=== PATIENT | female | born 1940 | race Caucasian/White ===

== ENCOUNTER 2018-04-14 11:55 | Day surgery (SDC) | payer OTHER ==
--- OUTSIDE RECORDS SUMMARY | 2018-04-14 11:58 | XMS REPORT ---
:1940 [facility] Address [address] [place] [address] Dr. Bergeron [address] [place] [id number] Care Team Providers Name Role Phone UNKNOWN, REFFERING Primary Care Provider Unavailable ALEX FONTANEZ M.D. Unavailable Unavailable Problems This patient has no known problems. Allergies, Adverse Reactions, Alerts This patient has no known allergies or adverse reactions. Medications This patient has no known medications.
[2018-04-14] MEDS ORDERED: BUPIVACAINE 0.25% PF 10 ML VIAL ONE (12:13)
[2018-04-14] MEDS ORDERED: CYCLOPENTOLATE 1% OPTH 2 ML ONE (12:13)
[2018-04-14] MEDS ORDERED: LIDOCAINE 2% MPF 5 ML VIAL ONE ×2 (12:13→13:13)
[2018-04-14] MEDS ORDERED: NA CHLORIDE 0.9% 500 ML ONE ×2 (12:13→13:17)
[2018-04-14] MEDS ORDERED: TETRACAINE HCL 0.5% 2ML OPTH ONE (12:13)
[2018-04-14] MEDS ORDERED: PHENYLEPHRINE 10% OPTH 5ML ONE (12:14)
[2018-04-14] MEDS ORDERED: CYCLOPENTOLATE 1% OPTH 2 ML OPTH ONE ×2 (12:25→12:30)
[2018-04-14] MEDS ORDERED: PHENYLEPHRINE 10% OPTH 5ML OPTH ONE ×2 (12:25→12:30)
[2018-04-14] MEDS ORDERED: PROPOFOL 200 MG/20 ML VIAL IV ONE (13:13)
[2018-04-14] MEDS ORDERED: NS 0.9% VIAL 10 ML ONE (13:29)
[2018-04-14] MEDS ORDERED: EPINEPHRINE/PF 1 MG/ML AMP ONE (13:29)
[2018-04-14] MEDS ORDERED: MOXIFLOXACIN HCL 10 DROPS/ML **OR USE OPTH ONE (13:29)
[2018-04-14] MEDS ORDERED: BALANCED SALT IRRIG PLAIN 500 ML BTL IRR ONE (13:29)
[2018-04-14] MEDS ORDERED: DUOVISC 1 KIT OPTH ONE (13:29)
--- NOTE | 2018-04-14 13:57 | P.BOP ---
Preoperative diagnosis: Nuclear sclerotic cataract OS Postoperative diagnosis: Same Primary procedure: Phacoemulsification with IOL OS Estimated blood loss: None Anesthesia: Local (Subtenon's infusion with anesthesia for cataract surgery) Complications: None Implants: ZCB00 +22.5 Transferred to: Other (Day surgery) Condition: Good
--- NOTE | 2018-04-15 00:45 | OP ---
Date of Procedure: 04/14/2018 Surgeon: Laurie Llanes MD Anesthesiologist: Alyson Garcia C.R.N.A. and Raul Ulloa M.D. Preoperative Diagnosis: Nuclear sclerotic cataract, left eye. Operation Performed: Phacoemulsification with intraocular lens implant, left eye. Anesthesia: Per cataract surgery Complications: None. Description Of Procedure: In day surgery, the patient was prepped with Betadine and draped. A conju nctival incision was made in the inferior nasal quadrant with Rebecca scissors. A sub-Tenon block c onsisting of a 1:1 mixture of 2% Xylocaine and 0.25% bupivacaine was placed through the conjunctival incision with a blunt cannula. A Honan balloon was placed over the eye and the patient was transferr ed to the operating room. In the operating room the patient was prepped and draped in the usual sterile fashion for ophthalmic surgery. A lid speculum was placed in the left eye. Two paracentesis sites were made superiorly and inferiorly in the limbal cornea. Viscoat was placed in the anterior chamber and a crescent blade wa s used to make a corneal groove and tunnel, and a keratome was used to enter the anterior chamber. P rovisc was placed in the anterior chamber and a 360 degree capsulotomy was performed with a cystitome . The lens was hydrodissected with BSS and rotated freely. The lens was removed with a stop and cho p technique. A 17.42 phaco CDE was used to remove the lens. Residual cortex was removed with the ir rigation and aspiration. Provisc was placed in the capsular bag. A ZCB00 +22.0 lens was placed in t he capsular bag without complications. Irrigation and aspiration were used to remove residual viscoe lastic. The paracentesis sites were hydrated with BSS. The wound and paracentesis sites were inspec jolly and found to be watertight. Vigamox 0.07 cc was placed intracamerally at the end of the procedur e. The eye was irrigated with balanced salt solution. The eye was patched with a soft cotton patch and Lee metal shield. The patient was returned to day surgery in good condition. Discharge Instructions: Ms. Del Cid is discharged to home in good condition and is to follow up with Dr. Llanes in the morning. ESTEPHANIE/ROSITA Voice ID: [id number] Report ID: [id number]
== END 2018-04-14 14:18 | disposition home or self-care (01) ==
LOC: OR 11:55
PROVIDERS: ATTEND Ophthalmology Retina Specialist
PROC: 08RK3JZ Replacement of Left Lens with Synthetic Substitute, Percutaneous Approach (ICD-10-PCS; principal; 2018-04-14 11:30)
DX: H25.12 Age-related nuclear cataract, left eye (principal); H35.3130 Nonexudative age-related macular degeneration, bilateral, stage unspecified; F17.200 Nicotine dependence, unspecified, uncomplicated
CPT/HCPCS: 66984; J0171; J2704

== ENCOUNTER 2018-05-24 11:34 | Emergency (ER) | payer OTHER ==
--- OUTSIDE RECORDS SUMMARY | 2018-05-24 11:36 | XMS REPORT ---
:1940 [facility] Address [address] [place] [address] Dr. Bergeron [address] [place] [id number] Care Team Providers Name Role Phone UNKNOWN, REFFERING Primary Care Provider Unavailable ALEX FONTANEZ M.D. Unavailable Unavailable Problems This patient has no known problems. Allergies, Adverse Reactions, Alerts This patient has no known allergies or adverse reactions. Medications This patient has no known medications.
--- NOTE | 2018-05-24 12:52 | RAD REPORT ---
EXAM DESCRIPTION: RAD - Chest Single View - 05/24/2018 12:45 pm CLINICAL HISTORY: abdominal pain Chest pain. COMPARISON: Chest Single View dated 05/07/2017; Abdomen 1 View (KUB) dated 05/05/2017; Abdomen Acute S eries dated 05/04/2017; CHEST PA AND LAT 2 VIEW dated 06/08/2010 FINDINGS: Portable technique limits examination quality. The lungs are grossly clear. The heart is normal in size. No displaced fractures. IMPRESSION: No acute intrathoracic process suspected.
[2018-05-24] MEDS ORDERED: FENTANYL CITR 100 MCG/2 ML ONE (12:56)
[2018-05-24] MEDS ORDERED: NA CHLORIDE 0.9% 500 ML ONE (12:56)
[2018-05-24] MEDS ORDERED: ONDANSETRON 4 MG/2 ML VIAL ONE (12:56)
[2018-05-24 13:14] LABS: Absolute Lymphocytes (CBC) 1.5 K/uL (0.7-4.9); Absolute Monocytes 0.8 K/uL (0.1-1.3); Absolute Neutrophil 9.5 K/uL (1.8-8.0); Basophils % 0.6 % (0-1.3); Eosinophils % 1.3 % (0-4.4); Hematocrit 44.2 % (36.0-45.0); Lymphocytes % 12.5 % (15.3-44.8); MPV 7.9 fL (7.6-11.3); Monocytes % 6.9 % (3.3-12.3); RBC Red Blood Cell Count 4.73 M/uL (3.86-4.86)
[2018-05-24 13:31] LABS: ALT/SGPT 12 U/L (12-78); AST/SGOT 13 U/L (15-37); Alkaline Phosphatase 99 U/L (45-117); BUN Blood Urea Nitrogen 12 mg/dL (7-18); Bicarbonate 29 mmol/L (21-32); Bilirubin Direct < 0.1 mg/dL (0-0.2); Bilirubin Total 0.2 mg/dL (0.2-1.0); Glucose Level 182 mg/dL (74-106); Lipase 159 U/L (73-393); Potassium 3.7 mmol/L (3.5-5.1); Protein, Total 6.9 g/dL (6.4-8.2); Sodium Level 142 mmol/L (136-145)
[2018-05-24 13:33] LABS: Troponin I < 0.02 ng/mL (0.0-0.045)
--- NOTE | 2018-05-24 15:00 | RAD REPORT ---
EXAM DESCRIPTION: CTAbdomen Pelvis W Contrast - 05/24/2018 2:46 pm CLINICAL HISTORY: Abdominal pain. lower abdomen pain COMPARISON: Abdomen Pelvis W Contrast dated 05/01/2017 TECHNIQUE: Biphasic CT imaging of the abdomen and pelvis was performed with 100 ml non-ionic IV cont rast. All CT scans are performed using dose optimization technique as appropriate and may include automated exposure control or mA/KV adjustment according to patient size. FINDINGS: The lung bases are clear. Diffuse fatty liver is present. No focal lesion or intrahepatic biliary dilatation. The spleen, pancr eas, adrenal glands are normal. Both kidneys contain bilateral cysts without hydronephrosis. No bowel obstruction, free air, free fluid or abscess. Prominent sigmoid diverticulosis is seen with mild wall thickening. Mild colitis or early diverticulitis is possible. The appendix is not identifie d as a discrete structure, however, no secondary findings of appendicitis are identified. Small fat containing umbilical hernia. No evidence of significant lymphadenopathy. No suspicious bony findings. IMPRESSION: Mild mucosal and mural thickening of the rectosigmoid colon or multiple diverticula note d. The findings may indicate an early/mild diverticulitis or colitis.
[2018-05-24 15:52] LABS: Urine Bacteria <20 /HPF (<20); Urine Culture Reflex Order REFLEXED; Urine RBC <5 /HPF (NONE SEEN)
[2018-05-24 15:54] LABS: Urine Blood NEGATIVE (NEG); Urine Glucose NEGATIVE (NEG); Urine Protein NEGATIVE (NEG)
[2018-05-24] MEDS ORDERED: HYDROCODONE/APAP 5/325 MG TAB ONE (16:08)
[2018-05-24] MEDS ORDERED: CIPROFLOXACIN HCL 500 MG TAB ONE (16:08)
--- NOTE | 2018-05-24 16:12 | ER ---
Nurse's Notes [facility] Name: Shanae Del Cid Age: 77 yrs Sex: Female : 1940 Arrival Date: 05/24/2018 Time: 11:38 Bed 18 Private MD: Art Daly T Diagnosis: Diverticulitis of large intestine without perforation or abscess without bleeding-Sigmoid Presentation: 05/24 11:41 Presenting complaint: Patient states: i have stomach cramps started 4 days ago, today i hj almost passed out; reports diarrhea, reports nausea; denies fever and chills; took Imodium 2 days ago;. Transition of care: patient was not received from another setting of care. Onset of symptoms was May 24, 2018. Risk Assessment: Do you want to hurt yourself or someone else? Patient reports no desire to harm self or others. Initial Sepsis Screen: Does the patient meet any 2 criteria? Yes Does the patient have a suspected source of infection? Yes:. Care prior to arrival: None. 11:41 Method Of Arrival: Ambulatory 11:41 Acuity: CONNER 3 hj Triage Assessment: 11:43 General: Appears in no apparent distress. uncomfortable, Behavior is calm, cooperative, hj appropriate for age. Pain: Complains of pain in abdomen Pain currently is 8 out of 10 on a pain scale. GI: Reports lower abdominal pain, upper abdominal pain, diarrhea, nausea. Historical: - Allergies: 11:43 No Known Allergies; hj - PMHx: 11:43 eye disease; hj - PSHx: 11:43 Hysterectomy; Appendectomy; Tonsillectomy; hj - Immunization history:: Adult Immunizations up to date. - Social history:: Smoking status: Patient/guardian denies using tobacco, Patient/guardian denies using alcohol. - Ebola Screening: : Patient negative for fever greater than or equal to 101.5 degrees Fahrenheit, and additional compatible Ebola Virus Disease symptoms Patient denies exposure to infectious person Patient denies travel to an Ebola-affected area in the 21 days before illness onset. Screenin:43 Abuse screen: Denies threats or abuse. Denies injuries from another. Nutritional hj screening: No deficits noted. Tuberculosis screening: No symptoms or risk factors identified. Fall Risk None identified. Assessment: 11:44 GI: hj 12:30 General: Appears in no apparent distress. comfortable, Behavior is calm, cooperative, em Denies fever. Pain: Complains of pain in abdomen Pain currently is 2 out of 10 on a pain scale. Quality of pain is described as crampy, Pain began 2-3 days ago. Is intermittent. Neuro: Level of Consciousness is awake, alert, obeys commands, Oriented to person, place, time, situation, Rn Home Health are equal bilaterally Moves all extremities. Gait is steady, Speech is normal, Facial symmetry appears normal, Pupils are PERRLA, Intact Reports dizziness, weakness. Cardiovascular: Denies chest pain, Capillary refill < 3 seconds Patient's skin is warm and dry. Respiratory: Airway is patent Respiratory effort is even, unlabored, Respiratory pattern is regular, symmetrical. GI: Abdomen is round Bowel sounds present X 4 quads. Abd is soft X 4 quads Abdomen is tender to palpation X 4 quads. Reports bloating, nausea, Patient currently denies vomiting. : Denies burning with urination. Derm: Skin is intact, is healthy with good turgor, Skin is pink, warm \T\ dry. Musculoskeletal: Range of motion: intact in all extremities. 12:45 Reassessment: Patient appears in no apparent distress at this time. i agree with above iw assessment by Santhosh Macias LVN. 13:15 Reassessment: Patient appears in no apparent distress at this time. Patient and/or em family updated on plan of care and expected duration. Pain level reassessed. Patient is alert, oriented x 3, equal unlabored respirations, skin warm/dry/pink. finished drinking PO contrast, CT notified. 13:50 Reassessment: Patient appears in no apparent distress at this time. Patient and/or em family updated on plan of care and expected duration. Pain level reassessed. Patient is alert, oriented x 3, equal unlabored respirations, skin warm/dry/pink. ambulated to the restroom with steady gait, pending CT, rates pain 04/17. 15:00 Reassessment: Patient appears in no apparent distress at this time. Patient and/or em family updated on plan of care and expected duration. Pain level reassessed. Patient is alert, oriented x 3, equal unlabored respirations, skin warm/dry/pink. Patient states feeling better. 16:00 Reassessment: Patient appears in no apparent distress at this time. Patient and/or em family updated on plan of care and expected duration. Pain level reassessed. Patient is alert, oriented x 3, equal unlabored respirations, skin warm/dry/pink. pending completion of IV ABX. Vital Signs: 11:44 BP 107 / 57; Pulse 86; Resp 18; Temp 98.0(O); Pulse Ox 98% on R/A; Weight 61.69 kg; hj Height 4 ft. 8 in. (142.24 cm); Pain 8/10; 12:45 BP 133 / 52 Supine; Pulse 65; em 12:45 BP 127 / 54 Sitting; Pulse 70; em 12:45 BP 112 / 54 Standing; Pulse 79; em 13:50 BP 139 / 60; Pulse 66; Resp 16 S; Pulse Ox 96% on R/A; Pain 1/10; em 15:00 BP 156 / 58; Pulse 69; Resp 16; Pulse Ox 98% on R/A; em 16:00 BP 156 / 53; Pulse 64; Resp 18; Pulse Ox 98% on R/A; em 11:44 Body Mass Index 30.49 (61.69 kg, 142.24 cm) ED Course: 11:38 Patient arrived in ED. rg4 11:38 Art Daly MD is Private Physician. rg4 11:42 Triage completed. hj 11:43 Arm band placed on right wrist. hj 11:44 Patient has correct armband on for positive identification. Placed in gown. Bed in low hj position. Call light in reach. Side rails up X 1. Adult w/ patient. 12:04 Santhosh Macias LVN is Primary Nurse. em 12:16 Donovan Weinstein PA is PHCP. cp 12:16 Alexander Olivarez MD is Attending Physician. cp 12:48 XRAY Chest (1 view) In Process Unspecified. EDMS 13:00 Initial lab(s) drawn, by ne, sent to lab. Inserted saline lock: 20 gauge in right em antecubital area, using aseptic technique. Blood collected. 13:06 EKG done, by ED staff, reviewed by Donovan CUMMINS. 5 14:46 CT completed. Patient tolerated procedure well. Patient moved back from CT. mw3 14:46 CT Abd/Pelvis - W/Contrast: give oral contrast In Process Unspecified. EDMS 16:10 Art Daly MD is Referral Physician. cp 17:05 No provider procedures requiring assistance completed. IV discontinued, intact, em bleeding controlled, No redness/swelling at site. Pressure dressing applied. Administered Medications: 13:05 Drug: NS 0.9% 500 ml Route: IV; Rate: bolus; Site: right antecubital; em 14:18 Follow up: IV Status: Completed infusion; IV Intake: 500ml em 13:07 Drug: fentaNYL (PF) 25 mcg Route: IVP; Site: right antecubital; iw 13:53 Follow up: Response: No adverse reaction; Temperature is decreased em 13:07 Drug: Zofran 4 mg Route: IVP; Site: right antecubital; iw 13:53 Follow up: Response: No adverse reaction; Nausea is decreased em 15:55 Drug: metroNIDAZOLE 500 mg Volume: 100 ml; Route: IVPB; Infused Over: 30 mins; Site: em right antecubital; 17:00 Follow up: Response: No adverse reaction; IV Status: Completed infusion; IV Intake: em 100ml 16:00 Drug: Cipro 500 mg Route: PO; em 17:00 Follow up: Response: No adverse reaction em 16:00 Drug: HYDROcodone-acetaminophen 5 mg-325 mg 1 tabs Route: PO; em 17:00 Follow up: Response: No adverse reaction em Intake: 14:18 IV: 500ml; Total: 500ml. em 17:00 IV: 100ml; Total: 600ml. em Outcome: 16:11 Discharge ordered by MD. cp 17:05 Discharged to home ambulatory, with family. em 17:05 Condition: good 17:05 Discharge instructions given to patient, family, Instructed on discharge instructions, follow up and referral plans. medication usage, Demonstrated understanding of instructions, follow-up care, medications, Prescriptions given X 3. 17:07 Patient left the ED. em Signatures: Dispatcher [employer] EDMS Santhosh Macias, ACCOUNTANT ACCOUNTANT em Dedra Martinez RN RN iw Joaquin, Henry, RN RN hj Page, Corey, PA PA cp Garcia, Rubi rg4 Madalyn Leon 5 Halima Fox mw3 Corrections: (The following items were deleted from the chart) 11:46 11:44 Pulse 86bpm; Resp 18bpm; Pulse Ox 98% RA; Temp 98.0F Oral; 61.69 kg; Height 4 ft. hj 8 in.; BMI: 30.4; Pain 11/15; hj 13:53 13:53 Response: No adverse reaction; Nausea is decreased em em
--- NOTE | 2018-05-24 16:13 | EDPHYS ---
Physician Documentation [facility] Name: Shanae Del Cid Age: 77 yrs Sex: Female : 1940 Arrival Date: 05/24/2018 Time: 11:38 Bed 18 Private MD: Art Daly T ED Physician Alexander Olivarez HPI: 05/24 12:35 This 77 yrs old Female presents to ER via Ambulatory with complaints of cp Abdominal Cramping, Weakness. 12:35 The patient presents with abdominal pain in the lower abdomen. cp 12:35 Onset: The symptoms/episode began/occurred 4 day(s) ago. The symptoms do not radiate. cp Associated signs and symptoms: Pertinent positives: diarrhea, Pertinent negatives: anorexia, blood in stools, constipation, dysuria, fever, vomiting. The symptoms are described as waxing/waning. Modifying factors: the symptoms are aggravated by pressure. Historical: - Allergies: 11:43 No Known Allergies; hj - PMHx: 11:43 eye disease; hj - PSHx: 11:43 Hysterectomy; Appendectomy; Tonsillectomy; hj - Immunization history:: Adult Immunizations up to date. - Social history:: Smoking status: Patient/guardian denies using tobacco, Patient/guardian denies using alcohol. - Ebola Screening: : Patient negative for fever greater than or equal to 101.5 degrees Fahrenheit, and additional compatible Ebola Virus Disease symptoms Patient denies exposure to infectious person Patient denies travel to an Ebola-affected area in the 21 days before illness onset. ROS: 12:40 Constitutional: Negative for body aches, chills, fever, poor PO intake. cp 12:40 Eyes: Negative for injury, pain, redness, and discharge. cp 12:40 ENT: Negative for drainage from ear(s), ear pain, sore throat, difficulty swallowing, difficulty handling secretions. 12:40 Cardiovascular: Negative for chest pain, edema, palpitations. 12:40 Respiratory: Negative for cough, shortness of breath, wheezing. 12:40 Abdomen/GI: Positive for abdominal pain, nausea, diarrhea, Negative for vomiting, constipation, anorexia, black/tarry stool, rectal bleeding. 12:40 Back: Negative for pain at rest, pain with movement, radiated pain. 12:40 : Negative for urinary symptoms. 12:40 Neuro: Positive for dizziness, near syncope, Negative for altered mental status, headache, weakness. 12:40 All other systems are negative. Exam: 12:45 Constitutional: The patient appears in no acute distress, alert, awake, cp non-diaphoretic, non-toxic, well developed, well nourished, uncomfortable. 12:45 Head/Face: Normocephalic, atraumatic. Eyes: Pupils equal round and reactive to light, cp extra-ocular motions intact. Lids and lashes normal. Conjunctiva and sclera are non-icteric and not injected. Cornea within normal limits. Periorbital areas with no swelling, redness, or edema. ENT: Nares patent. No nasal discharge, no septal abnormalities noted. Tympanic membranes are normal and external auditory canals are clear. Oropharynx with no redness, swelling, or masses, exudates, or evidence of obstruction, uvula midline. Mucous membranes moist. Neck: Trachea midline, no thyromegaly or masses palpated, and no cervical lymphadenopathy. Supple, full range of motion without nuchal rigidity, or vertebral point tenderness. No Meningismus. Chest/axilla: Normal chest wall appearance and motion. Nontender with no deformity. No lesions are appreciated. 12:45 Cardiovascular: Rate: normal, Rhythm: regular, Edema: is not appreciated, JVD: is not appreciated. 12:45 Respiratory: the patient does not display signs of respiratory distress, Respirations: normal, no use of accessory muscles, no retractions, no splinting, no tachypnea, labored breathing, is not present. 12:45 Abdomen/GI: Inspection: abdomen appears normal, Bowel sounds: active, all quadrants, cp Palpation: soft, in all quadrants, moderate abdominal tenderness, in the right lower quadrant, rebound tenderness, is not appreciated, voluntary guarding, is elicited in the right lower quadrant. 12:45 Back: pain, is absent, ROM is normal. cp 12:45 Skin: cellulitis, is not appreciated, no rash present. 13:10 ECG was reviewed by the Attending Physician. cp Vital Signs: 11:44 BP 107 / 57; Pulse 86; Resp 18; Temp 98.0(O); Pulse Ox 98% on R/A; Weight 61.69 kg; hj Height 4 ft. 8 in. (142.24 cm); Pain 8/10; 12:45 BP 133 / 52 Supine; Pulse 65; em 12:45 BP 127 / 54 Sitting; Pulse 70; em 12:45 BP 112 / 54 Standing; Pulse 79; em 13:50 BP 139 / 60; Pulse 66; Resp 16 S; Pulse Ox 96% on R/A; Pain 1/10; em 15:00 BP 156 / 58; Pulse 69; Resp 16; Pulse Ox 98% on R/A; em 16:00 BP 156 / 53; Pulse 64; Resp 18; Pulse Ox 98% on R/A; em 11:44 Body Mass Index 30.49 (61.69 kg, 142.24 cm) hj MDM: 12:16 Patient medically screened. cp 15:00 Differential diagnosis: appendicitis, bowel obstruction, gastritis, pancreatitis, cp Ureterolithiasis, urinary tract infection, colitis. 16:10 Data reviewed: vital signs, nurses notes, lab test result(s), radiologic studies, CT cp scan. 16:10 Response to treatment: the patient's symptoms have markedly improved after treatment, cp VSS. Pain markedly improved. Patient declines admission for IV antibiotics and pain control and would like to try oral antibiotics, and as a result, I will discharge patient. 05/24 12:28 Order name: Basic Metabolic Panel; Complete Time: 15:31 cp 05/24 12:28 Order name: CBC with Diff; Complete Time: 15:31 cp 05/24 12:28 Order name: Creatinine for Radiology; Complete Time: 15:31 cp 05/24 12:28 Order name: Hepatic Function; Complete Time: 15:31 cp 05/24 12:28 Order name: Lipase; Complete Time: 15:31 cp 05/24 12:29 Order name: Troponin I; Complete Time: 15:31 cp 05/24 12:29 Order name: XRAY Chest (1 view); Complete Time: 15:31 cp 05/24 12:29 Order name: Magnesium; Complete Time: 15:31 cp 05/24 12:43 Order name: CT Abd/Pelvis - W/Contrast: give oral contrast; Complete Time: 15:31 cp 05/24 14:40 Order name: Urine Microscopic Only em 05/24 15:42 Order name: Urine Dipstick--Ancillary (enter results) ms 05/24 15:54 Order name: Urine Culture EDWI 05/24 12:28 Order name: Orthostatics; Complete Time: 13:10 cp 05/24 12:28 Order name: IV Saline Lock; Complete Time: 13:10 cp 05/24 12:28 Order name: Labs collected and sent; Complete Time: 13:10 cp 05/24 12:28 Order name: Urine Dipstick-Ancillary (obtain specimen); Complete Time: 14:40 cp 05/24 12:28 Order name: Urine Test (obtain specimen); Complete Time: 14:40 cp 05/24 12:29 Order name: EKG; Complete Time: 12:30 cp 05/24 12:29 Order name: EKG - Nurse/Tech; Complete Time: 13:06 cp 05/24 15:32 Order name: PO challenge; Complete Time: 16:20 cp EC:10 Rate is 65 beats/min. Rhythm is regular. DC interval is normal. QRS interval is normal. cp QT interval is normal. T waves are Inverted in lead V2. Interpreted by me. Reviewed by me. Administered Medications: 13:05 Drug: NS 0.9% 500 ml Route: IV; Rate: bolus; Site: right antecubital; em 14:18 Follow up: IV Status: Completed infusion; IV Intake: 500ml em 13:07 Drug: fentaNYL (PF) 25 mcg Route: IVP; Site: right antecubital; iw 13:53 Follow up: Response: No adverse reaction; Temperature is decreased em 13:07 Drug: Zofran 4 mg Route: IVP; Site: right antecubital; iw 13:53 Follow up: Response: No adverse reaction; Nausea is decreased em 15:55 Drug: metroNIDAZOLE 500 mg Volume: 100 ml; Route: IVPB; Infused Over: 30 mins; Site: em right antecubital; 17:00 Follow up: Response: No adverse reaction; IV Status: Completed infusion; IV Intake: em 100ml 16:00 Drug: Cipro 500 mg Route: PO; em 17:00 Follow up: Response: No adverse reaction em 16:00 Drug: HYDROcodone-acetaminophen 5 mg-325 mg 1 tabs Route: PO; em 17:00 Follow up: Response: No adverse reaction em Disposition: 18:21 Co-signature as Attending Physician, Alexander Olivarez MD. Disposition: 05/24/18 16:11 Discharged to Home. Impression: Diverticulitis of large intestine without perforation or abscess without bleeding - Sigmoid. - Condition is Stable. - Discharge Instructions: High-Fiber Diet, Diverticulitis. - Prescriptions for Zofran 4 mg Oral Tablet - take 1 tablet by ORAL route every 12 hours As needed; 20 tablet. Cipro 500 mg Oral Tablet - take 1 tablet by ORAL route every 12 hours for 10 days; 20 tablet. Metronidazole 500 mg Oral Tablet - take 1 tablet by ORAL route every 8 hours; 30 tablet. Tramadol 50 mg Oral Tablet - take 1 tablet by ORAL route every 8 hours as needed; 15 tablet. - Medication Reconciliation Form, Thank You Letter, Antibiotic Education, Prescription Opioid Use form. - Follow up: Art Daly MD; When: 2 - 3 days; Reason: Recheck today's complaints. - Problem is new. - Symptoms have improved. Signatures: Dispatcher [employer] EDSanthosh Chan, OIL DRILLING ENGINEER OIL DRILLING ENGINEER em Dedra Martinez RN RN Keith Lion RN RN hj Page, Corey, PA PA Alexander King MD MD Corrections: (The following items were deleted from the chart) 17:07 16:11 05/24/2018 16:11 Discharged to Home. Impression: Diverticulitis of large em intestine without perforation or abscess without bleeding - Sigmoid. Condition is Stable. Forms are Medication Reconciliation Form, Thank You Letter, Antibiotic Education, Prescription Opioid Use. Follow up: Art Daly; When: 2 - 3 days; Reason: Recheck today's complaints. Problem is new. Symptoms have improved. cp
--- NOTE | 2018-05-26 07:41 | EKG ---
Test Date: 2018-05-24 Test Time: 13:01:34 Fire Management Specialist: JACKSON MEASUREMENT RESULTS: Intervals: Rate: 65 NC: 138 QRSD: 74 QT: 410 QTc: 426 Benton: P: 15 NC: 138 QRS: 35 T: 54 INTERPRETIVE STATEMENTS: Normal sinus rhythm Nonspecific T wave abnormality Abnormal ECG Compared to ECG 05/01/2017 17:45:14 No significant changes Electronically Signed On 05-26-18 07:37:57 [employer] by Tim Bojorquez
== END 2018-05-24 17:07 | disposition home or self-care (01) ==
LOC: ER 11:34
DX: K57.32 Diverticulitis of large intestine without perforation or abscess without bleeding (principal)
CPT/HCPCS: 36415; 71045; 74177; 80048; 80076; 83690; 83735; 84484; 85025; 87086; 87088; 93005; 96361; 96365; 96375; 99284; J2405; J3010; Q9967; 81003; 81015

== ENCOUNTER 2019-06-05 11:26 | Emergency (ER) | payer OTHER ==
--- OUTSIDE RECORDS SUMMARY | 2019-06-05 11:49 | XMS REPORT ---
:1940 [facility] Address [address] [place] [address] Dr. Bergeron [address] [place] [id number] Care Team Providers Name Role Phone UNKNOWN, REFFERING Primary Care Provider Unavailable ALEX FONTANEZ M.D. Unavailable Unavailable Problems This patient has no known problems. Allergies, Adverse Reactions, Alerts This patient has no known allergies or adverse reactions. Medications This patient has no known medications.
[2019-06-05 12:48] LABS: Absolute Lymphocytes (CBC) 2.3 K/uL (0.7-4.9); Basophils % 0.7 % (0-1.3); Hematocrit 43.3 % (36.0-45.0); Lymphocytes % 28.7 % (15.3-44.8); MPV 7.9 fL (7.6-11.3); RBC Red Blood Cell Count 4.65 M/uL (3.86-4.86)
[2019-06-05 12:49] LABS: Protime INR 1.06
[2019-06-05] MEDS ORDERED: MORPHINE 2 MG/ML SYR ONE (12:49)
[2019-06-05 13:10] LABS: ALT/SGPT 19 U/L (12-78); AST/SGOT 23 U/L (15-37); Albumin 3.9 g/dL (3.4-5.0); Alkaline Phosphatase 84 U/L (45-117); BUN Blood Urea Nitrogen 9 mg/dL (7-18); Bicarbonate 26 mmol/L (21-32); Bilirubin Direct 0.2 mg/dL (0-0.2); Bilirubin Total 0.4 mg/dL (0.2-1.0); Glucose Level 94 mg/dL (74-106); Lipase 134 U/L (73-393); Magnesium 2.3 mg/dL (1.8-2.4); Potassium 3.3 mmol/L (3.5-5.1); Protein, Total 6.9 g/dL (6.4-8.2); Sodium Level 139 mmol/L (136-145); Troponin (Emerg Dept Use Only) < 0.02 ng/mL (0.0-0.045)
--- NOTE | 2019-06-05 14:18 | RAD REPORT ---
EXAM DESCRIPTION: CT - Abdomen Pelvis W Contrast - 06/05/2019 2:00 pm CLINICAL HISTORY: back pain, suspected pancreatitis, prior hysterectomy and appendectomy COMPARISON: Abdomen Pelvis W Contrast dated 05/24/2018; Abdomen Pelvis W Contrast dated 05/01/2017 TECHNIQUE: Biphasic, helical CT imaging of the abdomen and pelvis was performed following 100 ml non -ionic IV contrast. No oral contrast administered. All CT scans are performed using dose optimization technique as appropriate and may include automated exposure control or mA/KV adjustment according to patient size. FINDINGS: No suspicious findings in the lung bases. Liver and spleen show no suspicious findings. No gallbladder abnormality. Biliary tree is mildly prom inent but not substantially different from comparison. Gallstones and duct stones can be occult on CT imaging. No solid or cystic mass of the pancreatic parenchyma. No peripancreatic inflammatory stranding identi fied. Symmetric renal function is seen with no hydronephrosis or suspicious renal mass. No pyelonephritis o r acute parenchymal process. No bladder abnormalities. No adrenal abnormalities. Uterus is absent. Ov jourdan are still present and unchanged from comparison. No gastric dilatation or wall thickening. No duodenal abnormality seen. The small bowel loops are not dilated. Prominent sigmoid diverticulosis is present. No acute diverticulitis. Patient has a mobile cecum positioned in the superior right upper quadrant. No active colon process seen. No free air, free fluid or inflammatory stranding. No hernia, mass or bulky lymphadenopathy. Disc and bony degenerative changes are present. Mild anterior L4 subluxation is present secondary to prominent facet degenerative change. Slight wedging of the superior endplates T11 and T12 as well as T9 are believed be chronic. No pathologic component seen. IMPRESSION: No pancreatitis findings are present. No acute upper abdominal findings are seen. Biliary tree is mildly prominent. This is not substantially different from May 24. Gallstones an d duct stones can be occult on CT imaging. Correlation can be made with lab studies for any possible biliary obstructive process. Moderately prominent diverticulosis without diverticulitis. No acute GI, and or PRACTICE MANAGERS process otherw ise noted.
--- NOTE | 2019-06-05 14:49 | EDPHYS ---
Physician Documentation [facility] Name: Shanae Del Cid Age: 78 yrs Sex: Female : 1940 Arrival Date: 06/05/2019 Time: 11:29 Bed 17 Private MD: Art Daly T ED Physician Donovan Irby HPI: 06/05 12:14 This 78 yrs old Female presents to ER via Ambulatory with complaints of cp Abnormal Lab Results. 12:14 The patient presents with pain that is acute, with no known mechanism of injury. The cp symptoms are located in the right mid back. Onset: The symptoms/episode began/occurred 5 day(s) ago. The pain does not radiate. Associated signs and symptoms: Pertinent negatives: abdominal pain, chest pain, fever, incontinence, numbness, urinary retention, weakness. The problem was sustained from unknown cause. Severity of symptoms: in the emergency department the symptoms a " 2" out of "10". Patient reports she was referred to ED by DR Daly for pancreatitis. Had US and blood work drawn earlier this week. Historical: - Allergies: 12:04 No Known Allergies; ss - PSHx: 12:04 Hysterectomy; Appendectomy; Tonsillectomy; ss - Immunization history:: Adult Immunizations up to date. - Social history:: Smoking status: Patient reports the use of cigarette tobacco products, smokes one pack cigarettes per day. ROS: 12:20 Constitutional: Negative for body aches, chills, fever, poor PO intake. cp 12:20 Eyes: Negative for injury, pain, redness, and discharge. cp 12:20 ENT: Negative for drainage from ear(s), ear pain, sore throat, difficulty swallowing, difficulty handling secretions. 12:20 Cardiovascular: Negative for chest pain, palpitations. 12:20 Respiratory: Negative for cough, shortness of breath, wheezing. 12:20 Abdomen/GI: Negative for abdominal pain, nausea, vomiting, and diarrhea, constipation, black/tarry stool, rectal bleeding. 12:20 Back: Positive for pain at rest, pain with movement, of the right mid back. 12:20 : Negative for urinary symptoms. 12:20 Skin: Negative for cellulitis, rash. 12:20 Neuro: Negative for altered mental status, headache, weakness. 12:20 All other systems are negative. Exam: 12:25 Constitutional: The patient appears in no acute distress, alert, awake, cp non-diaphoretic, non-toxic, well developed, well nourished. 12:25 Head/Face: Normocephalic, atraumatic. cp 12:25 Eyes: Periorbital structures: appear normal, Conjunctiva: normal, no exudate, no injection, Sclera: no appreciated abnormality, Lids and lashes: appear normal, bilaterally. 12:25 ENT: External ear(s): are unremarkable, Nose: is normal, Mouth: Lips: moist, Oral mucosa: pink and intact, moist, Posterior pharynx: is normal, airway is patent, no erythema, no exudate. 12:25 Neck: ROM/movement: is normal, is supple, without pain, no range of motions limitations, no nuchal rigidity. 12:25 Chest/axilla: Inspection: normal, Palpation: is normal, no crepitus, no tenderness. 12:25 Cardiovascular: Rate: normal, Rhythm: regular, Edema: is not appreciated, JVD: is not appreciated. 12:25 Respiratory: the patient does not display signs of respiratory distress, Respirations: normal, no use of accessory muscles, no retractions, no tachypnea, labored breathing, is not present, Breath sounds: are clear throughout, no decreased breath sounds, no wheezing. 12:25 Abdomen/GI: Inspection: abdomen appears normal, Bowel sounds: active, all quadrants, Palpation: abdomen is soft and non-tender, in all quadrants, rebound tenderness, is not appreciated, voluntary guarding, is not appreciated, involuntary guarding, is not appreciated. 12:25 Back: pain, that is mild, of the right mid back, ROM is normal. 12:25 Skin: no rash present. 12:25 Neuro: Orientation: to person, place \\T\\ time. Mentation: is normal, Motor: moves all fours, strength is normal. 12:57 ECG was reviewed by the Attending Physician. cp Vital Signs: 12:00 BP 194 / 74; Pulse 77; Resp 16; Temp 99.5(TE); Pulse Ox 99% on R/A; Weight 63.05 kg; ss Height 4 ft. 7 in. (139.70 cm); Pain 4/10; 13:00 BP 177 / 61; Pulse 63; Resp 17 S; Pulse Ox 97% on R/A; ca1 14:06 BP 195 / 66; Pulse 65; Resp 17 S; Pulse Ox 96% on R/A; ca1 14:45 BP 173 / 72; Pulse 69; Resp 17 S; Pulse Ox 96% on R/A; ca1 12:00 Body Mass Index 32.31 (63.05 kg, 139.70 cm) ss MDM: 12:00 Patient medically screened. jojo 12:35 Differential diagnosis: Cholelithiasis chronic back pain, Pyelonephritis ruptured disc, cp Ureterolithiasis pancreatitis. 14:47 Data reviewed: vital signs, nurses notes, lab test result(s), radiologic studies, CT cp scan. 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 ED course: VSS. Lipase and LFTs normal, CT abdomen/pelvis negative. Will discharge to home for continued monitoring. 06/05 12:14 Order name: Basic Metabolic Panel; Complete Time: 13:11 cp 06/05 14:14 Interpretation: Normal except: K 3.3; GFR 78. cp 06/05 12:14 Order name: CBC with Diff; Complete Time: 13:11 cp 06/05 14:14 Interpretation: Reviewed. 06/05 12:14 Order name: LFT's; Complete Time: 13:11 cp 06/05 14:14 Interpretation: Reviewed. cp 06/05 12:14 Order name: Magnesium; Complete Time: 13:11 cp 06/05 12:14 Order name: PT-INR; Complete Time: 13:11 cp 06/05 12:14 Order name: Troponin (emerg Dept Use Only); Complete Time: 13:11 cp 06/05 12:14 Order name: EKG; Complete Time: 12:14 cp 06/05 12:14 Order name: Cardiac monitoring; Complete Time: 12:43 cp 06/05 12:14 Order name: EKG - Nurse/Tech; Complete Time: 12:56 cp 06/05 12:14 Order name: IV Saline Lock; Complete Time: 12:36 cp 06/05 12:14 Order name: Labs collected and sent; Complete Time: 12:36 06/05 12:14 Order name: Lipase; Complete Time: 13:11 06/05 13:42 Order name: CT Abd/Pelvis - IV Contrast Only; Complete Time: 14:30 06/05 14:32 Interpretation: Report reviewed. 06/05 12:14 Order name: O2 Per Protocol; Complete Time: 12:43 06/05 12:14 Order name: O2 Sat Monitoring; Complete Time: 12:43 EC:57 Rate is 70 beats/min. Rhythm is regular. DE interval is normal. QRS interval is normal. cp QT interval is normal. Interpreted by me. Reviewed by me. Administered Medications: 12:50 Drug: morphine 2 mg Route: IVP; Site: left wrist; ca1 13:30 Follow up: Response: No adverse reaction; Pain is decreased; RASS: Alert and Calm (0) ca1 Disposition: 06/05/19 14:48 Discharged to Home. Impression: Back pain, Elevated blood-pressure reading, without diagnosis of hypertension. - Condition is Stable. - Discharge Instructions: Back Pain, Adult, How to Take Your Blood Pressure, [id number], Form - Blood Pressure Record Sheet. - Prescriptions for Tramadol 50 mg Oral Tablet - take 1 tablet by ORAL route every 8 hours as needed; 20 tablet. - Medication Reconciliation Form, Thank You Letter, Antibiotic Education, Prescription Opioid Use form. - Follow up: Merlin Velazquez MD; When: 2 - 3 days; Reason: Recheck today's complaints. - Problem is new. - Symptoms have improved. Addendum: 06/07/2019 17:45 Co-signature as Attending Physician, Donovan Irby MD I agree with the assessment and c wadsworth plan of care. PA/SUPPORT ARCHITECT's history reviewed, patient interviewed, and examined. Signatures: Dispatcher [employer] EDDonovan Greenfield MD MD cha Smirch, Shelby, RN RN ss Donovan Weinstein PA PA cp Acob, Cheryl RN RN ca1 Corrections: (The following items were deleted from the chart) 06/05 14:49 14:48 06/05/2019 14:48 Discharged to Home. Impression: Back pain. Condition is Stable. cp Forms are Medication Reconciliation Form, Thank You Letter, Antibiotic Education, Prescription Opioid Use. Follow up: Merlin Velazquez; When: 2 - 3 days; Reason: Recheck today's complaints. Problem is new. Symptoms have improved. cp 14:59 14:49 06/05/2019 14:48 Discharged to Home. Impression: Back pain; Elevated ca1 blood-pressure reading, without diagnosis of hypertension. Condition is Stable. Discharge Instructions: Back Pain, Adult, How to Take Your Blood Pressure, [id number], Form - Blood Pressure Record Sheet. Forms are Medication Reconciliation Form, Thank You Letter, Antibiotic Education, Prescription Opioid Use. Follow up: Merlin Velazquez; When: 2 - 3 days; Reason: Recheck today's complaints. Problem is new. Symptoms have improved. cp
--- NOTE | 2019-06-05 14:49 | ER ---
Nurse's Notes [facility] Name: Shanae Del Cid Age: 78 yrs Sex: Female : 1940 Arrival Date: 06/05/2019 Time: 11:29 Bed 17 Private MD: Art Daly T Diagnosis: Back pain;Elevated blood-pressure reading, without diagnosis of hypertension Presentation: 06/05 12:01 Chief complaint: Patient states: Dr. Daly sent patient for evaluation of possible ss pancreatitis. Pt reports she had blood work, urine test, chest XRAY and abd ultrasound 2 days ago. C/o mild R mid back pain. Coronavirus screen: The patient has NOT traveled to [place] in the past 14 days. Proceed with normal triage procedures. Ebola Screen: Patient denies exposure to infectious person. Patient denies travel to an Ebola-affected area in the 21 days before illness onset. Initial Sepsis Screen: Does the patient meet any 2 criteria? No. Patient's initial sepsis screen is negative. Does the patient have a suspected source of infection? No. Patient's initial sepsis screen is negative. Risk Assessment: Do you want to hurt yourself or someone else? Patient reports no desire to harm self or others. 12:01 Method Of Arrival: Ambulatory ss 12:01 Acuity: CONNER 3 ss 13:00 Onset of symptoms was June 05, 2019. ca1 Historical: - Allergies: 12:04 No Known Allergies; ss - PSHx: 12:04 Hysterectomy; Appendectomy; Tonsillectomy; ss - Immunization history:: Adult Immunizations up to date. - Social history:: Smoking status: Patient reports the use of cigarette tobacco products, smokes one pack cigarettes per day. Screenin:00 Abuse screen: Denies threats or abuse. Denies injuries from another. Nutritional ca1 screening: No deficits noted. Tuberculosis screening: No symptoms or risk factors identified. Fall Risk IV access (20 points). Assessment: 12:00 General: Appears in no apparent distress. comfortable, Behavior is calm, cooperative, ca1 appropriate for age. Pain: Complains of pain in face and scalp and right mid back Pain currently is 7 out of 10 on a pain scale. Neuro: Level of Consciousness is awake, alert, obeys commands, Oriented to person, place, time, situation, Appropriate for age. Cardiovascular: Heart tones S1 S2 absent Capillary refill < 3 seconds Patient's skin is warm and dry. Rhythm is sinus rhythm. Respiratory: Airway is patent Respiratory effort is even, unlabored, Respiratory pattern is regular, symmetrical, Breath sounds are clear bilaterally. GI: Abdomen is round non-distended, Bowel sounds present X 4 quads. Abd is soft and non tender X 4 quads. : No signs and/or symptoms were reported regarding the genitourinary system. EENT: No signs and/or symptoms were reported regarding the EENT system. Derm: Skin is intact, is healthy with good turgor, Skin is pink, warm \T\ dry. Musculoskeletal: Circulation, motion, and sensation intact. Capillary refill < 3 seconds, Range of motion: intact in all extremities. 12:58 Reassessment: Patient appears in no apparent distress at this time. Patient and/or ca1 family updated on plan of care and expected duration. Pain level reassessed. Patient is alert, oriented x 3, equal unlabored respirations, skin warm/dry/pink. 13:37 Reassessment: Patient appears in no apparent distress at this time. Patient is alert, ca1 oriented x 3, equal unlabored respirations, skin warm/dry/pink. Ambulated to restroom twice with steady gait. 13:51 Reassessment: Pt to CT. ca1 14:45 Reassessment: Patient appears in no apparent distress at this time. Patient and/or ca1 family updated on plan of care and expected duration. Pain level reassessed. Patient is alert, oriented x 3, equal unlabored respirations, skin warm/dry/pink. Vital Signs: 12:00 BP 194 / 74; Pulse 77; Resp 16; Temp 99.5(TE); Pulse Ox 99% on R/A; Weight 63.05 kg; ss Height 4 ft. 7 in. (139.70 cm); Pain 4/10; 13:00 BP 177 / 61; Pulse 63; Resp 17 S; Pulse Ox 97% on R/A; ca1 14:06 BP 195 / 66; Pulse 65; Resp 17 S; Pulse Ox 96% on R/A; ca1 14:45 BP 173 / 72; Pulse 69; Resp 17 S; Pulse Ox 96% on R/A; ca1 12:00 Body Mass Index 32.31 (63.05 kg, 139.70 cm) ED Course: 11:29 Patient arrived in ED. mr 11:29 Art Daly MD is Private Physician. mr 11:50 [facility] cp 11:50 Donovan Irby MD is Attending Physician. cp 12:00 Arm band placed on right wrist. ss 12:00 Patient has correct armband on for positive identification. Placed in gown. Bed in low ca1 position. Call light in reach. Side rails up X2. journal clerk on. Pulse ox on. NIBP on. Warm blanket given. 12:00 No provider procedures requiring assistance completed. ca1 12:03 Triage completed. ss 12:05 Janet Nguyen, RN is Primary Nurse. ca1 12:30 Initial lab(s) drawn, by tn, sent to lab. Inserted saline lock: 20 gauge in right dh3 forearm, using aseptic technique. Blood collected. 14:00 CT Abd/Pelvis - IV Contrast Only In Process Unspecified. EDMS 14:47 Merlin Velazquez MD is Referral Physician. cp 14:57 IV discontinued, intact, bleeding controlled, No redness/swelling at site. Pressure ca1 dressing applied. Administered Medications: 12:50 Drug: morphine 2 mg Route: IVP; Site: left wrist; ca1 13:30 Follow up: Response: No adverse reaction; Pain is decreased; RASS: Alert and Calm (0) ca1 Outcome: 14:48 Discharge ordered by . cp 14:57 Discharged to home ambulatory, with family. ca1 14:57 Condition: stable 14:57 Discharge instructions given to patient, Instructed on discharge instructions, follow up and referral plans. no driving heavy equipment, medication usage, Demonstrated understanding of instructions, follow-up care, medications, Prescriptions given X 1. 14:59 Patient left the ED. ca1 Signatures: Dispatcher [employer] [facility] Clara YeboahMarisol, RN RN Donovan Weinstein PA PA cp [place], [place] [id number] Janet Nguyen RN RN ca1
[2019-06-05 15:09] VITALS: TEMP 99.5
[2019-06-05 15:12] VITALS: O2SAT 96
[2019-06-05 15:13] VITALS: BP 173/72
--- NOTE | 2019-06-06 11:01 | EKG ---
Test Date: 2019-06-05 Test Time: 12:52:34 Nurse Reviewer: ALEJANDRO MEASUREMENT RESULTS: Intervals: Rate: 70 MO: 138 QRSD: 70 QT: 402 QTc: 434 [place]: P: 36 MO: 138 QRS: 6 T: 72 INTERPRETIVE STATEMENTS: Normal sinus rhythm Normal ECG Compared to ECG 05/24/2018 13:01:34 T-wave abnormality no longer present Electronically Signed On 06-06-19 11:00:28 TEST DRIVER by Tim Bojorquez
== END 2019-06-05 14:59 | disposition home or self-care (01) ==
LOC: ER 11:26
DX: R03.0 Elevated blood-pressure reading, without diagnosis of hypertension (principal); F17.210 Nicotine dependence, cigarettes, uncomplicated
CPT/HCPCS: 93005; 85025; 80048; 36415; 83735; 85610; 80076; 84484; 83690; 74177; 96374; 99284; Q9967; J2270

== ENCOUNTER 2019-06-15 20:53 | Emergency (ER) | payer OTHER ==
--- OUTSIDE RECORDS SUMMARY | 2019-06-15 20:55 | XMS REPORT ---
:1940 [facility] [address] [place] [address] Dr. Bergeron [address] [place] [id number] Care Team Providers Name Role Phone UNKNOWN, REFFERING Primary Care Provider Unavailable ALEX FONTANEZ M.D. Unavailable Unavailable Problems This patient has no known problems. Allergies, Adverse Reactions, Alerts This patient has no known allergies or adverse reactions. Medications This patient has no known medications.
[2019-06-15 22:38] LABS: Absolute Lymphocytes (CBC) 2.5 K/uL (0.7-4.9); Basophils % 0.5 % (0-1.3); Hematocrit 42.3 % (36.0-45.0); Lymphocytes % 19.9 % (15.3-44.8); RBC Red Blood Cell Count 4.55 M/uL (3.86-4.86)
[2019-06-15 22:45] LABS: ALT/SGPT 16 U/L (12-78); AST/SGOT 19 U/L (15-37); Albumin 3.7 g/dL (3.4-5.0); Alkaline Phosphatase 87 U/L (45-117); BUN Blood Urea Nitrogen 8 mg/dL (7-18); Bicarbonate 26 mmol/L (21-32); Bilirubin Direct < 0.1 mg/dL (0-0.2); Bilirubin Total 0.2 mg/dL (0.2-1.0); Glucose Level 83 mg/dL (74-106); Lipase 140 U/L (73-393); Potassium 3.1 mmol/L (3.5-5.1); Protein, Total 6.7 g/dL (6.4-8.2); Sodium Level 141 mmol/L (136-145)
[2019-06-15] MEDS ORDERED: HYDRALAZINE HCL 20 MG/ML VIAL ONE (23:50)
[2019-06-15] MEDS ORDERED: ACETAMINOPHEN 500 MG TAB ONE (23:50)
[2019-06-15] MEDS ORDERED: POTASSIUM 25 MEQ EFFERV TAB ONE (23:52)
[2019-06-15 23:56] LABS: Urine Bacteria <20 /HPF (<20); Urine RBC NONE SEEN /HPF (NONE SEEN); Urine Urothelial Cells <5 /HPF (NONE SEEN)
[2019-06-15 23:57] LABS: Urine Culture Reflex Order NOT NEEDED
[2019-06-15 23:57] LABS: Urine Blood NEGATIVE (NEG); Urine Glucose NEGATIVE (NEG); Urine Protein NEGATIVE (NEG)
--- NOTE | 2019-06-16 00:55 | EDPHYS ---
Physician Documentation [facility] Name: Shanae Del Cid Age: 78 yrs Sex: Female : 1940 Arrival Date: 06/15/2019 Time: 20:58 Bed 15 Private MD: Art Daly T ED Physician Bryson Bethea HPI: 06/15 00:41 This 78 yrs old Female presents to ER via Ambulatory with complaints of Back tw4 Pain. 00:41 The patient presents with pain that is chronic. The symptoms are located in the low tw4 back. Onset: The symptoms/episode began/occurred today. The pain does not radiate. Associated signs and symptoms: The patient has no apparent associated signs or symptoms. The problem was sustained without known cause. Modifying factors: The patient symptoms are alleviated by nothing, the patient symptoms are aggravated by nothing. The patient has not experienced similar symptoms in the past. Historical: - Allergies: 06/14 21:25 No Known Allergies; bb - Home Meds: 21:25 prestiq [Active]; trazodone Oral [Active]; levothyroxine oral [Active]; Singulair Oral bb [Active]; - PMHx: 21:25 eye disease; Hypothyroidism; bb - PSHx: 21:25 Hysterectomy; Appendectomy; Tonsillectomy; bb - Immunization history:: Adult Immunizations up to date. - Social history:: Smoking status: Patient reports the use of cigarette tobacco products, smokes one pack cigarettes per day. ROS: 06/15 00:41 Constitutional: Negative for fever, chills, and weight loss, Cardiovascular: Negative tw4 for chest pain, palpitations, and edema, Respiratory: Negative for shortness of breath, cough, wheezing, and pleuritic chest pain, Abdomen/GI: Negative for abdominal pain, nausea, vomiting, diarrhea, and constipation, MS/Extremity: Negative for injury and deformity, Skin: Negative for injury, rash, and discoloration, Neuro: Negative for headache, weakness, numbness, tingling, and seizure. Back: Positive for pain at rest, pain with movement, Negative for injury or acute deformity, acute changes. Exam: 00:41 Constitutional: This is a well developed, well nourished patient who is awake, alert, tw4 and in no acute distress. Head/Face: Normocephalic, atraumatic. Chest/axilla: Normal chest wall appearance and motion. Nontender with no deformity. No lesions are appreciated. Cardiovascular: Regular rate and rhythm with a normal S1 and S2. No gallops, murmurs, or rubs. Normal PMI, no JVD. No pulse deficits. Respiratory: Lungs have equal breath sounds bilaterally, clear to auscultation and percussion. No rales, rhonchi or wheezes noted. No increased work of breathing, no retractions or nasal flaring. Abdomen/GI: Soft, non-tender, with normal bowel sounds. No distension or tympany. No guarding or rebound. No evidence of tenderness throughout. MS/ Extremity: Pulses equal, no cyanosis. Neurovascular intact. Full, normal range of motion. Neuro: Awake and alert, GCS 15, oriented to person, place, time, and situation. Cranial nerves II-XII grossly intact. Motor strength 5/5 in all extremities. Sensory grossly intact. Cerebellar exam normal. Normal gait. Psych: Awake, alert, with orientation to person, place and time. Behavior, mood, and affect are within normal limits. 00:41 Back: pain, is absent, ROM is normal, normal spinal alignment noted. Vital Signs: 06/14 21:18 BP 202 / 73; Pulse 71; Resp 16 S; Temp 98.6(O); Pulse Ox 96% on R/A; Weight 63.05 kg bb (R); Height 4 ft. 8 in. (142.24 cm) (R); Pain 8/10; 22:00 BP 180 / 73; Pulse 66; Resp 18; Pulse Ox 95% on R/A; mg2 23:24 BP 186 / 69; Pulse 69; Resp 18; Pulse Ox 95% on R/A; mg2 06/15 00:02 BP 181 / 65; Pulse 74; Resp 18; Pulse Ox 97% on R/A; mg2 00:49 BP 179 / 79; Pulse 73; Resp 18; Pulse Ox 95% on R/A; mg2 06/14 21:18 Body Mass Index 31.16 (63.05 kg, 142.24 cm) bb MDM: 06/14 21:50 Patient medically screened. tw4 06/15 06:33 Differential diagnosis: chronic back pain, Ligament Injury Peptic Ulcer Pyelonephritis tw4 Ureterolithiasis vertebral fracture. Data reviewed: vital signs, nurses notes. Data reviewed: old medical records, lab test result(s), CBC, electrolytes, hepatic panel. Counseling: I had a detailed discussion with the patient and/or guardian regarding: the historical points, exam findings, and any diagnostic results supporting the discharge/admit diagnosis, lab results, radiology results. Special discussion: I discussed with the patient/guardian in detail that at this point there is no indication for admission to the hospital. It is understood, however, that if the symptoms persist or worsen the patient needs to return immediately for re-evaluation. 06/14 21:50 Order name: Basic Metabolic Panel; Complete Time: 23:08 [facility] 06/14 23:08 Interpretation: Normal except: K 3.1; CL 110; GFR 78. [facility] 06/14 21:50 Order name: CBC with Diff; Complete Time: 23:08 [facility] 06/14 23:10 Interpretation: Within normal limits: WBC 12.5. [facility] 06/14 21:50 Order name: Creatinine for Radiology; Complete Time: 23:08 [facility] 06/14 23:10 Interpretation: Within normal limits: CRE 0.73. [facility] 06/14 21:50 Order name: Hepatic Function; Complete Time: 23:08 [facility] 06/14 23:10 Interpretation: Within normal limits. [facility] 06/14 21:50 Order name: Lipase; Complete Time: 23:08 [facility] 06/14 23:11 Interpretation: Within normal limits: LIP 140. [facility] 06/14 23:10 Order name: Urine Dipstick--Ancillary (enter results) mt 06/14 21:50 Order name: IV Saline Lock; Complete Time: 23:11 [facility] 06/14 21:50 Order name: Labs collected and sent; Complete Time: 23:11 [facility] 06/14 21:50 Order name: Urine Dipstick-Ancillary (obtain specimen); Complete Time: 23:10 [facility] 06/14 21:58 Order name: CT Stone Protocol mg2 06/14 23:10 Order name: Urine Microscopic Only mg2 Administered Medications: 06/14 23:55 Drug: hydrALAZINE 10 mg Route: IV; Rate: bolus; Site: right forearm; mg2 06/15 00:30 Follow up: Response: No adverse reaction; IV Status: Completed infusion mg2 06/14 23:56 CANCELLED (Patient Refused): Tylenol 1000 mg PO once mg2 23:56 Drug: Potassium Effervescent Tablet 25 mEq Route: PO; mg2 06/15 00:05 Follow up: Response: No adverse reaction mg2 Disposition: 06/16/19 00:53 Discharged to Home. Impression: Low back pain. - Condition is Stable. - Discharge Instructions: Back Pain, Adult, Chronic Back Pain, Hypertension. - Prescriptions for Cyclobenzaprine 10 mg Oral Tablet - take 1 tablet by ORAL route every 8 hours As needed; 30 tablet. - Medication Reconciliation Form, Thank You Letter, Antibiotic Education, Prescription Opioid Use form. - Follow up: Art Daly MD; When: Upon discharge from the Emergency Department; Reason: Recheck today's complaints, Continuance of care, Re-evaluation by your physician. - Problem is new. - Symptoms have improved. Signatures: Dispatcher [employer] EDMS Shireen Al RN RN bb Bryson Bethea MD MD tw4 Felipe Devine RN RN mg2 Corrections: (The following items were deleted from the chart) 06/14 23:11 23:10 Within normal limits. tw4 tw4 23:56 23:44 Tylenol 1000 mg PO once ordered. tw4 mg2 06/15 01:11 00:53 06/16/2019 00:53 Discharged to Home. Impression: Low back pain. Condition is mg2 Stable. Forms are Medication Reconciliation Form, Thank You Letter, Antibiotic Education, Prescription Opioid Use. Follow up: Art Daly; When: Upon discharge from the Emergency Department; Reason: Recheck today's complaints, Continuance of care, Re-evaluation by your physician. Problem is new. Symptoms have improved. tw4
--- NOTE | 2019-06-16 00:55 | ER ---
Nurse's Notes [facility] Name: Shanae Del Cid Age: 78 yrs Sex: Female : 1940 Arrival Date: 06/15/2019 Time: 20:58 Bed 15 Private MD: Art Daly T Diagnosis: Low back pain Presentation: 06/14 21:18 Chief complaint: Patient states: she has been seen here recently for back pain but has bb not been given a diagnosis or told what is causing her back pain she had an MRI on Saturday for cholangiogram which was negative for findings pt is still having back pain 11/15. Coronavirus screen: The patient has NOT traveled to a country currently being monitored by the CDC within the last 14 days. Proceed with normal triage procedures. Ebola Screen: No symptoms or risks identified at this time. Initial Sepsis Screen: Does the patient meet any 2 criteria? No. Patient's initial sepsis screen is negative. Does the patient have a suspected source of infection? No. Patient's initial sepsis screen is negative. Risk Assessment: Do you want to hurt yourself or someone else? Patient reports no desire to harm self or others. Onset of symptoms was May 2019. 21:18 Method Of Arrival: Ambulatory bb 21:18 Acuity: CONNER 3 bb Triage Assessment: 21:25 General: Appears in no apparent distress. uncomfortable, Behavior is calm, cooperative. bb Pain: Complains of pain in back Pain currently is 8 out of 10 on a pain scale. Neuro: Level of Consciousness is awake, alert, obeys commands, Oriented to person, place, time, situation. Cardiovascular: No deficits noted. Respiratory: Respiratory effort is even, unlabored. GI: No signs and/or symptoms were reported involving the gastrointestinal system. Derm: Skin is pink, warm \T\ dry. Musculoskeletal: Circulation, motion, and sensation intact. Reports pain in back. Historical: - Allergies: 21:25 No Known Allergies; bb - Home Meds: 21:25 prestiq [Active]; trazodone Oral [Active]; levothyroxine oral [Active]; Singulair Oral bb [Active]; - PMHx: 21:25 eye disease; Hypothyroidism; bb - PSHx: 21:25 Hysterectomy; Appendectomy; Tonsillectomy; bb - Immunization history:: Adult Immunizations up to date. - Social history:: Smoking status: Patient reports the use of cigarette tobacco products, smokes one pack cigarettes per day. Screenin:26 Abuse screen: Denies threats or abuse. Denies injuries from another. Nutritional mg2 screening: No deficits noted. Tuberculosis screening: No symptoms or risk factors identified. Fall Risk IV access (20 points). Assessment: 23:00 General: Appears in no apparent distress. comfortable, Behavior is calm, cooperative. mg2 Pain: Complains of pain in back. Neuro: Level of Consciousness is awake, alert, obeys commands, Oriented to person, place, time, situation. Cardiovascular: Capillary refill < 3 seconds Patient's skin is warm and dry. Respiratory: Airway is patent Respiratory effort is even, unlabored, Respiratory pattern is regular, symmetrical. GI: No signs and/or symptoms were reported involving the gastrointestinal system. : No signs and/or symptoms were reported regarding the genitourinary system. EENT: No signs and/or symptoms were reported regarding the EENT system. Derm: Skin is intact, is healthy with good turgor, Skin is pink, warm \T\ dry. normal. Musculoskeletal: Circulation, motion, and sensation intact. Capillary refill < 3 seconds, Reports pain in back. 23:57 Reassessment: Patient appears in no apparent distress at this time. Patient and/or mg2 family updated on plan of care and expected duration. Pain level reassessed. Patient is alert, oriented x 3, equal unlabored respirations, skin warm/dry/pink. 06/15 01:10 Reassessment: Patient appears in no apparent distress at this time. Patient denies pain mg2 at this time. Patient states feeling better. Vital Signs: 06/14 21:18 BP 202 / 73; Pulse 71; Resp 16 S; Temp 98.6(O); Pulse Ox 96% on R/A; Weight 63.05 kg bb (R); Height 4 ft. 8 in. (142.24 cm) (R); Pain 11/15; 22:00 BP 180 / 73; Pulse 66; Resp 18; Pulse Ox 95% on R/A; mg2 23:24 BP 186 / 69; Pulse 69; Resp 18; Pulse Ox 95% on R/A; mg2 06/15 00:02 BP 181 / 65; Pulse 74; Resp 18; Pulse Ox 97% on R/A; mg2 00:49 BP 179 / 79; Pulse 73; Resp 18; Pulse Ox 95% on R/A; mg2 06/14 21:18 Body Mass Index 31.16 (63.05 kg, 142.24 cm) ED Course: 06/14 20:58 Patient arrived in ED. es 20:58 Art Daly MD is Private Physician. es 21:21 Triage completed. bb 21:25 Arm band placed on Patient placed in waiting room, Patient notified of wait time. bb Family accompanied patient. 21:50 Bryson Bethea MD is Attending Physician. tw4 21:55 Felipe Devine, RN is Primary Nurse. mg2 22:30 Inserted saline lock: by BRENDA Santos. mg2 22:40 CT Stone Protocol In Process Unspecified. EDMS 23:26 No provider procedures requiring assistance completed. mg2 23:27 Patient has correct armband on for positive identification. Pulse ox on. NIBP on. mg2 06/15 00:50 Art Daly MD is Referral Physician. tw4 01:10 IV discontinued, intact, bleeding controlled, No redness/swelling at site. Pressure mg2 dressing applied. Administered Medications: 06/14 23:55 Drug: hydrALAZINE 10 mg Route: IV; Rate: bolus; Site: right forearm; mg2 06/15 00:30 Follow up: Response: No adverse reaction; IV Status: Completed infusion mg2 06/14 23:56 CANCELLED (Patient Refused): Tylenol 1000 mg PO once mg2 23:56 Drug: Potassium Effervescent Tablet 25 mEq Route: PO; mg2 06/15 00:05 Follow up: Response: No adverse reaction mg2 Outcome: 00:53 Discharge ordered by . tw4 01:11 Discharged to home ambulatory, with family. mg2 01:11 Condition: stable 01:11 Discharge instructions given to patient, family, Instructed on discharge instructions, follow up and referral plans. medication usage, Demonstrated understanding of instructions, follow-up care, medications, Prescriptions given X 1. 01:11 Patient left the ED. mg2 Signatures: Dispatcher [employer] EDKemi Patel Brenda RN RN bb Bryson Bethea MD MD tw Felipe Devine, EZE RN mg2
[2019-06-16 01:57] VITALS: BP 179/79
[2019-06-16 02:07] VITALS: TEMP 99.3
[2019-06-16 02:08] VITALS: O2SAT 100
--- NOTE | 2019-06-16 14:43 | RAD REPORT ---
EXAM DESCRIPTION: CT - Stone Protocol - 06/16/2019 4:32 am CLINICAL HISTORY: Flank pain. COMPARISON: 06/05/2019 TECHNIQUE: CT scan of the abdomen and pelvis was performed without IV contrast. This exam was perfor med according to our departmental dose-optimization program, which includes automated exposure contro l, adjustment of the mA and/or kV according to patient size and/or use of iterative reconstruction te chnique. FINDINGS: The lung bases are clear. No pleural or pericardial effusions. The liver, spleen, pancreas , gallbladder, adrenal glands, and kidneys are unremarkable. No hydronephrosis or urinary stones are seen. There has been a prior hysterectomy. There are scattered colonic diverticula without surrounding inflammatory changes. There is mild wall thickening of the descending colon. No small bowel obstruction. There is no evidence of appendicitis. No intraperitoneal adenopathy, free fluid, or free air is seen. The aorta is diffusely atherosclerotic. Grade 1 anterolisthesis of L4-L5 secondary there is no abnor mal body wall hernia. IMPRESSION: 1. No urinary stones or hydronephrosis 2. Mild wall thickening of the descending colon which may represent colitis versus underdistention. Electronically signed by: Armaan Oden MD 06/15/2019 11:03 PM CDT Due to temporary technical issues with the PACS/Fluency reporting system, reports are being signed by the in house radiologist as a courtesy to ensure prompt reporting. The interpreting radiologist is f ully responsible for the content of the report.
== END 2019-06-16 01:11 | disposition home or self-care (01) ==
LOC: ER 20:53
DX: M54.5 Low back pain (principal); E03.9 Hypothyroidism, unspecified; F17.210 Nicotine dependence, cigarettes, uncomplicated
CPT/HCPCS: 96365; 85025; 80048; 36415; 80076; 83690; 76377; 74176; 99284; J0360; 81003; 81015

== ENCOUNTER 2020-01-27 14:29 | Emergency (ER) | payer OTHER ==
--- OUTSIDE RECORDS SUMMARY | 2020-01-27 14:49 | XMS REPORT | Continuity of Care Document ---
:1940 Author Organization [facility] t Address [address] [place] [address] Dr. Bergeron [address] [place] [id number] Care Team Providers Name Role Phone UNKNOWN Primary Care Physician Unavailable ALEX FONTANEZ M.D. Attending Clinician Unavailable ALEX FONTANEZ M.D. Admitting Clinician Unavailable Problems This patient has no known problems. Allergies, Adverse Reactions, Alerts This patient has no known allergies or adverse reactions. Medications This patient has no known medications. Procedures This patient has no known procedures. Results This patient has no known results.
[2020-01-27] MEDS ORDERED: ASPIRIN 81 MG CHEWABLE TABLET ONE (15:45)
[2020-01-27] MEDS ORDERED: NA CHLORIDE 0.9% 1,000 ML ONE (15:45)
[2020-01-27 15:51] LABS: ALT/SGPT 20 U/L (12-78); AST/SGOT 19 U/L (15-37); Albumin 3.7 g/dL (3.4-5.0); Alkaline Phosphatase 87 U/L (45-117); BUN Blood Urea Nitrogen 11 mg/dL (7-18); Bicarbonate 26 mmol/L (21-32); Bilirubin Direct 0.1 mg/dL (0-0.2); Bilirubin Total 0.3 mg/dL (0.2-1.0); Glucose Level 93 mg/dL (74-106); Lipase 164 U/L (73-393); Magnesium 2.3 mg/dL (1.8-2.4); NT PRO-BNP 461 pg/mL (<450); Potassium 3.1 mmol/L (3.5-5.1); Protein, Total 6.8 g/dL (6.4-8.2); Sodium Level 141 mmol/L (136-145); Troponin (Emerg Dept Use Only) < 0.02 ng/mL (0.0-0.045)
[2020-01-27] MEDS ORDERED: METOPROLOL TAR 25 MG TAB ONE ×2 (16:00→16:08)
--- NOTE | 2020-01-27 16:01 | RAD REPORT ---
EXAM DESCRIPTION: [place] Single View01/27/2020 3:36 pm CLINICAL HISTORY: Chest pain COMPARISON: May 2019 FINDINGS: The lungs appear clear of acute infiltrate. The heart is normal size IMPRESSION: No acute abnormalities displayed
[2020-01-27 16:09] LABS: Absolute Lymphocytes (CBC) 2.1 K/uL (0.7-4.9); Basophils % 1.1 % (0-1.3); Hematocrit 41.8 % (36.0-45.0); Lymphocytes % 17.3 % (15.3-44.8); MPV 7.9 fL (7.6-11.3); RBC Red Blood Cell Count 4.53 M/uL (3.86-4.86)
[2020-01-27] MEDS ORDERED: POTASSIUM 25 MEQ EFFERV TAB ONE (16:35)
--- NOTE | 2020-01-27 17:31 | EDPHYS ---
Physician Documentation [facility] Name: Shanae Del Cid Age: 79 yrs Sex: Female : 1940 Arrival Date: 01/27/2020 Time: 14:32 Bed 19 Private MD: BRENDA Physician Donovan Irby HPI: 01/26 15:27 This 79 yrs old Female presents to ER via Ambulatory with complaints of Chest jojo Pain. 15:27 The patient or guardian reports chest pain that is located primarily in the anterior jojo chest wall. Onset: just prior to arrival. The pain does not radiate. Associated signs and symptoms: The patient has no apparent associated signs or symptoms. The chest pain is described as punched, seconds, nothing before and after. Historical: - Allergies: 14:55 No Known Allergies; ca1 - Home Meds: 14:55 levothyroxine 100 mcg oral tab 1 tab once daily [Active]; Singulair Oral [Active]; ca1 candesartan 16 mg oral tab 1 tab once daily [Active]; cyclobenzaprine 10 mg Oral tab [Active]; trazodone 150 mg oral tab 2 tabs [Active]; desvenlafaxine 50 mg oral Tb24 1 tab once daily [Active]; - PMHx: 14:55 eye disease; Hypothyroidism; Hypertension; ca1 - PSHx: 14:55 Hysterectomy; Appendectomy; Tonsillectomy; ca1 - Immunization history:: Adult Immunizations not up to date, Pneumococcal vaccine is not up to date, Flu vaccine is not up to date. - Social history:: Smoking status: Patient reports the use of cigarette tobacco products, smokes one pack cigarettes per day. - Family history:: not pertinent. ROS: 15:27 Constitutional: Negative for fever, chills, and weight loss, Eyes: Negative for injury, jojo pain, redness, and discharge, ENT: Negative for injury, pain, and discharge, Neck: Negative for injury, pain, and swelling, Respiratory: Negative for shortness of breath, cough, wheezing, and pleuritic chest pain, Abdomen/GI: Negative for abdominal pain, nausea, vomiting, diarrhea, and constipation, Back: Negative for injury and pain, : Negative for injury, bleeding, discharge, and swelling, MS/Extremity: Negative for injury and deformity, Skin: Negative for injury, rash, and discoloration, Neuro: Negative for headache, weakness, numbness, tingling, and seizure, Psych: Negative for depression, anxiety, suicide ideation, homicidal ideation, and hallucinations, Allergy/Immunology: Negative for hives, rash, and allergies, Endocrine: Negative for neck swelling, polydipsia, polyuria, polyphagia, and marked weight changes, Hematologic/Lymphatic: Negative for swollen nodes, abnormal bleeding, and unusual bruising. 15:27 Cardiovascular: Positive for chest pain, of the chest. Exam: 15:27 Constitutional: This is a well developed, well nourished patient who is awake, alert, jojo and in no acute distress. Head/Face: Normocephalic, atraumatic. Eyes: Pupils equal round and reactive to light, extra-ocular motions intact. Lids and lashes normal. Conjunctiva and sclera are non-icteric and not injected. Cornea within normal limits. Periorbital areas with no swelling, redness, or edema. ENT: Nares patent. No nasal discharge, no septal abnormalities noted. Tympanic membranes are normal and external auditory canals are clear. Oropharynx with no redness, swelling, or masses, exudates, or evidence of obstruction, uvula midline. Mucous membranes moist. Neck: Trachea midline, no thyromegaly or masses palpated, and no cervical lymphadenopathy. Supple, full range of motion without nuchal rigidity, or vertebral point tenderness. No Meningismus. Chest/axilla: Normal chest wall appearance and motion. Nontender with no deformity. No lesions are appreciated. Respiratory: Lungs have equal breath sounds bilaterally, clear to auscultation and percussion. No rales, rhonchi or wheezes noted. No increased work of breathing, no retractions or nasal flaring. Abdomen/GI: Soft, non-tender, with normal bowel sounds. No distension or tympany. No guarding or rebound. No evidence of tenderness throughout. Back: No spinal tenderness. No costovertebral tenderness. Full range of motion. Female : Normal external genitalia. Skin: Warm, dry with normal turgor. Normal color with no rashes, no lesions, and no evidence of cellulitis. MS/ Extremity: Pulses equal, no cyanosis. Neurovascular intact. Full, normal range of motion. Neuro: Awake and alert, GCS 15, oriented to person, place, time, and situation. Cranial nerves II-XII grossly intact. Motor strength 5/5 in all extremities. Sensory grossly intact. Cerebellar exam normal. Normal gait. Psych: Awake, alert, with orientation to person, place and time. Behavior, mood, and affect are within normal limits. 15:27 Cardiovascular: Rate: normal. 16:34 ECG was reviewed by the Attending Physician. jojo 16:34 ECG was reviewed by the Attending Physician. [facility] Vital Signs: 14:47 BP 159 / 75; Pulse 85; Resp 16 S; Temp 97.5(TE); Pulse Ox 97% on R/A; Weight 58.97 kg ca1 (R); Height 4 ft. 8 in. (142.24 cm) (R); Pain 0/10; 16:01 BP 168 / 71; Pulse 80; Resp 17; Temp 98.6(O); Pulse Ox 96% on R/A; mh5 17:00 BP 152 / 61; Pulse 72; Resp 17; Pulse Ox 96% ; bp 17:56 BP 161 / 75; Pulse 85; Resp 17; Temp 98.6; Pulse Ox 100% ; bp 14:47 Body Mass Index 29.15 (58.97 kg, 142.24 cm) ca1 MDM: 15:01 Patient medically screened. jojo 15:27 Differential diagnosis: abnormal EKG, anxiety, coronary artery disease cholecystitis, jojo Cholelithiasis costochondritis, hiatal hernia, mitral valve prolapse, pancreatitis, pleurisy, stable angina, unstable angina. HEART Score: History: Slightly Suspicious (0), ECG: Non specific repolarization disturbance / LBTB / PM (1), Age: > or = 65 years (2). The patient was given aspirin in the Emergency Department. The patient's deep vein thrombosis risk score was calculated as follows: Total Score: 0. This patient was found to be at low risk for a deep vein thrombosis by using the Well's assessment criteria. The patient's pulmonary embolism risk score was calculated as follows: Total Score: 3-6 points. This patient was found to be at moderate risk for a pulmonary embolism by using the Well's assessment criteria. VU Risk Score: TOTAL SCORE = 0. Data reviewed: vital signs. Data interpreted: surveillance system monitor: rate is 85 beats/min, rhythm is regular, Pulse oximetry: on room air is 97 %. Test interpretation: by ED physician or midlevel provider: ECG, plain radiologic studies. 01/26 15:05 Order name: Basic Metabolic Panel; Complete Time: 16:00 [facility] 01/26 15:05 Order name: CBC with Diff; Complete Time: 16:46 [facility] 01/26 15:05 Order name: LFT's; Complete Time: 16:00 [facility] 01/26 15:05 Order name: Magnesium; Complete Time: 16:00 [facility] 01/26 15:05 Order name: NT PRO-BNP; Complete Time: 16:00 [facility] 01/26 15:05 Order name: Troponin (emerg Dept Use Only); Complete Time: 16:00 [facility] 01/26 15:05 Order name: XRAY Chest (1 view); Complete Time: 16:46 [facility] 01/26 15:05 Order name: Lipase; Complete Time: 16:00 [facility] 01/26 15:48 Order name: Urine Dipstick--Ancillary (enter results) 01/26 16:27 Order name: Troponin (emerg Dept Use Only); Complete Time: 17:29 [facility] 01/26 16:27 Order name: D-Dimer; Complete Time: 17:03 [facility] 01/26 15:05 Order name: EKG; Complete Time: 15:06 [facility] 01/26 15:05 Order name: EKG - Nurse/Tech; Complete Time: 15:05 [facility] 01/26 15:05 Order name: EKG; Complete Time: 15:06 [facility] 01/26 15:05 Order name: Cardiac monitoring; Complete Time: 15:25 [facility] 01/26 15:05 Order name: EKG - Nurse/Tech; Complete Time: 15:25 [facility] 01/26 15:05 Order name: IV Saline Lock; Complete Time: 15:25 [facility] 01/26 15:05 Order name: Labs collected and sent; Complete Time: 15:25 [facility] 01/26 15:05 Order name: O2 Per Protocol; Complete Time: 15:07 [facility] 01/26 15:05 Order name: O2 Sat Monitoring; Complete Time: 15:07 [facility] 01/26 15:05 Order name: Urine Dipstick-Ancillary (obtain specimen); Complete Time: 15:52 [facility] 01/26 15:35 Order name: Labs - recollect needed: recollect lavendar tube; Complete Time: 15:58 01/26 16:02 Order name: EKG - Nurse/Tech; Complete Time: 16:23 jojo EC:34 Rate is 80 beats/min. Rhythm is regular. QRS [place]gins is Normal. [place] interval is normal. QRS jojo interval is normal. QT interval is normal. No Q waves. T waves are Normal. No ST changes noted. Clinical impression: NSR w/ Non-specific ST/T Changes and No evidence of ischemia. Interpreted by me. Reviewed by me. 16:34 Rate is 69 beats/min. Rhythm is regular. QRS [place]gins is Normal. [place] interval is normal. QRS jojo interval is normal. QT interval is normal. No Q waves. T waves are Normal. No ST changes noted. Clinical impression: NSR w/ Non-specific ST/T Changes and No evidence of ischemia. Interpreted by me. Reviewed by me. 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 Impression: Chest pain, unspecified - non cardiac, Tobacco abuse counseling, Tobacco use, Essential (primary) hypertension, Hypokalemia. - Condition is Stable. - Discharge Instructions: Nonspecific Chest Pain, Potassium Content of Foods, Hypertension, Steps to Quit Smoking, Smoking Hazards, Nonspecific Chest Pain, Djmw-[id number], Hypertension, [id number], How to Take Your Blood Pressure, [id number], Aspirin and Your Heart, Hypokalemia, Managing Your Hypertension. - Prescriptions for Toprol XL 25 mg Oral Tablet - take 1 tablet by ORAL route once daily; 20 tablet. - Medication Reconciliation Form, Thank You Letter, Antibiotic Education, Prescription Opioid Use form. - Follow up: Private Physician; When: 2 - 3 days; Reason: Recheck today's complaints, Continuance of care, Re-evaluation by your physician. Follow up: Tim Bojorquez MD; When: 2 - 3 days; Reason: Recheck today's complaints, Continuance of care, Re-evaluation by your physician. - Problem is new. - Symptoms have improved. Signatures: Dispatcher [employer] EDMS Maya Grey Corey, MD MD cha Martinez, Madalyn [facility] Christopher Mirza, EZE RN bp Janet Nguyen RN RN ca1 Corrections: (The following items were deleted from the chart) 17:32 17:31 01/27/2020 17:31 Discharged to Home. Impression: Chest pain, unspecified - non jojo cardiac; Tobacco abuse counseling; Tobacco use; Essential (primary) hypertension. Condition is Stable. Forms are Medication Reconciliation Form, Thank You Letter, Antibiotic Education, Prescription Opioid Use. Follow up: Private Physician; When: 2 - 3 days; Reason: Recheck today's complaints, Continuance of care, Re-evaluation by your physician. Follow up: Tim Bojorquez; When: 2 - 3 days; Reason: Recheck today's complaints, Continuance of care, Re-evaluation by your physician. Problem is new. Symptoms have improved. jojo 18:04 17:32 01/27/2020 17:31 Discharged to Home. Impression: Chest pain, unspecified - non bp cardiac; Tobacco abuse counseling; Tobacco use; Essential (primary) hypertension; Hypokalemia. Condition is Stable. Discharge Instructions: Nonspecific Chest Pain, Hypertension, Steps to Quit Smoking, Smoking Hazards, Nonspecific Chest Pain, [id number], Hypertension, Jkyq-[id number], How to Take Your Blood Pressure, Miin-es-Jgtm, Aspirin and Your Heart, Managing Your Hypertension. Prescriptions for Toprol XL 25 mg Oral Tablet - take 1 tablet by ORAL route once daily; 20 tablet. and Forms are Medication Reconciliation Form, Thank You Letter, Antibiotic Education, Prescription Opioid Use. Follow up: Private Physician; When: 2 - 3 days; Reason: Recheck today's complaints, Continuance of care, Re-evaluation by your physician. Follow up: Tim Bojorquez; When: 2 - 3 days; Reason: Recheck today's complaints, Continuance of care, Re-evaluation by your physician. Problem is new. Symptoms have improved. jojo
--- NOTE | 2020-01-27 17:31 | ER ---
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 L sided chest pain, stabbing, ca1 intermittent, non-radiating. Last few days, hasn't been feeling well and feeling tired. Had episodes of cold sweats and was going to pass out. BP was high at 188/85. Stopped taking BP meds cause it's been causing headaches. Denies injury. Denies cough. Denies SOB with chest pain. Denies history of heart problems. Coronavirus screen: Client denies travel out of the [place] in the last 14 days. fatigue, Client presents with at least one sign or symptom that may indicate coronavirus-19. Standard/surgical mask placed on the client. Provider contacted for isolation considerations. The client denies any previous COVID testing. Ebola Screen: Patient negative for fever greater than or equal to 101.5 degrees Fahrenheit, and additional compatible Ebola Virus Disease symptoms Patient denies exposure to infectious person. Patient denies travel to an Ebola-affected area in the 21 days before illness onset. No symptoms or risks identified at this time. Initial Sepsis Screen: Does the patient meet any 2 criteria? No. Patient's initial sepsis screen is negative. Does the patient have a suspected source of infection? No. Patient's initial sepsis screen is negative. Risk Assessment: Do you want to hurt yourself or someone else? Patient reports no desire to harm self or others. Onset of symptoms was January 27, 2020. 14:47 Method Of Arrival: Ambulatory ca1 14:47 Acuity: CONNER 3 ca1 Triage Assessment: 14:50 General: Appears in no apparent distress. uncomfortable, Behavior is cooperative, bp appropriate for age, anxious. Pain: Complains of pain in chest. EENT: No deficits noted. Neuro: No deficits noted. Cardiovascular: Reports chest pain, Rhythm is sinus rhythm. Respiratory: Reports shortness of breath. GI: No signs and/or symptoms were reported involving the gastrointestinal system. : No signs and/or symptoms were reported regarding the genitourinary system. Derm: No deficits noted. Musculoskeletal: No deficits noted. Historical: - Allergies: 14:55 No Known Allergies; ca1 - Home Meds: 14:55 levothyroxine 100 mcg oral tab 1 tab once daily [Active]; Singulair Oral [Active]; ca1 candesartan 16 mg oral tab 1 tab once daily [Active]; cyclobenzaprine 10 mg Oral tab [Active]; trazodone 150 mg oral tab 2 tabs [Active]; desvenlafaxine 50 mg oral Tb24 1 tab once daily [Active]; - PMHx: 14:55 eye disease; Hypothyroidism; Hypertension; ca1 - PSHx: 14:55 Hysterectomy; Appendectomy; Tonsillectomy; ca1 - Immunization history:: Adult Immunizations not up to date, Pneumococcal vaccine is not up to date, Flu vaccine is not up to date. - Social history:: Smoking status: Patient reports the use of cigarette tobacco products, smokes one pack cigarettes per day. - Family history:: not pertinent. Screenin:50 Abuse screen: Denies threats or abuse. Denies injuries from another. Nutritional bp screening: No deficits noted. Tuberculosis screening: No symptoms or risk factors identified. Fall Risk None identified. Assessment: 14:50 General: SEE TRIAGE NOTE. bp 16:00 Reassessment: Patient appears in no apparent distress at this time. Patient and/or bp family updated on plan of care and expected duration. Pain level reassessed. Patient is alert, oriented x 3, equal unlabored respirations, skin warm/dry/pink. REPEAT LABS DRAWN AND SENT. Pain: Denies pain. Cardiovascular: Rhythm is sinus rhythm. 17:55 Reassessment: PT D/C HOME AMBULATORY WITH FAMILY, DX WITH NON-CARDIAC CHEST PAIN. bp Vital Signs: 14:47 BP 159 / 75; Pulse 85; Resp 16 S; Temp 97.5(TE); Pulse Ox 97% on R/A; Weight 58.97 kg ca1 (R); Height 4 ft. 8 in. (142.24 cm) (R); Pain 0/10; 16:01 BP 168 / 71; Pulse 80; Resp 17; Temp 98.6(O); Pulse Ox 96% on R/A; 5 17:00 BP 152 / 61; Pulse 72; Resp 17; Pulse Ox 96% ; bp 17:56 BP 161 / 75; Pulse 85; Resp 17; Temp 98.6; Pulse Ox 100% ; bp 14:47 Body Mass Index 29.15 (58.97 kg, 142.24 cm) ca1 ED Course: 14:32 Patient arrived in ED. as 14:50 Patient has correct armband on for positive identification. Bed in low position. Call bp light in reach. Side rails up X2. 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 Pulse ox on. NIBP on. 14:51 Triage completed. ca1 14:55 Arm band placed on right wrist. ca1 15:00 Missed attempt(s): 22 gauge in left hand. [facility] 15:01 Donovan Irby MD is Attending Physician. [facility] 15:05 EKG done, by ED staff, reviewed by Donovan Irby MD. [facility] 15:06 Christopher Mirza, RN is Primary Nurse. bp 15:15 Initial lab(s) drawn, by [place], sent to lab. [facility] 15:36 XRAY Chest (1 view) In Process Unspecified. EDMS 15:52 Urine Dipstick--Ancillary (enter results) Sent. [facility] 16:04 Warm blanket given. [facility] 17:30 Tim Bojorquez MD is Referral Physician. jojo 17:58 No provider procedures requiring assistance completed. IV discontinued, intact, bp bleeding controlled, No redness/swelling at site. Pressure dressing applied. Patient maintains SpO2 saturation greater than 95% on room air. 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 bp Outcome: 17:31 Discharge ordered by . jojo 17:56 Discharged to home ambulatory, with family. bp 17:56 Condition: stable 17:56 Discharge instructions given to patient, Instructed on discharge instructions, follow up and referral plans. medication usage, Demonstrated understanding of instructions, follow-up care, medications, Prescriptions given X 1. 18:04 Patient left the ED. bp Signatures: Dispatcher [employer] EDKY Donovan Irby MD MD cha Martinez, Madalyn Boyer 5 Christopher Mirza, RN RN bp AcJanet be RN RN ca1
[2020-01-27 18:23] VITALS: TEMP 98.6
[2020-01-27 18:26] VITALS: BP 161/75; O2SAT 100
[2020-01-27 20:26] LABS: Urine Blood NEGATIVE (NEG); Urine Glucose NEGATIVE (NEG); Urine Protein NEGATIVE (NEG); Urine Specific Gravity <1.005 (1.005-1.030)
--- NOTE | 2020-01-28 07:26 | EKG ---
Test Date: 2020-01-27 Test Time: 16:16:25 Journalism Instructor: JACKSON MEASUREMENT RESULTS: Intervals: Rate: 69 NV: 150 QRSD: 70 QT: 404 QTc: 432 [facility]: P: 41 NV: 150 QRS: 9 T: 43 INTERPRETIVE STATEMENTS: Normal sinus rhythm Normal ECG Compared to ECG 01/27/2020 15:06:02 No significant changes Electronically Signed On 01-28-20 07:24:48 CDT by Tim Bojorquez
--- NOTE | 2020-01-28 07:26 | EKG ---
Test Date: 2020-01-27 Test Time: 15:06:02 Kiln Worker: RICK MEASUREMENT RESULTS: Intervals: Rate: 80 [place]: 144 QRSD: 72 QT: 384 QTc: 442 [place]: P: 49 [place]: 144 QRS: 26 T: 66 INTERPRETIVE STATEMENTS: Normal sinus rhythm Normal ECG Compared to ECG 06/05/2019 12:52:34 No significant changes Electronically Signed On 01-28-20 07:24:50 CDT by Tim Bojorquez
== END 2020-01-27 18:04 | disposition home or self-care (01) ==
LOC: ER 14:29
DX: R07.89 Other chest pain (principal); I10 Essential (primary) hypertension; E87.6 Hypokalemia; Z72.0 Tobacco use; Z71.6 Tobacco abuse counseling; E03.9 Hypothyroidism, unspecified
CPT/HCPCS: 96361; 93005 ×2; 85025; 80048; 36415; 83735; 85379; 80076; 81003; 84484 ×2; 83690; 83880; 71045; 96360; 99285; J7030

== ENCOUNTER 2020-04-01 12:09 | Emergency (ER) | payer OTHER ==
--- OUTSIDE RECORDS SUMMARY | 2020-04-01 12:11 | XMS REPORT | Summary of Care ---
:1940 Author Organization [facility] Address [address] [place] [id number] Care Team Providers Name Role Phone Zora Bedoya MD Primary Care Provider Reason for Visit Reason Comments Establish Care Encounter Details Date Type Department Care Team Description 02/19/2020 Office Visit [facility] Family Omari Bedoyahui Acqu ired hypothyroidism (Primary Dx); Medicine - Elle Blakely MD Chronic diarrhea; [address] [place] [address] Chronic depression; [place], [place] Essential hypertension; [place] [address] Seasonal allergic rhinitis due to pollen [id number] Allergies No Known Allergiesdocumented as of this encounter (statuses as of 02/21/2020) Medications Medication Sig Dispensed Refills Start Date End Date Status traZODone 150 mg TAKE 2 0 01/19/2020 Ac tive tablet TABLETS BY MOUTH IN THE EVENING NEEDED montelukast 10 mg Take 10 mg 0 01/25/2020 Active tablet by mouth every morning. EUTHYROX 100 mcg Take 100 mcg 0 02/05/2020 Active tablet by mouth every morning. desvenlafaxine Take 50 mg 0 01/20/2020 Act cathi succinate 50 mg 24 by mouth hr tablet daily. candesartan 16 mg Take 16 mg 0 12/22/2019 Active tablet by mouth daily. metoprolol Take 50 mg 0 Active succinate XL 50 mg by mouth 24 hr tablet daily. vit Take by 0 Active C/E/Zn/coppr/lutein mouth. /zeaxan (PRESERVISION AREDS-2 ORAL) Colestipol HCl 1 Take 2 360 tablet 3 02/19/2020 A ctive gram tablets by tabletIndications: mouth 2 Chronic diarrhea (two) times daily. Colestipol HCl 1 Take 2 0 Dis continued gram tablet tablets by 0 (Tari r) mouth 2 (two) times daily. documented as of this encounter (statuses as of 02/21/2020) Active Problems Problem Noted Date Chronic diarrhea 02/21/2020 Chronic depression 02/19/2020 Seasonal allergic rhinitis 02/19/2020 Arthritis 02/19/2020 Overview: Hands, knees, shoulders Acquired hypothyroidism 02/19/2020 Macular degeneration Essential hypertension documented as of this encounter (statuses as of 02/21/2020) Social History Tobacco Use Types Packs/Day Years Used Date Current Every Day Smoker 1 Smokeless Tobacco: Never Used Alcohol Use Drinks/Week oz/Week Comments Never Alcohol Habits Answer Date Recorded How often do you have a drink containing alcohol? Never 02/19/2020 How many drinks containing alcohol do you have on a typical Not asked 02/19/2020 day when you are drinking? How often do you have six or more drinks on one occasion? 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 documented as of this encounter Last Filed Vital Signs Vital Sign Reading Time Taken Comments Blood Pressure 137/63 02/19/2020 1:56 PM BOILER REPAIR SUPERVISOR Pulse 60 02/19/2020 1:56 PM BOILER REPAIR SUPERVISOR Temperature 36.7 C (98 F) 02/19/2020 1:52 PM BOILER REPAIR SUPERVISOR Respiratory Rate - - Oxygen Saturation - - Inhaled Oxygen Concentration - - Weight 79.4 kg (175 lb) 02/19/2020 1:52 PM BOILER REPAIR SUPERVISOR Height 142.2 cm (4' 8") 02/19/2020 1:52 PM BOILER REPAIR SUPERVISOR Body Mass Index 39.23 02/19/2020 1:52 PM BOILER REPAIR SUPERVISOR documented in this encounter Patient Instructions Patient InstructionsCoMick goddard MD - 02/19/2020 1:30 PM CST Patient Education Prevention Guidelines, Women Ages 65 and Older Screening tests and vaccines are an important part of managing your health. A screening test is doneto find possible disorders or diseases in people who don't have any symptoms. The goal is to find a disease early so lifestyle changes can be made and you can be watched more closely to reduce the riskof disease, or to detect it early enough to treat it most effectively. Screening tests are not considered diagnostic, but are used to determine if more testing is needed. Health counseling is essential, too. Below are guidelines for these, for women ages 65 and older. Talk with your healthcare provider to make sure youre up to date on what you need. Screening Who needs it How often Type 2 diabetes or prediabetes All women beginning at age 45 and women without symptoms at any age who are overweight or obese and have 1 or more additional risk factors for diabetes At least every 3 years Type 2 diabetes All women with prediabetes Every year Unhealthy alcohol use All women in this age group At routine exams Blood pressure All women in this age group Yearly checkup if your blood pressure is normal Normal blood pressure is less than 120/80 mm Hg If your blood pressure reading is higher than normal, follow the advice of your healthcare provider Breast cancer All women of average risk Mammograms should be done every 1 or 2 years. Talk with yourhealthcare provider about your risk factors and how often you need the test and for how long. Cervical cancer Only women who had abnormal screening results before age 65 Talk with your healthcare provider Chlamydia Women at increased risk for infection At routine exams Colorectal cancer All women at average risk in this age group through age 75 who are in good health.For women ages 76 to 85, talk with your healthcare provider about whether to continue screening. Forwomen 85 and older, screening is not needed. Multiple tests are available and are used at different times. Possible tests include: Flexible sigmoidoscopy every 5 years, or Colonoscopy every 10 [address], [address] colonography (virtual colonoscopy) every 5 years, or Yearly fecal occult blood test, or Yearly fecal immunochemical test every year, or Stool DNA test, every 3 years If you choose a test other than a colonoscopy and have an abnormal test result, you will need to follow-up with a colonoscopy. Talk with your healthcare provider which test is best for you. Some people should be screened using a different schedule because of their personal or family healthhistory. Talk with your healthcare provider about your health history. Depression All women in this age group At routine exams Gonorrhea Sexually active women at increased risk for infection At yearly routine exams Hepatitis C Anyone at increased risk; 1 time for those born between 1945 and 1964 At routine exams High cholesterol or triglycerides All women in this age group who are at risk for coronary artery disease At least every 5 years; talk with your healthcare provider about your risk HIV Women at increased risk for infection At routine exams; talk with your healthcare provider aboutyour risk Lung cancer Adults ages 55 to 74 who are in fairly good health and are at higher risk for lung cancer Currently smoke or have quit within the past 15 years 30-pack year smoking history Eligibility criteria and age limit (possibly up to age 80) may vary across major organizations Yearly lung cancer screening with a low dose CT scan (LDCT); talk with your healthcare provider Obesity All women in this age group At yearly routine exams Osteoporosis All women in this age group Routinely done every 2 years, but repeat as advised by yourhealthcare provider Syphilis Women at increased risk for infection At routine exams; talk with your healthcare provider Thyroid-stimulating hormone (TSH) Only women in this age group with symptoms of thyroid dysfunction Talk with your healthcare provider Tuberculosis Women at increased risk for infection Talk with your healthcare provider Vision All women in this age group Every 1 to 2 years; if you have a chronic health condition, ask your healthcare provider if you need exams more often Vaccine Who needs it How often Chickenpox (varicella) All women in this age group who have no record of this infection or vaccine 2doses; second dose should be given at least 4 weeks after the first dose Hepatitis A Women at increased risk for infection 2 or 3 doses (depending on the vaccine) given at least 6 months apart; talk with your healthcare provider Hepatitis B Women at increased risk for infection 2 or 3 doses (depending on the vaccine); second dose should be given 1 month after the first dose; if a the third dose, it should be given at least 2 months after the second dose and at least 4 months after the first dose Haemophilus influenzatype B (HIB) Women at increased risk for infection 1 to 3 doses; talk with your healthcare provider Influenza (flu) All women in this age group Once a year Pneumococcalconjugate vaccine (PCV13)and pneumococcal polysaccharidevaccine (PPSV23) All womenin this age group PPSV 23: women who have not been vaccinated or have not had infection PCV 13: women at increased risk for infection PPSV: 1 dose at age 65 or older PCV 13: 1 dose at age 65 or older; talk with your healthcare provider Tetanus/diphtheria/pertussis (Td/Tdap) booster All women in this age group Td every 10 years, or a 1-time dose of Tdap instead of a Td booster after age 18, then Td every 10 years Zoster (shingles) All women in this age group 2 vaccines are available: Recombinant zoster vaccine (RZV; Shigrix) is recommended as the preferred shingles vaccine. It's given in a series of 2 doses. The 2nd dose is given 2 to 6 months after the first. This is given evenif you've had shingles before or had a previous zoster live vaccine. Zoster live vaccine live (ZVL; Zostavax) may be given to healthy adults over age 60. It's given in one dose. Counseling Who needs it How often Diet and exercise Women who are overweight or obese When diagnosed, and then at routine exams Fall prevention (exercise and vitamin D supplements) All women in this age group At yearly routine exams Sexually transmitted infection prevention Women at increased risk for infectiontalk with your healthcare provider At routine exams Use of daily aspirin Women up to age 70 who are at high risk for cardiovascular problems and not at increased risk for bleeding as identified by your healthcare provider When your risk is known Use of tobacco and the health effects it can cause All women in this age group Every exam [employer] last reviewed this educational content on 10/07/201919992615-5390 [employer]. All rights reserved. This information is not intended as a substitute for professional medical care. Always follow your healthcare professional's instructions. ER REPAIR SUPERVISOR documented in this encounter Progress Notes Mick Bedoya MD - 02/19/2020 1:30 PM CST CC: Chief Complaint Patient presents with [facility] Care-hypothyroidism, HTN, depression HPI Shanae Del Cid is a 79 year old F new patient who presents to establish primary care and for f/u ofher chronic conditions. This patient's significant chronic medical conditions include HTN, chronic depression and insomnia, and hypothyroidism. She also has JUANJO that is well-controlled with montelukast. Additionally she requests refills of colestipol for chronic diarrhea. She is s/p a work-up withher Gastroeneterologist including colonoscopy and colestipol was prescribed. If she takes it regularly the diarrhea is well-controlled. The patient's specialists: She sees a Anthropology Professor in [place] (can't recall his name). Her son is present with her today and is her primary caregiver. HTN follow-up Medication compliance: Good. Denies adverse medication side effects. Dietary compliance: Good. Exercise frequency: No formal exercise. Blood pressure readings: No record of bp readings. Associated symptoms: Denies chest pain and SOB. Cardiovascular screening (ex. EKG, stress test) in the past 3 years?: Yes, she is currently undergoing a cardiac work-up with her Anthropology Professor due to a near- syncopal episode a couple of weeks ago. She is scheduled for an ECHO next week and she already had a reportedly normal nuclear stress test. Chronic depression/Chronic insomnia follow-up Medication(s): Venlafaxine, trazodone. Medication effectiveness: Good. Residual symptoms on medication: None. Medication side effects: None. Current psychosocial stressors: Still grieving of . Current support: Son. In counseling?: No. Denies manic symptoms, delusions, halluci nations, SI or HI. Hypothyroidism follow-up Compliant with levothyroxine, the patient takes the generic form. Symptoms?: None. No unintentional change in weight, energy level, hair/skin/nails, bowel habits, appetite, or temperature tolerance. No Known Allergies Current Outpatient Medications: candesartan 16 mg tablet, Take 16 mg by mouth daily., Disp: , Rfl: Colestipol HCl 1 gram tablet, Take 2 tablets by mouth 2 (two) times daily., Disp: 360 tablet, Rfl: 3 desvenlafaxine succinate 50 mg 24 hr tablet, Take 50 mg by mouth daily., Disp: , Rfl: EUTHYROX 100 mcg tablet, Take 100 mcg by mouth every morning., Disp: , Rfl: metoprolol succinate XL 50 mg 24 hr tablet, Take 50 mg by mouth daily., Disp: , Rfl: montelukast 10 mg tablet, Take 10 mg by mouth every morning., Disp: , Rfl: traZODone 150 mg tablet, TAKE 2 TABLETS BY MOUTH IN THE EVENING NEEDED, Disp: , Rfl: vit C/E/Zn/coppr/lutein/zeaxan (PRESERVISION AREDS-2 ORAL), Take by mouth., Disp: , Rfl: Past Medical History: Diagnosis Date Acquired hypothyroidism 02/19/2020 Arthritis 02/19/2020 hands, shoulders, knees Chronic depression 02/19/2020 Chronic diarrhea 02/21/2020 Essential hypertension Macular degeneration Seasonal allergic rhinitis 02/19/2020 Past Surgical History: Procedure Laterality Date HYSTERECTOMY INTESTINE SURG PROCEDURE UNLISTED Bowel Obstruction Family History Problem Relation Age of Onset Hypertension Mother Skin Cancer Father Social History Socioeconomic History Marital status: Spouse name: Not on file Number of children: Not on file Years of education: Not on file Highest education level: Not on file Occupational History Not on file Social Needs Financial resource strain: Not on file Food insecurity Worry: Not on file Inability: Not on file Transportation needs Medical: Not on file Non-medical: Not on file Tobacco Use Smoking status: Current Every Day Smoker Packs/day: 1.00 Smokeless tobacco: Never Used Substance and Sexual Activity Alcohol use: Never Frequency: Never Binge frequency: Never Drug use: Not on file Sexual activity: Not on file Lifestyle Physical activity Days per week: Not on file Minutes per session: Not on file Stress: Not on file Relationships Social connections Talks on phone: Not on file Gets together: Not on file Attends worship service: Not on file Active member of club or organization: Not on file Attends meetings of clubs or organizations: Not on file Relationship status: Not on file Intimate partner violence Fear of current or ex partner: Not on file Emotionally abused: Not on file Physically abused: Not on file Forced sexual activity: Not on file Other Topics Concern Not on file Social History Narrative Not on file Review of Systems Constitutional: Negative. HENT: Negative. Eyes: Negative. Respiratory: Negative. Cardiovascular: Negative. Gastrointestinal: Positive for diarrhea. Genitourinary: Negative. Musculoskeletal: Positive for arthralgias. Skin: Negative. Neurological: Negative. Psychiatric/Behavioral: Negative. Endocrine: Endocrine negative Vital signs BP 137/63 | Pulse 60 | Temp 36.7 C (98 F) (Tympanic) | Ht 4' 8" (1.422 m) | Wt 175 lb (79.4 kg) | BMI 39.23 kg/m Physical Exam Vitals signs and nursing note reviewed. Constitutional: General: She is not in acute distress. Appearance: She is well-developed. HENT: Head: Normocephalic. Eyes: General: No scleral icterus. Conjunctiva/sclera: Conjunctivae normal. Pupils: Pupils are equal, round, and reactive to light. Neck: Musculoskeletal: Neck supple. Thyroid: No thyromegaly. Vascular: No carotid bruit. Cardiovascular: Rate and Rhythm: Normal rate and regular rhythm. Heart sounds: Normal heart sounds. No murmur. No friction rub. No gallop. Pulmonary: Effort: Pulmonary effort is normal. Breath sounds: Normal breath sounds. No wheezing, rhonchi or rales. Abdominal: General: Bowel sounds are normal. There is no distension. Palpations: Abdomen is soft. There is no mass. Tenderness: There is no abdominal tenderness. Musculoskeletal: Right lower leg: No edema. Left lower leg: No edema. Lymphadenopathy: Cervical: No cervical adenopathy. Skin: General: Skin is warm and dry. Coloration: Skin is not jaundiced or pale. Findings: No rash. Neurological: General: No focal deficit present. Mental Status: She is alert and oriented to person, place, and time. Psychiatric: Attention and Perception: Attention and perception normal. Mood and Affect: Mood normal. Speech: Speech normal. Behavior: Behavior normal. Thought Content: Thought content normal. Thought content is not paranoid or delusional. Thought content does not include homicidal or suicidal ideation. Cognition and Memory: Cognition and memory normal. Judgment: Judgment normal. LABS: CBC CMP No results found for: WBC No results found for: NA No results found for: RBC No results found for: K No results found for: PLT No results found for: CA No results found for: HGB No results found for: CL No results found for: HCT No results found for: BUN LIPID PANEL No results found for: CREAT No results found for: CHOL No results found for: GLU No results found for: LDL No results found for: TCO2 No results found for: HDL No results found for: ALB No results found for: TRIG No results found for: TPRO TSH No results found for: BILIT No results found for: TSH No components found for: BILIUNCOM No results found for: BILICONJ No results found for: ALT No results found for: AST No results found for: ALKPHOS ASSESSMENT/PLAN Shanae was seen today for establishment of primary care. [facility] Will request the patient's outside medical records for my review. Diagnoses and all orders for this visit: Acquired hypothyroidism The patient should continue the current thyroid hormone replacement dose for now. I will adjust thedose if needed based on the patient's TFTs (labs planned for next visit). To ensure optimal absorption, the patient should take his/her thyroid medication in the morning on an empty stomach with waterat least 30mins- 1hr prior to other medications and food. Chronic diarrhea Stable. Continue current pharmacotherapy. The patient understands he/she should follow-up sooner here or with her GI specialist if there is any rebound in her symptoms. - Colestipol HCl 1 gram tablet; Take 2 tablets by mouth 2 (two) times daily. Chronic depression, Chronic insomnia Stable. Continue current psychotropic medication(s) but she can attempt to taper down her dose of trazodone to 150mg which I feel would be a safer dose for her age. The patient declines referral for counseling or Psychiatry care at this time. I will continue to monitor the patient's progress. The patient understands she can follow-up sooner if the symptoms rebound or if other mental health issuesdevelop. Essential hypertension The patient's blood pressure goal is <140/<90. Continue current antihypertensive medication(s). The patient should follow a low sodium diet/DASH diet and should exercise for at least 150 mins per week as part of a heart healthy lifestyle (if followed by a Anthropology Professor the patient should seek clearance for exercise). The patient should self-monitor his/her blood pressure once-twice daily varying the times when it is checked and to bring the record of readings to each office visit. The patient should follow-up sooner if the blood pressure is trending >/=140/90. An EKG should be done q1-3 years for cardiac surveillance. If not already followed by Cardiology, the patient should see a Anthropology Professor for consultation if there is a family history of heart disease in a 1st degree relative, if any cardiovascular symptomatology develops, and for HTN that is resistant to treatment. The patient should seek immediate ER evaluation for acute symptoms such as chest pain, SOB, syncope, etc. The patient or caregiver understands the potential consequences of uncontrolled HTN including heart disease, renal failure, stroke, etc. Seasonal allergic rhinitis due to pollen Continue current anti-allergy medication(s). The patient can also use Mucinex max strength 1200mg tabs q12hr PRN congestion for mucolytic and expectorant action. The patient should stay hydrated to aid in the clearance of secretions. The patient should avoid allergic triggers whenever possible. The patient should see an Acetylene Burner if her symptoms persist despite these aforementioned treatments. History of near-syncope Management per Cardiology. Follow-up with this specialist as scheduled/planned. Will request her Anthropology Professor's medical records for continuity of care. Plan of care, desired health behaviors, goals, Ddx, and any prescribed medications were discussed with the patient. This visit did not involve counseling and coordination that comprised more than 50% of the visit time. Education resources and self-management tools were provided/reviewed with the AVS. Patient/guardian/family verbalized understanding and agrees to the plan of care. Barriers to care: None. Ability to manage care: Good. Advanced care planning (living will) information was not given/offered to the patient to review for discussion at a future visit. If applicable, the [place] PMPdatabase was accessed to review any controlled substance prescription claims data. If the patient is taking prescribed medications, the [employer] prescription claims data in [place] was reviewed to assess patient compliance with the medication treatment plan. Follow-up: Return in about 6 months (around 08/18/2020) for routine follow-up (fasting, 30 min). Follow-up sooner if any problems or concerns. Scribe AttestAleena Painting , am scribing for, and in the presence of, Mick Bedoya MD who performed the services described here-in. Aleena Pierre, February 19, 2020, 1:56 PM Physician Attestation Mick Jensen MD, personally performed the services described in this documentation , as scribed by, Aleena Pierre in my presence and it is both accurate and complete. Mick Bedoya MD February 19, 2020, 1:56 PM ER REPAIR SUPERVISOR documented in this encounter Plan of Treatment Date Type Specialty Care Team Description 08/18/2020 Office Visit Family Medicine Jaya Bedoya MD [address] [place] [address] [phone] Health Maintenance Due Date Last Done Comments DTaP,Tdap,and Td Vaccines (1 - 02/18/2021 P ostponed from 1961 Tdap) (Refused) Depression Screening 02/18/2021 02/19/2020 LUNG CANCER SCREEN: Recommended 02/18/2021 Postponed from 1997 for age 55-80 with 30 + pack (Re fused) year history Medicare Wellness Visit 02/18/2021 Postpone d from 11/12/2007 (Alternative Harry delines) Osteoporosis Screening 02/18/2021 Postponed from 11/12/2007 (Refused) PNEUMOCOCCAL VACCINES 65+ (1 of 02/18/2021 Postponed from 11/12/2007 1 - PPSV23) (Refused) Zoster Recombinant Vaccine 02/18/2021 Postp oned from 1992 (SHINGRIX) (1 of 2) (Refused) INFLUENZA VACCINE Discontinued documented as of this encounter Results Not on filedocumented in this encounter Visit Diagnoses Diagnosis Acquired hypothyroidism - Primary Unspecified hypothyroidism Chronic diarrhea Diarrhea Chronic depression Depressive disorder, not elsewhere class ified Essential hypertension Unspecified essential hypertension Seasonal allergic rhinitis due to pollen documented in this encounter Insurance Payer Benefit Plan / Subscriber ID Effective Dates Phone Addre ss Type Group MEDICARE MEDICARE PART [id number] 2007-[place] [id number] [place] [address] documented as of this encounter
--- OUTSIDE RECORDS SUMMARY | 2020-04-01 12:11 | XMS REPORT | Continuity of Care Document ---
:1940 Author Organization [facility] t Address [address] [place] [address] Dr. Bergeron [address] [place] [address] Care Team Providers Name Role Phone UNKNOWN Primary Care Physician Unavailable Martir PALUMBO Attending Clinician Zora Bedoya MD Attending Clinician ALEX FONTANEZ M.D. Attending Clinician Unavailable ALEX FONTANEZ M.D. Admitting Clinician Unavailable Problems This patient has no known problems. Allergies, Adverse Reactions, Alerts This patient has no known allergies or adverse reactions. Medications This patient has no known medications. Procedures This patient has no known procedures. Encounters Start End Encounter Admission Attending Care Care Encounter Source Date/Time Date/Time Type Type Clinicians Facility Department ID 2020-03-08 2020-03-08 Telephone Martir [id number] 00:00:00 00:00:00 [facility] [id number] [facility] [id number] Primary & 370 Specialty Care 2020-03-07 2020-03-07 Telephone Elke [facility] [id number] 00:00:00 00:00:00 [facility] [id number] [facility] [phone] nal [address] 2020-02-19 2020-02-19 Office Elke [facility] [id number] 13:26:12 14:29:08 Visit [facility] [id number] [place] [id number] Lela [phone] nal 044 [address] One Results This patient has no known results.
--- OUTSIDE RECORDS SUMMARY | 2020-04-01 12:11 | XMS REPORT | Summary of Care ---
:1940 Author Organization [facility] Address [address] [place] [address] Care Team Providers Name Role Phone Zora Bedoya MD Primary Care Provider Reason for Visit Reason Comments Establish Care Encounter Details Date Type Department Care Team Description 02/19/2020 Office Visit [facility] Family Omari Bedoyahui Acqu ired hypothyroidism (Primary Dx); Medicine - Elle Blakely MD Chronic diarrhea; [address] [place] [address] Chronic depression; [place], [place] Essential hypertension; [place] [address] Seasonal allergic rhinitis due to pollen [phone] [...] with No / Unsure 02/19/2020 1:51 PM 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 documented as of this encounter Last Filed Vital Signs Vital Sign Reading Time Taken Comments Blood Pressure 137/63 02/19/2020 1:56 PM MERCHANDISE DIRECTOR Pulse 60 02/19/2020 1:56 PM MERCHANDISE DIRECTOR Temperature 36.7 C (98 F) 02/19/2020 1:52 PM MERCHANDISE DIRECTOR Respiratory Rate - - Oxygen Saturation - - Inhaled Oxygen Concentration - - Weight 79.4 kg (175 lb) 02/19/2020 1:52 PM MERCHANDISE DIRECTOR Height 142.2 cm (4' 8") 02/19/2020 1:52 PM MERCHANDISE DIRECTOR Body Mass Index 39.23 02/19/2020 1:52 PM MERCHANDISE DIRECTOR documented in this encounter Patient Instructions Patient [...] women in this age group Every exam [employer] last reviewed this educational content on 10/07/201919996013-9240 [employer]. All rights reserved. This information is not intended as a substitute for professional medical care. Always follow your healthcare professional's instructions. HANDISE DIRECTOR documented in this encounter Progress Notes Mick Bedoya MD - 02/19/2020 1:30 PM CST CC: Chief Complaint Patient presents with Replaced By [facility] Care-hypothyroidism, HTN, depression HPI Shanae Del Cid [...] well-controlled. The patient's specialists: She sees a Chart Picker in [place] (can't recall his name). Her son is [...] currently undergoing a cardiac work-up with her Chart Picker due to a near- syncopal episode a [...] file Gets together: Not on file Attends methodist service: Not on file Active member of [...] primary care. [facility]. Will request the patient's outside medical [...] heart healthy lifestyle (if followed by a Chart Picker the patient should seek clearance for exercise). [...] by Cardiology, the patient should see a Chart Picker for consultation if there is a family [...] whenever possible. The patient should see an Certified Family Mediator if her symptoms persist despite these aforementioned treatments. History of near-syncope Management per Cardiology. Follow-up with this specialist as scheduled/planned. Will request her Chart Picker's medical records for continuity of care. Plan [...] at a future visit. If applicable, the [place] PMPdatabase was accessed to review any controlled substance prescription claims data. If the patient is taking prescribed medications, the [employer] prescription claims data in [employer] was reviewed to assess patient compliance with [...] Bedoya MD February 19, 2020, 1:56 PM HANDISE DIRECTOR documented in this encounter Plan of Treatment Date Type Specialty Care Team Description 08/18/2020 Office Visit Family Medicine Jaya Bedoya MD [address] [place] [address] [phone] Health Maintenance Due Date Last Done Comments [...] Addre ss Type Group MEDICARE MEDICARE PART [id number] 2007-[place]ell [phone] Medicare A & B t 2 [id number] [place] [phone] documented as of this encounter
--- OUTSIDE RECORDS SUMMARY | 2020-04-01 12:11 | XMS REPORT | Summary of Care ---
:1940 Author Organization [facility] Address [address] [place] [address] Care Team Providers Name Role Phone Zora Bedoya MD Primary Care Provider Reason for Visit Reason Comments Rx Concern/Question Encounter Details Date Type Department Care Team Description 03/07/2020 Telephone [facility] Mick Bedoya R x Concern/Question Medicine - Elle ALVARADO [address] [place] [address] Dr winkler [address] [place] [address] [place] [address] [place], [place] [phone] Allergies No Known Allergiesdocumented as of this encounter (statuses as of 03/08/2020) Medications Medication Sig Dispensed Refills Start Date End Date Status traZODone 150 mg tablet TAKE 2 TABLETS 0 01/19/2020 Active BY MOUTH IN THE EVENING NEEDED montelukast 10 mg Take 10 mg by 0 01/25/2020 Active tablet mouth every morning. EUTHYROX 100 mcg tablet Take 100 mcg by 0 02/05/2020 Active mouth every morning. desvenlafaxine Take 50 mg by 0 01/20/2020 Active succinate 50 mg 24 hr mouth daily. tablet candesartan 16 mg Take 16 mg by 0 12/22/2019 Active tablet mouth daily. metoprolol succinate XL Take 50 mg by 0 Active 50 mg 24 hr tablet mouth daily. vit Take by mouth. 0 Acti ve C/E/Zn/coppr/lutein/sandi la nnea (PRESERVISION AREDS-2 ORAL) Colestipol HCl 1 gram Take 2 tablets 360 tablet 3 02/19/2020 Active tabletIndications: by mouth 2 (two) Chronic diarrhea times daily. 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 documented as of this encounter Last Filed Vital Signs Not on filedocumented in this encounter Miscellaneous Notes Telephone Encounter - Madalyn Hernandez - 03/08/2020 12:00 PM CSTTransferred call to [facility] elephone Encounter - Moira Matute - 03/08/2020 11:38 AM CSTPer patient she is calling to check the status of her request for antibiotics. Informed the patientthat Dr. Bedoya wanted her to have a tele visit appointment. Patient wants tele visit with Dr. Bedoya. Please call. Phone number corrected elephone Encounter - Kizzy Ervin - 03/08/2020 8:39 AM CSTI scheduled patient with TeleUrgent care however when I tried calling patient to let her know the phone number on file was not a working number. I went ahead and cancelled the appointment elephone Encounter - Mick Bedoya MD - 03/07/2020 6:11 PM CSTNeeds appointment. Schedule her with teleurgent care. DRIVER Telephone Encounter - Moira Matute - 03/07/2020 2:05 PM CSTPer patient she has a scratchy throat and would like to get a 5 day antibiotic sent to the pharmacy.Informed patient she would need an appointment, patient declined stating that she does not want to go outside. Next tele health appointment is 03/14/20. Per patient she just wants antibiotic sent to pharmacy. Please call. documented in this encounter Plan of Treatment Date Type Specialty Care Team Description 03/08/2020 Telemedicine Visit Family Medicine Care, [facility] 08/18/2020 Office Visit Family Medicine Jaya Bedoya MD [address] [place] [address] [phone] Health Maintenance Due Date Last Done Comments [...] Results Not on filedocumented in this encounter Insurance Payer Benefit Plan / Subscriber ID Effective Dates Phone Addre ss Type Group MEDICARE MEDICARE PART [id number] 2007-[place] [phone] Medicare A & B t 2 [id number] [place] [phone] documented as of this encounter
--- OUTSIDE RECORDS SUMMARY | 2020-04-01 12:11 | XMS REPORT | Summary of Care ---
:1940 Author Organization [facility] Address [address] [place] [address] Care Team Providers Name Role Phone Zora Bedoya MD Primary Care Provider Reason for Visit Reason Comments Appointment Encounter Details Date Type Department Care Team Description 03/08/2020 Telephone [facility], Kylah Hsu FNP Appointment [address] [address] [facility] [address] [place] [address] [place], [place] [phone] Allergies No Known Allergiesdocumented as of this [...] by mouth. 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 documented as of this encounter Last Filed Vital Signs Not on filedocumented in this encounter Miscellaneous Notes Telephone Encounter - Kylah Mcmahan FNP - 03/08/2020 1:07 PM CSTSpoke with patient and informed her that she would need a face to face visit to determine if her scratchy throat is bacterial vs viral. She was informed that we cannot prescribe an antibiotic without astrep diagnotic test. Patient agreed to go to [facility] at 4:00 pm documented in this encounter Plan of Treatment Date Type Specialty Care Team Description 03/08/2020 Telemedicine Visit Family Medicine Unknown, Attending [facility], [facility] 08/18/2020 Office Visit Family Medicine Jaya Bedoya MD [address] [place] [phone] Health Maintenance Due Date Last Done [...] Addre ss Type Group MEDICARE MEDICARE PART [id number] 2007-[place] [phone] [address] Medicare A & B t [id number] [place] [address] documented as of this encounter
[2020-04-01] MEDS ORDERED: NA CHLORIDE 0.9% 500 ML ONE (14:04)
[2020-04-01 14:09] LABS: Absolute Lymphocytes (CBC) 1.7 K/uL (0.7-4.9); Basophils % 0.6 % (0-1.3); Hematocrit 44.8 % (36.0-45.0); Lymphocytes % 16.7 % (15.3-44.8); MPV 7.9 fL (7.6-11.3); RBC Red Blood Cell Count 4.85 M/uL (3.86-4.86)
--- NOTE | 2020-04-01 14:21 | RAD REPORT ---
EXAM DESCRIPTION: RAD - Chest Single View - 04/01/2020 2:06 pm CLINICAL HISTORY: Abdominal pain Chest pain. COMPARISON: Chest Single View dated 01/27/2020; Chest Pa And Lat (2 Views) dated 06/03/2019; Chest Si ngle View dated 05/24/2018; Chest Single View dated 05/07/2017 FINDINGS: Portable technique limits examination quality. The lungs are grossly clear. The heart is upper limit of normal in size. No displaced fractures. IMPRESSION: No acute intrathoracic process suspected.
[2020-04-01 14:28] LABS: Albumin 4.2 g/dL (3.4-5.0); Bilirubin Direct 0.1 mg/dL (0-0.2); Bilirubin Total 0.4 mg/dL (0.2-1.0); Potassium 3.1 mmol/L (3.5-5.1); Protein, Total 7.3 g/dL (6.4-8.2)
--- NOTE | 2020-04-01 15:37 | RAD REPORT ---
EXAM DESCRIPTION: CTAbdomen Pelvis W Contrast - 04/01/2020 3:20 pm CLINICAL HISTORY: Abdominal pain. ABD PAIN COMPARISON: Abdomen Pelvis W Contrast dated 06/05/2019; Abdomen Pelvis W Contrast dated 05/24/2018 TECHNIQUE: Biphasic CT imaging of the abdomen and pelvis was performed with 100 ml non-ionic IV cont rast. All CT scans are performed using dose optimization technique as appropriate and may include automated exposure control or mA/KV adjustment according to patient size. FINDINGS: The lung bases are clear. The liver, spleen, pancreas, adrenal glands are within normal limits. Benign bilateral renal cysts ar e present. No bowel obstruction, free air, free fluid or abscess. The appendix is not identified as a discrete structure, however, no secondary findings of appendicitis are identified. Prominent sigmoid divertic ulosis is present with mild surrounding fat stranding as well as wall thickening suggesting diverticu litis. No peridiverticular abscess. No evidence of significant lymphadenopathy. No suspicious bony findings. IMPRESSION: Significant diverticulosis of the rectosigmoid colon is seen with findings suspicious fo r mild acute diverticulitis present. No abscess.
--- NOTE | 2020-04-01 16:20 | EDPHYS ---
Physician Documentation [facility] Name: Shanae Del Cid Age: 79 yrs Sex: Female : 1940 Arrival Date: 04/01/2020 Time: 12:13 Bed 19 Private MD: ED Physician Jonh Ordonez HPI: 04/01 17:17 This 79 yrs old Female presents to ER via Ambulatory with complaints of kdr Abdominal Pain, Diarrhea, Decreased Appetite. 17:17 The patient presents to the emergency department with nausea, that is mild, diarrhea, kdr that is intermittent, abdominal pain, of the epigastric area, right upper quadrant and left upper quadrant. Onset: The symptoms/episode began/occurred gradually, 1 month(s) ago. Possible causes: unknown. The symptoms are aggravated by nothing. The symptoms are alleviated by nothing. Associated signs and symptoms: Pertinent positives: abdominal pain, diarrhea, nausea, Pertinent negatives: anorexia, belching, dysuria, fever, flatulence, hematuria, vaginal discharge, vomiting. Severity of symptoms: At their worst the symptoms were mild moderate just prior to arrival, today, in the emergency department the symptoms have improved mildly. The patient has not experienced similar symptoms in the past. The patient has not recently seen a physician. Historical: - Allergies: 12:58 No Known Allergies; ll1 - PMHx: 12:58 eye disease; Hypertension; Hypothyroidism; ll1 - PSHx: 12:58 Hysterectomy; Appendectomy; Tonsillectomy; bowel obstruction; ll1 - Immunization history:: Flu vaccine is not up to date. - Social history:: Smoking status: Patient reports the use of cigarette tobacco products, smokes one-half pack cigarettes per day. ROS: 17:17 Constitutional: Negative for fever, chills, and weight loss, Eyes: Negative for injury, kdr pain, redness, and discharge, ENT: Negative for injury, pain, and discharge, Neck: Negative for injury, pain, and swelling, Cardiovascular: Negative for chest pain, palpitations, and edema, Respiratory: Negative for shortness of breath, cough, wheezing, and pleuritic chest pain, Back: Negative for injury and pain, : Negative for injury, bleeding, discharge, and swelling, MS/Extremity: Negative for injury and deformity, Skin: Negative for injury, rash, and discoloration, Neuro: Negative for headache, weakness, numbness, tingling, and seizure activity. Psych: Negative for depression, anxiety, suicide ideation, homicidal ideation, and hallucinations, Allergy/Immunology: Negative for hives, rash, and allergies, Endocrine: Negative for neck swelling, polydipsia, polyuria, polyphagia, and marked weight changes, Hematologic/Lymphatic: Negative for swollen nodes, abnormal bleeding, and unusual bruising. 17:17 Abdomen/GI: Positive for abdominal pain, nausea, abdominal cramps, abdominal distension, Negative for vomiting. Exam: 13:57 ECG was reviewed by the Attending Physician. kdr 17:17 Constitutional: This is a well developed, well nourished patient who is awake, alert, kdr and in no acute distress. Head/Face: Normocephalic, atraumatic. Eyes: Pupils equal round and reactive to light, extra-ocular motions intact. Lids and lashes normal. Conjunctiva and sclera are non-icteric and not injected. Cornea within normal limits. Periorbital areas with no swelling, redness, or edema. Neck: Trachea midline, no thyromegaly or masses palpated, and no cervical lymphadenopathy. Supple, full range of motion without nuchal rigidity, or vertebral point tenderness. No Meningismus. Chest/axilla: Normal chest wall appearance and motion. Nontender with no deformity. No lesions are appreciated. Cardiovascular: Regular rate and rhythm with a normal S1 and S2. No gallops, murmurs, or rubs. Normal PMI, no JVD. No pulse deficits. Respiratory: Lungs have equal breath sounds bilaterally, clear to auscultation and percussion. No rales, rhonchi or wheezes noted. No increased work of breathing, no retractions or nasal flaring. Back: No spinal tenderness. No costovertebral tenderness. Full range of motion. Skin: Warm, dry with normal turgor. Normal color with no rashes, no lesions, and no evidence of cellulitis. MS/ Extremity: Pulses equal, no cyanosis. Neurovascular intact. Full, normal range of motion. Neuro: Awake and alert, GCS 15, oriented to person, place, time, and situation. Cranial nerves II-XII grossly intact. Motor strength 5/5 in all extremities. Sensory grossly intact. Cerebellar exam normal. Normal gait. Psych: Awake, alert, with orientation to person, place and time. Behavior, mood, and affect are within normal limits. 17:17 Abdomen/GI: Inspection: abdomen appears normal, Bowel sounds: active, all quadrants, Palpation: soft, mild abdominal tenderness, in the epigastric area, right upper quadrant and left upper quadrant, rebound tenderness, is not appreciated. Vital Signs: 12:56 BP 195 / 65; Pulse 65; Resp 17; Temp 98.5; Pulse Ox 98% ; Weight 61.23 kg; Pain 2/10; ll1 13:26 BP 196 / 71; Pulse 58; Resp 18 S; Pulse Ox 98% on R/A; ca1 14:48 BP 201 / 84; Pulse 58; Resp 16 S; Pulse Ox 99% on R/A; ca1 15:40 BP 203 / 72; Pulse 57; Resp 16 S; Pulse Ox 100% on R/A; ca1 16:42 BP 209 / 73; Pulse 61; Resp 16 S; Pulse Ox 100% on R/A; ca1 MDM: 16:18 Patient medically screened. kdr 17:17 Data reviewed: vital signs, nurses notes, lab test result(s), radiologic studies. kdr Counseling: I had a detailed discussion with the patient and/or guardian regarding: the historical points, exam findings, and any diagnostic results supporting the discharge/admit diagnosis, lab results, radiology results, the need for outpatient follow up. 04/01 13:26 Order name: Basic Metabolic Panel; Complete Time: 14:40 [facility] 04/01 13:26 Order name: CBC with Diff; Complete Time: 14:40 kdr 04/01 13:26 Order name: Hepatic Function; Complete Time: 14:40 [facility] 04/01 13:26 Order name: Lipase; Complete Time: 14:40 [facility] 04/01 13:38 Order name: Troponin (emerg Dept Use Only); Complete Time: 15:30 kdr 04/01 14:04 Order name: Urine Dipstick--Ancillary (enter results) 04/01 13:26 Order name: IV Saline Lock; Complete Time: 14:03 kdr 04/01 13:26 Order name: Labs collected and sent; Complete Time: 14:03 [facility] 04/01 13:38 Order name: CXR XRAY; Complete Time: 14:40 kdr 04/01 13:38 Order name: CT Abd/Pelvis - IV Contrast Only; Complete Time: 16:11 kdr 04/01 13:38 Order name: EKG - Nurse/Tech; Complete Time: 14:03 kdr 04/01 13:38 Order name: Urine Dipstick-Ancillary (obtain specimen); Complete Time: 14:03 kdr EC:57 Rate is 57 beats/min. Rhythm is regular, Sinus bradycardia with No ectopy. QRS [place] is kdr Normal. IN interval is normal. QRS interval is normal. QT interval is normal. Clinical impression: NSR w/ Non-specific ST/T Changes. Administered Medications: 14:03 Drug: NS 0.9% 500 ml Route: IV; Rate: bolus; Site: right wrist; ca1 16:15 Drug: cloNIDine 0.2 mg Route: PO; ca1 16:16 Drug: Cipro 500 mg Route: PO; ca1 16:17 Drug: Flagyl 500 mg Route: PO; ca1 Disposition: 04/01/20 16:18 Discharged to Home. Impression: Abdominal and pelvic pain, Diverticulitis of large intestine without perforation or abscess with bleeding - No bleeding. - Condition is Stable. - Discharge Instructions: Diverticulitis, Rbut-hp-Htmb, Abdominal Pain, Adult, Fglo-mn-Rmce. - Prescriptions for Bentyl 20 mg Oral Tablet - take 1 tablet by ORAL route every 6 hours As needed; 20 tablet. Cipro 500 mg Oral Tablet - take 1 tablet by ORAL route every 12 hours for 10 days; 20 tablet. Flagyl 500 mg Oral Tablet - take 1 tablet by ORAL route every 6 hours for 10 days; 40 tablet. Ibuprofen 600 mg Oral Tablet - take 1 tablet by ORAL route every 6 hours As needed take with food; 30 tablet. Zofran 4 mg Oral Tablet - take 1 tablet by ORAL route every 12 hours As needed; 12 tablet. - Medication Reconciliation Form, Thank You Letter, Antibiotic Education, Prescription Opioid Use form. - Follow up: Private Physician; When: 2 - 3 days; Reason: If symptoms return, Further diagnostic work-up, Recheck today's complaints, Continuance of care, Re-evaluation by your physician. - Problem is new. - Symptoms have improved. Signatures: Dispatcher [employer] EDMS Jonh Ordonez MD MD kdr Janet Nguyen RN RN ca1 Dayday Paulson RN RN ll1 Corrections: (The following items were deleted from the chart) 16:47 16:18 04/01/2020 16:18 Discharged to Home. Impression: Abdominal and pelvic pain; ca1 Diverticulitis of large intestine without perforation or abscess with bleeding - No bleeding. Condition is Stable. Forms are Medication Reconciliation Form, Thank You Letter, Antibiotic Education, Prescription Opioid Use. Follow up: Private Physician; When: 2 - 3 days; Reason: If symptoms return, Further diagnostic work-up, Recheck today's complaints, Continuance of care, Re-evaluation by your physician. Problem is new. Symptoms have improved. kdr
--- NOTE | 2020-04-01 16:20 | ER ---
Nurse's Notes [facility] Name: Shanae Del Cid Age: 79 yrs Sex: Female : 1940 Arrival Date: 04/01/2020 Time: 12:13 Bed 19 Private MD: Diagnosis: Abdominal and pelvic pain;Diverticulitis of large intestine without perforation or abscess with bleeding-No bleeding Presentation: 04/01 12:56 Chief complaint: Patient states: Abd pain off/on for 1 month. Diarrhea off/on with ll1 decreased appetite. States she came today because she thought she might pass out. Coronavirus screen: Client denies travel out of the [place] in the last 14 days. At this time, the client does not indicate any symptoms associated with coronavirus-19. Ebola Screen: Patient denies travel to an Ebola-affected area in the 21 days before illness onset. Initial Sepsis Screen: Does the patient meet any 2 criteria? No. Patient's initial sepsis screen is negative. Does the patient have a suspected source of infection? Yes: Acute abdominal pain. Risk Assessment: Do you want to hurt yourself or someone else? Patient reports no desire to harm self or others. Onset of symptoms was March 02, 2020. 12:56 Method Of Arrival: Ambulatory ll1 12:56 Acuity: [facility]NER 3 ll1 Historical: - Allergies: 12:58 No Known Allergies; ll1 - PMHx: 12:58 eye disease; Hypertension; Hypothyroidism; ll1 - PSHx: 12:58 Hysterectomy; Appendectomy; Tonsillectomy; bowel obstruction; ll1 - Immunization history:: Flu vaccine is not up to date. - Social history:: Smoking status: Patient reports the use of cigarette tobacco products, smokes one-half pack cigarettes per day. Screenin:05 Abuse screen: Denies threats or abuse. Denies injuries from another. Nutritional ca1 screening: No deficits noted. Tuberculosis screening: No symptoms or risk factors identified. Fall Risk IV access (20 points). Assessment: 13:05 General: Appears in no apparent distress. comfortable, Behavior is calm, cooperative, ca1 appropriate for age. Pain: Complains of pain in right upper quadrant and left upper quadrant Pain does not radiate. Pain currently is 1 out of 10 on a pain scale. at worst was 5 out of 10 on a pain scale. Quality of pain is described as sharp, Pain began a month Is intermittent. Neuro: Level of Consciousness is awake, alert, obeys commands, Oriented to person, place, time, situation. Cardiovascular: Heart tones S1 S2 present Capillary refill < 3 seconds Patient's skin is warm and dry. Respiratory: Airway is patent Respiratory effort is even, unlabored, Respiratory pattern is regular, symmetrical, Breath sounds are clear bilaterally. GI: Abdomen is flat, non-distended, Bowel sounds present X 4 quads. Abd is soft and non tender X 4 quads. Abd is soft X 4 quads Reports diarrhea, nausea, since a month ago, off and on. : No signs and/or symptoms were reported regarding the genitourinary system. EENT: No signs and/or symptoms were reported regarding the EENT system. Derm: Skin is intact, is healthy with good turgor, Skin is pink, warm \T\ dry. Musculoskeletal: Circulation, motion, and sensation intact. Capillary refill < 3 seconds. 14:10 Reassessment: Patient appears in no apparent distress at this time. Patient and/or ca1 family updated on plan of care and expected duration. Pain level reassessed. Patient is alert, oriented x 3, equal unlabored respirations, skin warm/dry/pink. 14:48 Reassessment: Patient appears in no apparent distress at this time. Patient and/or ca1 family updated on plan of care and expected duration. Pain level reassessed. Patient is alert, oriented x 3, equal unlabored respirations, skin warm/dry/pink. 15:50 Reassessment: Patient appears in no apparent distress at this time. Patient and/or ca1 family updated on plan of care and expected duration. Pain level reassessed. Patient is alert, oriented x 3, equal unlabored respirations, skin warm/dry/pink. 16:27 Reassessment: Patient appears in no apparent distress at this time. Patient and/or ca1 family updated on plan of care and expected duration. Pain level reassessed. Patient is alert, oriented x 3, equal unlabored respirations, skin warm/dry/pink. 16:42 Reassessment: Patient appears in no apparent distress at this time. Patient is alert, ca1 oriented x 3, equal unlabored respirations, skin warm/dry/pink. Dr. Ordonez states okay to sent pt home with current BP. Vital Signs: 12:56 BP 195 / 65; Pulse 65; Resp 17; Temp 98.5; Pulse Ox 98% ; Weight 61.23 kg; Pain 2/10; ll1 13:26 BP 196 / 71; Pulse 58; Resp 18 S; Pulse Ox 98% on R/A; ca1 14:48 BP 201 / 84; Pulse 58; Resp 16 S; Pulse Ox 99% on R/A; ca1 15:40 BP 203 / 72; Pulse 57; Resp 16 S; Pulse Ox 100% on R/A; ca1 16:42 BP 209 / 73; Pulse 61; Resp 16 S; Pulse Ox 100% on R/A; ca1 ED Course: 12:13 Patient arrived in ED. ag5 12:55 Jonh Ordonez MD is Attending Physician. kdr 12:58 Triage completed. ll1 12:58 Arm band placed on Patient placed in an exam room, on a stretcher. ll1 12:59 Janet Nguyen, EZE is Primary Nurse. ca1 13:05 Patient has correct armband on for positive identification. Bed in low position. Call ca1 light in reach. Side rails up X 1. Pulse ox on. NIBP on. Warm blanket given. 14:01 Initial lab(s) drawn, by me, sent to lab. Inserted saline lock: 20 gauge in right ca1 wrist, using aseptic technique. Blood collected. 14:06 CXR XRAY In Process Unspecified. EDMS 15:20 CT Abd/Pelvis - IV Contrast Only In Process Unspecified. EDMS 16:46 No provider procedures requiring assistance completed. IV discontinued, intact, ca1 bleeding controlled, No redness/swelling at site. Pressure dressing applied. Administered Medications: 14:03 Drug: NS 0.9% 500 ml Route: IV; Rate: bolus; Site: right wrist; ca1 16:15 Drug: cloNIDine 0.2 mg Route: PO; ca1 16:16 Drug: Cipro 500 mg Route: PO; ca1 16:17 Drug: Flagyl 500 mg Route: PO; ca1 Outcome: 16:18 Discharge ordered by . kdr 16:46 Discharged to home ambulatory, with family. ca1 16:46 Condition: stable 16:46 Discharge instructions given to patient, Instructed on discharge instructions, follow up and referral plans. medication usage, Demonstrated understanding of instructions, follow-up care, medications, Prescriptions given X x 5 16:47 Patient left the ED. ca1 Signatures: Dispatcher [employer] Jonh Narvaez MD MD kdr Janet Nguyen RN RN ca1 Giuliano Foster ag5 Dayday Paulson RN RN ll1
[2020-04-01 16:26] LABS: Urine Blood NEGATIVE (NEG); Urine Glucose NEGATIVE (NEG); Urine Protein NEGATIVE (NEG)
[2020-04-01] MEDS ORDERED: metroNIDAZOLE 500 MG TABLET ONE (16:32)
[2020-04-01] MEDS ORDERED: cloNIDine HCL 0.1 MG TAB ONE (16:32)
[2020-04-01] MEDS ORDERED: CIPROFLOXACIN HCL 500 MG TAB ONE (16:32)
[2020-04-01 16:55] VITALS: TEMP 98.5
[2020-04-01 16:57] VITALS: O2SAT 100
[2020-04-01 16:58] VITALS: BP 209/73
== END 2020-04-01 16:47 | disposition home or self-care (01) ==
LOC: ER 12:09
DX: K57.32 Diverticulitis of large intestine without perforation or abscess without bleeding (principal); I10 Essential (primary) hypertension; F17.210 Nicotine dependence, cigarettes, uncomplicated
CPT/HCPCS: 93005; 85025; 80048; 36415; 80076; 81003; 84484; 83690; 74177; 71045; 99284; Q9967; J7040

== ENCOUNTER 2020-09-14 09:01 | Emergency (ER) | payer OTHER ==
--- OUTSIDE RECORDS SUMMARY | 2020-09-14 09:05 | XMS REPORT | Continuity of Care Document ---
:1940 Author Organization [facility] t Address [address] [place] [address] Care Team Providers Name Role Phone UNKNOWN Primary Care Physician Unavailable Elke ALVARADO, A Attending Clinician ALEX FONTANEZ M.D. Attending Clinician [...] Date/Time Type Type Clinicians Facility Department ID 2020-08-26 2020-08-26 Office JANET Bedoya [id number] 16:09:47 16:47:41 Visit [facility] [id number] [place] [id number] [place] [phone] [place] 044 Office [address] One Results This patient has no known results.
[2020-09-14] MEDS ORDERED: MORPHINE 4 MG/ML SYR ONE (09:34)
[2020-09-14] MEDS ORDERED: ONDANSETRON 4 MG/2 ML VIAL ONE (09:34)
[2020-09-14 09:44] LABS: Absolute Lymphocytes (CBC) 1.6 K/uL (0.7-4.9); Basophils % 0.4 % (0-1.3); Hematocrit 45.1 % (36.0-45.0); Lymphocytes % 15.2 % (15.3-44.8); MPV 7.7 fL (7.6-11.3); RBC Red Blood Cell Count 5.03 M/uL (3.86-4.86)
[2020-09-14 10:04] LABS: Albumin 4.2 g/dL (3.4-5.0); Bilirubin Direct 0.2 mg/dL (0-0.2); Bilirubin Total 0.5 mg/dL (0.2-1.0); Protein, Total 7.5 g/dL (6.4-8.2)
[2020-09-14 10:24] LABS: Urine Blood Negative (Negative); Urine Glucose Negative (Negative); Urine Protein 2+ (Negative); Urine Specific Gravity 1.025 (1.005-1.030)
--- NOTE | 2020-09-14 11:24 | RAD REPORT ---
EXAM DESCRIPTION: CT - Abdomen Pelvis W Contrast - 09/14/2020 10:59 am CLINICAL HISTORY: ABD PAIN COMPARISON: Abdomen Pelvis W Contrast dated 04/01/2020 TECHNIQUE: Biphasic, helical CT imaging of the abdomen and pelvis was performed following 100 ml non -ionic IV contrast. No oral contrast administered. All CT scans are performed using dose optimization technique as appropriate and may include automated exposure control or mA/KV adjustment according to patient size. FINDINGS: No suspicious findings in the lung bases. The liver, spleen, and pancreas show no suspicious findings. Gallbladder is normal. Biliary tree is m ildly prominent but not clearly different from comparison. Duct stones can be occult. Pancreatic duct is visible but no pancreatic duct stone seen. No active pancreatic process. Symmetric renal function is seen with no hydronephrosis or suspicious renal mass. No pyelonephritis o r acute parenchymal process. Patient has numerous bilateral renal cysts with no suspicious characteri stics. Partially filled urinary bladder shows no suspicious finding. Uterus is absent. Ovaries are ab sent or atrophic. No adrenal abnormalities. No content within the lumen of the stomach. This accentuates gastric elias. No gross abnormality seen . Small bowel loops are not dilated. There is a section of small bowel that shows anastomotic clips. No active process at this site. Colon is mostly decompressed. The patient has an unusual configuration with the cecum positioned in t he mid upper left abdomen. Fatty ileocecal valve is present. The appendix is not identified as a uniq ue structure. There is a 10 millimeter fecalith present. This is not clearly within an appendix. No i nflammatory stranding seen in this region. Patient has prominent diverticulosis but no diverticulitis. There is an additional fecalith within a diverticulum in the distal sigmoid colon. No free air, free fluid or inflammatory stranding. No chrissie ia, mass or bulky lymphadenopathy. No suspicious bony findings. IMPRESSION: Patient has prominent diverticulosis without diverticulitis change. No acute colon proce ss confirmed. Patient has an unusual configuration with a mobile cecum positioned in the mid to upper LEFT abdomen. Fecalith is present near the ileocecal valve but cannot be placed into an appendix. The appendix is not clearly identifiable and there is no edematous or inflammatory stranding adjacent to the mobile cecum. Mild prominence of the biliary tree similar to 2019 study. Duct stones can be occult. Gallbladder is unremarkable.
--- NOTE | 2020-09-14 12:18 | ER ---
Nurse's Notes [facility] Name: Shanae Del Cid Age: 79 yrs Sex: Female : 1940 Arrival Date: 09/14/2020 Time: 09:02 Bed 6 Private MD: Diagnosis: Generalized abdominal pain;Urinary tract infection, site not specified Presentation: 09/14 09:03 Chief complaint: EMS states: ABD pain. Coronavirus screen: At this time, the client ld1 does not indicate any symptoms associated with coronavirus-19. Ebola Screen: No symptoms or risks identified at this time. Initial Sepsis Screen: Does the patient meet any 2 criteria? No. Patient's initial sepsis screen is negative. Does the patient have a suspected source of infection? No. Patient's initial sepsis screen is negative. Risk Assessment: Do you want to hurt yourself or someone else? Patient reports no desire to harm self or others. Onset of symptoms was August 20, 2020. 09:03 Method Of Arrival: EMS: [facility] ld1 09:03 Acuity: [facility] 3 ld1 Triage Assessment: 09:06 General: Appears in no apparent distress. uncomfortable, Behavior is calm, cooperative, ld1 appropriate for age. Pain: Complains of pain in mid back area, left upper quadrant and right lower quadrant Pain currently is 8 out of 10 on a pain scale. Quality of pain is described as burning, throbbing, Pain began Pt states pain \T\ diarrhea have been intermittent X 3 weeks Is intermittent. EENT: No signs and/or symptoms were reported regarding the EENT system. Neuro: Level of Consciousness is awake, alert, obeys commands, Oriented to person, place, time, situation, Appropriate for age. Cardiovascular: Capillary refill < 3 seconds Patient's skin is warm and dry. Respiratory: Airway is patent Respiratory effort is even, unlabored, Respiratory pattern is regular, symmetrical. GI: Abdomen is round non-distended, Bowel sounds present X 4 quads. Abdomen is tender to palpation X 4 quads. Reports diarrhea, nausea. : No signs and/or symptoms were reported regarding the genitourinary system. Derm: No signs and/or symptoms reported regarding the dermatologic system. Musculoskeletal: No signs and/or symptoms reported regarding the musculoskeletal system. Historical: - Allergies: 09:06 No Known Allergies; ld1 - Home Meds: 09:06 candesartan 16 mg Oral tab 1 tab once daily [Active]; levothyroxine 100 mcg tab 1 tab ld1 once daily [Active]; trazodone 150 mg Oral tab 2 tabs [Active]; Metoprolol Tartrate Oral [Active]; - PMHx: 09:06 eye disease; Hypertension; Hypothyroidism; ld1 - PSHx: 09:06 None; ld1 - Immunization history:: Adult Immunizations up to date. - Social history:: Smoking status: Patient denies any tobacco usage or history of. Patient/guardian denies using alcohol. Screenin:03 Abuse screen: Denies threats or abuse. Denies injuries from another. Nutritional sv screening: No deficits noted. Tuberculosis screening: No symptoms or risk factors identified. Fall Risk None identified. Assessment: 09:08 Reassessment: See triage assessment. ld1 10:30 Reassessment: No changes from previously documented assessment. Patient and/or family ld1 updated on plan of care and expected duration. Pain level reassessed. Patient is alert, oriented x 3, equal unlabored respirations, skin warm/dry/pink. Denies concerns at this time. Patient states feeling better. 11:13 Reassessment: No changes from previously documented assessment. Patient and/or family ld1 updated on plan of care and expected duration. Pain level reassessed. Patient is alert, oriented x 3, equal unlabored respirations, skin warm/dry/pink. Laying in bed with son at bedside. Vital Signs: 09:03 BP 182 / 72; Pulse 61; Resp 18; Temp 98.1(TE); Pulse Ox 100% on R/A; Weight 77.11 kg; ld1 Height 5 ft. 3 in. (160.02 cm); Pain 8/10; 10:30 BP 154 / 55; Pulse 59; Resp 18; Pulse Ox 97% on R/A; ld1 09:03 Body Mass Index 30.11 (77.11 kg, 160.02 cm) ld1 ED Course: :02 Patient arrived in ED. ld1 09:02 Jovanna Forbes, RN is Primary Nurse. ld1 09:03 Patient has correct armband on for positive identification. Bed in low position. Call sv light in reach. Pulse ox on. NIBP on. Door closed. Warm blanket given. Head of bed elevated. 09:04 Triage completed. ld1 09:06 Logan Arellano PA is PHCP. [facility] 09:06 Hussein Jackson MD is Attending Physician. [facility] 09:06 Arm band placed on right wrist. ld1 09:31 Lipase Sent. sv 09:31 Hepatic Function Sent. sv 09:31 CBC with Diff Sent. sv 09:31 Basic Metabolic Panel Sent. sv 10:24 Urine collected: clean catch specimen, cloudy, Amount Voided: 200mL. 5 10:59 CT Abd/Pelvis - IV Contrast Only In Process Unspecified. EDMS 12:30 No provider procedures requiring assistance completed. IV discontinued, intact, ld1 bleeding controlled, No redness/swelling at site. Administered Medications: 09:40 Drug: morphine 4 mg Route: IVP; Site: left antecubital; ld1 10:00 Follow up: Response: Pain is decreased ld1 09:40 Drug: Zofran (Ondansetron) 4 mg Route: IVP; Site: left antecubital; ld1 10:00 Follow up: Response: Nausea is decreased ld1 12:10 Drug: Potassium Chloride 40 mEq Route: PO; ld1 Outcome: 12:17 Discharge ordered by MD. [facility] 12:31 Discharged to home ambulatory. ld1 12:31 Condition: stable 12:31 Discharge instructions given to patient, family, Instructed on discharge instructions, follow up and referral plans. medication usage, Demonstrated understanding of instructions, follow-up care, medications. 12:32 Patient left the ED. ld1 Signatures: Dispatcher [employer] Andree Barrios, RN EZE Logan Arellano PA PA jmm Martinez, [facility] Jovanna Forbes RN RN ld1
--- NOTE | 2020-09-14 12:18 | EDPHYS ---
Physician Documentation [facility] Name: Shanae Del Cid Age: 79 yrs Sex: Female : 1940 Arrival Date: 09/14/2020 Time: 09:02 Bed 6 Private MD: ED Physician Hussein Jackson HPI: 09/14 09:18 This 79 yrs old Female presents to ER via EMS with complaints of Abdominal jm Pain. 09:18 The patient presents with abdominal pain. Onset: The symptoms/episode began/occurred jmm gradually, 3 day(s) ago. The symptoms do not radiate. Associated signs and symptoms: Pertinent positives: diarrhea. The symptoms are described as achy. Modifying factors: The symptoms are alleviated by nothing, the symptoms are aggravated by nothing. 09:25 This is a 79 year old female with a history of htn, that presents to the ED with jmm complaints of days of left sided abdominal pain, diarrhea. Pain radiates to the back. Denies vomiting but admits to diarrhea. Color is brown. Son states the patient has had diverticulitis in the past. . Historical: - Allergies: 09:06 No Known Allergies; ld1 - Home Meds: 09:06 candesartan 16 mg Oral tab 1 tab once daily [Active]; levothyroxine 100 mcg tab 1 tab ld1 once daily [Active]; trazodone 150 mg Oral tab 2 tabs [Active]; Metoprolol Tartrate Oral [Active]; - PMHx: 09:06 eye disease; Hypertension; Hypothyroidism; ld1 - PSHx: 09:06 None; ld1 - Immunization history:: Adult Immunizations up to date. - Social history:: Smoking status: Patient denies any tobacco usage or history of. Patient/guardian denies using alcohol. ROS: 09:18 Constitutional: Negative for fever, chills, and weight loss, Cardiovascular: Negative jmm for chest pain, palpitations, and edema, Respiratory: Negative for shortness of breath, cough, wheezing, and pleuritic chest pain. 09:18 Abdomen/GI: Positive for abdominal pain. 09:18 All other systems are negative. Exam: 09:18 Constitutional: This is a well developed, well nourished patient who is awake, alert, jmm and in no acute distress. Head/Face: atraumatic. Eyes: EOMI, no conjunctival erythema appreciated ENT: Moist Mucus Membranes Neck: Trachea midline, Supple Chest/axilla: Normal chest wall appearance and motion. Cardiovascular: Regular rate and rhythm. No edema appreciated Respiratory: Normal respirations, no respiratory distress appreciated 09:18 Back: Normal ROM Skin: General appearance color normal MS/ Extremity: Moves all extremities, no obvious deformities appreciated, no edema noted to the lower extremities Neuro: Awake and alert, normal gait Psych: Behavior is normal, Mood is normal, Patient is cooperative and pleasant 09:18 Abdomen/GI: Inspection: abdomen appears normal, Bowel sounds: normal, Palpation: soft, mild abdominal tenderness, in the left upper quadrant and left lower quadrant. Vital Signs: 09:03 BP 182 / 72; Pulse 61; Resp 18; Temp 98.1(TE); Pulse Ox 100% on R/A; Weight 77.11 kg; ld1 Height 5 ft. 3 in. (160.02 cm); Pain 8/10; 10:30 BP 154 / 55; Pulse 59; Resp 18; Pulse Ox 97% on R/A; ld1 09:03 Body Mass Index 30.11 (77.11 kg, 160.02 cm) ld1 MDM: 09:13 Patient medically screened. [facility] 12:15 Data reviewed: vital signs, nurses notes. Counseling: I had a detailed discussion with cece the patient and/or guardian regarding: the historical points, exam findings, and any diagnostic results supporting the discharge/admit diagnosis, lab results, radiology results, the need for outpatient follow up, to return to the emergency department if symptoms worsen or persist or if there are any questions or concerns that arise at home. ED course: Patient is alert and non toxic in appearance in the ED. No signs of resp distress, sepsis. Patient advised to follow up with pcp and otherwise given strict return precautions. Patient understood and agrees with the plan of care. . 09/14 09:14 Order name: Basic Metabolic Panel [facility] 09/14 09:14 Order name: CBC with Diff [facility] 09/14 09:14 Order name: Hepatic Function [facility] 09/14 09:14 Order name: Lipase [facility] 09/14 09:14 Order name: Basic Metabolic Panel; Complete Time: 10:29 EDTN 09/14 09:14 Order name: CBC with Automated Diff; Complete Time: 09:53 EDTN 09/14 09:14 Order name: IV Saline Lock; Complete Time: 09:31 [facility] 09/14 09:14 Order name: Liver (Hepatic) Function; Complete Time: 10:29 [facility] 09/14 09:14 Order name: Lipase; Complete Time: 10:29 [facility] 09/14 10:24 Order name: Urine Dipstick-Ancillary; Complete Time: 10:29 [facility] 09/14 10:29 Order name: CT Abd/Pelvis - IV Contrast Only; Complete Time: 11:32 [facility] 09/14 09:14 Order name: Labs collected and sent; Complete Time: 09:31 [facility] 09/14 09:14 Order name: Urine Dipstick-Ancillary (obtain specimen); Complete Time: 10:24 [facility] Administered Medications: 09:40 Drug: morphine 4 mg Route: IVP; Site: left antecubital; ld1 10:00 Follow up: Response: Pain is decreased ld1 09:40 Drug: Zofran (Ondansetron) 4 mg Route: IVP; Site: left antecubital; ld1 10:00 Follow up: Response: Nausea is decreased ld1 12:10 Drug: Potassium Chloride 40 mEq Route: PO; ld1 Disposition: 13:51 Co-signature as Attending Physician, Hussein Jackson MD. rn Disposition: 09/14/20 12:17 Discharged to Home. Impression: Generalized abdominal pain, Urinary tract infection, site not specified. - Condition is Stable. - Discharge Instructions: Abdominal Pain, Adult, Urinary Tract Infection, Adult. - Prescriptions for Zofran ODT 4 mg Oral tablet,disintegrating - place 1 tablet by TRANSLINGUAL route every 4-6 hours; 20 tablet. Bentyl 20 mg Oral Tablet - take 1 tablet by ORAL route every 6 hours As needed; 20 tablet. Cephalexin 500 mg Oral Capsule - take 1 capsule by ORAL route every 8 hours for 10 days; 30 capsule. Tylenol- Codeine #3 300-30 mg Oral Tablet - take 1 tablet by ORAL route every 4-6 hours As needed; 12 tablet. - Medication Reconciliation Form, Thank You Letter, Antibiotic Education, Prescription Opioid Use form. - Follow up: Private Physician; When: 2 - 3 days; Reason: Recheck today's complaints, Continuance of care, Re-evaluation by your physician. Signatures: Dispatcher [employer] [facility] Logan Arellano PA PA jmm Jackson, Hussein, MD MD rn Jovanna Forbes RN RN ld1 Corrections: (The following items were deleted from the chart) 12:32 12:17 09/14/2020 12:17 Discharged to Home. Impression: Generalized abdominal pain; ld1 Urinary tract infection, site not specified. Condition is Stable. Forms are Medication Reconciliation Form, Thank You Letter, Antibiotic Education, Prescription Opioid Use. Follow up: Private Physician; When: 2 - 3 days; Reason: Recheck today's complaints, Continuance of care, Re-evaluation by your physician. cece
[2020-09-14] MEDS ORDERED: POTASSIUM CL SA 10 MEQ TAB PO ONE (12:28)
[2020-09-14 12:47] VITALS: TEMP 98.1
[2020-09-14 12:49] VITALS: BP 154/55; O2SAT 97
== END 2020-09-14 12:32 | disposition home or self-care (01) ==
LOC: ER 09:01
DX: N39.0 Urinary tract infection, site not specified (principal); I10 Essential (primary) hypertension; E03.9 Hypothyroidism, unspecified
CPT/HCPCS: 85025; 80048; 36415; 80076; 81003; 83690; 74177; Q9967; J2405; 96374; 96375; 99284

== ENCOUNTER 2021-08-02 11:18 | Emergency (ER) | payer OTHER ==
--- OUTSIDE RECORDS SUMMARY | 2021-08-02 11:22 | XMS REPORT | Continuity of Care Document ---
:1940 Author Organization [facility] t Address [address] [place] [address] Care Team Providers Name Role Phone MIKE, Zora Primary Care Physician Unavailable FRANCISCO JAVIER AGUILAR Attending Clinician Unavailable Francisco Javier Aguilar MD Attending Clinician Doctor Unassigned, Name Attending Clinician Unavailable Kourtney PALUMBO Attending Clinician KOURTNEY Attending Clinician Unavailable Zora Mckeon MD Attending Clinician Pollo PALUMBO Attending Clinician POLLO Attending Clinician Unavailable Zora MCKEON Attending Clinician Unavailable Lab, Fam Pob I Attending Clinician Unavailable UNKNOWN Attending Clinician Unavailable Martir PALUMBO Attending Clinician ALEX FONTANEZ M.D. Attending Clinician Unavailable ALEX FONTANEZ M.D. 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 Hands, knees, shoulders Acquired Acquired Disease Active 2019-04 Unive rs hypothyroi hypothyroi -13 it y of dism dism 00:00: [place] [address] Medical Branch Macular Macular Disease Active Univers degenerati degenerati it y of on on [facility] Branch Essential Essential Disease Active Uni vers hypertensi hypertensi it y of on on [facility] Branch Allergies, Adverse Reactions, Alerts Allergy Allergy Status Severity Reaction(s) Onset Inactive Treating Comm ents Source Name Type Date Date Clinician NO KNOWN Drug Active Univers ALLERGIE Class ity of S [facility] Social History Social Habit Start Date Stop Date Quantity Comments Source History [facility] University o f Alcohol Comment [place] [facility] ical Branch Exposure to Not sure [facility] SARS-CoV-2 (event) [facility] Alcohol intake 2021-02-24 2021-02-24 Lifetime University of 00:00:00 00:00:00 non-drinker [facility] (finding) Branch Cigarettes smoked 2020-02-19 2020-02-19 Univers ity of current (pack per 00:00:00 00:00:00 ) - Reported Branch Tobacco use and 2020-02-19 2020-02-19 Never used Universit y of exposure 00:00:00 00:00:00 [facility] Branch History SDMO 2020-02-19 2020-02-19 1 University o f Alcohol Frequency 00:00:00 00:00:00 [facility] Branch History SDMO 2020-02-19 2020-02-19 99 University o f Alcohol Std Drinks 00:00:00 00:00:00 [facility] Branch History SDMO 2020-02-19 2020-02-19 1 University o f Alcohol Binge 00:00:00 00:00:00 [place] [facility] Sex [birth year] Universit y of 00:00:00 00:00:00 [facility] Branch Smoking Status Start Date Stop Date Source Current every day smoker 2020-02-19 00:00:00 Uni versity of [facility] Branch Medications Ordered Filled Start Stop Current Ordering Indication Dosage Frequency Signature Comments Components Source Medication Medication Date Date Medication? Clinician (SIG) Name Name levothyroxi Yes [id number] 100ug Take 1 Univers ne 4-08 tablet by ity of (EUTHYROX) 00:00: mouth [place] 100 mcg 00 every Medical tablet morning. Branch montelukast Yes [id number] 10mg Take 1 Univers 10 mg 4-08 tablet by ity of tablet 00:00: mouth [place] 00 every Medical morning. Branch methylPREDN 0 Yes [id number] Take by Univers ISolone 2-21 mouth ity of (MEDROL, 00:00: SEE-INSTRU [place] ALDO,) 4 mg 00 CTIONS. Medica l tablets follow Branch package directions methocarbam Yes [id number] 500mg Take 1 Univers oL 2-21 tablet by ity of (ROBAXIN) 00:00: mouth 4 [place] 500 mg 00 (four) Medical tablet times Branch daily as needed for Other (muscle tightness) . methylPREDN Yes [id number] Take by Univers ISolone 2-21 mouth ity of (MEDROL, 00:00: SEE-INSTRU [place],) 4 mg 00 CTIONS. Medica l tablets follow Branch package directions methocarbam Yes [id number] 500mg Take 1 Univers oL 2-21 tablet by ity of (ROBAXIN) 00:00: mouth 4 [place] 500 mg 00 (four) Medical tablet times Branch daily as needed for Other (muscle tightness) . methocarbam 2020-04 Yes [id number] 500mg Take 1 Univers oL 1-19 tablet by ity of (ROBAXIN) 00:00: mouth 4 [place] 500 mg 00 (four) Medical tablet times Branch daily as needed for Other (muscle tightness) . methocarbam 2020-04 Yes [id number] 500mg Take 1 Univers oL 1-19 tablet by ity of (ROBAXIN) 00:00: mouth 4 [place] 500 mg 00 (four) Medical tablet times Branch daily as needed for Other (muscle tightness) . methocarbam 2020-04- No [id number] 500mg Take 1 Univers oL 1-19 02-21 tablet by ity of (ROBAXIN) 00:00: 00:00 mouth [place] 500 mg 00 :00 (four) Medical tablet times Branch daily as needed for Other (muscle tightness) . MONTELUKAST 2020-04 Yes [id number] TAKE 1 Univers 10 mg 0-18 TABLET BY ity of tablet 00:00: MOUTH ONCE [place] 00 DAILY IN [facility] MORNING EUTHYROX 2020-04 Yes [id number] TAKE 1 [place] 100 mcg 0-18 TABLET BY ity of tablet 00:00: MOUTH ONCE [place] 00 DAILY IN [facility] MONTELUKAST 2020-04 Yes [id number] TAKE 1 Univers 10 mg 0-18 TABLET BY ity of tablet 00:00: MOUTH ONCE [place] 00 DAILY IN [facility] MORNING EUTHYROX 2020-04 Yes [id number] TAKE 1 [place] 100 mcg 0-18 TABLET BY ity of tablet 00:00: MOUTH ONCE [place] 00 DAILY IN [facility] MONTELUKAST 2020-04 Yes [id number] TAKE 1 Univers 10 mg 0-18 TABLET BY ity of tablet 00:00: MOUTH ONCE [place] 00 DAILY IN [facility] MORNING EUTHYROX 2020-04 Yes [id number] TAKE 1 [place] 100 mcg 0-18 TABLET BY ity of tablet 00:00: MOUTH ONCE [place] 00 DAILY IN [facility] MONTELUKAST 2020-04 Yes [id number] TAKE 1 Univers 10 mg 0-18 TABLET BY ity of tablet 00:00: MOUTH ONCE [place] 00 DAILY IN [facility] EUTHYROX 2020-04 Yes [id number] TAKE 1 [place] 100 mcg 0-18 TABLET BY ity of tablet 00:00: MOUTH ONCE [place] 00 DAILY IN [facility] MONTELUKAST 2020-04- No [id number] TAKE 1 Univers 10 mg 0-18 04-08 TABLET BY ity of tablet 00:00: 00:00 [place] [facility] MORNING EUTHYROX 2020-04- No [id number] TAKE 1 U nivers 100 mcg 0-18 04-08 TABLET BY ity of tablet 00:00: 00:00 [place] [facility] MORNING cephALEXin 2020- No [id number] 500mg Take 1 Univers (KEFLEX) 12-08-10 capsule by ity of 500 mg 00:00: 04:59 mouth 3 [place] capsule 00 :00 (three) [facility] daily for 7 days. cephALEXin 2020- No [id number] 500mg Take 1 Univers (KEFLEX) -05 17-10 capsule by ity of 500 mg 00:00: 04:59 mouth 3 [place] capsule 00 :00 (three) Medical times Branch daily for 7 days. cephALEXin 2020- No [id number] 500mg Take 1 Univers (KEFLEX) 12-08-10 capsule by ity of 500 mg 00:00: 04:59 mouth 3 [place] capsule 00 :00 (three) Medical times Branch daily for 7 days. cephALEXin 2020- No [id number] 500mg Take 1 Univers (KEFLEX) 12-0810 capsule by ity of 500 mg 00:00: 04:59 mouth 3 [place] capsule 00 :00 (three) Medical times Branch daily for 7 days. cephALEXin 2020- No [id number] 500mg Take 1 Univers (KEFLEX) 12-0810 capsule by ity of 500 mg 00:00: 04:59 mouth 3 [place] capsule 00 :00 (three) Medical times Branch daily for 7 days. cephALEXin 2020- No [id number] 500mg Take 1 Univers (KEFLEX) 12-0810 capsule by ity of 500 mg 00:00: 04:59 mouth 3 [place] capsule 00 :00 (three) Medical times Branch daily for 7 days. phenazopyri 2020- No [id number] 200mg Take 1 Univers dine 12-08 tablet by ity of (PYRIDIUM) 00:00: 04:59 mouth 3 [place] 200 mg 00 :00 (three) Medical tablet times Branch daily after meals for 5 days. phenazopyri 2020- No [id number] 200mg Take 1 Univers dine 12-08 tablet by ity of (PYRIDIUM) 00:00: 04:59 mouth 3 [place] 200 mg 00 :00 (three) Medical tablet times Branch daily after meals for 5 days. phenazopyri 2020- No [id number] 200mg Take 1 Univers dine 12-08 tablet by ity of (PYRIDIUM) 00:00: 04:59 mouth 3 [place] 200 mg 00 :00 (three) Medical tablet times Branch daily after meals for 5 days. phenazopyri 2020- No [id number] 200mg Take 1 Univers dine 12-08 tablet by ity of (PYRIDIUM) 00:00: 04:59 mouth 3 [place] 200 mg 00 :00 (three) Medical tablet times Branch daily after meals for 5 days. phenazopyri 2020- No [id number] 200mg Take 1 Univers dine 12-08 tablet by ity of (PYRIDIUM) 00:00: 04:59 mouth 3 [place] 200 mg 00 :00 (three) Medical tablet times Branch daily after meals for 5 days. phenazopyri 2020- No [id number] 200mg Take 1 Univers dine 12-08 tablet by ity of (PYRIDIUM) 00:00: 04:59 mouth 3 [place] 200 mg 00 :00 (three) Medical tablet times Branch daily after meals for 5 days. citalopram Yes 40mg Take 40 mg U nivers 40 mg 6-25 by mouth ity of tablet 19:32: daily. [address] citalopram Yes 40mg Take 40 mg U nivers 40 mg 6-25 by mouth ity of tablet 19:32: daily. [address] citalopram Yes 40mg Take 40 mg U nivers 40 mg 6-25 by mouth ity of tablet 19:32: daily. [address] citalopram Yes 40mg Take 40 mg U nivers 40 mg 6-25 by mouth ity of tablet 19:32: daily. [address] citalopram Yes 40mg Take 40 mg U nivers 40 mg 6-25 by mouth ity of tablet 19:32: daily. [address] citalopram 0 Yes 40mg Take 40 mg U nivers 40 mg 6-25 by mouth ity of tablet 19:32: daily. [address] citalopram 0 Yes 40mg Take 40 mg U nivers 40 mg 6-25 by mouth ity of tablet 19:32: daily. [address] citalopram 0 Yes 40mg Take 40 mg U nivers 40 mg 6-25 by mouth ity of tablet 19:32: daily. [address] citalopram 0 Yes 40mg Take 40 mg U nivers 40 mg 6-25 by mouth ity of tablet 19:32: daily. [address] citalopram 0 Yes 40mg Take 40 mg U nivers 40 mg 6-25 by mouth ity of tablet 19:32: daily. [address] citalopram 0 Yes 40mg Take 40 mg U nivers 40 mg 6-25 by mouth ity of tablet 19:32: daily. [address] citalopram 0 Yes 40mg Take 40 mg U nivers 40 mg 6-25 by mouth ity of tablet 14:32: daily. [address] citalopram 0 Yes 40mg Take 40 mg U nivers 40 mg 6-25 by mouth ity of tablet 14:32: daily. [address] citalopram 0 Yes 40mg Take 40 mg U nivers 40 mg 6-25 by mouth ity of tablet 14:32: daily. [address] citalopram 0 Yes 40mg Take 40 mg U nivers 40 mg 6-25 by mouth ity of tablet 14:32: daily. [address] citalopram 0 Yes 40mg Take 40 mg U nivers 40 mg 6-25 by mouth ity of tablet 14:32: daily. [address] cefUROXime 2020-0 Yes [id number] 500mg Take 1 Univers 500 mg 6-25 tablet by ity of tablet 00:00: mouth 2 [place] [address] (two) Medical times [place] daily. cefUROXime 2020-0 Yes [id number] 500mg Take 1 Univers 500 mg 6-25 tablet by ity of tablet 00:00: mouth 2 [place] (two) Medical times Branch daily. cefUROXime 2020-0 Yes [id number] 500mg Take 1 Univers 500 mg 6-25 tablet by ity of tablet 00:00: mouth 2 [place] (two) Medical times Branch daily. cefUROXime 2020-0 Yes [id number] 500mg Take 1 Univers 500 mg 6-25 tablet by ity of tablet 00:00: mouth 2 [place] (two) Medical times Branch daily. cefUROXime 2020-0 Yes [id number] 500mg Take 1 Univers 500 mg 6-25 tablet by ity of tablet 00:00: mouth 2 [place] (two) Medical times Branch daily. cefUROXime 2020-0 202- No [id number] 500mg Take 1 Univers 500 mg 6-25 - tablet by ity of tablet 00:00: 00:00 mouth 2 00 :00 (two) Medical times Branch daily. busPIRone 5 2020-0 Yes [id number] 5mg Take 1 Univers mg tablet 6-18 tablet by ity o f 00:00: mouth (two) Medical times Branch daily. busPIRone 5 0 Yes [id number] 5mg Take 1 Univers mg tablet 6-18 tablet by ity o f 00:00: mouth (two) Medical times Branch daily. busPIRone 5 Yes [id number] 5mg Take 1 Univers mg tablet 6-18 tablet by ity o f 00:00: mouth (two) Medical times Branch daily. busPIRone 5 Yes [id number] 5mg Take 1 Univers mg tablet 6-18 tablet by ity o f 00:00: mouth (two) Medical times Branch daily. busPIRone 5 Yes [id number] 5mg Take 1 Univers mg tablet 6-18 tablet by ity o f 00:00: mouth (two) Medical times Branch daily. busPIRone 5 0 Yes [id number] 5mg Take 1 Univers mg tablet 6-18 tablet by ity o f 00:00: mouth (two) Medical times Branch daily. busPIRone 5 0 Yes [id number] 5mg Take 1 Univers mg tablet 6-18 tablet by ity o f 00:00: mouth (two) Medical times Branch daily. busPIRone 5 Yes [id number] 5mg Take 1 Univers mg tablet 6-18 tablet by ity o f 00:00: mouth (two) Medical times Branch daily. busPIRone 5 2020-0 Yes [id number] 5mg Take 1 Univers mg tablet 6-18 tablet by ity o f 00:00: mouth (two) Medical times Branch daily. busPIRone 5 2020-0 Yes [id number] 5mg Take 1 Univers mg tablet 6-18 tablet by ity o f 00:00: mouth (two) Medical times Branch daily. busPIRone 5 2020-0 Yes [id number] 5mg Take 1 Univers mg tablet 6-18 tablet by ity o f 00:00: mouth (two) Medical times Branch daily. busPIRone 5 2020-0 Yes [id number] 5mg Take 1 Univers mg tablet 6-18 tablet by ity o f 00:00: mouth (two) Medical times Branch daily. busPIRone 5 2020-0 Yes [id number] 5mg Take 1 Univers mg tablet 6-18 tablet by ity o f 00:00: mouth (two) Medical times Branch daily. busPIRone 5 2020-0 Yes [id number] 5mg Take 1 Univers mg tablet 6-18 tablet by ity o f 00:00: mouth (two) Medical times Branch daily. busPIRone 5 2020-0 Yes [id number] 5mg Take 1 Univers mg tablet 6-18 tablet by ity o f 00:00: mouth (two) Medical times Branch daily. busPIRone 5 2020-0 Yes [id number] 5mg Take 1 Univers mg tablet 6-18 tablet by ity o f 00:00: mouth (two) Medical times Branch daily. busPIRone 5 2020-0 Yes [id number] 5mg Take 1 Univers mg tablet 6-18 tablet by ity o f 00:00: mouth (two) Medical times Branch daily. busPIRone 5 2020-0 Yes [id number] 5mg Take 1 Univers mg tablet 6-18 tablet by ity o f 00:00: mouth (two) Medical times Branch daily. busPIRone 5 2020-0 Yes [id number] 5mg Take 1 Univers mg tablet 6-18 tablet by ity o f 00:00: mouth (two) Medical times Branch daily. amLODIPine 2020-0 Yes 5mg Take 5 mg [place] 5 mg tablet 6-17 by mouth ity of 00:00: daily. [place] [facility] amLODIPine 1-0 Yes 5mg Take 5 mg [place] 5 mg tablet 6-17 by mouth ity of 00:00: daily. [place] [facility] amLODIPine 2020-0 Yes 5mg Take 5 mg [place] 5 mg tablet 6-17 by mouth ity of 00:00: daily. [place] [facility] amLODIPine 2021-0 Yes 5mg Take 5 mg [place] 5 mg tablet 6-17 by mouth ity of 00:00: daily. [place] [facility] amLODIPine 2021-0 Yes 5mg Take 5 mg [place] 5 mg tablet 6-17 by mouth ity of 00:00: daily. [place] [facility] amLODIPine 2021-0 Yes 5mg Take 5 mg [place] 5 mg tablet 6-17 by mouth ity of 00:00: daily. [place] [facility] amLODIPine 2021-0 Yes 5mg Take 5 mg [place] 5 mg tablet 6-17 by mouth ity of 00:00: daily. [place] [facility] amLODIPine 2021-0 Yes 5mg Take 5 mg [place] 5 mg tablet 6-17 by mouth ity of 00:00: daily. [place] [facility] amLODIPine 2021-0 Yes 5mg Take 5 mg [place] 5 mg tablet 6-17 by mouth ity of 00:00: daily. [place] [facility] amLODIPine 2021-0 Yes 5mg Take 5 mg [place] 5 mg tablet 6-17 by mouth ity of 00:00: daily. [place] [facility] amLODIPine 2021-0 Yes 5mg Take 5 mg [place] 5 mg tablet 6-17 by mouth ity of 00:00: daily. [place] [facility] amLODIPine 2021-0 Yes 5mg Take 5 mg [place] 5 mg tablet 6-17 by mouth ity of 00:00: daily. [place] [facility] amLODIPine 2021-0 Yes 5mg Take 5 mg [place] 5 mg tablet 6-17 by mouth ity of 00:00: daily. [place] [facility] amLODIPine 2021-0 Yes 5mg Take 5 mg [place] 5 mg tablet 6-17 by mouth ity of 00:00: daily. [place] [facility] amLODIPine 2021-0 Yes 5mg Take 5 mg [place] 5 mg tablet 6-17 by mouth ity of 00:00: daily. [place] [facility] Branch amLODIPine 2021-0 Yes 5mg Take 5 mg [place] 5 mg tablet 6-17 by mouth ity of 00:00: daily. [place] [facility] Branch amLODIPine 2021-0 Yes 5mg Take 5 mg [place] 5 mg tablet 6-17 by mouth ity of 00:00: daily. [facility] amLODIPine 2020-0 Yes 5mg Take 5 mg [place] 5 mg tablet 6-17 by mouth ity of 00:00: daily. [facility] amLODIPine 2020-0 Yes 5mg Take 5 mg [place] 5 mg tablet 6-17 by mouth ity of 00:00: daily. [facility] EUTHYROX 2020-0 Yes [id number] TAKE 1 [place] 100 mcg 6-15 TABLET BY ity of tablet 00:00: MOUTH ONCE [place] 00 DAILY IN [facility] MORNING MONTELUKAST 2020-0 Yes [id number] TAKE 1 Univers 10 mg 6-15 TABLET BY ity of tablet 00:00: MOUTH ONCE [place] 00 DAILY IN [facility] MORNING EUTHYROX 2020-0 Yes [id number] TAKE 1 [place] 100 mcg 6-15 TABLET BY ity of tablet 00:00: MOUTH ONCE [place] 00 DAILY IN [facility] MORNING MONTELUKAST 2020-0 Yes [id number] TAKE 1 Univers 10 mg 6-15 TABLET BY ity of tablet 00:00: MOUTH ONCE [place] 00 DAILY IN [facility] MORNING EUTHYROX 2020-0 Yes [id number] TAKE 1 [place] 100 mcg 6-15 TABLET BY ity of tablet 00:00: MOUTH ONCE [place] 00 DAILY IN [facility] MORNING MONTELUKAST 2020-0 Yes [id number] TAKE 1 Univers 10 mg 6-15 TABLET BY ity of tablet 00:00: MOUTH ONCE [place] 00 DAILY IN [facility] MORNING EUTHYROX 2020-0 Yes [id number] TAKE 1 [place] 100 mcg 6-15 TABLET BY ity of tablet 00:00: MOUTH ONCE [place] 00 DAILY IN [facility] MORNING MONTELUKAST 2020-0 Yes [id number] TAKE 1 Univers 10 mg 6-15 TABLET BY ity of tablet 00:00: MOUTH ONCE [place] 00 DAILY IN [facility] MORNING EUTHYROX 2020-0 Yes [id number] TAKE 1 [place] 100 mcg 6-15 TABLET BY ity of tablet 00:00: MOUTH ONCE [place] 00 DAILY IN [facility] MORNING MONTELUKAST 2020-0 Yes [id number] TAKE 1 Univers 10 mg 6-15 TABLET BY ity of tablet 00:00: MOUTH ONCE [place] 00 DAILY IN [facility] MORNING EUTHYROX 2020-0 Yes [id number] TAKE 1 [place] 100 mcg 6-15 TABLET BY ity of tablet 00:00: MOUTH ONCE [place] 00 DAILY IN [facility] MORNING MONTELUKAST 2020-0 Yes [id number] TAKE 1 Univers 10 mg 6-15 TABLET BY ity of tablet 00:00: MOUTH ONCE [place] 00 DAILY IN [facility] MORNING EUTHYROX 2020-0 Yes [id number] TAKE 1 [place] 100 mcg 6-15 TABLET BY ity of tablet 00:00: MOUTH ONCE [place] 00 DAILY IN [facility] MORNING MONTELUKAST 2020-0 Yes [id number] TAKE 1 Univers 10 mg 6-15 TABLET BY ity of tablet 00:00: MOUTH ONCE [place] 00 DAILY IN [facility] MORNING EUTHYROX 2020-0 Yes [id number] TAKE 1 [place] 100 mcg 6-15 TABLET BY ity of tablet 00:00: MOUTH ONCE [place] 00 DAILY IN [facility] MORNING MONTELUKAST 2020-0 Yes [id number] TAKE 1 Univers 10 mg 6-15 TABLET BY ity of tablet 00:00: MOUTH ONCE [place] 00 DAILY IN [facility] MORNING EUTHYROX 2020-0 Yes [id number] TAKE 1 [place] 100 mcg 6-15 TABLET BY ity of tablet 00:00: MOUTH ONCE [place] 00 DAILY IN [facility] MORNING MONTELUKAST 2020-0 Yes [id number] TAKE 1 Univers 10 mg 6-15 TABLET BY ity of tablet 00:00: MOUTH ONCE [place] 00 DAILY IN [facility] MORNING EUTHYROX 2020-0 Yes [id number] TAKE 1 [place] 100 mcg 6-15 TABLET BY ity of tablet 00:00: MOUTH ONCE [place] 00 DAILY IN [facility] MORNING MONTELUKAST 2020-0 Yes [id number] TAKE 1 Univers 10 mg 6-15 TABLET BY ity of tablet 00:00: MOUTH ONCE [place] 00 DAILY IN [facility] MORNING EUTHYROX 2020-0 Yes [id number] TAKE 1 [place] 100 mcg 6-15 TABLET BY ity of tablet 00:00: MOUTH ONCE [place] 00 DAILY IN [facility] MORNING MONTELUKAST 2020-0 Yes [id number] TAKE 1 Univers 10 mg 6-15 TABLET BY ity of tablet 00:00: MOUTH ONCE [place] 00 DAILY IN [facility] MORNING EUTHYROX 2020-0 Yes [id number] TAKE 1 [place] 100 mcg 6-15 TABLET BY ity of tablet 00:00: MOUTH ONCE [place] 00 DAILY IN [facility] MORNING MONTELUKAST 0 Yes [id number] TAKE 1 Univers 10 mg 6-15 TABLET BY ity of tablet 00:00: MOUTH ONCE [place] 00 DAILY IN [facility] MORNING EUTHYROX 2020-0 Yes [id number] TAKE 1 [place] 100 mcg 6-15 TABLET BY ity of tablet 00:00: MOUTH ONCE [place] 00 DAILY IN [facility] MORNING MONTELUKAST 0 Yes [id number] TAKE 1 Univers 10 mg 6-15 TABLET BY ity of tablet 00:00: MOUTH ONCE [place] 00 DAILY IN [facility] MORNING EUTHYROX 0 Yes [id number] TAKE 1 [place] 100 mcg 6-15 TABLET BY ity of tablet 00:00: MOUTH ONCE [place] 00 DAILY IN [facility] MORNING MONTELUKAST 0 Yes [id number] TAKE 1 Univers 10 mg 6-15 TABLET BY ity of tablet 00:00: MOUTH ONCE [place] 00 DAILY IN [facility] MORNING EUTHYROX 0 Yes [id number] TAKE 1 [place] 100 mcg 6-15 TABLET BY ity of tablet 00:00: MOUTH ONCE [place] 00 DAILY IN [facility] MORNING MONTELUKAST 0 Yes [id number] TAKE 1 Univers 10 mg 6-15 TABLET BY ity of tablet 00:00: MOUTH ONCE [place] 00 DAILY IN [facility] MORNING EUTHYROX 0 Yes [id number] TAKE 1 [place] 100 mcg 6-15 TABLET BY ity of tablet 00:00: MOUTH ONCE [place] 00 DAILY IN [facility] MORNING MONTELUKAST 2020-0 Yes [id number] TAKE 1 Univers 10 mg 6-15 TABLET BY ity of tablet 00:00: MOUTH ONCE [place] 00 DAILY IN [facility] MORNING EUTHYROX 2020-0 2020- No [id number] TAKE 1 U nivers 100 mcg 6-15 10-18 TABLET BY ity of tablet 00:00: 00:00 [place]CE [place] [facility] MORNING MONTELUKAST 2020-0 2020- No [id number] TAKE 1 [facility] 10 mg 6-15 10-18 TABLET BY ity of tablet 00:00: 00:00 [place]CE [place] [facility] MORNING levothyroxi Yes [id number] 100ug Take 1 Univers ne 1-19 tablet by ity of (EUTHYROX) 00:00: mouth [place] 100 mcg 00 every Medical tablet morning. Branch montelukast Yes [id number] 10mg Take 1 Univers 10 mg 1-19 tablet by ity of tablet 00:00: mouth [place] 00 every Medical morning. Branch levothyroxi Yes [id number] 100ug Take 1 Univers ne 1-19 tablet by ity of (EUTHYROX) 00:00: mouth [place] 100 mcg 00 every Medical tablet morning. Branch montelukast Yes [id number] 10mg Take 1 Univers 10 mg 1-19 tablet by ity of tablet 00:00: mouth [place] 00 every Medical morning. Branch levothyroxi Yes [id number] 100ug Take 1 Univers ne 1-19 tablet by ity of (EUTHYROX) 00:00: mouth [place] 100 mcg 00 every Medical tablet morning. Branch montelukast Yes [id number] 10mg Take 1 Univers 10 mg 1-19 tablet by ity of tablet 00:00: mouth [place] 00 every Medical morning. Branch levothyroxi Yes [id number] 100ug Take 1 Univers ne 1-19 tablet by ity of (EUTHYROX) 00:00: mouth [place] 100 mcg 00 every Medical tablet morning. Branch montelukast Yes [id number] 10mg Take 1 Univers 10 mg 1-19 tablet by ity of tablet 00:00: mouth [place] 00 every Medical morning. Branch levothyroxi Yes [id number] 100ug Take 1 Univers ne 1-19 tablet by ity of (EUTHYROX) 00:00: mouth [place] 100 mcg 00 every Medical tablet morning. Branch montelukast Yes [id number] 10mg Take 1 Univers 10 mg 1-19 tablet by ity of tablet 00:00: mouth [place] 00 every Medical morning. Branch levothyroxi Yes [id number] 100ug Take 1 Univers ne 1-19 tablet by ity of (EUTHYROX) 00:00: mouth [place] 100 mcg 00 every Medical tablet morning. Branch montelukast Yes [id number] 10mg Take 1 Univers 10 mg 1-19 tablet by ity of tablet 00:00: mouth [place] 00 every Medical morning. Branch levothyroxi Yes [id number] 100ug Take 1 Univers ne 1-19 tablet by ity of (EUTHYROX) 00:00: mouth [place] 100 mcg 00 every Medical tablet morning. [place] montelukast Yes [id number] 10mg Take 1 Univers 10 mg 1-19 tablet by ity of tablet 00:00: mouth [place] 00 every Medical morning. Branch levothyroxi Yes [id number] 100ug Take 1 [facility] ne 1-19 tablet by ity of (EUTHYROX) 00:00: mouth [place] 100 mcg 00 every Medical tablet morning. Branch montelukast Yes [id number] 10mg Take 1 [facility] 10 mg 1-19 tablet by ity of tablet 00:00: mouth [place] 00 every Medical morning. [place] levothyroxi 2020- No [id number] 100ug Take 1 [facility] ne 1-19 06-15 tablet by ity of (EUTHYROX) 00:00: 00:00 mouth [place] 100 mcg 00 :00 every Medical tablet morning. Branch montelukast 2020- No [id number] 10mg Take 1 [facility] 10 mg 1-19 06-15 tablet by ity of tablet 00:00: 00:00 mouth [place] 00 :00 every Medical morning. Branch Colestipol 2019-04 2020- No 2{tbl} Take 2 [facility] [place] HCl 1 gram 1-13 11-13 tablets by it y of tablet 20:09: 00:00 mouth 2 [place] 54 :00 (two) Medical times Branch daily. Colestipol 2019-04 2020- No 2{tbl} Take 2 [facility] [place] HCl 1 gram 1-13 11-13 tablets by it y of tablet 20:09: 00:00 mouth 2 [place] 54 :00 (two) Medical times Branch daily. vit 2019-04 Yes Take by [facility] C/E/Zn/jacqueline 1-13 mouth. ity of r/lutein/ze 19:56: [place] axan 17 Medical (PRESERVISI Branch ON AREDS-2 ORAL) metoprolol 2019-04 Yes 50mg Take 50 mg U nivers succinate -13 by mouth ity [facility] XL 50 mg 24 19:56: [place]. [place] tablet [address] [place] [address] vit 2019- Yes Take by [facility] C/E/Zn/jacqueline 1-13 mouth. ity of r/lutein/ze 19:56: [address] (PRESERVISI Branch ON AREDS-2 ORAL) metoprolol 2019-04 Yes 50mg Take 50 mg U nivers succinate 1-13 by mouth ity of XL 50 mg 24 19:56: daily. [place] tablet [address] [place] [address] vit 2019-04 Yes Take by [facility] C/E/Zn/jacqueline 1-13 mouth. ity of r/lutein/ze 19:56: [address] (PRESERVIS Branch ON AREDS-2 ORAL) metoprolol 2019-04 Yes 50mg Take 50 mg U nivers succinate 1-13 by mouth ity of XL 50 mg 24 19:56: daily. [place] tablet [address] [place] [address] vit 2019-04 Yes Take by [facility] C/E/Zn/jacqueline 1-13 mouth. ity of r/lutein/ze 19:56: [address] (PRESERVISI Branch ON AREDS-2 ORAL) metoprolol 2019-04 Yes 50mg Take 50 mg U nivers succinate 1-13 by mouth ity of XL 50 mg 24 19:56: daily. [place] tablet [address] [place] [address] vit 2019-04 Yes Take by [facility] C/E/Zn/jacqueline 1-13 mouth. ity of r/lutein/ze 19:56: [address] (PRESERV[facility] Branch ON AREDS-2 ORAL) metoprolol 2019-04 Yes 50mg Take 50 mg U nivers succinate 1-13 by mouth ity of XL 50 mg 24 19:56: daily. [place] tablet [address] [place] [address] vit 2019-04 Yes Take by [facility] C/E/Zn/jacqueline 1-13 mouth. ity of r/lutein/ze 19:56: [address] (PRESERV[facility] Branch ON AREDS-2 ORAL) metoprolol 2019-04 Yes 50mg Take 50 mg U nivers succinate 1-13 by mouth ity of XL 50 mg 24 19:56: daily. [place] tablet [address] [place] [address] vit 2019-04 Yes Take by [facility] C/E/Zn/jacqueline 1-13 mouth. ity of r/lutein/ze 19:56: [address] (PRESERV[facility]I Branch ON AREDS-2 ORAL) metoprolol 2019-04 Yes 50mg Take 50 mg U nivers succinate 1-13 by mouth ity of XL 50 mg 24 19:56: daily. [place] tablet [address] [place] [address] vit 2019-04 Yes Take by [facility] C/E/Zn/jacqueline 1-13 mouth. ity of r/lutein/ze 19:56: [address] ([facility]I Branch ON AREDS-2 ORAL) metoprolol 2019-04 Yes 50mg Take 50 mg U nivers succinate 1-13 by mouth ity of XL 50 mg 24 19:56: daily. [place] tablet [address] [place] [address] vit 2019-04 Yes Take by [facility] C/E/Zn/jacqueline 1-13 mouth. ity of r/lutein/ze 19:56: [address] (PRESERV[facility] Branch ON AREDS-2 ORAL) metoprolol 2019-04 Yes 50mg Take 50 mg U nivers succinate 1-13 by mouth ity of XL 50 mg 24 19:56: daily. [place] tablet [address] [place] [address] vit 2019-04 Yes Take by [facility] C/E/Zn/jacqueline 1-13 mouth. ity of r/lutein/ze 19:56: [address] ([facility] Branch ON AREDS-2 ORAL) metoprolol 2019-04 Yes 50mg Take 50 mg U nivers succinate 1-13 by mouth ity of XL 50 mg 24 19:56: daily. [place] tablet [address] [place] [address] vit 2019-04 Yes Take by [facility] C/E/Zn/jacqueline 1-13 mouth. ity of r/lutein/ze 19:56: [address] ([facility] Branch ON AREDS-2 ORAL) metoprolol 2019-04 Yes 50mg Take 50 mg U nivers succinate 1-13 by mouth ity of XL 50 mg 24 19:56: daily. [place] tablet [address] [place] [address] vit 2019-04 Yes Take by [facility] C/E/Zn/jacqueline 1-13 mouth. ity of r/lutein/ze 19:56: [address] ([facility] Branch ON AREDS-2 ORAL) metoprolol 2019-04 Yes 50mg Take 50 mg U nivers succinate 1-13 by mouth ity of XL 50 mg 24 19:56: daily. [place] tablet [address] [place] [address] vit 2019-04 Yes Take by [facility] C/E/Zn/jacqueline 1-13 mouth. ity of r/lutein/ze 19:56: [address] ([facility] Branch ON AREDS-2 ORAL) metoprolol 2019-04 Yes 50mg Take 50 mg U nivers succinate 1-13 by mouth ity of XL 50 mg 24 19:56: daily. [place] tablet [address] [place] [address] vit 2019-04 Yes Take by [facility] C/E/Zn/jacqueline 1-13 mouth. ity of r/lutein/ze 19:56: [address] ([facility] Branch ON AREDS-2 ORAL) metoprolol 2019-04 Yes 50mg Take 50 mg U nivers succinate 1-13 by mouth ity of XL 50 mg 24 19:56: daily. [place] tablet [address] [place] [address] vit 2019-04 Yes Take by [facility] C/E/Zn/jacqueline 1-13 mouth. ity of r/lutein/ze 19:56: [address] ([facility] Branch ON AREDS-2 ORAL) metoprolol 2019-04 Yes 50mg Take 50 mg U nivers succinate 1-13 by mouth ity of XL 50 mg 24 19:56: daily. [place] tablet [address] [place] [address] 2019-04 Yes Take by [facility] C/E/Zn/jacqueline 1-13 mouth. ity of r/lutein/ze 19:56: [address] ([facility] Branch ON AREDS-2 ORAL) metoprolol 2019-04 Yes 50mg Take 50 mg U nivers succinate 1-13 by mouth ity of XL 50 mg 24 19:56: daily. [place] tablet [address] [place] [address] vit 2019-04 Yes Take by [facility] C/E/Zn/jacuqeline 1-13 mouth. ity of r/lutein/ze 19:56: [address] ([facility] Branch ON AREDS-2 ORAL) metoprolol 2019-04 Yes 50mg Take 50 mg U nivers succinate 1-13 by mouth ity of XL 50 mg 24 19:56: daily. [place] tablet [address] [place] [address] vit 2019-04 Yes Take by [facility] C/E/Zn/jacqueline 1-13 mouth. ity of r/lutein/ze 19:56: [address] ([facility] Branch ON AREDS-2 ORAL) metoprolol 2019-04 Yes 50mg Take 50 mg U nivers succinate 1-13 by mouth ity of XL 50 mg 24 19:56: daily. [place] tablet [address] [place] [address] vit 2019-04 Yes Take by [facility] C/E/Zn/jacqueline 1-13 mouth. ity of r/lutein/ze 19:56: [address] ([facility] Branch ON AREDS-2 ORAL) metoprolol 2019-04 Yes 50mg Take 50 mg U nivers succinate 1-13 by mouth ity of XL 50 mg 24 19:56: daily. [place] tablet [address] [place] [address] vit 2019-04 Yes Take by [facility] C/E/Zn/jacqueline 1-13 mouth. ity of r/lutein/ze 19:56: [address] ([facility] Branch ON AREDS-2 ORAL) metoprolol 2019-04 Yes 50mg Take 50 mg U nivers succinate 1-13 by mouth ity of XL 50 mg 24 19:56: daily. [place] tablet [address] [place] [address] vit 2019-04 Yes Take by [facility] C/E/Zn/jacqueline 1-13 mouth. ity of r/lutein/ze 19:56: [address] ([facility] Branch ON AREDS-2 ORAL) metoprolol 2019-04 Yes 50mg Take 50 mg U nivers succinate 1-13 by mouth ity of XL 50 mg 24 19:56: daily. [place] tablet [address] [place] [address] vit 2019-04 Yes Take by [facility] C/E/Zn/jacqueline 1-13 mouth. ity of r/lutein/ze 19:56: [address] ([facility] Branch ON AREDS-2 ORAL) metoprolol 2019-04 Yes 50mg Take 50 mg U nivers succinate 1-13 by mouth ity of XL 50 mg 24 19:56: daily. [place] tablet [address] [place] [address] vit 2019-04 Yes Take by [facility] C/E/Zn/jacqueline 1-13 mouth. ity of r/lutein/ze 19:56: [address] ([facility] Branch ON AREDS-2 ORAL) metoprolol 2019-04 Yes 50mg Take 50 mg U nivers succinate 1-13 by mouth ity of XL 50 mg 24 19:56: daily. [place] tablet [address] [place] [address] vit 2019-04 Yes Take by [facility] C/E/Zn/jacqueline 1-13 mouth. ity of r/lutein/ze 19:56: [address] ([facility] Branch ON AREDS-2 ORAL) metoprolol 2019-04 Yes 50mg Take 50 mg U nivers succinate 1-13 by mouth ity of XL 50 mg 24 19:56: daily. [place] tablet [address] [place] [address] vit 2019-04 Yes Take by [facility] C/E/Zn/jacqueline 1-13 mouth. ity of r/lutein/ze 19:56: [address] ([facility] ON AREDS-2 ORAL) metoprolol 2019-04 Yes 50mg Take 50 mg U nivers succinate 1-13 by mouth ity of XL 50 mg 24 19:56: daily. [place] tablet [address] [place] [address] vit 2019-04 Yes Take by [facility] C/E/Zn/jacqueline 1-13 mouth. ity of r/lutein/ze 19:56: [address] [facility] metoprolol 2019-04 Yes 50mg Take 50 mg U nivers succinate 1-13 by mouth ity of XL 50 mg 24 19:56: daily. [place] tablet [address] [place] [address] vit 2019-04 Yes Take by [facility] C/E/Zn/jacqueline 1-13 mouth. ity of r/lutein/ze 19:56: [address] ([facility] Branch ON AREDS-2 ORAL) metoprolol 2019-04 Yes 50mg Take 50 mg U nivers succinate 1-13 by mouth ity of XL 50 mg 24 19:56: daily. [place] tablet [address] [place] [address] vit 2019-04 Yes Take by [facility] C/E/Zn/jacqueline 1-13 mouth. ity of r/lutein/ze 19:56: [address] ([facility] Branch ON AREDS-2 ORAL) metoprolol 2019-04 Yes 50mg Take 50 mg U nivers succinate 1-13 by mouth ity of XL 50 mg 24 19:56: daily. [place] tablet [address] [place] [address] metoprolol 2019-04 Yes 50mg Take 50 mg U nivers succinate 1-13 by mouth ity of XL 50 mg 24 13:56: daily. [place] tablet [address] [place] [address] vit 2019-04 Yes Take by [facility] C/E/Zn/jacqueline 1-13 mouth. ity of r/lutein/ze 13:56: [address] (PRES[facility] Branch ON AREDS-2 ORAL) metoprolol 2019-04 Yes 50mg Take 50 mg U nivers succinate 1-13 by mouth ity of XL 50 mg 24 13:56: daily. [place] tablet [address] [place] [address] vit 2019-04 Yes Take by Univers C/E/Zn/jacqueline 1-13 mouth. ity of r/lutein/ze 13:56: [address] [facility] met[facility]-04 Yes 50mg Take 50 mg U nivers succinate 1-13 by mouth ity of XL 50 mg 24 13:56: daily. [place] tablet [address] [place] [address] vit 2019-04 Yes Take by Univers C/E/Zn/jacqueline 1-13 mouth. ity of r/lutein/ze 13:56: [address] [facility] metoprolol 2019-04 Yes 50mg Take 50 mg U nivers succinate 1-13 by mouth ity of XL 50 mg 24 13:56: daily. [place] tablet [address] [place] [address] vit 2019-04 Yes Take by Univers C/E/Zn/jacqueline 1-13 mouth. ity of r/lutein/ze 13:56: [address] ([facility] Branch ON AREDS-2 ORAL) metoprolol 2019-04 Yes 50mg Take 50 mg U nivers succinate 1-13 by mouth ity of XL 50 mg 24 13:56: daily. [place] tablet [address] [place] [address] vit 2019-04 Yes Take by Univers C/E/Zn/jacqueline 1-13 mouth. ity of r/lutein/ze 13:56: [address] ([facility] Branch ON AREDS-2 ORAL) Colestipol 2019-1 Yes [id number] 2g Take 2 [facility] HCl 1 gram 1-13 tablets by ity of tablet 00:00: mouth 2 [place] (two) Medical times Branch daily. Colestipol 2020- Yes [id number] 2g Take 2 [facility] HCl 1 gram 1-13 tablets by ity of tablet 00:00: mouth 2 [place] (two) Medical times Branch daily. Colestipol 2020- Yes [id number] 2g Take 2 [facility] HCl 1 gram 1-13 tablets by ity of tablet 00:00: mouth 2 [place] (two) Medical times Branch daily. Colestipol 2020- Yes [id number] 2g Take 2 [facility] HCl 1 gram 1-13 tablets by ity of tablet 00:00: mouth 2 [place] (two) Medical times Branch daily. Colestipol 2020- Yes [id number] 2g Take 2 [facility] HCl 1 gram 1-13 tablets by ity of tablet 00:00: mouth 2 [place] (two) Medical times Branch daily. Colestipol 2020- Yes [id number] 2g Take 2 [facility] HCl 1 gram 1-13 tablets by ity of tablet 00:00: mouth 2 [place] (two) Medical times Branch daily. Colestipol 2020- Yes [id number] 2g Take 2 [facility] HCl 1 gram 1-13 tablets by ity of tablet 00:00: mouth 2 [place] (two) Medical times Branch daily. Colestipol 2020- Yes [id number] 2g Take 2 [facility] HCl 1 gram 1-13 tablets by ity of tablet 00:00: mouth 2 [place] (two) Medical times Branch daily. Colestipol 2020- Yes [id number] 2g Take 2 [facility] HCl 1 gram 1-13 tablets by ity of tablet 00:00: mouth 2 [place] (two) Medical times Branch daily. Colestipol 2020- Yes [id number] 2g Take 2 [facility] HCl 1 gram 1-13 tablets by ity of tablet 00:00: mouth 2 [place] (two) Medical times Branch daily. Colestipol 2020- Yes [id number] 2g Take 2 [facility] HCl 1 gram 1-13 tablets by ity of tablet 00:00: mouth 2 [place] (two) Medical times Branch daily. Colestipol 2020- Yes [id number] 2g Take 2 [facility] HCl 1 gram 1-13 tablets by ity of tablet 00:00: mouth 2 [place] 00 (two) Medical times Branch daily. Colestipol 2019-04 Yes [id number] 2g Take 2 [facility] HCl 1 gram 1-13 tablets by ity of tablet 00:00: mouth 2 [place] 00 (two) Medical times Branch daily. Colestipol 2019-04 Yes [id number] 2g Take 2 [facility] HCl 1 gram 1-13 tablets by ity of tablet 00:00: mouth 2 [place] 00 (two) Medical times Branch daily. Colestipol 2019-04- No [id number] 2g Take 2 [facility] HCl 1 gram 1-13 06-18 tablets by it y of tablet 00:00: 00:00 mouth 2 [place] 00 :00 (two) Medical times Branch daily. Colestipol 2019-04- No [id number] 2g Take 2 [facility] HCl 1 gram 1-13 06-18 tablets by it y of tablet 00:00: 00:00 mouth 2 [place] 00 :00 (two) Medical times Branch daily. Colestipol 2019-04- No [id number] 2g Take 2 [facility] HCl 1 gram 1-13 06-18 tablets by it y of tablet 00:00: 00:00 mouth 2 [place] 00 :00 (two) Medical times Branch daily. EUTHYROX 2019- Yes 100ug Take 100 Univ ers 100 mcg 0-30 mcg by ity of tablet 00:00: mouth [place] 00 every Medical morning. Branch EUTHYROX 2019- Yes 100ug Take 100 Univ ers 100 mcg 0-30 mcg by ity of tablet 00:00: mouth [place] 00 every Medical morning. Branch EUTHYROX 2019- Yes 100ug Take 100 Univ ers 100 mcg 0-30 mcg by ity of tablet 00:00: mouth [place] 00 every Medical morning. Branch EUTHYROX 2019-04 Yes 100ug Take 100 Univ ers 100 mcg 0-30 mcg by ity of tablet 00:00: mouth [place] 00 every Medical morning. Branch EUTHYROX 2019-04- No 100ug Take 100 Uni vers 100 mcg 0-30 01-19 mcg by ity of tablet 00:00: 00:00 mouth [place] 00 :00 every Medical morning. Branch montelukast 2019- Yes 10mg Take 10 mg [facility] 10 mg 0-19 by mouth ity of tablet 00:00: every [place] 00 morning. Medical Branch montelukast 2019-04 Yes 10mg Take 10 mg [facility] 10 mg 0-19 by mouth ity of tablet 00:00: every [place] 00 morning. [facility] 2019-04 Yes 10mg Take 10 mg Univers 10 mg 0-19 by mouth ity of tablet 00:00: every [place] 00 morning. [facility] 2019-04 Yes 10mg Take 10 mg Univers 10 mg 0-19 by mouth ity of tablet 00:00: every [place] 00 morning. [facility] 2019-04- No 10mg Take 10 mg Univers 10 mg 0-19 01-19 by mouth ity of tablet 00:00: 00:00 every [place] 00 :00 morning. [facility] 2019-04 Yes 50mg Take 50 mg Univers ine 0-14 by mouth ity of succinate 00:00: daily. [place] 50 mg 24 hr [facility] Take 50 mg [facility] ine 0-14 by mouth ity of succinate 00:00: daily. [place] 50 mg 24 hr 00 [facility] Yes 50mg Take 50 mg [facility] ine 0-14 by mouth ity of succinate 00:00: daily. [place] 50 mg 24 hr 00 [facility] Yes 50mg Take 50 mg [facility] ine 0-14 by mouth ity of succinate 00:00: daily. [place] 50 mg 24 hr 00 [facility] Yes 50mg Take 50 mg [facility] ine 0-14 by mouth ity of succinate 00:00: daily. [place] 50 mg 24 hr 00 [facility] Yes [facility]mg Take 50 mg [facility] ine 0-14 by mouth ity of succinate 00:00: daily. [place] 50 mg 24 hr 00 [facility] Take 50 mg [facility] ine 0-14 by mouth ity of succinate 00:00: daily. [place] 50 mg 24 hr [facility] Take 50 mg [facility] ine 0-14 by mouth ity of succinate 00:00: daily. [place] 50 mg 24 hr 00 [facility] Yes 50mg Take 50 mg [facility] ine 0-14 by mouth ity of succinate 00:00: daily. [place] 50 mg 24 hr 00 Medical tablet Branch desvenlafax 2019-04 Yes 50mg Take 50 mg [facility] ine 0-14 by mouth ity of succinate 00:00: daily. [place] 50 mg 24 hr 00 Medical tablet Branch desvenlafax 2019-04 Yes 50mg Take 50 mg [facility] ine 0-14 by mouth ity of succinate 00:00: daily. [place] 50 mg 24 hr 00 Medical tablet Branch desvenlafax 2019-04 Yes 50mg Take 50 mg Univers ine 0-14 by mouth ity of succinate 00:00: daily. [place] 50 mg 24 hr 00 Medical tablet Branch desvenlafax 2019-04 Yes 50mg Take 50 mg [facility] ine 0-14 by mouth ity of succinate 00:00: daily. [place] 50 mg 24 hr 00 Medical tablet Branch desvenlafax 2019-04 Yes 50mg Take 50 mg Univers ine 0-14 by mouth ity of succinate 00:00: daily. [place] 50 mg 24 hr 00 Medical tablet Branch desvenlafax 2019-04 Yes 50mg Take 50 mg [facility] ine 0-14 by mouth ity of succinate 00:00: daily. [place] 50 mg 24 hr 00 Medical tablet Branch desvenlafax 2019-04 Yes 50mg Take 50 mg [facility] ine 0-14 by mouth ity of succinate 00:00: daily. [place] 50 mg 24 hr 00 Medical tablet Branch desvenlafax 2019-04 Yes 50mg Take 50 mg [facility] ine 0-14 by mouth ity of succinate 00:00: daily. [place] 50 mg 24 hr 00 Medical tablet Branch desvenlafax 2019-04- No 50mg Take 50 mg [facility] ine 0-14 06-25 by mouth ity of succinate 00:00: 00:00 daily. [place] 50 mg 24 hr 00 :00 Medical tablet Branch desvenlafax 2019-04- No 50mg Take 50 mg Univers ine 0-14 06-25 by mouth ity of succinate 00:00: 00:00 daily. [place] 50 mg 24 hr 00 :00 Medical tablet Branch traZODone 2019-04 Yes TAKE 2 Univer s 150 mg 0-13 TABLETS BY ity of tablet 00:00: MOUTH IN [place] 00 THE Medical EVENING Branch NEEDED traZODone 2019-04 Yes TAKE 2 Univer s 150 mg 0-13 TABLETS BY ity of tablet 00:00: MOUTH IN [place] 00 THE Medical EVENING Branch NEEDED traZODone 2020-1 Yes TAKE 2 Univer s 150 mg 0-13 TABLETS BY ity of tablet 00:00: MOUTH IN [place] 00 THE Medical EVENING Branch NEEDED traZODone 2020-1 Yes TAKE 2 Univer s 150 mg 0-13 TABLETS BY ity of tablet 00:00: MOUTH IN [place] 00 THE Medical EVENING Branch NEEDED traZODone 2020-1 Yes TAKE 2 Univer s 150 mg 0-13 TABLETS BY ity of tablet 00:00: MOUTH IN [place] 00 THE Medical EVENING Branch NEEDED traZODone 2020-1 Yes TAKE 2 Univer s 150 mg 0-13 TABLETS BY ity of tablet 00:00: MOUTH IN [place] 00 THE Medical EVENING Branch NEEDED traZODone 2020-1 Yes TAKE 2 Univer s 150 mg 0-13 TABLETS BY ity of tablet 00:00: MOUTH IN [place] 00 THE Medical EVENING Branch NEEDED traZODone 2020-1 Yes TAKE 2 Univer s 150 mg 0-13 TABLETS BY ity of tablet 00:00: MOUTH IN [place] 00 THE Medical EVENING Branch NEEDED traZODone 2020-1 Yes TAKE 2 Univer s 150 mg 0-13 TABLETS BY ity of tablet 00:00: MOUTH IN [place] 00 THE Medical EVENING Branch NEEDED traZODone 2020-1 Yes TAKE 2 Univer s 150 mg 0-13 TABLETS BY ity of tablet 00:00: MOUTH IN [place] 00 THE Medical EVENING Branch NEEDED traZODone 2020-1 Yes TAKE 2 Univer s 150 mg 0-13 TABLETS BY ity of tablet 00:00: MOUTH IN [place] 00 THE Medical EVENING Branch NEEDED traZODone 2020-1 Yes TAKE 2 Univer s 150 mg 0-13 TABLETS BY ity of tablet 00:00: MOUTH IN [place] 00 THE Medical EVENING Branch NEEDED traZODone 2020-1 Yes TAKE 2 Univer s 150 mg 0-13 TABLETS BY ity of tablet 00:00: MOUTH IN [place] 00 THE Medical EVENING Branch NEEDED traZODone 2020-1 Yes TAKE 2 Univer s 150 mg 0-13 TABLETS BY ity of tablet 00:00: MOUTH IN [place] 00 THE Medical EVENING Branch NEEDED traZODone 2020-1 Yes TAKE 2 Univer s 150 mg 0-13 TABLETS BY ity of tablet 00:00: MOUTH IN [place] 00 THE Medical EVENING Branch NEEDED traZODone 2020-1 Yes TAKE 2 Univer s 150 mg 0-13 TABLETS BY ity of tablet 00:00: MOUTH IN [place] 00 THE Medical EVENING Branch NEEDED traZODone 2020-1 Yes TAKE 2 Univer s 150 mg 0-13 TABLETS BY ity of tablet 00:00: MOUTH IN [place] 00 THE Medical EVENING Branch NEEDED traZODone 2020-1 Yes TAKE 2 Univer s 150 mg 0-13 TABLETS BY ity of tablet 00:00: MOUTH IN [place] 00 THE Medical EVENING Branch NEEDED traZODone 2020-1 Yes TAKE 2 Univer s 150 mg 0-13 TABLETS BY ity of tablet 00:00: MOUTH IN [place] 00 THE Medical EVENING Branch NEEDED traZODone 2020-1 Yes TAKE 2 Univer s 150 mg 0-13 TABLETS BY ity of tablet 00:00: MOUTH IN [place] 00 THE Medical EVENING Branch NEEDED traZODone 2020-1 Yes TAKE 2 Univer s 150 mg 0-13 TABLETS BY ity of tablet 00:00: MOUTH IN [place] 00 THE Medical EVENING Branch NEEDED traZODone 2020-1 Yes TAKE 2 Univer s 150 mg 0-13 TABLETS BY ity of tablet 00:00: MOUTH IN [place] 00 THE Medical EVENING Branch NEEDED traZODone 2020-1 Yes TAKE 2 Univer s 150 mg 0-13 TABLETS BY ity of tablet 00:00: MOUTH IN [place] 00 THE Medical EVENING Branch NEEDED traZODone 2020-1 Yes TAKE 2 Univer s 150 mg 0-13 TABLETS BY ity of tablet 00:00: MOUTH IN [place] 00 THE Medical EVENING Branch NEEDED traZODone 2020-1 Yes TAKE 2 Univer s 150 mg 0-13 TABLETS BY ity of tablet 00:00: MOUTH IN [place] 00 THE Medical EVENING Branch NEEDED traZODone 2020-1 Yes TAKE 2 Univer s 150 mg 0-13 TABLETS BY ity of tablet 00:00: MOUTH IN [place] 00 THE Medical EVENING Branch NEEDED traZODone 2020-1 Yes TAKE 2 Univer s 150 mg 0-13 TABLETS BY ity of tablet 00:00: MOUTH IN [place] 00 THE Medical EVENING Branch NEEDED traZODone 2020-1 Yes TAKE 2 Univer s 150 mg 0-13 TABLETS BY ity of tablet 00:00: MOUTH IN [place] 00 THE Medical EVENING Branch NEEDED traZODone 2020-1 Yes TAKE 2 Univer s 150 mg 0-13 TABLETS BY ity of tablet 00:00: MOUTH IN [place] THE Medical EVENING Branch NEEDED traZODone 2020-1 Yes TAKE 2 Univer s 150 mg 0-13 TABLETS BY ity of tablet 00:00: MOUTH IN [place] [address] THE Medical EVENING Branch NEEDED traZODone 2020-1 Yes TAKE 2 Univer s 150 mg 0-13 TABLETS BY ity of tablet 00:00: MOUTH IN [place] THE Medical EVENING Branch NEEDED traZODone 2020-1 Yes TAKE 2 Univer s 150 mg 0-13 TABLETS BY ity of tablet 00:00: MOUTH IN [place] THE Medical EVENING Branch NEEDED traZODone 2020-1 Yes TAKE 2 Univer s 150 mg 0-13 TABLETS BY ity of tablet 00:00: MOUTH IN [place] THE Medical EVENING Branch NEEDED candesartan 2020-0 Yes 16mg Take 16 mg [facility] 16 mg 9-15 by mouth ity of tablet 00:00: daily. [place] [facility] Branch candesartan 2020-0 Yes 16mg Take 16 mg [facility] 16 mg 9-15 by mouth ity of tablet 00:00: daily. [place] [facility] candesartan 2020-0 Yes 16mg Take 16 mg [facility] 16 mg 9-15 by mouth ity of tablet 00:00: daily. [place] [facility] candesartan 2020-0 Yes 16mg Take 16 mg [facility] 16 mg 9-15 by mouth ity of tablet 00:00: daily. [place] [facility] candesartan 2020-0 Yes 16mg Take 16 mg [facility] 16 mg 9-15 by mouth ity of tablet 00:00: daily. [place] [facility] candesartan 2020-0 Yes 16mg Take 16 mg [facility] 16 mg 9-15 by mouth ity of tablet 00:00: daily. [place] [facility] candesartan 2020-0 Yes 16mg Take 16 mg [facility] 16 mg 9-15 by mouth ity of tablet 00:00: daily. [place] [facility] candesartan 2020-0 Yes 16mg Take 16 mg [facility] 16 mg 9-15 by mouth ity of tablet 00:00: daily. [place] [facility] candesartan 2020-0 Yes 16mg Take 16 mg [facility] 16 mg 9-15 by mouth ity of tablet 00:00: daily. [place] [facility] candesartan 2020-0 Yes 16mg Take 16 mg [facility] 16 mg 9-15 by mouth ity of tablet 00:00: daily. [place] [facility] Branch candesartan 2020-0 Yes 16mg Take 16 mg Univers 16 mg 9-15 by mouth ity of tablet 00:00: daily. [place] [facility] Branch candesartan 2020-0 Yes 16mg Take 16 mg [facility] 16 mg 9-15 by mouth ity of tablet 00:00: daily. [place] [facility] candesartan 2020-0 Yes 16mg Take 16 mg [facility] 16 mg 9-15 by mouth ity of tablet 00:00: daily. [place] [facility] candesartan 2020-0 Yes 16mg Take 16 mg [facility] 16 mg 9-15 by mouth ity of tablet 00:00: daily. [place] [facility] candesartan 2020-0 Yes 16mg Take 16 mg [facility] 16 mg 9-15 by mouth ity of tablet 00:00: daily. [place] [facility] candesartan 2020-0 Yes 16mg Take 16 mg Univers 16 mg 9-15 by mouth ity of tablet 00:00: daily. [place] [facility] candesartan 2020-0 Yes 16mg Take 16 mg Univers 16 mg 9-15 by mouth ity of tablet 00:00: daily. [place] [facility] candesartan 2020-0 Yes 16mg Take 16 mg Univers 16 mg 9-15 by mouth ity of tablet 00:00: daily. [place] [facility] candesartan 2020-0 Yes 16mg Take 16 mg Univers 16 mg 9-15 by mouth ity of tablet 00:00: daily. [place] [facility] candesartan 2020-0 Yes 16mg Take 16 mg Univers 16 mg 9-15 by mouth ity of tablet 00:00: daily. [place] [facility] candesartan 2020-0 Yes 16mg Take 16 mg Univers 16 mg 9-15 by mouth ity of tablet 00:00: daily. [place] [facility] candesartan 2020-0 Yes 16mg Take 16 mg Univers 16 mg 9-15 by mouth ity of tablet 00:00: daily. [place] [facility] candesartan 2020-0 Yes 16mg Take 16 mg Univers 16 mg 9-15 by mouth ity of tablet 00:00: daily. [address] candesartan 2020-0 Yes 16mg Take 16 mg Univers 16 mg 9-15 by mouth ity of tablet 00:00: daily. [address] candesartan 2020-0 Yes 16mg Take 16 mg Univers 16 mg 9-15 by mouth ity of tablet 00:00: daily. [place] [facility] candesartan 2020-0 Yes 16mg Take 16 mg Univers 16 mg 9-15 by mouth ity of tablet 00:00: daily. [address] candesartan 2020-0 Yes 16mg Take 16 mg Univers 16 mg 9-15 by mouth ity of tablet 00:00: daily. [address] candesartan 2020-0 Yes 16mg Take 16 mg Univers 16 mg 9-15 by mouth ity of tablet 00:00: daily. [address] candesartan 2020-0 Yes 16mg Take 16 mg Univers 16 mg 9-15 by mouth ity of tablet 00:00: daily. [address] candesartan 2020-0 Yes 16mg Take 16 mg Univers 16 mg 9-15 by mouth ity of tablet 00:00: daily. [address] candesartan 2020-0 Yes 16mg Take 16 mg Univers 16 mg 9-15 by mouth ity of tablet 00:00: daily. [address] candesartan 2020-0 Yes 16mg Take 16 mg Univers 16 mg 9-15 by mouth ity of tablet 00:00: daily. [address] candesartan 2020-0 Yes 16mg Take 16 mg Univers 16 mg 9-15 by mouth ity of tablet 00:00: daily. [address] Vital Signs Vital Name Observation Time Observation Value Comments Source Systolic blood 2021-05-29 21:03:00 140 mm[Hg] Univer sity of pressure [facility] Diastolic blood 2021-05-29 21:03:00 60 mm[Hg] Unive rsity of pressure [facility] Heart rate 2021-05-29 21:03:00 56 /min [facility] Body height 2021-05-29 21:03:00 139.7 cm [facility] Body weight 2021-05-29 21:03:00 63.957 kg [facility] BMI 2021-05-29 21:03:00 32.77 kg/m2 [facility] Systolic blood 2021-02-24 17:04:00 127 mm[Hg] Univer sity of pressure [facility] Diastolic blood 2021-02-24 17:04:00 74 mm[Hg] Unive rsity of pressure [facility] Heart rate 2021-02-24 17:04:00 54 /min Universi ty [facility] Body temperature 2021-02-24 17:04:00 36.61 Pam Univ ersity of [facility] Respiratory rate 2021-02-24 17:04:00 16 /min Univ ersity of [facility] Body weight 2021-02-24 17:04:00 61.009 kg Universi ty [facility] BMI 2021-02-24 17:04:00 30.15 kg/m2 [facility] Oxygen saturation in 2021-02-24 17:04:00 98 /min University of Arterial blood by [place] [facility] Systolic blood 2020-12-08 14:29:00 135 mm[Hg] Univer sity of pressure [facility] Diastolic blood 2020-12-08 14:29:00 72 mm[Hg] Unive rsity of pressure [facility] Heart rate 2020-12-08 14:29:00 58 /min Universi ty [facility] Body temperature 2020-12-08 14:29:00 37 Pam Univ ersity of [facility] Body height 2020-12-08 14:29:00 142.2 cm Universi ty [facility] Body weight 2020-12-08 14:29:00 60.782 kg [facility] BMI 2020-12-08 14:29:00 30.04 kg/m2 [facility] Oxygen saturation in 2020-12-08 14:29:00 94 /min University of Arterial blood by [facility] Pulse oximetry Branch Systolic blood 2020-11-09 00:00:00 176 mm[Hg] Univer sity of pressure [facility] Diastolic blood 2020-11-09 00:00:00 69 mm[Hg] Unive rsity of pressure [facility] Heart rate 2020-11-09 00:00:00 59 /min Universi ty [facility] Body temperature 2020-11-09 00:00:00 36.94 Pam Univ ersity of [facility] Body height 2020-11-09 00:00:00 142.2 cm Universi ty [facility] Body weight 2020-11-09 00:00:00 61.236 kg [facility]i [facility] BMI 2020-11-09 00:00:00 30.27 kg/m2 Universi ty of [facility] Oxygen saturation in 2020-11-09 00:00:00 95 /min University of Arterial blood by [facility] Pulse oximetry Branch Systolic blood 2020-09-30 19:24:00 156 mm[Hg] Univer sity of pressure [facility] Diastolic blood 2020-09-30 19:24:00 67 mm[Hg] Unive rsity of pressure [facility] Heart rate 2020-09-30 19:24:00 61 /min Universi ty of [facility] Body temperature 2020-09-30 19:24:00 36.17 Pam Univ ersity of [facility] Body height 2020-09-30 19:24:00 142.2 cm Universi ty of [facility] Body weight 2020-09-30 19:24:00 61.236 kg Universi ty of [facility] BMI 2020-09-30 19:24:00 30.27 kg/m2 Universi ty of [facility] Systolic blood 2020-09-23 19:40:00 159 mm[Hg] Univer sity of pressure [facility] Diastolic blood 2020-09-23 19:40:00 75 mm[Hg] Unive rsity of pressure [facility] Heart rate 2020-09-23 19:40:00 71 /min Universi ty of [facility] Body temperature 2020-09-23 19:40:00 36.56 Pam Univ ersity of [facility] Body height 2020-09-23 19:40:00 142.2 cm Universi ty of [facility] Body weight 2020-09-23 19:40:00 62.596 kg [facility]i [facility] BMI 2020-09-23 19:40:00 30.94 kg/m2 Universi ty of [facility] Systolic blood 2020-08-26 21:39:00 173 mm[Hg] Univer sity of pressure [facility] Diastolic blood 2020-08-26 21:39:00 79 mm[Hg] Unive rsity of pressure [facility] Heart rate 2020-08-26 21:39:00 60 /min Universi ty [facility] Body temperature 2020-08-26 21:29:00 36.78 Pam Univ ersity of [facility] Body height 2020-08-26 21:29:00 142.2 cm Universi ty [facility] Body weight 2020-08-26 21:29:00 64.411 kg [facility] BMI 2020-08-26 21:29:00 31.84 kg/m2 [facility] Systolic blood 2020-08-26 21:39:00 173 mm[Hg] Univer sity of pressure [facility] Diastolic blood 2020-08-26 21:39:00 79 mm[Hg] Unive rsity of pressure [facility] Heart rate 2020-08-26 21:39:00 60 /min Universi ty [facility] Body temperature 2020-08-26 21:29:00 36.78 Pam Univ ersity of [facility] Body height 2020-08-26 21:29:00 142.2 cm [facility]i [facility] Body weight 2020-08-26 21:29:00 64.411 kg [facility] BMI 2020-08-26 21:29:00 31.84 kg/m2 [facility] Systolic blood 2020-02-19 19:56:00 137 mm[Hg] Univer sity of pressure [facility] Diastolic blood 2020-02-19 19:56:00 63 mm[Hg] Unive rsity of pressure [facility] Heart rate 2020-02-19 19:56:00 60 /min [facility]i ty [facility] Body temperature 2020-02-19 19:52:00 36.67 Pam Univ ersity of [facility] Body height 2020-02-19 19:52:00 142.2 cm [facility]i [facility] Body weight 2020-02-19 19:52:00 79.379 kg [facility] BMI 2020-02-19 19:52:00 39.23 kg/m2 [facility] Procedures Procedure Date / Time Performing Clinician Source Performed CONSENT/REFUSAL FOR 2021-05-29 21:02:03 Doctor Unassigned, No Un [facility] DIAGNOSIS AND TREATMENT Name Medical Branch ASSIGNMENT OF BENEFITS 2021-05-29 21:01:41 Doctor Unassigned, No [facility] XR KUB 2020-12-08 15:58:26 Pollo [facility] ASSIGNMENT OF BENEFITS 2020-12-08 15:42:01 Doctor Unassigned, No [facility] POCT URINALYSIS 2020-11-09 00:05:00 Kourtney Ella [facility] EXTERNAL PROVIDER 2020-10-03 05:01:00 Doctor Unassigned, No [facility] POCT URINALYSIS 2020-09-30 00:00:00 Lynn Aguilar [facility] FREE T4 2020-08-31 15:17:00 Mick Mckeon [facility] THYROID STIMULATING 2020-08-31 15:17:00 Mick Mckeon [facility] HORMONE [facility] COMP. METABOLIC PANEL 2020-08-31 15:17:00 Mick Mckeon [facility] ([id number]) [facility] LIPID PANEL 2020-08-31 15:17:00 Mick Mckeon [facility] ([id number])(TOTAL [facility] CHOLESTEROL, TRIGLYCERIDES, HDL) CBC WITHOUT DIFF 2020-08-31 15:17:00 Mick Mckeon [facility] GLYCOSYLATED HEMOGLOBIN 2020-08-31 15:17:00 Mick Mckeon [facility] (A1C) [facility] HCV ANTIBODY 2020-08-31 15:17:00 Mick Mckeon [facility] VITAMIN D, 25-OH 2020-08-31 15:17:00 Mick Mckeon [facility] FREE T3 2020-08-31 15:17:00 Mick Mckeon [facility] Encounters Start End Encounter Admission Attending Care Care Encounter Source Date/Time Date/Time Type Type Clinicians Facility Department ID 2021-08-07 2021-08-07 Outpatient William AGUILAR MSRUPALI [facility] [id number] Univers 15:30:00 15:30:00 LYNN [id number] [facility] 2021-08-07 2021-08-07 [facility] [id number] Univers 15:30:00 15:30:00 LYNN [facility] 2021-07-14 2021-07-14 [email or web address] 1.2.840.114 [id number] Univers 00:00:00 00:00:00 [facility] [id number] it y of [place] [id number] Patrick as PRAVIN?BLEA [phone] [address] MEDICAL OFFICE [facility] 2021-05-29 2021-05-29 [facility] [id number] Univers 15:22:48 23:59:00 LYNN [facility] 2021-05-29 2021-05-29 [facility] 1.2.840.114 [id number] Univers 15:00:00 15:15:00 Visit [facility] [id number] it y of [place] [id number] Patrick as PRAVIN?BLEA [phone] [address] MEDICAL OFFICE [facility] 2021-05-29 2021-05-29 [facility] [id number] Univers 15:00:00 15:00:00 LYNN [id number] [facility] 2021-05-29 2021-05-29 Orders Doctor LINN 1.2.840.114 [id number] Univers 00:00:00 00:00:00 Only Unassigned, JOE [id number] ity of [place] [facility] [id number] Patrick as [phone] [address] 2021-02-24 2021-02-24 Seven [email or web address] 1.2.840.114 [id number] Univers 11:02:18 11:24:[address] [facility] [id number] it y of [place] [id number] Patrick as PRAVIN?BLEA [phone] [address] MEDICAL OFFICE BUILDING 2021-02-24 2021-02-24 Out[facility] [id number] Univers 11:00:00 11:24:25 ELLA ity [facility] 2021-02-24 2021-02-24 Outpatient R [facility] [id number] Univers 11:00:00 11:00:00 [id number] ity of [facility] 2021-01-23 2021-01-23 Refill [email or web address] 1.2.840.114 [id number] Univers 00:00:00 00:00:00 [facility] [id number] ity of [place] [id number] Patrick as Professio [phone] [address] Office Building One 2020-12-13 2020-12-13 Telephone Mike [facility] 1.2.840.114 [id number] Univers 00:00:00 00:00:00 [facility] [id number] ity of [place] [id number] Patrick as Pravin?Blea [phone] Wy dicmeghna rao [address] [place] [address] Medical Office Building 2020-12-08 2020-12-08 Hospital [facility] 1.2.840.114 [id number] Univers 10:46:30 23:59:00 Encounter Shruthi [place] [id number] ity of [place] 4.2.7.2.686 [place] [facility] [phone] [facility] [address] [place] 2020-12-08 2020-12-08 Office [facility] 1.2.840.114 [id number] Univers 09:23:08 10:09:28 Visit Shruthi Health [id number] it y of [place] [id number] Patrick as Pravin?Blea [phone] [address] Medical Office Building 2020-12-08 2020-12-08 [facility] [id number] Univers 09:30:00 09:30:00 SHRUTHI ity of [facility] 2020-12-08 2020-12-08 [facility] [id number] Univers 08:45:00 08:45:00 WONDIFUL [id number] ity o f [facility] 2020-12-08 2020-12-08 Outpatient R MIKE [facility] [id number] Univers 08:45:00 08:45:00 WONDIFUL ity o f [facility] 2020-12-08 2020-12-08 Orders Doctor LINN 1.2.840.114 [id number] Univers 00:00:00 00:00:00 Only Unassigned, JOE [id number] ity of [place] [facility] [id number] Patrick as [phone] [address] 2020-11-08 2020-11-08 [facility] 1.2.840.114 [id number] Univers 18:47:28 19:07:28 Care [facility] [id number] it y of [place] [id number] Patrick as Professio [phone] [facility] [address] [place] Office Building One 2020-11-08 2020-11-08 Outpatient [facility] [id number] Univers 18:20:00 18:20:00 [id number] ity of [facility] 2020-11-08 2020-11-08 [facility] [id number] Univers 18:20:00 18:20:00 ELLA ity of [facility] 2020-10-04 2020-10-04 Telephone [email or web address] 1.2.840.114 [id number] Univers 00:00:00 00:00:00 [facility] [id number] ity of [place] [id number] Patrick as Professio [phone] Wy dical nal [address] [place] Office Building One 2020-10-03 2020-10-03 Orders Doctor LINN 1.2.840.114 [id number] Univers 00:00:00 00:00:00 Only Unassigned, JOE [id number] ity of [place] [facility] [id number] Patrick as [phone] [address] 2020-09-30 2020-09-30 Office [email or web address] 1.2.840.114 [id number] Univers 14:19:49 14:34:49 Visit [facility] [id number] it y of [place] [id number] Patrick as Professio [phone] Wy dicga nal [address] [place] [address] One 2020-09-30 2020-09-30 [facility] [id number] Univers 14:15:00 14:15:00 LYNN [id number] [facility] 2020-09-30 2020-09-30 Outpatient [facility] [id number] Univers 14:15:00 14:15:00 [facility] 2020-09-23 2020-09-23 Office [facility] 1.2.840.114 [id number] Univers 14:36:14 15:20:24 Visit Lynn [facility] [id number] it y of [place] 4.2.7.2.686 Patrick as Professio [phone] [address] One 2020-09-23 2020-09-23 Outpatient [facility] [id number] Univers 14:30:00 14:30:00 LYNN [id number] [facility] 2020-09-23 2020-09-23 Outpatient R [facility] [id number] Univers 14:30:00 14:30:00 [facility] 2020-09-22 2020-09-22 Telephone [email or web address] 1.2.840.114 [id number] Univers 00:00:00 00:00:00 [facility] [id number] ity of [place] 4.2.7.2.686 Patrick as Professio [phone] Wy dical nal [address] [place] [address] One 2020-09-20 2020-09-20 Refill [email or web address] 1.2.840.114 [id number] Univers 00:00:00 00:00:00 [facility] [id number] ity of [place] [id number] Patrick as Professio [phone] Me dical nal [address] [place] [address] One 2020-09-16 2020-09-16 Telephone Mike [facility] 1.2.840.114 [id number] Univers 00:00:00 00:00:00 [facility] [id number] ity of [place] 4.2.7.2.686 Patrick as Professio [phone] [address] One 2020-08-31 2020-08-31 Outpatient R [facility] [id number] Univers 10:40:00 10:40:00 [id number] ity of [facility] 2020-08-31 2020-08-31 [facility] [id number] Univers 10:40:00 10:40:00 WONDIFUL ity o f [facility] 2020-08-31 2020-08-31 Linux [employer] Lab, Adc Fam Pob I [facility] 1.2. 840.114 [id number] Univers 10:06:41 10:20:05 Visit Mick Mckeon [facility] 350.1.13.1 0 ity of [place] 4.2.7.2.686 Patrick as Professio [phone] [address] One 2020-08-31 2020-08-31 Case Mike [facility] 1.2.840.114 [id number] [facility]ly [facility] Univers 00:00:00 00:00:00 Management [facility] [id number] ity of [place] 4.2.7.2.686 Patrick as Professio [phone] [address] Office [facility] One 2020-08-26 2020-08-26 Office Mike [facility] 1.2.840.114 [id number] 16:09:47 16:47:41 Visit [facility] 350.1.13.10 [place] 4.2.7.2.686 Professio [phone] [address] One 2020-08-26 2020-08-26 Office Mike [facility] 1.2.840.114 [id number] Univers 16:09:47 16:47:41 Visit [facility] 350.1.13.10 ity of [place] 4.2.7.2.686 Patrick as Professio [phone] Wy dicga nal [address] [place] [address] One 2020-08-26 2020-08-26 Outpatient R MIKE [facility] [id number] Univers 16:00:00 16:00:00 WONDIFUL [id number] ity o f [facility] 2020-08-26 2020-08-26 Outpatient R MIKE [facility] [id number] Univers 16:00:00 16:00:00 WONDIFUL ity o f [facility] 2020-08-19 2020-08-19 Outpatient R MIKE [facility] [id number] Univers 16:00:00 16:00:00 WONDIFUL [id number] ity o f [facility] 2020-08-18 2020-08-18 Outpatient R MIKE [facility] [id number] Univers 10:45:00 10:45:00 WONDIFUL [id number] ity o f [facility] 2020-08-18 2020-08-18 Outpatient R MIKE [facility] [id number] Univers 10:45:00 10:45:00 WONDIFUL ity o [facility] 2020-04-26 2020-04-26 Reftheodore [email or web address] 1.2.840.114 [id number] Univers 00:00:00 00:00:00 Wondiful A [facility] [id number] ity of [place] 4.2.7.2.686 Patrick as Professio [phone] [address] One 2020-04-18 2020-04-18 Outpatient R MIKE [facility] [id number] Univers 15:00:00 15:00:00 WONDIFUL [id number] ity o f [facility] 2020-03-08 2020-03-08 Outpatient R SUSY [facility] [id number] Univers 13:15:00 13:15:00 [facility] 2020-[facility] 2020-03-08 Outpatient R [facility] [id number] Univers 09:00:00 09:00:00 [facility] 2020-03-08 2020-03-08 Outpatient R [facility] [id number] Univers 09:00:00 09:00:00 ity of [facility] 2020-03-08 2020-03-08 Telephone Martir [facility] 1.2.840.114 [id number] Univers 00:00:00 00:00:00 Qunesha HEALTH 350.1.13.10 [place].2.[place] [facility] [phone] [facility] Primary & [facility] Specialty Care 2020-03-07 2020-03-07 Telephone iMke [facility] 1.2.840.114 [id number] Univers 00:00:00 00:00:00 [facility] 350.1.13.10 ity of [place] 4.2.7.2.686 Patrick as Professio [phone] Wy dical nal [address] Office Building One 2020-02-19 2020-02-19 Office Mike [facility] 1.2.840.114 [id number] Univers 13:26:12 14:29:08 Visit W[facility]iful [facility] 350.1.13.10 ity of [place] 4.2.7.2.686 Patrick as Professio [phone] Wy dical nal [address] [place] Office Building One 2020-02-19 2020-02-19 Outpatient R MIKE [facility] [id number] Univers 14:00:00 14:00:00 WONDIFUL ity o f [facility] Results Test Description Test Time Test Comments Results Result Comments Source POCT URINALYSIS W SPECIFIC GRAVITY 2020-11-09 00:11:00 Test Item Value Reference Range Interpretation Comme nts POCT U SP GRAV (test code = 1.015 mg/dl 1.005-1.025 3255) POCT PH U (test code = 6 mg/dl 5-8 3254) POCT U LEUK EST (test code trace Negative - Negative = 3263) POCT U NIT (test code = neg Negative - Negative 3262) POCT U PROT (test code = Negative - Negative 3259) POCT U GLU (test code = neg Negative - Negative 3256) POCT U KETONE (test code = neg Negative - Negative 3258) POCT U UROBILI (test code = neg 0.2-1 3260) POCT U BILI (test code = neg Negative - Negative 3261) POCT U BLD (test code = Negative - Negative 3257) POCT U COLOR (test code = yellow 3266) POCT U APPEAR (test code = clear 3267) CANELO (test code = CANELO) accurate development and interpretation of all internal controls [facility] URINALYSIS W SPECIFIC [id number] 19:55:00 Test Item Value Reference Range Interpretation Comments POCT U SP GRAV (test code = 1.015 mg/dl 1.005-1.025 3255) POCT PH U (test code = 3254) 6 mg/dl 5-8 POCT U LEUK EST (test code = + Negative - Negative 3263) POCT U NIT (test code = 3262) neg Negative - Negative POCT U PROT (test code = trace Negative - Negative 3259) POCT U GLU (test code = 3256) normal Negative - Negative POCT U KETONE (test code = neg Negative - Negative 3258) POCT U UROBILI (test code = normal 0.2-1 3260) POCT U BILI (test code = neg Negative - Negative 3261) POCT U BLD (test code = 3257) trace Negative - Negative POCT U COLOR (test code = dark 3266) POCT U APPEAR (test code = clear 3267) [facility] URINALYSIS W SPECIFIC [id number] 19:55:00 Test Item Value Reference Range Interpretation Comments POCT U SP GRAV (test code = 1.015 mg/dl 1.005-1.025 3255) POCT PH U (test code = 3254) 6 mg/dl 5-8 POCT U LEUK EST (test code = + Negative - Negative 3263) POCT U NIT (test code = 3262) neg Negative - Negative POCT U PROT (test code = trace Negative - Negative 3259) POCT U GLU (test code = 3256) normal Negative - Negative POCT U KETONE (test code = neg Negative - Negative 3258) POCT U UROBILI (test code = normal 0.2-1 3260) POCT U BILI (test code = neg Negative - Negative 3261) POCT U BLD (test code = 3257) trace Negative - Negative POCT U COLOR (test code = dark 3266) POCT U APPEAR (test code = clear 3267) [facility]2020-08-31 21:34:33 Test Item Value Reference Range Interpretation Comments HGB A1C (test code = 5.3 % 4.0-5.7 4548-4) CANELO (test code = CANELO) Reference RangesNormal: <5.7%Prediabetes: 5.7 - 6.4%Diabetes: > 6.5% Lab Interpretation (test Normal code = 49090-2) [facility]wood[facility]CV [id number] 21:00:31 Test Item Value Reference Range Interpretation Comments HCV Ab (test code = 92570-0) Negative HCV Semi-Quantitative (test code = 70928-6) [facility]wood[facility], [id number] 20:48:46 Test Item Value Reference Range Interpretation Comments VIT D 25OH (test code = 29 ng/mL 25-80 71407-6) CANELO (test code = CANELO) Deficiency: <20 ng/mLInsufficiency : 20-24 ng/mLOptimal: 25-80 ng/mL Lab Interpretation (test Normal code = 20746-6) [facility]woodTHYROID STIMULATING [id number] 18:31:42 Test Item Value Reference Range Interpretation Comments TSH (test code = See_Comment [Automated message] [id number]) The system [employer] generated this result transmitted ref erence range: 0.45 - 4 .70 mIU/L. The refe rence range was not u sed to interpret this result as normal/abnor mal. Lab Interpretation (test Normal code = 90719-7) [facility] [id number] 18:18:02 Test Item Value Reference Range Interpretation Comments FREE T4 (test code = See_Comment [Autom ated message] [id number]) The system [employer] generated this result transmitted ref erence range: 0.78 - 2 .20 ng/dL:. The ref erence range was not u sed to interpret this result as normal/abnor mal. Lab Interpretation (test Normal code = 13992-5) [facility] [id number] 18:17:41 Test Item Value Reference Range Interpretation Comments FREE T3 (test code = 1568367638) 3.21 pg/mL 2.77-5.27 Lab Interpretation (test code = Normal 34796-1) [facility]TOTAL CHOLESTEROL, TRIGLYCERIDES, HDL)2020-08-31 18:16:40 Test Item Value Reference Range Interpretation Comments CHOL (test code = 180 mg/dL 120-200 8712032725) HDL (test code = 71 mg/dL >50 1564098466) HDLC RATIO (test code = See_Comment [Au tomated message] [id number]) The system [employer] generated this result transmit jolly reference range : <=4.5. The refe rence range was not u sed to interpret th is result as normal/abnormal . TRIG (test code = 101 mg/dL 30-170 3433938318) LDL CHOL (test code = 89 mg/dL See_Comment [Auto mated message] 93200-2) The system [employer] generated this result transmit jolly reference range : <=160. The refe rence range was not u sed to interpret th is result as normal/abnormal . VLDL (test code = 20 mg/dL 5-60 8345466646) Lab Interpretation (test Normal code = 75461-1) [facility] (28580[facility]2020-08-31 18:01:00 Test Item Value Reference Range Interpretation Comments NA (test code = 141 mmol/L 135-145 9109120700) K (test code = 4.4 mmol/L 3.5-5.0 4644627259) CL (test code = 104 mmol/L 98-108 2766786137) CO2 TOTAL (test code = 29 mmol/L 23-31 7398239090) AGAP (test code = 2-16 9198682618) BUN (test code = 14 mg/dL 7-23 5804834878) GLUCOSE (test code = 102 mg/dL 70-110 4720996552) CREATININE (test code = 0.73 mg/dL 0.50-1.04 4134256585) TOTAL BILI (test code = 0.6 mg/dL 0.1-1.5 5797405959) CALCIUM (test code = 9.9 mg/dL 8.6-10.6 7058566416) T PROTEIN (test code = 7.1 g/dL 6.3-8.2 7840095482) ALBUMIN (test code = 4.6 g/dL 3.5-5.0 4377860092) ALK PHOS (test code = 105 U/L 34-122 7845234984) ALTv (test code = 33 U/L 5-35 1742-6) AST(SGOT) (test code = 47 U/L 13-40 H 9152633763) eGFR (test code = mL/min/1.73m2 9715061962) CANELO (test code = CANELO) Association of Glomerular Filtration Rate (GFR) and Staging of Kidney Disease* + --+ --+ ------+| GFR (mL/min/1.73 m2) ?| With Kidney Damage ?| ?Without Kidney Damage+ --------+ --------+ +| ?>90 ?| ?Stage one ?| ? Normal ?+ ---+ ---+ -------+| ?60-89 ?| ?Stage two ?| ? Decreased GFR ? + --+ --+ ------+| ?30-59 ?| ?Stage three ?| ? Stage three ? + --+ --+ ------+| ?15-29 ?| ?Stage four ? | ? Stage four ?+ ---+ ---+ -------+| ?<15 (or dialysis) ? ?| ?Stage five ? | ? Stage five ?+ ---+ ---+ -------+ *Each stage assumes the associated GFR level has been in effect for at least three months. ?Stages 1 to 5, with or without kidney disease, indicate chronic kidney disease. Notes: Determination of stages one and two (with eGFR >59mL/min/1.73 m2) requires estimation of kidney damage for at least three months as defined by structural or functional abnormalities of the kidney, manifested by either:Pathological abnormalities or Markers of kidney damage (including abnormalities in the composition of the blood or urine or abnormalities in imaging tests). Lab Interpretation Abnormal (test code = 58111-7) [facility] WITHOUT [id number] 16:15:02 Test Item Value Reference Range Interpretation Comments WBC (test code = See_Comment [Automated message] The 6690-2) system which nerated this result tra nsmitted reference range : 4.30 - 11.10 10*3/?L. The reference range was not used to interpr et this result as normal/abnormal . RBC (test code = See_Comment [Automated message] The 789-8) system which nerated this result tra nsmitted reference range : 3.93 - 5.25 10*6/?L. T he reference range was not used to interpr et this result as normal/abnormal . HGB (test code = 14.7 g/dL 11.6-15.0 718-7) HCT (test code = 45.0 % 35.7-45.2 4544-3) MCH (test code = 30.5 pg 25.9-32.8 785-6) MCV (test code = 93.4 fL 80.6-95.5 787-2) MCHC (test code = 32.7 g/dL 31.6-35.1 786-4) PLT (test code = See_Comment [Automated message] The 777-3) system which nerated this result tra nsmitted reference range : 166 - 358 10*3/?L. Th e reference range was not used to interpr et this result as normal/abnormal . MPV (test code = 10.1 fL 9.5-12.9 90487-0) RDW-CV (test code = 13.7 % 12.0-15.5 788-0) RDW-SD (test code = 46.9 fL 39.0-49.9 08829-1) NRBC x10^3 (test <0.01 See_Comment [Automated message] The code = 8952316220) system [facility] generated this result tra nsmitted reference range : 10*3/?L. The reference r jeremy was not used to int erpret this result as normal/abnormal . NRBC/100 WBC (test See_Comment [Automat ed message] The code = 9938496774) system [facility] generated this result tra nsmitted reference range : 0.0 - 10.0 /100 WBCs. The reference range was not used to interpr et this result as normal/abnormal . IPF % (test code = 8128756885) [facility]"
[2021-08-02] MEDS ORDERED: Ringers Lactate 1,000 ML IV ONE (11:56)
[2021-08-02 11:58] LABS: Absolute Lymphocytes (CBC) 1.7 K/uL (0.7-4.9); Hematocrit 43.5 % (36.0-45.0); Lymphocytes % 15.6 % (15.3-44.8); MPV 7.2 fL (7.6-11.3); RBC Red Blood Cell Count 4.65 M/uL (3.86-4.86)
[2021-08-02 12:15] LABS: Protime INR 0.89
[2021-08-02 12:30] LABS: Albumin 4.1 g/dL (3.4-5.0); Bilirubin Direct 0.1 mg/dL (0-0.2); Bilirubin Total 0.3 mg/dL (0.2-1.0); Magnesium 2.2 mg/dL (1.8-2.4); Potassium 3.5 mmol/L (3.5-5.1); Protein, Total 7.4 g/dL (6.4-8.2); Troponin High Sensitivity 6.6 pg/mL (<58.9)
[2021-08-02 12:34] LABS: Urine Blood Negative (Negative); Urine Glucose Negative (Negative); Urine Protein Negative (Negative); Urine pH 6.5 (5.0-7.0)
--- NOTE | 2021-08-02 12:46 | RAD REPORT ---
EXAM DESCRIPTION: Nakia Single View08/02/2021 12:38 pm CLINICAL HISTORY: Shortness of breath COMPARISON: 2019 FINDINGS: The lungs appear clear of acute infiltrate. The heart is borderline enlarged IMPRESSION: No acute abnormalities displayed
[2021-08-02 12:55] LABS: Urine Bacteria <20 /HPF (<20); Urine RBC <5 /HPF (NONE SEEN)
[2021-08-02 13:00] LABS: SARS-COV-2 RT PCR NEGATIVE (NEGATIVE)
--- NOTE | 2021-08-02 14:29 | RAD REPORT ---
EXAM DESCRIPTION: CT - Chest Abdomen Pelvis W Cont - 08/02/2021 2:04 pm CLINICAL HISTORY: Shortness of breath and abdominal pain COMPARISON: 2020 TECHNIQUE: Computed axial tomography of the chest, abdomen and pelvis was obtained. 100 cc Isovue-30 0 was administered intravenously. Oral contrast was not requested. This limits evaluation of bowel. All CT scans are performed using dose optimization technique as appropriate and may include automated exposure control or mA/KV adjustment according to patient size. FINDINGS: Lungs are clear. No mediastinal or hilar lymphadenopathy. A pleural effusion is not present. No pericardial effusion The liver, spleen, pancreas and adrenals are unremarkable. Multiple bilateral renal cysts. Largest measures 4 centimeters. No hydronephrosis. The ascending colon extends towards the left of midline in the lower abdomen. Hysterectomy has been performed. No adnexal mass. Atherosclerotic disease IMPRESSION: No acute abnormality is displayed
--- NOTE | 2021-08-02 14:39 | ER ---
Nurse's Notes [facility] Name: Shanae Del Cid Age: 80 yrs Sex: Female : 1940 Arrival Date: 08/02/2021 Time: 11:22 Bed 2 Private MD: Cruzito Aguilar Diagnosis: Acute serous otitis media, right ear;Diarrhea, unspecified Presentation: 08/02 11:31 Chief complaint: Patient states: Diarrhea, weak, fatigue, no appetite, near syncope ll1 feeling for 1 week. No fever. Coronavirus screen: Vaccine status: Patient reports being unvaccinated. Client denies travel out of the [place] in the last 14 days. diarrhea, fatigue, Client presents with at least one sign or symptom that may indicate coronavirus-19. Standard/surgical mask placed on the client. Ebola Screen: Patient denies travel to an Ebola-affected area in the 21 days before illness onset. No acute neurological deficit is noted. Initial Sepsis Screen: Does the patient meet any 2 criteria? No. Patient's initial sepsis screen is negative. Does the patient have a suspected source of infection? Yes: Acute abdominal pain. Risk Assessment: Do you want to hurt yourself or someone else? Patient reports no desire to harm self or others. Onset of symptoms was July 26, 2021. 11:31 Method Of Arrival: Ambulatory ll1 11:31 Acuity: CONNER 3 ll1 Triage Assessment: 11:33 The onset of the patients symptoms was more than six hours ago. General: Appears ll1 uncomfortable, ill, Behavior is cooperative, appropriate for age. Pain: Denies pain. Neuro: Reports headache a syncopal episode weakness. Cardiovascular: No deficits noted. Respiratory: No deficits noted. GI: Reports diarrhea, intolerance of fluids, intolerance of food. Musculoskeletal: Reports body aches. Stroke Activation: Symptom onset > 6 hours Physician: Stroke Attending; Name: ; Notified At: ; Arrived At: Physician: Chief Stroke Resident; Name: ; Notified At: ; Arrived At: Physician: Stroke Resident; Name: ; Notified At: ; Arrived At: Physician: ED Attending; Name: ; Notified At: ; Arrived At: Physician: ED Resident; Name: ; Notified At: ; Arrived At: Historical: - Allergies: : No Known Allergies; ll1 - PMHx: 11:29 eye disease; Hypertension; Hypothyroidism; ll1 - PSHx: 11:29 Tonsillectomy; bowel blockage SX; uterus removed; ll1 - Immunization history:: Client reports having NOT received the Covid vaccine. - Social history:: Smoking status: Patient reports the use of cigarette tobacco products, smokes one pack cigarettes per day. Screenin:29 Abuse screen: Denies threats or abuse. Nutritional screening: No deficits noted. vg1 Tuberculosis screening: No symptoms or risk factors identified. Fall Risk No fall in past 12 months (0 pts). No secondary diagnosis (0 pts). IV access (20 points). Ambulatory Aid- None/Bed Rest/Nurse Assist (0 pts). Gait- Normal/Bed Rest/Wheelchair (0 pts) Mental Status- Oriented to own ability (0 pts). Total Choudhary Fall Scale indicates No Risk (0-24 pts). Assessment: 11:29 General: Appears in no apparent distress. uncomfortable, Behavior is calm, cooperative. vg1 Pain: Denies pain. Neuro: Level of Consciousness is awake, alert, obeys commands, Oriented to person, place, time, situation. Cardiovascular: Patient's skin is warm and dry. Respiratory: Airway is patent Respiratory effort is even, unlabored. GI: Reports diarrhea, x 1 week Patient currently denies nausea, vomiting. : No signs and/or symptoms were reported regarding the genitourinary system. EENT: No signs and/or symptoms were reported regarding the EENT system. Derm: Skin is intact, Skin is pink, warm \\T\\ dry. Musculoskeletal: Circulation, motion, and sensation intact. 12:40 Reassessment: Patient appears in no apparent distress at this time. No changes from vg1 previously documented assessment. Patient and/or family updated on plan of care and expected duration. Pain level reassessed. Patient is alert, oriented x 3, equal unlabored respirations, skin warm/dry/pink. 14:09 Reassessment: Patient appears in no apparent distress at this time. Patient and/or vg1 family updated on plan of care and expected duration. Pain level reassessed. Patient is alert, oriented x 3, equal unlabored respirations, skin warm/dry/pink. Vital Signs: 11:31 BP 129 / 65; Pulse 53; Resp 16; Temp 98.6; Pulse Ox 98% on R/A; Pain 0/10; vg1 11:31 BP 129 / 65; Pulse 53; Resp 18; Temp 98.6(O); Pulse Ox 97% on R/A; Weight 60.78 kg; ll1 Height 4 ft. 8 in. (142.24 cm); Pain 0/10; 12:40 BP 159 / 56; Pulse 55; Resp 16; Pulse Ox 97% on R/A; vg1 14:03 BP 153 / 56; Pulse 55; Resp 16; Pulse Ox 97% on R/A; vg1 11:31 Body Mass Index 30.04 (60.78 kg, 142.24 cm) 1 ED Course: 11:22 Patient arrived in ED. mr 11:22 Cruzito Aguilar MD is Private Physician. mr 11:25 Nori Pavon, RN is Primary Nurse. vg1 11:29 Logan Arellano PA is PHCP. [facility] 11:29 Jonh Ordonez MD is Attending Physician. [facility] 11:29 Arm band placed on Patient placed in an exam room, on a stretcher. ll1 11:29 Patient has correct armband on for positive identification. Bed in low position. Call [facility] light in reach. Side rails up X 1. Adult w/ patient. 11:33 Triage completed. ll1 11:48 Initial lab(s) drawn, by me, sent to lab. Inserted saline lock: 20 gauge in right vg1 forearm, using aseptic technique. Blood collected. 12:33 COVID-19/FLU A+B (Document "Date of Onset" if Symptomatic) Sent. kj1 12:39 XRAY Chest (1 view) In Process Unspecified. EDMS 14:06 Chest Abdomen Pelvis W Cont In Process Unspecified. EDMS 15:16 No provider procedures requiring assistance completed. IV discontinued, intact, vg1 bleeding controlled, No redness/swelling at site. Pressure dressing applied. Administered Medications: 11:55 Drug: Lactated Ringers Solution 1000 ml Route: IV; Rate: 150 ml/hr; Site: right forearm;vg1 15:17 Follow up: IV Status: Completed infusion; IV Intake: 400ml vg1 Intake: 15:17 IV: 400ml; Total: 400ml. vg1 Outcome: 14:39 Discharge ordered by . jmm 15:16 Discharged to home ambulatory, with family. vg1 15:16 Condition: good 15:16 Discharge instructions given to patient, Instructed on discharge instructions, follow up and referral plans. medication usage, Demonstrated understanding of instructions, follow-up care, medications, Prescriptions given X 1. 15:16 Patient left the ED. vg1 Signatures: Dispatcher [employer] EDMS Logan Arellano PA PA jmm Yeboah, Clara mr Mccoy, Carol kj1 Nori Pavon, RN RN vg1 Dayday Paulson RN RN ll1
--- NOTE | 2021-08-02 14:39 | EDPHYS ---
Physician Documentation [facility] Name: Shanae Del Cid Age: 80 yrs Sex: Female : 1940 Arrival Date: 08/02/2021 Time: 11:22 Bed 2 Private MD: Cruzito Aguilar ED Physician Jonh Ordonez HPI: 08/02 11:36 This 80 yrs old Female presents to ER via Ambulatory with complaints of Weakness, jmm Diarrhea. 11:36 The patient presents to the emergency department with diarrhea, abdominal pain. Onset: jmm The symptoms/episode began/occurred gradually, 1 week(s) ago. Possible causes: unknown. The symptoms are aggravated by nothing. The symptoms are alleviated by nothing. Associated signs and symptoms: Pertinent negatives: fever. The patient has not experienced similar symptoms in the past. Historical: - Allergies: 11:29 No Known Allergies; ll1 - PMHx: 11:29 eye disease; Hypertension; Hypothyroidism; ll1 - PSHx: 11:29 Tonsillectomy; bowel blockage SX; uterus removed; ll1 - Immunization history:: Client reports having NOT received the Covid vaccine. - Social history:: Smoking status: Patient reports the use of cigarette tobacco products, smokes one pack cigarettes per day. ROS: 11:36 Constitutional: Positive for fatigue. jmm 11:36 Abdomen/GI: Positive for diarrhea. 11:36 All other systems are negative. Exam: 11:36 Constitutional: This is a well developed, well nourished patient who is awake, alert, jmm and in no acute distress. Head/Face: atraumatic. Eyes: EOMI, no conjunctival erythema appreciated 11:36 Neck: Trachea midline, Supple Chest/axilla: Normal chest wall appearance and motion. Cardiovascular: Regular rate and rhythm. No edema appreciated Respiratory: Normal respirations, no respiratory distress appreciated Abdomen/GI: Non distended, soft Back: Normal ROM Skin: General appearance color normal MS/ Extremity: Moves all extremities, no obvious deformities appreciated, no edema noted to the lower extremities Neuro: Awake and alert Psych: Behavior is normal, Mood is normal, Patient is cooperative and pleasant 11:36 ENT: TM's: erythema, that is moderate, on the right. Vital Signs: 11:31 BP 129 / 65; Pulse 53; Resp 16; Temp 98.6; Pulse Ox 98% on R/A; Pain 0/10; vg1 11:31 BP 129 / 65; Pulse 53; Resp 18; Temp 98.6(O); Pulse Ox 97% on R/A; Weight 60.78 kg; ll1 Height 4 ft. 8 in. (142.24 cm); Pain 0/10; 12:40 BP 159 / 56; Pulse 55; Resp 16; Pulse Ox 97% on R/A; vg1 14:03 BP 153 / 56; Pulse 55; Resp 16; Pulse Ox 97% on R/A; vg1 11:31 Body Mass Index 30.04 (60.78 kg, 142.24 cm) ll1 MDM: 11:36 Patient medically screened. [facility] 14:37 Data reviewed: vital signs, nurses notes. Counseling: I had a detailed discussion with cece the patient and/or guardian regarding: the historical points, exam findings, and any diagnostic results supporting the discharge/admit diagnosis, lab results, radiology results, the need for outpatient follow up, to return to the emergency department if symptoms worsen or persist or if there are any questions or concerns that arise at home. 08/02 11:44 Order name: Basic Metabolic Panel; Complete Time: 12:47 [facility] 08/02 11:44 Order name: CBC with Diff; Complete Time: 12:10 [facility] 08/02 11:44 Order name: LFT's; Complete Time: 12:47 [facility] 08/02 11:44 Order name: Magnesium; Complete Time: 12:47 [facility] 08/02 11:44 Order name: NT PRO-BNP; Complete Time: 12:47 [facility] 08/02 11:44 Order name: PT-INR; Complete Time: 12:17 [facility] 08/02 11:44 Order name: Troponin HS; Complete Time: 12:47 [facility] 08/02 11:44 Order name: XRAY Chest (1 view); Complete Time: 12:47 [facility] 08/02 11:46 Order name: COVID-19/FLU A+B (Document "Date of Onset" if Symptomatic); Complete Time: [facility] 13:01 08/02 12:32 Order name: Urine Microscopic Only; Complete Time: 12:57 kj1 08/02 12:35 Order name: Urine Dipstick-Ancillary; Complete Time: 12:37 [facility] 08/02 13:50 Order name: Chest Abdomen Pelvis W Cont; Complete Time: 15:55 [facility] 08/02 11:44 Order name: EKG; Complete Time: 11:45 [facility] 08/02 11:44 Order name: Cardiac monitoring; Complete Time: 11:49 [facility] 08/02 11:44 Order name: EKG - Nurse/Tech; Complete Time: 11:49 [facility] 08/02 11:44 Order name: IV Saline Lock; Complete Time: 11:49 [facility] 08/02 11:44 Order name: Labs collected and sent; Complete Time: 11:49 [facility] 08/02 11:44 Order name: O2 Per Protocol; Complete Time: 11:49 [facility] 08/02 11:44 Order name: O2 Sat Monitoring; Complete Time: 11: [facility] 08/02 11:46 Order name: Urine Dipstick-Ancillary (obtain specimen); Complete Time: 12:32 [facility] Administered Medications: 11:55 Drug: Lactated Ringers Solution 1000 ml Route: IV; Rate: 150 ml/hr; Site: right forearm;vg1 15:17 Follow up: IV Status: Completed infusion; IV Intake: 400ml vg1 Disposition: 18:02 Co-signature as Attending Physician, Jonh Ordonez MD I agree with the assessment and kdr plan of care. Disposition Summary: 08/02/21 14:39 Discharge Ordered Location: Home [facility] Condition: Stable [facility] Diagnosis - Acute serous otitis media, right ear jmm - Diarrhea, unspecified jmm Followup: [facility] - With: Private Physician - When: 2 - 3 days - Reason: Recheck today's complaints, Continuance of care, Re-evaluation by your physician Discharge Instructions: - Discharge Summary Sheet [facility] - Food Choices to Help Relieve Diarrhea, Adult jmm - Otitis Media, Adult jmm Forms: - Medication Reconciliation Form [facility] - Thank You Letter [facility] - Antibiotic Education [facility] - Prescription Opioid Use [facility] Prescriptions: - cefdinir 300 mg Oral capsule - take 1 capsule by ORAL route every 12 hours for 10 days; 20 capsule; Refills: [facility] 0, Product Selection Permitted Signatures: Dispatcher [employer] Jonh Narvaez MD MD kdr Mickail, Joel, PA PA jmm Garcia, Victoria RN RN vg1 Khurram, Lynsay, RN RN ll1
[2021-08-02 15:25] VITALS: TEMP 98.6; O2SAT 97
[2021-08-02 15:27] VITALS: BP 153/56
== END 2021-08-02 15:16 | disposition home or self-care (01) ==
LOC: ER 11:18
DX: R19.7 Diarrhea, unspecified (principal); H65.01 Acute serous otitis media, right ear; I10 Essential (primary) hypertension; F17.210 Nicotine dependence, cigarettes, uncomplicated; Z20.822 Contact with and (suspected) exposure to COVID-19
CPT/HCPCS: 96361; 93005; 85025; 80048; 36415; 83735; 85610; 80076; 84484; 83880; 0240U; 71260; 74177; 71045; 96360; 99284; Q9967; J7120; 81003; 81015

== ENCOUNTER 2022-01-04 13:25 | Emergency (ER) | payer OTHER ==
--- OUTSIDE RECORDS SUMMARY | 2022-01-04 13:28 | XMS REPORT | Continuity of Care Document ---
:1940 Author Organization [facility] t Address [address] [address] [address] [place] [address] Care Team Providers Name Role Phone UNKNOWN, REFFERING Primary Care Physician Unavailable LYNN AGUILAR Attending Clinician Unavailable Natalya Lakhani Attending Clinician Lab, Ang - Db Attending Clinician Unavailable NATALYA WONG Attending Clinician Unavailable Lynn Aguilar MD Attending Clinician Doctor Unassigned, [place] Attending Clinician Unavailable Mick Bedoya MD Attending Clinician ALEX FONTANEZ M.D., ALEX Blakely M.D. Attending Clinician Unavailable ALEX FONTANEZ M.D., ALEX Blakely M.D. 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 Hands, knees, shoulders Acquired Acquired Disease Active 2019-04 Unive rs hypothyroi hypothyroi 1-13 it y of dism dism 00:00: [place] [address] Medical Branch Macular Macular Disease Active Univers degenerati degenerati it y of on on [facility] Branch Essential Essential Disease Active Uni vers hypertensi hypertensi it y of on on [facility] Allergies, Adverse Reactions, Alerts Allergy Allergy Status Severity Reaction(s) Onset Inactive Treating Comm ents Source Name Type Date Date Clinician NO KNOWN Drug Active Univers ALLERGIE Class ity of S [facility] Social History Social Habit Start Date Stop Date Quantity Comments Source History [facility] o f Alcohol Comment [place] Med ical Branch History of tobacco Cigarette Smoker University of use [facility] Exposure to 2021-12-18 2021-12-28 Not sure [facility] SARS-CoV-2 (event) 00:00:00 12:24:00 [facility] Cigarettes smoked 2021-12-28 2021-12-28 Univers ity of current (pack per 00:00:00 00:00:00 [facility] ) - Reported Branch Tobacco use and 2021-12-28 2021-12-28 Smokeless Universit y of exposure 00:00:00 00:00:00 tobacco non-user [facility] dical Branch Alcohol intake 2021-12-28 2021-12-28 Lifetime University of 00:00:00 00:00:00 non-drinker [facility] (finding) Branch History [facility] 2020-02-19 2020-02-19 1 [place] o f Alcohol Frequency 00:00:00 00:00:[address] [facility] Branch History [facility] 2020-02-19 2020-02-19 99 University o f Alcohol Std Drinks 00:00:00 00:00:00 [facility] Branch History [facility] 2020-02-19 2020-02-19 1 [employer] o f Alcohol Binge 00:00:00 00:00:00 [place] Medic al Branch Sex [birth year] Universit y of 00:00:00 00:00:00 [facility] Smoking Status Start Date Stop Date Source Smokes tobacco daily 2021-12-28 00:00:00 [facility] [place] ity of [facility] Medications Ordered Filled Start Stop Current Ordering Indication Dosage Frequency Signature Comments Components Source Medication Medication Date Date Medication? Clinician (SIG) Name Name Omeprazole Yes [id number] 20mg Take 1 Univers 20 mg 9-22 tablet by ity of tablet 00:00: mouth in [place] 00 the Medical morning. Branch Omeprazole 2021-0 Yes [id number] 20mg Take 1 Univers 20 mg 9-22 tablet by ity of tablet 00:00: mouth in [place] the Medical morning. Branch Omeprazole 2021-0 Yes [id number] 20mg Take 1 Univers 20 mg 9-22 tablet by ity of tablet 00:00: mouth in [place] 00 the Medical morning. Branch busPIRone 2021-0 Yes 10mg Take 10 mg [place] 10 mg 8-22 by mouth 2 ity of tablet 00:00: (two) [place] 00 times Medical daily as Branch needed. busPIRone 2021-0 Yes 10mg Take 10 mg [place] 10 mg 8-22 by mouth 2 ity of tablet 00:00: (two) [place] 00 times Medical daily as Branch needed. busPIRone 2021-0 Yes 10mg Take 10 mg [place] 10 mg 8-22 by mouth 2 ity of tablet 00:00: (two) [place] 00 times Medical daily as Branch needed. busPIRone 2021-0 Yes 10mg Take 10 mg [place] 10 mg 8-22 by mouth 2 ity of tablet 00:00: (two) [place] 00 times Medical daily as Branch needed. BUSPIRONE 5 2021-0 Yes [id number] Take 1 Univers mg tablet 8-04 tablet by ity o f 00:00: mouth [place] 00 twice Medical daily Branch BUSPIRONE 5 2021-0 Yes [id number] Take 1 Univers mg tablet 8-04 tablet by ity o f 00:00: mouth [place] 00 twice Medical daily Branch BUSPIRONE 5 2021-0 2021- No [id number] Take 1 Univers mg tablet 8-07 15-22 tablet by ity of 00:00: 00:00 mouth [place] 00 :00 twice Medical daily Branch BUSPIRONE 5 2021-0 2021- No [id number] Take 1 Univers mg tablet 8-04 -22 tablet by ity of 00:00: 00:00 mouth [place] 00 :00 twice Medical daily Branch BUSPIRONE 5 2021-0 Yes [id number] Take 1 Univers mg tablet 7-05 tablet by ity o f 00:00: mouth [place] 00 twice Medical daily Branch BUSPIRONE 5 2021-0 2022- No [id number] Take 1 Univers mg tablet 10-10- tablet by ity of 00:00: 00:00 mouth [place] 00 :00 twice Medical daily Branch BUSPIRONE 5 2021-0 Yes [id number] Take 1 Univers mg tablet 6- tablet by ity o f 00:00: mouth [place] 00 twice Medical daily Branch BUSPIRONE 5 2021-0 2- No [id number] Take 1 Univers mg tablet 09-11- tablet by ity of 00:00: 00:00 mouth [place] 00 :00 twice Medical daily Branch tiZANidine 2021-0 Yes [id number] 4mg Take 1 Univers 4 mg tablet 5-02 tablet by ity of 00:00: mouth [place] 00 every 6 Medical (six) Branch hours as needed (back pain and spasm). tiZANidine 2021-0 Yes [id number] 4mg Take 1 Univers 4 mg tablet 5-02 tablet by ity of 00:00: mouth [place] 00 every 6 Medical (six) Branch hours as needed (back pain and spasm). tiZANidine 2021-0 Yes [id number] 4mg Take 1 Univers 4 mg tablet 5-02 tablet by ity of 00:00: mouth [place] 00 every 6 Medical (six) Branch hours as needed (back pain and spasm). tiZANidine 2021-0 Yes [id number] 4mg Take 1 Univers 4 mg tablet 5-02 tablet by ity of 00:00: mouth [place] 00 every 6 Medical (six) Branch hours as needed (back pain and spasm). tiZANidine 2021-0 Yes [id number] 4mg Take 1 Univers 4 mg tablet 5-02 tablet by ity of 00:00: mouth [place] 00 every 6 Medical (six) Branch hours as needed (back pain and spasm). tiZANidine 2021-0 Yes [id number] 4mg Take 1 Univers 4 mg tablet 5-02 tablet by ity of 00:00: mouth [place] 00 every 6 Medical (six) Branch hours as needed (back pain and spasm). tiZANidine 2021-0 Yes [id number] 4mg Take 1 Univers 4 mg tablet 5-02 tablet by ity of 00:00: mouth [place] 00 every 6 Medical (six) Branch hours as needed (back pain and spasm). tiZANidine 2022-0 Yes [id number] 4mg Take 1 Univers 4 mg tablet 5-02 tablet by ity of 00:00: mouth [place] 00 every 6 Medical (six) Branch hours as needed (back pain and spasm). tiZANidine 2021-0 Yes [id number] 4mg Take 1 Univers 4 mg tablet 5-02 tablet by ity of 00:00: mouth [place] 00 every 6 Medical (six) Branch hours as needed (back pain and spasm). tiZANidine 2021-0 Yes [id number] 4mg Take 1 Univers 4 mg tablet 5-02 tablet by ity of 00:00: mouth [place] 00 every 6 Medical (six) Branch hours as needed (back pain and spasm). cefdinir 2021-0 Yes 300mg 300 mg. Unive rs 300 mg 4-27 ity of capsule 00:00: [place] 00 Medical Branch cefdinir 2021-0 Yes 300mg 300 mg. Unive rs 300 mg 4-27 ity of capsule 00:00: [place] 00 Medical Branch cefdinir 2021-0 Yes 300mg 300 mg. Unive rs 300 mg 4-27 ity of capsule 00:00: [place] 00 Medical Branch cefdinir 2021-0 Yes 300mg 300 mg. Unive rs 300 mg 4-27 ity of capsule 00:00: [place] 00 Medical Branch cefdinir 2021-0 Yes 300mg 300 mg. Unive rs 300 mg 4-27 ity of capsule 00:00: [place] 00 Medical Branch cefdinir 2-0 Yes 300mg 300 mg. Unive rs 300 mg -27 ity of capsule 00:00: [place] 00 Medical Branch cefdinir 2-0 2022- No 300mg 300 mg. Univ ers 300 mg 08-02 ity of capsule 00:00: 00:00 [place] 00 :00 Medical Branch cefdinir 2-0 2022- No 300mg 300 mg. Univ ers 300 mg 08-02 ity of capsule 00:00: 00:00 [place] 00 :00 Medical Branch montelukast 2021-0 Yes [id number] 10mg Take 1 Univers 10 mg 4-08 tablet by ity of tablet 00:00: mouth [place] 00 every Medical morning. Branch levothyroxi 2021-0 Yes [id number] 100ug Take 1 Univers ne 4-08 tablet by ity of (EUTHYROX) 00:00: mouth [place] 100 mcg 00 every Medical tablet morning. Branch montelukast 2021-0 Yes [id number] 10mg Take 1 Univers 10 mg 4-08 tablet by ity of tablet 00:00: mouth [place] 00 every Medical morning. Branch levothyroxi 2021-0 Yes [id number] 100ug Take 1 Univers ne 4-08 tablet by ity of (EUTHYROX) 00:00: mouth [place] 100 mcg 00 every Medical tablet morning. Branch montelukast 2021-0 Yes [id number] 10mg Take 1 Univers 10 mg 4-08 tablet by ity of tablet 00:00: mouth [place] 00 every Medical morning. Branch levothyroxi 2021-0 Yes [id number] 100ug Take 1 Univers ne 4-08 tablet by ity of (EUTHYROX) 00:00: mouth [place] 100 mcg 00 every Medical tablet morning. Branch montelukast 2021-0 Yes [id number] 10mg Take 1 Univers 10 mg 4-08 tablet by ity of tablet 00:00: mouth [place] 00 every Medical morning. Branch levothyroxi 2021-0 Yes [id number] 100ug Take 1 Univers ne 4-08 tablet by ity of (EUTHYROX) 00:00: mouth [place] 100 mcg 00 every Medical tablet morning. Branch montelukast 2021-0 Yes [id number] 10mg Take 1 Univers 10 mg 4-08 tablet by ity of tablet 00:00: mouth [place] 00 every Medical morning. Branch levothyroxi 2021-0 Yes [id number] 100ug Take 1 Univers ne 4-08 tablet by ity of (EUTHYROX) 00:00: mouth [place] 100 mcg 00 every Medical tablet morning. Branch montelukast 2021-0 Yes [id number] 10mg Take 1 Univers 10 mg 4-08 tablet by ity of tablet 00:00: mouth [place] 00 every Medical morning. Branch levothyroxi 2021-0 Yes [id number] 100ug Take 1 Univers ne 4-08 tablet by ity of (EUTHYROX) 00:00: mouth [place] 100 mcg 00 every Medical tablet morning. Branch montelukast 2021-0 Yes [id number] 10mg Take 1 Univers 10 mg 4-08 tablet by ity of tablet 00:00: mouth [place] 00 every Medical morning. Branch levothyroxi 2022-0 Yes [id number] 100ug Take 1 Univers ne 4-08 tablet by ity of (EUTHYROX) 00:00: mouth [place] 100 mcg 00 every Medical tablet morning. [place] montelukast Yes [id number] 10mg Take 1 Univers 10 mg 4-08 tablet by ity of tablet 00:00: mouth [place] 00 every Medical morning. [place] levothyroxi Yes [id number] 100ug Take 1 Univers ne 4-08 tablet by ity of (EUTHYROX) 00:00: mouth [place] 100 mcg 00 every Medical tablet morning. [place] montelukast Yes [id number] 10mg Take 1 Univers 10 mg 4-08 tablet by ity of tablet 00:00: mouth [place] 00 every Medical morning. [place] levothyroxi Yes [id number] 100ug Take 1 Univers ne 4-08 tablet by ity of (EUTHYROX) 00:00: mouth [place] 100 mcg 00 every Medical tablet morning. [place] montelukast Yes [id number] 10mg Take 1 Univers 10 mg 4-08 tablet by ity of tablet 00:00: mouth [place] 00 every Medical morning. [place] levothyroxi Yes [id number] 100ug Take 1 Univers ne 4-08 tablet by ity of (EUTHYROX) 00:00: mouth [place] 100 mcg 00 every Medical tablet morning. [place] methylPREDN 2021- No [id number] Take by Univers ISolone 2- 05-02 mouth ity of (MEDROL, 00:00: 00:00 SEE-INSTRU Ike clemons ALDO,) 4 mg 00 :00 CTIONS. Medica l tablets follow [place] package directions methocarbam 2021- No [id number] 500mg Take 1 Univers oL 2-21 05-02 tablet by ity of (ROBAXIN) 00:00: 00:00 [place] :00 (four) Medical tablet times [place] daily as needed for Other (muscle tightness) . citalopram Yes 40mg Take 40 mg U nivers 40 mg 6-25 by mouth ity of tablet 14:32: daily. [place] [address] Medical [place] citalopram Yes 40mg Take 40 mg U nivers 40 mg 6-25 by mouth ity of tablet 14:32: daily. [address] citalopram Yes 40mg Take 40 mg U nivers 40 mg 6-25 by mouth ity of tablet 14:32: daily. [address] citalopram Yes 40mg Take 40 mg U nivers 40 mg 6-25 by mouth ity of tablet 14:32: daily. [address] citalopram Yes 40mg Take 40 mg U nivers 40 mg 6-25 by mouth ity of tablet 14:32: daily. [address] citalopram Yes 40mg Take 40 mg U nivers 40 mg 6-25 by mouth ity of tablet 14:32: daily. [address] citalopram Yes 40mg Take 40 mg U nivers 40 mg 6-25 by mouth ity of tablet 14:32: daily. [address] citalopram Yes 40mg Take 40 mg U nivers 40 mg 6-25 by mouth ity of tablet 14:32: daily. [address] citalopram Yes 40mg Take 40 mg U nivers 40 mg 6-25 by mouth ity of tablet 14:32: daily. [address] citalopram Yes 40mg Take 40 mg U nivers 40 mg 6-25 by mouth ity of tablet 14:32: daily. [address] busPIRone 5 Yes [id number] 5mg Take 1 Univers mg tablet 6-18 tablet by ity o f 00:00: mouth 2 [place] ([facility]) Medical times Branch daily. busPIRone 5 Yes [id number] 5mg Take 1 Univers mg tablet 6-18 tablet by ity o f 00:00: mouth 2 [place] ([facility]) Medical times Branch daily. busPIRone 5 0 2021- No [id number] 5mg Take 1 Univers mg tablet 6-18 06-06 tablet by ity of 00:00: 00:00 mouth 2 [place] 00 :00 ([facility]) Medical times Branch daily. amLODIPine Yes 5mg Take 5 mg [place] 5 mg tablet 6-17 by mouth ity of 00:00: daily. [address] amLODIPine 1-0 Yes 5mg Take 5 mg [place] 5 mg tablet 6-17 by mouth ity of 00:00: daily. [place] [facility] amLODIPine 1-0 Yes 5mg Take 5 mg [place] 5 mg tablet 6-17 by mouth ity of 00:00: daily. [place] [facility] amLODIPine 1-0 Yes 5mg Take 5 mg [place] 5 mg tablet 6-17 by mouth ity of 00:00: daily. [place] [facility] amLODIPine 2020-0 Yes 5mg Take 5 mg [place] 5 mg tablet 6-17 by mouth ity of 00:00: daily. [place] [facility] amLODIPine 2020-0 Yes 5mg Take 5 mg [place] 5 mg tablet 6-17 by mouth ity of 00:00: daily. [place] [facility] amLODIPine 2020-0 Yes 5mg Take 5 mg [place] 5 mg tablet 6-17 by mouth ity of 00:00: daily. [place] [facility] amLODIPine 2020-0 Yes 5mg Take 5 mg [place] 5 mg tablet 6-17 by mouth ity of 00:00: daily. [place] [facility] amLODIPine 1-0 Yes 5mg Take 5 mg [place] 5 mg tablet 6-17 by mouth ity of 00:00: daily. [place] [facility] amLODIPine 1-0 Yes 5mg Take 5 mg [place] 5 mg tablet 6-17 by mouth ity of 00:00: daily. [address] metoprolol 2019- Yes 50mg Take 50 mg U nivers succinate 1-13 by mouth ity of XL 50 mg 24 13:56: [place]. [place] hr tablet [address] [place] [address] vit 2019- Yes Take by Univers C/E/Zn/jacqueline 1-13 mouth. ity of r/lutein/ze 13:56: [address] ([facility] ON AREDS-2 ORAL) metoprolol 2019-04 Yes 50mg Take 50 mg U nivers succinate 1-13 by mouth ity of XL 50 mg 24 13:56: [place]. [place] [address] [place] [address] vit 2019- Yes Take by Univers C/E/Zn/jacqueline 1-13 mouth. ity of r/lutein/ze 13:56: [address] ([facility] Branch ON AREDS-2 ORAL) metoprolol 2019-04 Yes 50mg Take 50 mg U nivers succinate 1-13 by mouth ity of XL 50 mg 24 13:56: daily. [place] [address] [place] [address] vit 2019-04 Yes Take by Univers C/E/Zn/jacqueline 1-13 mouth. ity of r/lutein/ze 13:56: [address] ([facility] Branch ON AREDS-2 ORAL) metoprolol 2019-04 Yes 50mg Take 50 mg U nivers succinate 1-13 by mouth ity of XL 50 mg 24 13:56: daily. [place] [address] [place] [address] vit 2019-04 Yes Take by Univers C/E/Zn/jacqueline 1-13 mouth. ity of r/lutein/ze 13:56: [address] ([facility] Branch ON AREDS-2 ORAL) metoprolol 2019-04 Yes 50mg Take 50 mg U nivers succinate 1-13 by mouth ity of XL 50 mg 24 13:56: daily. [place] tablet [address] [place] [address] vit 2019-04 Yes Take by Univers C/E/Zn/jacqueline 1-13 mouth. ity of r/lutein/ze 13:56: [address] ([facility] Branch ON AREDS-2 ORAL) metoprolol 2019-04 Yes 50mg Take 50 mg U nivers succinate 1-13 by mouth ity of XL 50 mg 24 13:56: daily. [place] tablet [address] [place] [address] vit 2019-04 Yes Take by Univers C/E/Zn/jacqueline 1-13 mouth. ity of r/lutein/ze 13:56: [address] ([facility] Branch ON AREDS-2 ORAL) metoprolol 2019-04 Yes 50mg Take 50 mg U nivers succinate 1-13 by mouth ity of XL 50 mg 24 13:56: daily. [place] hr tablet [address] [place] [address] vit 2019-04 Yes Take by Univers C/E/Zn/jacqueline 1-13 mouth. ity of r/lutein/ze 13:56: [address] ([facility] Branch ON AREDS-2 ORAL) metoprolol 2019-04 Yes 50mg Take 50 mg U nivers succinate 1-13 by mouth ity of XL 50 mg 24 13:56: daily. [place] hr tablet 17 Medical Branch vit 2019- Yes Take by Univers C/E/Zn/jacqueline 1-13 mouth. ity of r/lutein/ze 13:56: [place] [address] Medical ([facility] Branch ON AREDS-2 ORAL) metoprolol 2019- Yes 50mg Take 50 mg U nivers succinate 1-13 by mouth ity of XL 50 mg 24 13:56: daily. [place] hr tablet Medical Branch vit 2019- Yes Take by Univers C/E/Zn/jacqueline 1-13 mouth. ity of r/lutein/ze 13:56: [place] [address] Medical (PRESERVISI Branch ON AREDS-2 ORAL) metoprolol 2019-04 Yes 50mg Take 50 mg U nivers succinate 1-13 by mouth ity of XL 50 mg 24 13:56: daily. [place] hr tablet Medical Branch vit 2019-04 Yes Take by Univers C/E/Zn/jacqueline 1-13 mouth. ity of r/lutein/ze 13:56: [place] [address] Medical ([facility] Branch ON AREDS-2 ORAL) traZODone 2019- Yes TAKE 2 Univer s 150 mg 0-13 TABLETS BY ity of tablet 00:00: MOUTH IN [place] 00 THE Medical EVENING Branch NEEDED traZODone 2020-1 Yes TAKE 2 Univer s 150 mg 0-13 TABLETS BY ity of tablet 00:00: MOUTH IN [place] 00 THE Medical EVENING Branch NEEDED traZODone 2020-1 Yes TAKE 2 Univer s 150 mg 0-13 TABLETS BY ity of tablet 00:00: MOUTH IN [place] 00 THE Medical EVENING Branch NEEDED traZODone 2020-1 Yes TAKE 2 Univer s 150 mg 0-13 TABLETS BY ity of tablet 00:00: MOUTH IN [place] 00 THE Medical EVENING Branch NEEDED traZODone 2020-1 Yes TAKE 2 Univer s 150 mg 0-13 TABLETS BY ity of tablet 00:00: MOUTH IN [place] 00 THE Medical EVENING Branch NEEDED traZODone 2020-1 Yes TAKE 2 Univer s 150 mg 0-13 TABLETS BY ity of tablet 00:00: MOUTH IN [place] 00 THE Medical EVENING Branch NEEDED traZODone 2020-1 Yes TAKE 2 Univer s 150 mg 0-13 TABLETS BY ity of tablet 00:00: MOUTH IN [place] THE Medical EVENING Branch NEEDED traZODone 2020-1 Yes TAKE 2 Univer s 150 mg 0-13 TABLETS BY ity of tablet 00:00: MOUTH IN [place] THE Medical EVENING Branch NEEDED traZODone 2020-1 Yes TAKE 2 Univer s 150 mg 0-13 TABLETS BY ity of tablet 00:00: MOUTH IN [place] [address] THE Medical EVENING Branch NEEDED traZODone 2020-1 Yes TAKE 2 Univer s 150 mg 0-13 TABLETS BY ity of tablet 00:00: MOUTH IN [place] THE Medical EVENING Branch NEEDED candesartan 2020-0 Yes 16mg Take 16 mg Univers 16 mg 9-15 by mouth ity of tablet 00:00: daily. [address] Branch candesartan 2020-0 Yes 16mg Take 16 mg Univers 16 mg 9-15 by mouth ity of tablet 00:00: daily. [address] Branch candesartan 2020-0 Yes 16mg Take 16 mg Univers 16 mg 9-15 by mouth ity of tablet 00:00: daily. [address] Branch candesartan 2020-0 Yes 16mg Take 16 mg Univers 16 mg 9-15 by mouth ity of tablet 00:00: daily. [address] Branch candesartan 2020-0 Yes 16mg Take 16 mg Univers 16 mg 9-15 by mouth ity of tablet 00:00: daily. [address] candesartan 2020-0 Yes 16mg Take 16 mg Univers 16 mg 9-15 by mouth ity of tablet 00:00: daily. [address] Branch candesartan 2020-0 Yes 16mg Take 16 mg Univers 16 mg 9-15 by mouth ity of tablet 00:00: daily. [address] Branch candesartan 2020-0 Yes 16mg Take 16 mg Univers 16 mg 9-15 by mouth ity of tablet 00:00: daily. [address] candesartan 2020-0 Yes 16mg Take 16 mg Univers 16 mg 9-15 by mouth ity of tablet 00:00: daily. [address] candesartan 2020-0 Yes 16mg Take 16 mg Univers 16 mg 9-15 by mouth ity of tablet 00:00: daily. [address] Vital Signs Vital Name Observation Time Observation Value Comments Source Systolic blood 2021-12-28 18:13:00 138 mm[Hg] Univer sity of pressure [facility] Diastolic blood 2021-12-28 18:13:00 70 mm[Hg] Unive rsity of pressure [facility] Heart rate 2021-12-28 18:13:00 47 /min Universi ty of [facility] Body temperature 2021-12-28 17:45:00 37.11 Pam Univ ersity of [facility] Body height 2021-12-28 17:45:00 139.7 cm Universi ty of [facility] Body weight 2021-12-28 17:45:00 64.139 kg Universi ty of [place] [facility] [place] BMI 2021-12-28 17:45:00 32.86 kg/m2 Universi ty of [facility] Oxygen saturation in 2021-12-28 17:45:00 98 /min [facility] Arterial blood by [facility] Pulse oximetry Branch Systolic blood 2021-08-07 20:41:00 130 mm[Hg] Univer sity of pressure [facility] Diastolic blood 2021-08-07 20:41:00 65 mm[Hg] Unive rsity of pressure [facility] Heart rate 2021-08-07 20:41:00 67 /min Universi ty of [facility] Body temperature 2021-08-07 20:41:00 37.33 Pam Univ ersity of [facility] Body height 2021-08-07 20:41:00 139.7 cm Universi ty of [place] [facility] [place] Body weight 2021-08-07 20:41:00 63.504 kg Universi ty of [facility] BMI 2021-08-07 20:41:00 32.54 kg/m2 Universi ty [facility] Procedures Procedure Date / Time Performed Performing Clinician Sourc e LIPASE 2021-12-28 18:38:00 Natalya Wong [facility] CBC WITH DIFF 2021-12-28 18:38:00 Natalya Wong [facility] EXTERNAL PROVIDER 2021-08-10 05:01:00 [facility] Branch Encounters Start End Encounter Admission Attending Care Care Encounter Source Date/Time Date/Time Type Type Clinicians Facility Department ID 2022-01-02 2022-01-02 Telephone JANET Wong [id number] Univers 00:00:00 00:00:00 Natalya A HEALTH [id number] i ty of [place] [id number] Patrick as GER?BLEA [id number] [facility] [address] [facility] OFFICE [facility] 2021-12-28 2021-12-28 [employer] Consultant Lab, Ang - Db [facility] [id number] Univers 13:45:00 14:00:00 Visit Natalya Wong HEALTH [id number] ity of [place] [id number] Patrick as GER?BLEA [id number] [facility] [address] [facility] OFFICE [facility] 2021-12-28 2021-12-28 Outpatient R [facility] [id number] Univers 12:30:00 13:29:55 NATALYA ity [facility] 2021-12-28 2021-12-28 [facility] [id number] Univers 12:30:00 13:29:55 Visit Natalya Blakely HEALTH [id number] i ty of [place] [id number] Patrick as GER?BLEA [id number] [address] OFFICE [facility] 2021-12-28 2021-12-28 Outpatient R [facility] [id number] Univers 12:30:00 12:30:00 NATALYA [id number] ity [facility] 2021-12-26 2021-12-26 [facility] [id number] Univers 00:00:00 00:00:00 [place] HEALTH [id number] it y of [place] [id number] Patrick as GER?BLEA [id number] [address] [facility]ICE [facility] HOSPITAL 2021-11-09 2021-11-09 [facility] [id number] Univers 00:00:00 00:00:00 [facility] [id number] it y of [place] 4.2.7.2.686 Patrick as GER?BLEA [id number] [address] OFFICE [facility] 2021-10-09 2021-10-09 [facility] [id number] Univers 00:00:00 00:00:00 [facility] [id number] it y of [place] 4.2.7.2.686 Patrick as GER?BLEA [phone] [address] OFFICE [facility] 2021-09-09 2021-09-09 [facility] 1.2.840.114 [id number] Univers 00:00:00 00:00:00 [facility] [id number] it y of [place] 4.2.7.2.686 Patrick as GER?BLEA [phone] [address] OFFICE [facility] 2021-08-10 2021-08-10 Orders Doctor LINN [id number] Univers 00:00:00 00:00:00 Only Unassigned, JOE [id number] ity of [place] [facility] 4.2.7.2.686 Patrick as [id number] [address] 2021-08-07 2021-08-07 Office [facility] [id number] Univers 15:30:00 15:45:00 Visit [facility] [id number] it y of [place] 4.2.7.2.686 Patrick as GER?BLEA [phone] [address] OFFICE [facility] 2020-08-26 2020-08-26 Office [facility] [id number] 16:09:47 16:47:41 Visit [facility] [id number] [place] 4.2.7.2.686 Professio [phone] [place] [address] Office [facility] One Results Test Description Test Time Test Comments Results Result Comments Source LIPASE 2021-12-28 21:09:42 Test Item Value Reference Range Interpretation Comme nts LIPASE (test code = 7951600705) 391 U/L 0-220 H Lab Interpretation (test code = 77410-8) [facility] Test Item Value Reference Range Interpretation Comments LIPASE (test code = 5492619752) 391 U/L 0-220 H Lab Interpretation (test code = Abnormal 30967-1) [facility] WITH [id number] 21:03:03 Test Item Value Reference Range Interpretation Comments WBC (test code = See_Comment H [Automated 6690-2) message] The sy stem which generated this result transmitted reference range : 4.30 - 11.10 10*3/?L. The reference range was not used to interpret this result as normal/abnormal . RBC (test code = See_Comment [Automated 789-8) message] The sy stem which generated this result transmitted reference range : 3.93 - 5.25 10*6/?L. The reference range was not used to interpret this result as normal/abnormal . HGB (test code = 14.5 g/dL 11.6-15 718-7) HCT (test code = 44.1 % 35.7-45.2 4544-3) MCV (test code = 94.8 fL 80.6-95.5 787-2) MCH (test code = 31.2 pg 25.9-32.8 785-6) MCHC (test code = 32.9 g/dL 31.6-35.1 786-4) RDW-SD (test code = 48.7 fL 39-49.9 97106-1) RDW-CV (test code = 14.0 % 12-15.5 788-0) PLT (test code = See_Comment H [Automated 777-3) message] The sy stem which generated this result transmitted reference range : 166 - 358 10*3/ ?L. The reference r jeremy was not used to interpret this result as normal/abnormal . MPV (test code = 9.9 fL 9.5-12.9 72952-1) NRBC/100 WBC (test See_Comment [Automat ed code = 7469791477) message] The system which generated this result transmitted reference range : 0.0 - 10.0 /100 WBCs. The refer ence range was not u sed to interpret th is result as normal/abnormal . NRBC x10^3 (test code See_Comment [Auto mated = 3788158097) message] The s ystem which generated this result transmitted reference range : 10*3/?L. The reference range was not used to interpret this result as normal/abnormal . GRAN MAT (NEUT) % 72.3 % (test code = 770-8) IMM GRAN % (test code 0.70 % = 4950171473) LYMPH % (test code = 18.4 % 736-9) MONO % (test code = 6.7 % 5905-5) EOS % (test code = 1.2 % 713-8) BASO % (test code = 0.7 % 706-2) GRAN MAT x10^3(ANC) 8.68 10*3/uL 1.88-7.09 H (test code = 4817043327) IMM GRAN x10^3 (test 0.09 10*3/uL 0-0.06 H code = 6919801805) LYMPH x10^3 (test code 2.21 10*3/uL 1.32-3.29 = 731-0) MONO x10^3 (test code 0.81 10*3/uL 0.33-0.92 = 742-7) EOS x10^3 (test code = 0.14 10*3/uL 0.03-0.39 711-2) BASO x10^3 (test code 0.08 10*3/uL 0.01-0.07 H = 704-7) Lab Interpretation Abnormal (test code = 10713-3) [facility] WITH [id number] 21:03:03 Test Item Value Reference Range Interpretation Comments WBC (test code = See_Comment H [Automated 4790-2) message] The sy stem which generated this result transmitted reference range : 4.30 - 11.10 10*3/?L. The reference range was not used to interpret this result as normal/abnormal . RBC (test code = See_Comment [Automated 9-8) message] The sy stem which generated this result transmitted reference range : 3.93 - 5.25 10*6/?L. The reference range was not used to interpret this result as normal/abnormal . HGB (test code = 14.5 g/dL 11.6-15 718-7) HCT (test code = 44.1 % 35.7-45.2 4544-3) MCV (test code = 94.8 fL 80.6-95.5 787-2) MCH (test code = 31.2 pg 25.9-32.8 785-6) MCHC (test code = 32.9 g/dL 31.6-35.1 786-4) RDW-SD (test code = 48.7 fL 39-49.9 26934-6) RDW-CV (test code = 14.0 % 12-15.5 788-0) PLT (test code = See_Comment H [Automated 777-3) message] The sy stem which generated this result transmitted reference range : 166 - 358 10*3/ ?L. The reference r jeremy was not used to interpret this result as normal/abnormal . MPV (test code = 9.9 fL 9.5-12.9 49519-5) NRBC/100 WBC (test See_Comment [Automat ed code = 1670330967) message] The system which generated this result transmitted reference range : 0.0 - 10.0 /100 WBCs. The refer ence range was not u sed to interpret th is result as normal/abnormal . NRBC x10^3 (test code See_Comment [Auto mated = 5968665156) message] The s ystem which generated this result transmitted reference range : 10*3/?L. The reference range was not used to interpret this result as normal/abnormal . GRAN MAT (NEUT) % 72.3 % (test code = 770-8) IMM GRAN % (test code 0.70 % = 1160670943) LYMPH % (test code = 18.4 % 736-9) MONO % (test code = 6.7 % 5905-5) EOS % (test code = 1.2 % 713-8) BASO % (test code = 0.7 % 706-2) GRAN MAT x10^3(ANC) 8.68 10*3/uL 1.88-7.09 H (test code = 0368704481) IMM GRAN x10^3 (test 0.09 10*3/uL 0-0.06 H code = 0403512623) LYMPH x10^3 (test code 2.21 10*3/uL 1.32-3.29 = 731-0) MONO x10^3 (test code 0.81 10*3/uL 0.33-0.92 = 742-7) EOS x10^3 (test code = 0.14 10*3/uL 0.03-0.39 711-2) BASO x10^3 (test code 0.08 10*3/uL 0.01-0.07 H = 704-7) Lab Interpretation Abnormal (test code = 56535-6) [facility]
[2022-01-04] MEDS ORDERED: FAMOTIDINE 20 MG/2 ML VIAL IV ONE (13:53)
[2022-01-04] MEDS ORDERED: MORPHINE 4 MG/ML SYR ONE ×2 (13:53→15:53)
[2022-01-04] MEDS ORDERED: ONDANSETRON 4 MG/2 ML VIAL ONE (13:53)
[2022-01-04 14:21] LABS: Hematocrit 42.1 % (36.0-45.0); Lymphocytes % 14.9 % (15.3-44.8); MCV 91.8 fL (80-100); MPV 7.5 fL (7.6-11.3); RBC Red Blood Cell Count 4.58 M/uL (3.86-4.86)
[2022-01-04 14:22] LABS: Absolute Lymphocytes (CBC) 2.1 K/uL (0.7-4.9)
[2022-01-04 14:36] LABS: Albumin 3.7 g/dL (3.4-5.0); Bilirubin Total 0.3 mg/dL (0.2-1.0); Potassium 3.7 mmol/L (3.5-5.1); Protein, Total 6.8 g/dL (6.4-8.2)
[2022-01-04 15:27] LABS: Urine Blood Negative (Negative); Urine Glucose Negative (Negative); Urine Protein Negative (Negative); Urine Specific Gravity 1.015 (1.005-1.030)
--- NOTE | 2022-01-04 16:29 | RAD REPORT ---
EXAM DESCRIPTION: CT - Abdomen Pelvis W Contrast - 01/04/2022 4:03 pm CLINICAL HISTORY: LUQ abdominal pain COMPARISON: Abdomen Pelvis W Contrast dated 09/14/2020 TECHNIQUE: Biphasic, helical CT imaging of the abdomen and pelvis was performed following 100 ml non -ionic IV contrast. No oral contrast. All CT scans are performed using dose optimization technique as appropriate and may include automated exposure control or mA/KV adjustment according to patient size. FINDINGS: No suspicious findings in the lung bases. Lower ribcage shows no suspicious finding. The liver, spleen, and pancreas show no suspicious findings. Gallbladder and biliary tree are also wi thout suspicious finding. Symmetric renal function is seen with no hydronephrosis or suspicious renal solid mass. Patient has n umerous bilateral variably sized simple renal cysts. No hemorrhagic or high protein content cysts. No obstructing or nonobstructing calculi. No pyelonephritis or acute parenchymal process. No bladder ab normalities. No adrenal abnormalities. No acute gastric finding. No acute small bowel abnormality. Mid small bowel anastomotic site identifi ed without acute finding. Patient has prominent diverticulosis within a tortuous and redundant sigmoi d colon. Prominent diverticulosis results in a mild generalized wall thickening similar to the 2020 s tudy. No clearly defined colon mass or active colon process seen. Patient has a mobile cecum position ed in the mid pelvis. Uterus is absent. Small atrophic ovaries are present stable from comparison. No adnexal suspicious fi nding. No free air, free fluid or inflammatory stranding. No hernia, mass or bulky lymphadenopathy. Bony degenerative changes are present. No pathologic bone process seen. IMPRESSION: Contrast enhanced CT abdomen and pelvis showing no significant or suspicious finding. Above detailed findings are not significantly different from the September 2020 study.
--- NOTE | 2022-01-04 17:07 | EDPHYS ---
Physician Documentation [facility] Name: Shanae Del Cid Age: 81 yrs Sex: Female : 1940 Arrival Date: 01/04/2022 Time: 13:26 Bed 14 Private MD: Cruzito Aguilar ED Physician Paolo Medina HPI: 01/04 13:42 This 81 yrs old Female presents to ER via Ambulatory with complaints of Abdominal Pain, pm1 Back Pain. 13:42 The patient presents with abdominal pain in the left upper quadrant. pm1 13:42 Onset: The symptoms/episode began/occurred 3 week(s) ago. The symptoms radiate to left pm1 back. Associated signs and symptoms: Pertinent positives: diarrhea 3 weeks ago that resolved with immodium, Pertinent negatives: nausea and vomiting, chest pain, dysuria, fever, shortness of breath. The symptoms are described as sharp. Modifying factors: The symptoms are alleviated by nothing, the symptoms are aggravated by touching the area. Severity of pain: in the emergency department the pain is unchanged. The patient has not experienced similar symptoms in the past. The patient has not recently seen a physician. Historical: - PMHx: 13:41 eye disease; Hypertension; Hypothyroidism; bradycardia; jh5 - PSHx: 13:41 bowel blockage SX; Tonsillectomy; uterus removed; jh5 - Immunization history:: Adult Immunizations up to date. - Social history:: Smoking status: Patient reports the use of cigarette tobacco products, denies chronic smoking, but will smoke occasionally. ROS: 13:42 Constitutional: Negative for fever, chills, and weight loss, Cardiovascular: Negative pm1 for chest pain, palpitations, and edema, Respiratory: Negative for shortness of breath, cough, wheezing, and pleuritic chest pain. 13:42 : Negative for injury, bleeding, discharge, and swelling, MS/Extremity: Negative for injury and deformity, Skin: Negative for injury, rash, and discoloration, Neuro: Negative for headache, weakness, numbness, tingling, and seizure. 13:42 Abdomen/GI: Positive for abdominal pain, Negative for nausea, vomiting, and diarrhea. 13:42 Back: Positive for flank pain, on the left. 13:42 All other systems are negative. Exam: 13:42 Constitutional: This is a well developed, well nourished patient who is awake, alert, pm1 and in no acute distress. Head/Face: Normocephalic, atraumatic. 13:42 Back: No spinal tenderness. No costovertebral tenderness. Full range of motion. Skin: Warm, dry with normal turgor. Normal color with no rashes, no lesions, and no evidence of cellulitis. MS/ Extremity: Pulses equal, no cyanosis. Neurovascular intact. Full, normal range of motion. 13:42 Eyes: Exam is negative for acute changes, Periorbital structures: appear normal, Pupils: no acute changes, Extraocular movements: no acute changes, Conjunctiva: no acute changes, no injection. 13:42 ENT: Exam is negative for acute changes, External ear(s): no acute changes, Ear canal(s): no acute changes, TM's: no acute changes, Mouth: no acute changes, Lips: normal, moist, Oral mucosa: normal, pink and intact, moist. 13:42 Cardiovascular: Exam negative for acute changes, Rate: normal, Rhythm: regular, Pulses: no pulse deficits are appreciated. 13:42 Respiratory: Exam negative for acute changes, respiratory distress, shortness of breath. 13:42 Abdomen/GI: Inspection: abdomen appears normal, Palpation: soft, in all quadrants, mild abdominal tenderness, in the left upper quadrant. 13:42 Neuro: Exam negative for acute changes, Orientation: is normal, Mentation: is normal, Motor: is normal, moves all fours. Vital Signs: 13:30 BP 137 / 55; Pulse 82; ko1 13:39 BP 137 / 55; Pulse 54; Resp 18; Temp 98.6; Pulse Ox 97% ; Weight 64.41 kg; Height 4 ft. 5 8 in. (142.24 cm); Pain 5/10; 15:00 BP 134 / 72; Pulse 84; ko1 16:00 BP 128 / 68; Pulse 78; ko1 16:00 BP 128 / 72; Pulse 80; Resp 16; Pulse Ox 98% ; ko1 13:39 Body Mass Index 31.84 (64.41 kg, 142.24 cm) 5 MDM: 13:32 Patient medically screened. pm1 14:29 Data reviewed: vital signs. Data interpreted: Pulse oximetry: on room air is 97 %. pm1 Interpretation:. 17:05 Counseling: I had a detailed discussion with the patient and/or guardian regarding: the jmm historical points, exam findings, and any diagnostic results supporting the discharge/admit diagnosis, lab results, radiology results, the need for outpatient follow up, to return to the emergency department if symptoms worsen or persist or if there are any questions or concerns that arise at home. 01/04 13:42 Order name: CBC with Diff; Complete Time: 14:28 pm1 01/04 13:42 Order name: CMP; Complete Time: 14:44 pm1 01/04 13:42 Order name: Lipase; Complete Time: 14:44 pm1 01/04 13:42 Order name: CT Abd/Pelvis - IV Contrast Only; Complete Time: 16:30 pm1 01/04 15:27 Order name: Urine Dipstick-Ancillary; Complete Time: 15:41 EDMS 01/04 13:42 Order name: IV Saline Lock; Complete Time: 14:21 pm1 01/04 13:42 Order name: Labs collected and sent; Complete Time: 14:24 pm1 01/04 13:42 Order name: Urine Dipstick-Ancillary (obtain specimen); Complete Time: 15:39 pm1 Administered Medications: 14:20 Drug: Zofran (Ondansetron) 4 mg Route: IVP; Site: left antecubital; ko1 14:21 Drug: Pepcid (famotidine) 20 mg Route: IVP; Site: left antecubital; ko1 14:21 Drug: morphine 4 mg Route: IVP; Infused Over: 4 mins; Site: left antecubital; ko1 15:56 Drug: morphine 4 mg Route: IVP; Infused Over: 4 mins; Site: left antecubital; ko1 Disposition: 18:30 PA/FIELD RECORDER's history reviewed, patient interviewed, and examined. I agree with assessment jr11 and care plan and confirm the diagnosis (es) above. Attestation: The patient's history, exam findings, diagnostics, and a summary of any interventions or procedures was reviewed in detail with Logan CUMMINS. Disposition Summary: 01/04/22 17:06 Discharge Ordered Location: Home jmm Condition: Stable jmm Diagnosis - Abdominal pain, unspecified jmm - UTI/ Urinary tract infection, site not specified jmm - Acute pharyngitis, unspecified jmm - Acute Otalgia [facility] Followup: [facility] - With: Cruzito gAuilar MD - When: 2 - 3 days - Reason: Recheck today's complaints, Continuance of care, Re-evaluation by your physician Discharge Instructions: - Discharge Summary Sheet jmm - Abdominal Pain, Adult jmm - Earache, Adult jmm - Pharyngitis jmm - Urinary Tract Infection, Adult jm Forms: - Medication Reconciliation Form [facility] - Thank You Letter [facility] - Antibiotic Education [facility] - Prescription Opioid Use [facility] Prescriptions: - cefdinir 300 mg Oral capsule - take 1 capsule by ORAL route every 12 hours for 10 days; 20 capsule; Refills: jmm 0, Product Selection Permitted - Ultracet 37.5-325 mg Oral Tablet - take 1 tablet by ORAL route every 6 hours - for up to 5 days; do not exceed 8 jmm tablets per day.; 6 tablet; Refills: 0, Product Selection Permitted Signatures: Dispatcher [employer] EDLogan Lozada PA PA [facility] Simone Rowan, JOHN FIELD RECORDER pm1 Alexandria Montalvo, RN RN jh5 Paolo Medina MD MD jr11 No Ge, RN RN ko1
--- NOTE | 2022-01-04 17:07 | ER ---
Nurse's Notes [facility] Name: Shanae Del Cid Age: 81 yrs Sex: Female : 1940 Arrival Date: 01/04/2022 Time: 13:26 Bed 14 Private MD: Cruzito Aguilar Diagnosis: Abdominal pain, unspecified;UTI/ Urinary tract infection, site not specified;Acute pharyngitis, unspecified;Acute Otalgia Presentation: 01/04 13:39 Chief complaint: Patient states: left sided rib pain x3 weeks that radiates to back. [facility] Coronavirus screen: Vaccine status: Patient reports being unvaccinated. Client denies travel out of the [place] in the last 14 days. Ebola Screen: Patient negative for fever greater than or equal to 101.5 degrees Fahrenheit, and additional compatible Ebola Virus Disease symptoms Patient denies exposure to infectious person. Patient denies travel to an Ebola-affected area in the 21 days before illness onset. Initial Sepsis Screen: Does the patient meet any 2 criteria? No. Patient's initial sepsis screen is negative. Does the patient have a suspected source of infection? No. Patient's initial sepsis screen is negative. Risk Assessment: Do you want to hurt yourself or someone else? Patient reports no desire to harm self or others. Onset of symptoms was December 2021. 13:39 Method Of Arrival: Ambulatory [facility] 13:39 Acuity: CONNER 3 5 Triage Assessment: 13:41 General: Appears uncomfortable, obese, well groomed, Behavior is calm, cooperative. 5 Pain: Complains of pain in abdomen. GI: Reports lower abdominal pain, upper abdominal pain. Historical: - PMHx: 13:41 eye disease; Hypertension; Hypothyroidism; bradycardia; 5 - PSHx: 13:41 bowel blockage SX; Tonsillectomy; uterus removed; 5 - Immunization history:: Adult Immunizations up to date. - Social history:: Smoking status: Patient reports the use of cigarette tobacco products, denies chronic smoking, but will smoke occasionally. Screenin:30 Abuse screen: Denies threats or abuse. Denies injuries from another. Nutritional ko1 screening: No deficits noted. Tuberculosis screening: No symptoms or risk factors identified. Fall Risk None identified. Assessment: 13:45 General: Appears in no apparent distress. uncomfortable, Behavior is calm, cooperative, ko1 appropriate for age. Pain: Complains of pain in right upper quadrant. Neuro: No deficits noted. Cardiovascular: No deficits noted. Respiratory: No deficits noted. GI: Bowel sounds present X 4 quads. Abd is soft and non tender X 4 quads. Vital Signs: 13:30 BP 137 / 55; Pulse 82; ko1 13:39 BP 137 / 55; Pulse 54; Resp 18; Temp 98.6; Pulse Ox 97% ; Weight 64.41 kg; Height 4 ft. jh5 8 in. (142.24 cm); Pain 5/10; 15:00 BP 134 / 72; Pulse 84; ko1 16:00 BP 128 / 68; Pulse 78; ko1 16:00 BP 128 / 72; Pulse 80; Resp 16; Pulse Ox 98% ; ko1 13:39 Body Mass Index 31.84 (64.41 kg, 142.24 cm) [facility] ED Course: 13:26 Patient arrived in ED. mr 13:26 Cruzito Aguilar MD is Private Physician. mr 13:26 Simone Rowan NP is PHCP. pm1 13:26 Paolo Medina MD is Attending Physician. pm1 13:30 Patient has correct armband on for positive identification. Bed in low position. Call ko1 light in reach. Side rails up X 1. 13:30 Inserted saline lock: 22 gauge in left antecubital area, using aseptic technique. Blood ko1 collected. 13:41 Triage completed. 5 13:41 Arm band placed on right wrist. [facility] 13:48 No Ge, EZE is Primary Nurse. ko1 14:24 CMP Sent. ko1 14:24 Lipase Sent. ko1 16:04 PHCP role handed off by Simone Rowan NP [facility] 16:04 Logan Arellano PA is PHCP. [facility] 16:05 CT Abd/Pelvis - IV Contrast Only In Process Unspecified. EDMS 17:05 Cruzito Aguilar MD is Referral Physician. [facility] 17:22 No provider procedures requiring assistance completed. IV discontinued, intact, ko1 bleeding controlled, No redness/swelling at site. Pressure dressing applied. Administered Medications: 14:20 Drug: Zofran (Ondansetron) 4 mg Route: IVP; Site: left antecubital; ko1 14:21 Drug: Pepcid (famotidine) 20 mg Route: IVP; Site: left antecubital; ko1 14:21 Drug: morphine 4 mg Route: IVP; Infused Over: 4 mins; Site: left antecubital; ko1 15:56 Drug: morphine 4 mg Route: IVP; Infused Over: 4 mins; Site: left antecubital; ko1 Medication: 13:30 VIS not applicable for this client. ko1 Outcome: 17:06 Discharge ordered by . cece 17:22 Discharged to home ambulatory, with family. ko1 17:22 Condition: improved 17:22 Discharge instructions given to patient, family, Instructed on discharge instructions, follow up and referral plans. medication usage, Demonstrated understanding of instructions, follow-up care, medications, Prescriptions given X 2. 17:23 Patient left the ED. ko1 Signatures: Dispatcher [employer] EDMS Logan Arellano PA PA jmm Rivera, Mary mr OliviaSimone villalobos, [employer]AT [employer]W DECK HAND BO[employer]K HAND pm1 Alexandria Montalvo RN RN 5 No Ge RN RN ko1
[2022-01-05 20:11] VITALS: TEMP 98.6
[2022-01-05 20:13] VITALS: BP 128/72; O2SAT 98
== END 2022-01-04 17:23 | disposition home or self-care (01) ==
LOC: ER 13:25
DX: R10.12 Left upper quadrant pain (principal); N39.0 Urinary tract infection, site not specified; J02.9 Acute pharyngitis, unspecified; H92.09 Otalgia, unspecified ear; I10 Essential (primary) hypertension; F17.210 Nicotine dependence, cigarettes, uncomplicated
CPT/HCPCS: 85025; 36415; 81003; 83690; 80053; 74177; 96375; 96374; 99284; Q9967; J2405

== ENCOUNTER 2023-01-30 12:17 | Emergency (ER) | payer OTHER ==
--- NOTE | 2023-01-30 12:36 | EDPHYS ---
Physician Documentation [facility] Name: Shanae Del Cid Age: 82 yrs Sex: Female : 1940 Arrival Date: 01/30/2023 Time: 12:17 Bed 18 Private MD: ED Physician Aramis Douglas HPI: 01/30 12:33 This 82 yrs old Female presents to ER via Ambulatory with complaints of Hernia. ec2 12:33 Patient arrives today due to concern for rectal masses. Patient reports that she was ec2 told that she has a rectal hernia at some point in her life and wanted to have this evaluated as she noticed some lumps in her behind. Patient reports no bloody stools, no abdominal pain, no nausea or vomiting. Patient denies any pain with defecation, states that she has been having some loose stools recently.. Historical: - Allergies: 12:31 No Known Allergies; cm10 - PMHx: 12:31 BRADYCARDIA; eye disease; Hypertension; Hypothyroidism; cm10 - PSHx: 12:31 bowel blockage SX; Tonsillectomy; uterus removed; cm10 - Immunization history:: Adult Immunizations unknown. - Social history:: Smoking status: Patient reports the use of cigarette tobacco products, smokes one-half pack cigarettes per day. ROS: 12:33 Constitutional: as per hpi ec2 Exam: 12:33 Constitutional: GEN: NAD Head: atraumatic Eyes: EOMI Ears: External ears are ec2 normal. CV: regular rate LUNGS: no respiratory distress ABD: non-distended, soft, nontender, no guarding, not rigid : Rectum with 2 firm masses, hemorrhoids, dried blood present, no active bleeding, no prolapsed rectum, no evidence of rectal abscesses or pilonidal cyst/abscess. SKIN: no evidence of rashes MSK: no evidence of trauma NEURO: moves all extremities equally Vital Signs: 12:29 BP 131 / 59; Pulse 61; Resp 16 S; Temp 97.6(O); Pulse Ox 97% on R/A; Weight 61.23 kg cm10 (R); Height 4 ft. 8 in. (R); Pain 3/10; 12:29 Body Mass Index 30.27 (61.23 kg, 142.24 cm) cm10 12:29 Pain Scale: Adult cm10 MDM: 12:20 Patient medically screened. ec2 12:33 Data reviewed: vital signs. ED course: Patient arrives today due to concern for rectal ec2 masses. Examination remarkable for hemorrhoids x2. No evidence of any prolapse of rectum or evidence of hernias in this area. I will discharge patient home and have her follow-up with the primary care doctor. I will prescribe her Anusol for her hemorrhoids. I instructed her on return precautions. I considered other processes such as hernia, abscesses, bowel obstruction, pilonidal cyst/abscess.. 12:56 ED course: At the time of discharge, patient reports that she has been having some ec2 vaginal irritation and itching in the area. I performed a vaginal examination with nurse supervision and noted the vaginal irritation, I will give the patient a dose of fluconazole and have her follow-up with her primary care doctor. Return precautions given.. Administered Medications: 13:07 Drug: Fluconazole PO 150 mg PO once Route: PO; ph 13:08 Follow up: Response: No adverse reaction; Medication administered at discharge. ph Disposition Summary: 01/30/23 12:35 Discharge Ordered Notes: Location: Home ec2 Condition: Stable ec2 Diagnosis - Unspecified hemorrhoids ec2 Discharge Instructions: - Discharge Summary Sheet ec2 - Hemorrhoids ec2 Forms: - Medication Reconciliation Form ec2 - Thank You Letter ec2 - Antibiotic Education ec2 - Prescription Opioid Use ec2 - Patient Portal Instructions ec2 - Leadership Thank You Letter ec2 Prescriptions: - Anusol-HC 25 mg Rectal Suppository - insert 1 suppository RECTAL route every 12 hours As needed; 20 suppository; ec2 Refills: 0, Product Selection Permitted Signatures: Tracy Timmons, RN RN Fang Leon RN RN cm10 Aramis Douglas MD MD ec2
--- NOTE | 2023-01-30 12:36 | ER ---
Nurse's Notes [facility] Name: Shanae Del Cid Age: 82 yrs Sex: Female : 1940 Arrival Date: 01/30/2023 Time: 12:17 Bed 18 Private MD: Diagnosis: Unspecified hemorrhoids Presentation: 01/30 12:29 Chief complaint: Patient states: rectal hernia "for a while now, but it dropped down 1 cm10 week ago." Pt reports feeling irritation, no abdominal pain or blood stools. Coronavirus screen: Vaccine status: Patient reports being unvaccinated. Client denies travel out of the [place] in the last 14 days. Ebola Screen: Patient denies travel to an Ebola-affected area in the 21 days before illness onset. No symptoms or risks identified at this time. Initial Sepsis Screen: Does the patient meet any 2 criteria? No. Patient's initial sepsis screen is negative. Does the patient have a suspected source of infection? No. Patient's initial sepsis screen is negative. Risk Assessment: Do you want to hurt yourself or someone else? Patient reports no desire to harm self or others. Onset of symptoms was January 30, 2023. 12:29 Method Of Arrival: Ambulatory cm10 12:29 Acuity: CONNER 3 cm10 Triage Assessment: 12:31 General: Appears in no apparent distress. comfortable, Behavior is calm, cooperative. cm10 Pain: Complains of pain in Rectum Pain does not radiate. Pain currently is 3 out of 10 on a pain scale. Quality of pain is described as Irritating Pain began gradually, Is intermittent. EENT: No deficits noted. No signs and/or symptoms were reported regarding the EENT system. Neuro: No deficits noted. Level of Consciousness is awake, alert, obeys commands, Oriented to person, place, time, situation. Cardiovascular: No deficits noted. Patient's skin is warm and dry. Respiratory: No deficits noted. Airway is patent Respiratory effort is even, unlabored, Respiratory pattern is regular, symmetrical. GI: Rectal exam: Hemorrhoids noted. : No deficits noted. No signs and/or symptoms were reported regarding the genitourinary system. Derm: No deficits noted. No signs and/or symptoms reported regarding the dermatologic system. Skin is intact, Skin is pink, warm \\T\\ dry. Musculoskeletal: No deficits noted. No signs and/or symptoms reported regarding the musculoskeletal system. Range of motion: intact in all extremities. Historical: - Allergies: 12:31 No Known Allergies; cm10 - PMHx: 12:31 BRADYCARDIA; eye disease; Hypertension; Hypothyroidism; cm10 - PSHx: 12:31 bowel blockage SX; Tonsillectomy; uterus removed; cm10 - Immunization history:: Adult Immunizations unknown. - Social history:: Smoking status: Patient reports the use of cigarette tobacco products, smokes one-half pack cigarettes per day. Screenin:33 [facility] ED Fall Risk Assessment (Adult) History of falling in the last 3 months, ph including since admission No falls in past 3 months (0 pts) Confusion or Disorientation No (0 pts) Intoxicated or Sedated No (0 pts) Impaired Gait No (0 pts) Mobility Assist Device Used No (0 pt) Altered Elimination No (0 pt) Score/Fall Risk Level 0 - 2 = Low Risk Oriented to surroundings, Maintained a safe environment, Educated pt \\T\\ family on fall prevention, incl call for assistance when getting out of bed. Abuse screen: Denies threats or abuse. Nutritional screening: No deficits noted. Tuberculosis screening: No symptoms or risk factors identified. Assessment: 12:35 Reassessment: No changes from previously documented assessment. Patient and/or family ph updated on plan of care and expected duration. Pain level reassessed. Patient is alert, oriented x 3, equal unlabored respirations, skin warm/dry/pink. Vital Signs: 12:29 BP 131 / 59; Pulse 61; Resp 16 S; Temp 97.6(O); Pulse Ox 97% on R/A; Weight 61.23 kg cm10 (R); Height 4 ft. 8 in. (R); Pain 3/10; 12:29 Body Mass Index 30.27 (61.23 kg, 142.24 cm) cm10 12:29 Pain Scale: Adult cm10 ED Course: 12:18 Patient arrived in ED. rg4 12:20 Aramis Douglas MD is Attending Physician. ec2 12:31 Triage completed. cm10 12:31 Arm band placed on Patient placed in an exam room, on a stretcher. cm10 12:33 Placed in gown. Bed in low position. Call light in reach. Side rails up X 1. Client ph placed on continuous cardiac and pulse oximetry monitoring. NIBP monitoring applied. Door closed. Noise minimized. Warm blanket given. 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 cm10 12:35 Tracy Timmons, RN is Primary Nurse. ph 13:08 Patient did not have IV access during this emergency room visit. ph Administered Medications: 13:07 Drug: Fluconazole PO 150 mg PO once Route: PO; ph 13:08 Follow up: Response: No adverse reaction; Medication administered at discharge. ph Medication: 12:34 VIS not applicable for this client. ph Outcome: 12:35 Discharge ordered by . ec2 13:07 Discharged to home ambulatory, with family, ph 13:07 Condition: good 13:07 Discharge instructions given to patient, family, Instructed on discharge instructions, follow up and referral plans. medication usage, Demonstrated understanding of instructions, follow-up care, medications, Prescriptions given X 1, 13:08 Patient left the ED. ph Signatures: Tracy Timmons, Julia Pineda RN, ph 4 Fang Leon RN RN cm10 Aramis Douglas MD MD ec2
[2023-01-30] MEDS ORDERED: FLUCONAZOLE 100 MG TAB ONE (13:17)
--- OUTSIDE RECORDS SUMMARY | 2023-01-30 16:13 | XMS REPORT | Continuity of Care Document ---
:1940 Author Organization [facility] t Address [address] [place] [address] [place] [id number] Care Team Providers Name Role Phone UNKNOWN, REFFERING Primary Care Physician Unavailable Lynn Posada MD Attending Clinician LYNN POSADA Attending Clinician Unavailable Doctor Unassigned, [place] Attending Clinician Unavailable Nano Be MD Attending Clinician NATALYA WALSH Attending Clinician Unavailable Natalya Lakhani Attending Clinician Lab, Ang - Db Attending Clinician Unavailable Ella Dior Attending Clinician ELLA OCONNELL Attending Clinician Unavailable Mick Mckeon MD Attending Clinician Shruthi Burris Attending Clinician SHRUTHI ATKINS Attending Clinician Unavailable MICK MCKEON Attending Clinician Unavailable Lab, Adc Fam Pob I Attending Clinician Unavailable UNKNOWN, ATTENDING Attending Clinician Unavailable Kylah Ernst Attending Clinician ALEX FONTANEZ M.D., ALEX Blakely [...] Univers diarrhea diarrhea 1-15 ity of 00:00: [address] Branch Chronic Chronic Disease Active 2019-04 Univers depression depression 1-13 it y of 00:00: [place] [facility] 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 it y of on on [facility] Essential Essential Disease Active Uni vers hypertensi hypertensi it y of on on [facility] Allergies, Adverse Reactions, Alerts Allergy Allergy Status Severity Reaction(s) Onset Inactive Treating Comm ents Source Name Type Date Date Clinician NO KNOWN Drug Active Univers ALLERGIE Class ity of S [facility] Social History Social Habit Start Date Stop Date Quantity Comments Source Gender identity Universit y of [facility] Sexual orientation Univer sity of [facility] History SDOH University o f Alcohol Comment [place] [facility] History of tobacco Cigarette Smoker University of use [facility] Alcohol intake 2022-12-26 2022-12-26 Lifetime University of 00:00:00 00:00:00 non-drinker [facility] (finding) Branch History of Social 2022-12-05 2022-12-05 Univers ity of function 00:00:00 00:00:00 [facility] Exposure to 2022-04-24 2022-05-04 Not sure University SARS-CoV-2 (event) 00:00:00 14:07:00 [facility] Cigarettes smoked 2021-12-28 2021-12-28 Univers ity of current (pack per 00:00:00 00:00:00 [facility] ) - Reported Branch Tobacco use and 2021-12-28 2021-12-28 Smokeless Universit y of exposure 00:00:00 00:00:00 tobacco non-user [facility] dical Branch History SDOH 2020-02-19 2020-02-19 1 University o f Alcohol Frequency 00:00:00 00:00:00 [place] [facility] ed[facility] History [facility] 2020-02-19 2020-02-19 99 [place] o f Alcohol Std Drinks 00:00:00 00:00:00 [facility] History [facility] 2020-02-19 2020-02-19 1 [place] o f Alcohol Binge 00:00:00 00:00:00 [facility] Sex Assigned At [birth year] Universit y of 00:00:00 00:00:00 [facility] Smoking Status Start Date Stop Date Source Smokes tobacco daily 2021-12-28 00:00:00 Univers ity of [facility] Medications Ordered Filled Start Stop Current Ordering Indication Dosage Frequency Signature Comments Components Source Medication Medication Date Date Medication? Clinician (SIG) Name Name LEVOTHYROXI 2022-04 Yes [id number] 100ug TAKE 1 Univers [place] 100 mcg 0-02 TABLET BY ity of tablet 00:00: MOUTH ONCE 00 DAILY IN [facility] THE Branch MORNING MONTELUKAST 2022-04 Yes [id number] 10mg TAKE 1 Univers 10 mg 0-02 TABLET BY ity of tablet 00:00: MOUTH ONCE DAILY IN [facility] THE Branch MORNING tiZANidine Yes [id number] 4mg Take 1 Univers 4 mg tablet 9-20 tablet by ity of 00:00: mouth [place] 00 every 6 Medical (six) Branch hours as needed (back pain). tiZANidine Yes [id number] 4mg Take 1 Univers 4 mg tablet 9-20 tablet by ity of 00:00: mouth [place] 00 every 6 Medical (six) Branch hours as needed (back pain). tiZANidine Yes [id number] 4mg Take 1 Univers 4 mg tablet 9-20 tablet by ity of 00:00: mouth [place] 00 every 6 Medical (six) Branch hours as needed (back pain). citalopram 2022-2022- No 40mg Take 40 mg Univers 40 mg 8-30 08-30 by mouth ity of tablet 13:17: 00:00 daily. [place] 47 :00 [facility] Branch citalopram 2022-2022- No 40mg Take 40 mg Univers 40 mg 8-30 08-30 by mouth ity of tablet 13:17: 00:00 daily. [place] 47 :00 [facility] Branch cephALEXin Yes [id number] 500mg Take 1 Univers 500 mg 8-30 capsule by ity of capsule 00:00: mouth in [place] 00 the Medical morning Branch and 1 capsule in the evening. cephALEXin 2022-0 Yes [id number] 500mg Take 1 Univers 500 mg 8-30 capsule by ity of capsule 00:00: mouth in [place] 00 the Medical morning Branch and 1 capsule in the evening. cephALEXin 2022-0 2022- No [id number] 500mg Take 1 Univers 500 mg 8-30 09-20 capsule by ity of capsule 00:00: 00:00 mouth in [place] 00 :00 the Medical morning Branch and 1 capsule in the evening. cephALEXin 2022-0 2022- No [id number] 500mg Take 1 Univers 500 mg 8-30 09-20 capsule by ity of capsule 00:00: 00:00 mouth in [place] 00 :00 the Medical morning Branch and 1 capsule in the evening. fluconazole 2022-0 2022- Yes [id number] 150mg Take 1 Univers (DIFLUCAN) 8-30 -31 tablet by ity of 150 mg 00:00: 04:59 [place] tablet 00 :00 now for 1 Medical dose. Branch fluconazole 2022-0 2022- Yes [id number] 150mg Take 1 Univers (DIFLUCAN) 8-30 -31 tablet by ity of 150 mg 00:00: 04:59 mouth [place] tablet 00 :00 now for 1 Medical dose. Branch TIZANIDINE 0 Yes [id number] TAKE 1 Univers 4 mg tablet 8-25 TABLET BY ity of 00:00: MOUTH [place] 00 EVERY 6 Medical HOURS Branch NEEDED FOR BACK PAIN AND SPASMS TIZANIDINE 2022-0 Yes [id number] TAKE 1 Univers 4 mg tablet 8-25 TABLET BY ity of 00:00: MOUTH [place] 00 EVERY 6 Medical HOURS Branch NEEDED FOR BACK PAIN AND SPASMS TIZANIDINE 2022-0 Yes [id number] TAKE 1 Univers 4 mg tablet 8-25 TABLET BY ity of 00:00: MOUTH [place] 00 EVERY 6 Medical HOURS Branch NEEDED FOR BACK PAIN AND SPASMS TIZANIDINE 2022-0 Yes [id number] TAKE 1 Univers 4 mg tablet 8-25 TABLET BY ity of 00:00: MOUTH [place] 00 EVERY 6 Medical HOURS Branch NEEDED FOR BACK PAIN AND SPASMS TIZANIDINE 2022-0 2023- No [id number] TAKE 1 Univers 4 mg tablet -31 12-20 TABLET BY it y of 00:00: 00:00 MOUTH [place] 00 :00 EVERY 6 Medical HOURS Branch NEEDED FOR BACK PAIN AND SPASMS TIZANIDINE 2023-0 2023- No [id number] TAKE 1 Univers 4 mg tablet 8-31 12-20 TABLET BY it y of 00:00: 00:00 MOUTH [place] 00 :00 EVERY 6 Medical HOURS Branch NEEDED FOR BACK PAIN AND SPASMS TIZANIDINE 2023-0 Yes [id number] TAKE 1 Univers 4 mg tablet 11-05 TABLET BY ity of 00:00: MOUTH [place] 00 EVERY 6 Medical HOURS Branch NEEDED FOR BACK PAIN AND SPASMS TIZANIDINE 2023-0 3- No [id number] TAKE 1 Univers 4 mg tablet 11-05- TABLET BY it y of 00:00: 22:00 [facility] 00 :55 EVERY 6 Medical HOURS Branch NEEDED FOR BACK PAIN AND SPASMS TIZANIDINE 2023-0 Yes [id number] TAKE 1 Univers 4 mg tablet - TABLET BY ity of 00:00: MOUTH [place] 00 EVERY 6 Medical HOURS Branch NEEDED FOR BACK PAIN AND SPASMS TIZANIDINE 2023-0 3- No [id number] TAKE 1 Univers 4 mg tablet 10-08- TABLET BY it y of 00:00: 00:00 [facility] [place] 00 :00 EVERY 6 Medical HOURS Branch NEEDED FOR BACK PAIN AND SPASMS TIZANIDINE 2023-0 Yes [id number] TAKE 1 Univers 4 mg tablet 6-12 TABLET BY ity of 00:00: [facility] 00 EVERY 6 Medical HOURS Branch NEEDED FOR BACK PAIN AND SPASMS TIZANIDINE 2023-0 Yes [id number] TAKE 1 Univers 4 mg tablet 6-12 TABLET BY ity of 00:00: [facility] 00 EVERY 6 Medical HOURS Branch NEEDED FOR BACK PAIN AND SPASMS TIZANIDINE 2023-0 3- No [id number] TAKE 1 Univers 4 mg tablet 6-12 - TABLET BY it y of 00:00: 00:00 [facility] [place] 00 :00 EVERY 6 Medical HOURS Branch NEEDED FOR BACK PAIN AND SPASMS TIZANIDINE 2023-0 Yes [id number] TAKE 1 Univers 4 mg tablet 5-15 TABLET BY ity of 00:00: MOUTH [place] 00 EVERY 6 Medical HOURS Branch NEEDED FOR BACK PAIN AND SPASMS TIZANIDINE 2023-0 2023- No [id number] TAKE 1 Univers 4 mg tablet 5-15 06-13 TABLET BY it y of 00:00: 02:02 [facility] 00 :51 EVERY 6 Medical HOURS Branch NEEDED FOR BACK PAIN AND SPASMS TIZANIDINE 2023-0 Yes [id number] TAKE 1 Univers 4 mg tablet 4-24 TABLET BY ity of 00:00: [facility] 00 EVERY 6 Medical HOURS Branch NEEDED FOR BACK PAIN AND SPASMS TIZANIDINE 2023-0 2023- No [id number] TAKE 1 Univers 4 mg tablet 4-24 05-15 TABLET BY it y of 00:00: 00:00 [facility] 00 :00 EVERY 6 Medical HOURS Branch NEEDED FOR BACK PAIN AND SPASMS TIZANIDINE 2023-0 Yes [id number] TAKE 1 Univers 4 mg tablet 4-04 TABLET BY ity of 00:00: [facility] EVERY 6 Medical HOURS Branch NEEDED FOR BACK PAIN AND SPASMS TIZANIDINE 2023-0 Yes [id number] TAKE 1 Univers 4 mg tablet 4-04 TABLET BY ity of 00:00: [facility] 00 EVERY 6 Medical HOURS Branch NEEDED FOR BACK PAIN AND SPASMS TIZANIDINE 2023-0 Yes [id number] TAKE 1 Univers 4 mg tablet 4-04 TABLET BY ity of 00:00: [facility] 00 EVERY 6 Medical HOURS Branch NEEDED FOR BACK PAIN AND SPASMS TIZANIDINE 2023-0 2023- No [id number] TAKE 1 Univers 4 mg tablet 4-04 04-24 TABLET BY it y of 00:00: 00:00 [facility] 00 :00 EVERY 6 Medical HOURS Branch NEEDED FOR BACK PAIN AND SPASMS TIZANIDINE 2023-0 Yes [id number] TAKE 1 Univers 4 mg tablet 3-17 TABLET BY ity of 00:00: [facility] 00 EVERY 6 Medical HOURS Branch NEEDED FOR BACK PAIN AND SPASMS TIZANIDINE 2023-0 2023- No [id number] TAKE 1 Univers 4 mg tablet 3-17 04-04 TABLET BY it y of 00:00: 00:00 [facility] 00 :00 EVERY 6 Medical HOURS Branch NEEDED FOR BACK PAIN AND SPASMS TIZANIDINE 2023-0 Yes [id number] TAKE 1 Univers 4 mg tablet 2-26 TABLET BY ity of 00:00: MOUTH [place] 00 EVERY 6 Medical HOURS Branch NEEDED FOR BACK PAIN AND SPASMS TIZANIDINE 2022-0 2022- No [id number] TAKE 1 Univers 4 mg tablet 2-26 -17 TABLET BY it y of 00:00: 14:30 MOUTH [place] 00 :10 EVERY 6 Medical HOURS Branch NEEDED FOR BACK PAIN AND SPASMS TIZANIDINE 2022-0 Yes [id number] TAKE 1 Univers 4 mg tablet 2-03 TABLET BY ity of 00:00: MOUTH [place] 00 EVERY 6 Medical HOURS Branch NEEDED FOR BACK PAIN AND SPASMS TIZANIDINE 2022-0 2022- No [id number] TAKE 1 Univers 4 mg tablet 2-03 -27 TABLET BY it y of 00:00: 02:58 MOUTH [place] 00 :31 EVERY 6 Medical HOURS Branch NEEDED FOR BACK PAIN AND SPASMS cefUROXime 2022-0 2022- No [id number] 250mg Take 1 Univers 250 mg -04 06-04 tablet by ity of tablet 00:00: 05:59 mouth in [place] 00 :00 the Medical morning Branch and 1 tablet in the evening. Do all this for 7 days. cefUROXime 2022-0 2022- No [id number] 250mg Take 1 Univers 250 mg -04 06-04 tablet by ity of tablet 00:00: 05:59 mouth in [place] 00 :00 the Medical morning Branch and 1 tablet in the evening. Do all this for 7 days. cefUROXime 2022-0 2022- No [id number] 250mg Take 1 Univers 250 mg 27 - tablet by ity of tablet 00:00: 05:59 mouth in [place] 00 :00 the Medical morning Branch and 1 tablet in the evening. Do all this for 7 days. tiZANidine 2021-04 Yes [id number] 4mg Take 1 Univers 4 mg tablet 0-11 tablet by ity of 00:00: mouth [place] 00 every 6 Medical (six) Branch hours as needed (back pain and spasm). montelukast 2021-04 Yes [id number] 10mg Take 1 Univers 10 mg 0-11 tablet by ity of tablet 00:00: mouth [place] 00 every Medical morning. Branch levothyroxi 2021-04 Yes [id number] 100ug Take 1 Univers ne 0-11 tablet by ity of (EUTHYROX) 00:00: mouth [place] 100 mcg 00 every Medical tablet morning. [place] tiZANidine 2021-04 Yes [id number] 4mg Take 1 Univers 4 mg tablet 0-11 tablet by ity of 00:00: mouth [place] 00 every 6 Medical (six) Branch hours as needed (back pain and spasm). montelukast 2021-04 Yes [id number] 10mg Take 1 Univers 10 mg 0-11 tablet by ity of tablet 00:00: mouth [place] 00 every Medical morning. [place] levothyroxi 2021-04 Yes [id number] 100ug Take 1 Univers ne 0-11 tablet by ity of (EUTHYROX) 00:00: mouth [place] 100 mcg 00 every Medical tablet morning. [place] montelukast 2021-04 Yes [id number] 10mg Take 1 Univers 10 mg 0-11 tablet by ity of tablet 00:00: mouth [place] 00 every Medical morning. [place] levothyroxi 2021-04 Yes [id number] 100ug Take 1 Univers ne 0-11 tablet by ity of (EUTHYROX) 00:00: mouth [place] 100 mcg 00 every Medical tablet morning. [place] montelukast 2021-04 Yes [id number] 10mg Take 1 Univers 10 mg 0-11 tablet by ity of tablet 00:00: mouth [place] 00 every Medical morning. [place] levothyroxi 2021-04 Yes [id number] 100ug Take 1 Univers ne 0-11 tablet by ity of (EUTHYROX) 00:00: mouth [place] 100 mcg 00 every Medical tablet morning. [place] montelukast 2021-04 Yes [id number] 10mg Take 1 Univers 10 mg 0-11 tablet by ity of tablet 00:00: mouth [place] 00 every Medical morning. [place] levothyroxi 2021-04 Yes [id number] 100ug Take 1 Univers ne 0-11 tablet by ity of (EUTHYROX) 00:00: mouth [place] 100 mcg 00 every Medical tablet morning. [place] montelukast 2021-04 Yes [id number] 10mg Take 1 Univers 10 mg 0-11 tablet by ity of tablet 00:00: mouth [place] 00 every Medical morning. [place] levothyroxi 2021-04 Yes [id number] 100ug Take 1 Univers ne 0-11 tablet by ity of (EUTHYROX) 00:00: mouth [place] 100 mcg 00 every Medical tablet morning. [place] montelukast 2021-04 Yes [id number] 10mg Take 1 Univers 10 mg 0-11 tablet by ity of tablet 00:00: mouth [place] 00 every Medical morning. [place] levothyroxi 2021-04 Yes [id number] 100ug Take 1 Univers ne 0-11 tablet by ity of (EUTHYROX) 00:00: mouth [place] 100 mcg 00 every Medical tablet morning. [place] montelukast 2021-04 Yes [id number] 10mg Take 1 Univers 10 mg 0-11 tablet by ity of tablet 00:00: mouth [place] 00 every Medical morning. [place] levothyroxi 2021-04 Yes [id number] 100ug Take 1 Univers ne 0-11 tablet by ity of (EUTHYROX) 00:00: mouth [place] 100 mcg 00 every Medical tablet morning. [place] montelukast 2021-04 Yes [id number] 10mg Take 1 Univers 10 mg 0-11 tablet by ity of tablet 00:00: mouth [place] 00 every Medical morning. [place] levothyroxi 2021-04 Yes [id number] 100ug Take 1 Univers ne 0-11 tablet by ity of (EUTHYROX) 00:00: mouth [place] 100 mcg 00 every Medical tablet morning. [place] montelukast 2021-04 Yes [id number] 10mg Take 1 Univers 10 mg 0-11 tablet by ity of tablet 00:00: mouth [place] 00 every Medical morning. [place] levothyroxi 2021-04 Yes [id number] 100ug Take 1 Univers ne 0-11 tablet by ity of (EUTHYROX) 00:00: mouth [place] 100 mcg 00 every Medical tablet morning. [place] montelukast 2021-04 Yes [id number] 10mg Take 1 Univers 10 mg 0-11 tablet by ity of tablet 00:00: mouth [place] 00 every Medical morning. [place] levothyroxi 2021-04 Yes [id number] 100ug Take 1 Univers ne 0-11 tablet by ity of (EUTHYROX) 00:00: mouth [place] 100 mcg 00 every Medical tablet morning. [place] montelukast 2021-04 Yes [id number] 10mg Take 1 Univers 10 mg 0-11 tablet by ity of tablet 00:00: mouth [place] 00 every Medical morning. [place] levothyroxi 2021-04 Yes [id number] 100ug Take 1 Univers ne 0-11 tablet by ity of (EUTHYROX) 00:00: mouth [place] 100 mcg 00 every Medical tablet morning. [place] montelukast 2021-04 Yes [id number] 10mg Take 1 Univers 10 mg 0-11 tablet by ity of tablet 00:00: mouth [place] 00 every Medical morning. [place] levothyroxi 2021-04 Yes [id number] 100ug Take 1 Univers ne 0-11 tablet by ity of (EUTHYROX) 00:00: mouth [place] 100 mcg 00 every Medical tablet morning. Branch montelukast 2021-04 Yes [id number] 10mg Take 1 Univers 10 mg 0-11 tablet by ity of tablet 00:00: mouth [place] 00 every Medical morning. [place] levothyroxi 2021-04 Yes [id number] 100ug Take 1 Univers ne 0-11 tablet by ity of (EUTHYROX) 00:00: mouth [place] 100 mcg 00 every Medical tablet morning. [place] montelukast 2021-04 Yes [id number] 10mg Take 1 Univers 10 mg 0-11 tablet by ity of tablet 00:00: mouth [place] 00 every Medical morning. [place] levothyroxi 2021-04 Yes [id number] 100ug Take 1 Univers ne 0-11 tablet by ity of (EUTHYROX) 00:00: mouth [place] 100 mcg 00 every Medical tablet morning. [place] montelukast 2021-04 Yes [id number] 10mg Take 1 Univers 10 mg 0-11 tablet by ity of tablet 00:00: mouth [place] 00 every Medical morning. [place] levothyroxi 2021-04 Yes [id number] 100ug Take 1 Univers ne 0-11 tablet by ity of (EUTHYROX) 00:00: mouth [place] 100 mcg 00 every Medical tablet morning. [place] montelukast 2021-04 Yes [id number] 10mg Take 1 Univers 10 mg 0-11 tablet by ity of tablet 00:00: mouth [place] 00 every Medical morning. [place] levothyroxi 2021-04 Yes [id number] 100ug Take 1 Univers ne 0-11 tablet by ity of (EUTHYROX) 00:00: mouth [place] 100 mcg 00 every Medical tablet morning. [place] montelukast 2021-04 Yes [id number] 10mg Take 1 Univers 10 mg 0-11 tablet by ity of tablet 00:00: mouth [place] 00 every Medical morning. Branch levothyroxi 2021-04 Yes [id number] 100ug Take 1 Univers ne 0-11 tablet by ity of (EUTHYROX) 00:00: mouth [place] 100 mcg 00 every Medical tablet morning. Branch montelukast 2021-04 Yes [id number] 10mg Take 1 Univers 10 mg 0-11 tablet by ity of tablet 00:00: mouth [place] 00 every Medical morning. Branch levothyroxi 2021-04 Yes [id number] 100ug Take 1 Univers ne 0-11 tablet by ity of (EUTHYROX) 00:00: mouth [place] 100 mcg 00 every Medical tablet morning. Branch montelukast 2021-04 Yes [id number] 10mg Take 1 Univers 10 mg 0-11 tablet by ity of tablet 00:00: mouth [place] 00 every Medical morning. Branch levothyroxi 2021-04 Yes [id number] 100ug Take 1 Univers ne 0-11 tablet by ity of (EUTHYROX) 00:00: mouth [place] 100 mcg 00 every Medical tablet morning. Branch tiZANidine 2021-04 Yes [id number] 4mg Take 1 Univers 4 mg tablet 0-11 tablet by ity of 00:00: mouth [place] 00 every 6 Medical (six) Branch hours as needed (back pain and spasm). montelukast 2021-04 Yes [id number] 10mg Take 1 Univers 10 mg 0-11 tablet by ity of tablet 00:00: mouth [place] 00 every Medical morning. Branch levothyroxi 2021-04 Yes [id number] 100ug Take 1 Univers ne 0-11 tablet by ity of (EUTHYROX) 00:00: mouth [place] 100 mcg 00 every Medical tablet morning. Branch cefUROXime 2021-04 Yes [id number] 250mg Take 1 Univers 250 mg 0-11 tablet by ity of tablet 00:00: mouth in [place] 00 the Medical morning Branch and 1 tablet in the evening. tiZANidine 2021-04 Yes [id number] 4mg Take 1 Univers 4 mg tablet 0-11 tablet by ity of 00:00: mouth [place] 00 every 6 Medical (six) Branch hours as needed (back pain and spasm). montelukast 2021-04 Yes [id number] 10mg Take 1 Univers 10 mg 0-11 tablet by ity of tablet 00:00: mouth [place] 00 every Medical morning. Branch levothyroxi 2021-04 Yes [id number] 100ug Take 1 Univers ne 0-11 tablet by ity of (EUTHYROX) 00:00: mouth [place] 100 mcg 00 every Medical tablet morning. Branch cefUROXime 2021-04 Yes [id number] 250mg Take 1 Univers 250 mg 0-11 tablet by ity of tablet 00:00: mouth in [place] 00 the Medical morning Branch and 1 tablet in the evening. tiZANidine 2021-04 Yes [id number] 4mg Take 1 Univers 4 mg tablet 0-11 tablet by ity of 00:00: mouth [place] 00 every 6 Medical (six) Branch hours as needed (back pain and spasm). montelukast 2021-04 Yes [id number] 10mg Take 1 Univers 10 mg 0-11 tablet by ity of tablet 00:00: mouth [place] 00 every Medical morning. Branch levothyroxi 2021-04 Yes [id number] 100ug Take 1 Univers ne 0-11 tablet by ity of (EUTHYROX) 00:00: mouth [place] 100 mcg 00 every Medical tablet morning. Branch cefUROXime 2021-04 Yes [id number] 250mg Take 1 Univers 250 mg 0-11 tablet by ity of tablet 00:00: mouth in [place] 00 the Medical morning Branch and 1 tablet in the evening. tiZANidine 2021-04 Yes [id number] 4mg Take 1 Univers 4 mg tablet 0-11 tablet by ity of 00:00: mouth [place] 00 every 6 Medical (six) Branch hours as needed (back pain and spasm). montelukast 2021-04 Yes [id number] 10mg Take 1 Univers 10 mg 0-11 tablet by ity of tablet 00:00: mouth [place] 00 every Medical morning. Branch levothyroxi 2021-04 Yes [id number] 100ug Take 1 Univers ne 0-11 tablet by ity of (EUTHYROX) 00:00: mouth [place] 100 mcg 00 every Medical tablet morning. Branch tiZANidine 2021-04 Yes [id number] 4mg Take 1 Univers 4 mg tablet 0-11 tablet by ity of 00:00: mouth [place] 00 every 6 Medical (six) Branch hours as needed (back pain and spasm). montelukast 2021-04 Yes [id number] 10mg Take 1 Univers 10 mg 0-11 tablet by ity of tablet 00:00: mouth [place] 00 every Medical morning. Branch levothyroxi 2021-04 Yes [id number] 100ug Take 1 Univers ne 0-11 tablet by ity of (EUTHYROX) 00:00: mouth [place] 100 mcg 00 every Medical tablet morning. [place] montelukast 2021-04- No [id number] 10mg Take 1 Univers 10 mg 0-11 10-02 tablet by ity of tablet 00:00: 00:00 mouth [place] 00 :00 every Medical morning. Branch levothyroxi 2021-04- No [id number] 100ug Take 1 Univers ne 0-11 10-02 tablet by ity of (EUTHYROX) 00:00: 00:00 mouth [place] 100 mcg 00 :00 every Medical tablet morning. [place] tiZANidine 2021-04- No [id number] 4mg Take 1 Univers 4 mg tablet 0-11 02-03 tablet by it y of 00:00: 00:00 mouth [place] 00 :00 every 6 Medical (six) Branch hours as needed (back pain and spasm). cefUROXime 2021-04 No [id number] 250mg Take 1 Univers 250 mg 0-11 12-14 tablet by ity of tablet 00:00: 00:00 mouth in [place] 00 :00 the Medical morning Branch and 1 tablet in the evening. cefUROXime 2021-04 No [id number] 250mg Take 1 Univers 250 mg 0-11 12-14 tablet by ity of tablet 00:00: 00:00 mouth in [place] 00 :00 the Medical morning Branch and 1 tablet in the evening. cefdinir 2021- No TAKE 1 Univer s 300 mg 9-29 10-11 CAPSULE BY ity of capsule 00:00: 00:00 MOUTH [place] 00 :00 EVERY 12 Medical HOURS FOR Branch 10 DAYS cefdinir 2021- No TAKE 1 Univer s 300 mg 9-29 10-11 CAPSULE BY ity of capsule 00:00: 00:00 MOUTH [place] 00 :00 EVERY 12 Medical HOURS FOR Branch 10 DAYS Omeprazole Yes [id number] 20mg Take 1 Univers 20 mg 9-22 tablet by ity of tablet 00:00: mouth in [place] 00 the Medical morning. Branch Omeprazole Yes [id number] 20mg Take 1 Univers 20 mg 9-22 tablet by ity of tablet 00:00: mouth in [place] 00 the Medical morning. Branch Omeprazole 2022-0 Yes [id number] 20mg Take 1 Univers 20 mg 9-22 tablet by ity of tablet 00:00: mouth in [place] the Medical morning. Branch Omeprazole 2022-0 Yes [id number] 20mg Take 1 Univers 20 mg 9-22 tablet by ity of tablet 00:00: mouth in [place] the Medical morning. Branch Omeprazole 2022-0 Yes [id number] 20mg Take 1 Univers 20 mg 9-22 tablet by ity of tablet 00:00: mouth in [place] the Medical morning. Branch Omeprazole 2022-0 Yes [id number] 20mg Take 1 Univers 20 mg 9-22 tablet by ity of tablet 00:00: mouth in [place] the Medical morning. Branch Omeprazole 2022-0 Yes [id number] 20mg Take 1 Univers 20 mg 9-22 tablet by ity of tablet 00:00: mouth in [place] the Medical morning. Branch Omeprazole 2022-0 Yes [id number] 20mg Take 1 Univers 20 mg 9-22 tablet by ity of tablet 00:00: mouth in [place] the Medical morning. Branch Omeprazole 2022-0 Yes [id number] 20mg Take 1 Univers 20 mg 9-22 tablet by ity of tablet 00:00: mouth in [place] the Medical morning. Branch Omeprazole 2022-0 Yes [id number] 20mg Take 1 Univers 20 mg 9-22 tablet by ity of tablet 00:00: mouth in [place] the Medical morning. Branch Omeprazole 2022-0 Yes [id number] 20mg Take 1 Univers 20 mg 9-22 tablet by ity of tablet 00:00: mouth in [place] 00 the Medical morning. Branch Omeprazole 2022-0 Yes [id number] 20mg Take 1 Univers 20 mg 9-22 tablet by [facility] of tablet 00:00: mouth in [place] 00 the Medical morning. Branch Omeprazole 2022-0 Yes [id number] 20mg Take 1 [facility] 20 mg 9-22 tablet by [facility] of tablet 00:00: mouth in [place] 00 the Medical morning. Branch Omeprazole 2022-0 Yes [id number] 20mg Take 1 [facility] 20 mg 9-22 tablet by [facility]y of tablet 00:00: mouth in [place] 00 the Medical morning. Branch Omeprazole 2022-0 Yes [id number] 20mg Take 1 [facility] 20 mg 9-22 tablet by ity of tablet 00:00: mouth in [place] the Medical morning. Branch Omeprazole 2022-0 Yes [id number] 20mg Take 1 [facility] 20 mg 9-22 tablet by ity of tablet 00:00: mouth in [place] the Medical morning. Branch Omeprazole 2022-0 Yes [id number] 20mg Take 1 [facility] 20 mg 9-22 tablet by ity of tablet 00:00: mouth in [place] the Medical morning. Branch Omeprazole 2022-0 Yes [id number] 20mg Take 1 [facility] 20 mg 9-22 tablet by ity of tablet 00:00: mouth in [place] the Medical morning. Branch Omeprazole 2022-0 Yes [id number] 20mg Take 1 [facility] 20 mg 9-22 tablet by ity of tablet 00:00: mouth in [place] the Medical morning. Branch Omeprazole 2022-0 Yes [id number] 20mg Take 1 [facility] 20 mg 9-22 tablet by ity of tablet 00:00: mouth in [place] the Medical morning. Branch Omeprazole 2022-0 Yes [id number] 20mg Take 1 [facility] 20 mg 9-22 tablet by ity of tablet 00:00: mouth in [place] the Medical morning. Branch Omeprazole 2022-0 Yes [id number] 20mg Take 1 [facility] 20 mg 9-22 tablet by it[facility] of tablet 00:00: mouth in [place] the Medical morning. Branch Omeprazole 2022-0 Yes [id number] 20mg Take 1 [facility] 20 mg 9-22 tablet by ity of tablet 00:00: mouth in [place] the Medical morning. Branch Omeprazole 2022-0 Yes [id number] 20mg Take 1 [facility] 20 mg 9-22 tablet by ity of tablet 00:00: mouth in [place] 00 the Medical morning. Branch Omeprazole 2022-0 Yes [id number] 20mg Take 1 [facility] 20 mg 9-22 tablet by ity of tablet 00:00: mouth in [place] 00 the Medical morning. Branch Omeprazole 2022-0 Yes [id number] 20mg Take 1 [facility] 20 mg 9-22 tablet by it[facility] of tablet 00:00: mouth in [place] 00 the Medical morning. Branch Omeprazole 2022-0 Yes [id number] 20mg Take 1 [facility] 20 mg 9-22 tablet by ity of tablet 00:00: mouth in [place] 00 the Medical morning. Branch Omeprazole 2022-0 Yes [id number] 20mg Take 1 [facility] 20 mg 9-22 tablet by it[facility] of tablet 00:00: mouth in [place] the Medical morning. Branch Omeprazole 2022-0 Yes [id number] 20mg Take 1 [facility] 20 mg 9-22 tablet by it[facility] of tablet 00:00: mouth in [place] the Medical morning. Branch Omeprazole 2022-0 Yes [id number] 20mg Take 1 [facility] 20 mg 9-22 tablet by it[facility] of tablet 00:00: mouth in [place] the Medical morning. Branch busPIRone 2022-0 Yes 10mg Take 10 mg [facility] [place] 10 mg 8-22 by mouth 2 ity of tablet 00:00: (two) [place] 00 times Medical daily as Branch needed. busPIRone 2022-0 Yes 10mg Take 10 mg [facility] [place] 10 mg 8-22 by mouth 2 ity of tablet 00:00: (two) [place] 00 times Medical daily as Branch needed. busPIRone 2022-0 Yes 10mg Take 10 mg [facility] [place] 10 mg 8-22 by mouth 2 ity of tablet 00:00: (two) [place] 00 times Medical daily as Branch needed. busPIRone 2022-0 Yes 10mg Take 10 mg [facility] [place] 10 mg 8-22 by mouth 2 ity of tablet 00:00: (two) [place] 00 times Medical daily as Branch needed. busPIRone 2022-0 Yes 10mg Take 10 mg [facility] [place] 10 mg 8-22 by mouth 2 ity of tablet 00:00: (two) [place] 00 times Medical daily as Branch needed. busPIRone 2022-0 Yes 10mg Take 10 mg [facility] [place] 10 mg 8-22 by mouth 2 ity of tablet 00:00: (two) [place] 00 times Medical daily as Branch needed. busPIRone 2022-0 Yes 10mg Take 10 mg [facility] [place] 10 mg 8-22 by mouth 2 ity of tablet 00:00: (two) [place] 00 times Medical daily as Branch needed. busPIRone 2022-0 Yes 10mg Take 10 mg [facility] [place] 10 mg 8-22 by mouth 2 it[facility] of tablet 00:00: (two) [place] 00 times Medical daily as Branch needed. busPIRone 2022-0 Yes 10mg Take 10 mg [facility] [place] 10 mg 8-22 by mouth 2 ity of tablet 00:00: (two) [place] 00 times Medical daily as Branch needed. busPIRone 2022-0 Yes 10mg Take 10 mg [facility] [place] 10 mg 8-22 by mouth 2 ity of tablet 00:00: (two) [place] 00 times Medical daily as Branch needed. busPIRone 2022-0 Yes 10mg Take 10 mg [facility] [place] 10 mg 8-22 by mouth 2 ity of tablet 00:00: (two) [place] 00 times Medical daily as Branch needed. busPIRone 2022-0 Yes 10mg Take 10 mg [facility] [place] 10 mg 8-22 by mouth 2 ity of tablet 00:00: (two) [place] 00 times Medical daily as Branch needed. busPIRone 2022-0 Yes 10mg Take 10 mg [facility] [place] 10 mg 8-22 by mouth 2 ity of tablet 00:00: (two) [place] 00 times Medical daily as Branch needed. busPIRone 2022-0 Yes 10mg Take 10 mg [facility] [place] 10 mg 8-22 by mouth 2 ity of tablet 00:00: (two) [place] 00 times Medical daily as Branch needed. busPIRone 2022-0 Yes 10mg Take 10 mg [facility] [place] 10 mg 8-22 by mouth 2 ity of tablet 00:00: (two) [place] 00 times Medical daily as Branch needed. busPIRone 2022-0 Yes 10mg Take 10 mg [facility] [place] 10 mg 8-22 by mouth 2 ity of tablet 00:00: (two) [place] 00 times Medical daily as Branch needed. busPIRone 2022-0 Yes 10mg Take 10 mg [facility] [place] 10 mg 8-22 by mouth 2 ity of tablet 00:00: (two) [place] 00 times Medical daily as Branch needed. busPIRone 2022-0 Yes 10mg Take 10 mg [facility] [place] 10 mg 8-22 by mouth 2 it[facility] of tablet 00:00: (two) [place] 00 times Medical daily as Branch needed. busPIRone 2022-0 Yes 10mg Take 10 mg [place] 10 mg 8-22 by mouth 2 it[facility] of tablet 00:00: (two) [place] 00 times Medical daily as Branch needed. busPIRone 2022-0 Yes 10mg Take 10 mg [facility] [place] 10 mg 8-22 by mouth 2 ity of tablet 00:00: (two) [place] 00 times Medical daily as Branch needed. busPIRone 2022-0 Yes 10mg Take 10 mg [facility] [place] 10 mg 8-22 by mouth 2 ity of tablet 00:00: (two) [place] 00 times Medical daily as Branch needed. busPIRone 2022-0 Yes 10mg Take 10 mg [place] 10 mg 8-22 by mouth 2 ity of tablet 00:00: (two) [place] 00 times Medical daily as Branch needed. busPIRone 2022-0 Yes 10mg Take 10 mg [facility] [place] 10 mg 8-22 by mouth 2 it[facility] of tablet 00:00: (two) [place] 00 times Medical daily as Branch needed. busPIRone 2022-0 Yes 10mg Take 10 mg [facility] [place] 10 mg 8-22 by mouth 2 it[facility] of tablet 00:00: (two) [place] 00 times Medical daily as Branch needed. busPIRone 2022-0 Yes 10mg Take 10 mg [facility] [place] 10 mg 8-22 by mouth 2 it[facility] of tablet 00:00: (two) [place] 00 times Medical daily as Branch needed. busPIRone 2022-0 Yes 10mg Take 10 mg [facility] [place] 10 mg 8-22 by mouth 2 ity of tablet 00:00: (two) [place] 00 times Medical daily as Branch needed. busPIRone 2022-0 Yes 10mg Take 10 mg [facility] [place] 10 mg 8-22 by mouth 2 ity of tablet 00:00: (two) [place] 00 times Medical daily as Branch needed. busPIRone 2022-0 Yes 10mg Take 10 mg [place] 10 mg 8-22 by mouth 2 ity of tablet 00:00: (two) [place] 00 times Medical daily as Branch needed. busPIRone 2022-0 Yes 10mg Take 10 mg [facility] [place] 10 mg 8-22 by mouth 2 it[facility] of tablet 00:00: (two) [place] 00 times Medical daily as Branch needed. busPIRone 2022-0 Yes 10mg Take 10 mg [place] 10 mg 8-22 by mouth 2 ity of tablet 00:00: (two) [place] 00 times Medical daily as Branch needed. busPIRone 0 Yes 10mg Take 10 mg [facility] [place] 10 mg 11-27 by mouth 2 ity of tablet 00:00: (two) [place] 00 times Medical daily as Branch needed. BUSPIRONE 5 Yes [id number] Take 1 [facility] mg tablet 8-04 tablet by ity o f 00:00: mouth [place] 00 twice Medical daily Branch BUSPIRONE 5 Yes [id number] Take 1 [facility] mg tablet 8-04 tablet by ity o f 00:00: mouth [place] 00 twice Medical daily Branch BUSPIRONE 5 0 2021- No [id number] Take 1 [facility] mg tablet 8-07 15- tablet by ity of 00:00: 00:00 mouth [place] 00 :00 twice Medical daily Branch BUSPIRONE 5 2021- No [id number] Take 1 [facility] mg tablet 8-07 15- tablet by ity of 00:00: 00:00 mouth [place] 00 :00 twice Medical daily Branch BUSPIRONE 5 Yes [id number] Take 1 [facility] mg tablet 7-05 tablet by ity o f 00:00: mouth [place] 00 twice Medical daily Branch BUSPIRONE 5 2021-0 2021- No [id number] Take 1 [facility] mg tablet 7- 08-04 tablet by ity of 00:00: 00:00 mouth [place] 00 :00 twice Medical daily Branch BUSPIRONE 5 0 Yes [id number] Take 1 [facility] mg tablet 6-06 tablet by ity o f 00:00: mouth [place] 00 twice Medical daily Branch BUSPIRONE 5 2021-0 2021- No [id number] Take 1 [facility] mg tablet 6-06 07-05 tablet by ity of 00:00: 00:00 mouth [place] 00 :00 twice Medical daily Branch tiZANidine 0 Yes [id number] 4mg Take 1 [facility] 4 mg tablet 5-02 tablet by ity of 00:00: mouth [place] 00 every 6 Medical (six) Branch hours as needed (back pain and spasm). tiZANidine 2021-0 Yes [id number] 4mg Take 1 [facility] 4 mg tablet 5-02 tablet by ity of 00:00: mouth [place] 00 every 6 Medical (six) Branch hours as needed (back pain and spasm). tiZANidine 2022-0 Yes [id number] 4mg Take 1 [facility] 4 mg tablet 5-02 tablet by ity of 00:00: mouth [place] 00 every 6 Medical (six) Branch hours as needed (back pain and spasm). tiZANidine 2022-0 Yes [id number] 4mg Take 1 [facility] 4 mg tablet 5-02 tablet by ity of 00:00: mouth [place] 00 every 6 Medical (six) Branch hours as needed (back pain and spasm). tiZANidine 2-0 Yes [id number] 4mg Take 1 [facility] 4 mg tablet 5-02 tablet by ity of 00:00: mouth [place] 00 every 6 Medical (six) Branch hours as needed (back pain and spasm). tiZANidine 2-0 Yes [id number] 4mg Take 1 [facility] 4 mg tablet 5-02 tablet by ity of 00:00: mouth [place] 00 every 6 Medical (six) Branch hours as needed (back pain and spasm). tiZANidine 2-0 Yes [id number] 4mg Take 1 [facility] 4 mg tablet 5-02 tablet by ity of 00:00: mouth [place] 00 every 6 Medical (six) Branch hours as needed (back pain and spasm). tiZANidine 2-0 Yes [id number] 4mg Take 1 [facility] 4 mg tablet 5-02 tablet by ity of 00:00: mouth [place] 00 every 6 Medical (six) Branch hours as needed (back pain and spasm). tiZANidine 2-0 Yes [id number] 4mg Take 1 [facility] 4 mg tablet 5-02 tablet by ity of 00:00: mouth [place] 00 every 6 Medical (six) Branch hours as needed (back pain and spasm). tiZANidine 2-0 Yes [id number] 4mg Take 1 [facility] 4 mg tablet 5-02 tablet by ity of 00:00: mouth [place] 00 every 6 Medical (six) Branch hours as needed (back pain and spasm). tiZANidine 2022-0 Yes [id number] 4mg Take 1 [facility] 4 mg tablet 5-02 tablet by ity of 00:00: mouth [place] 00 every 6 Medical (six) Branch hours as needed (back pain and spasm). tiZANidine 2022-0 2022- No [id number] 4mg Take 1 [facility] 4 mg tablet 5-02 10-11 tablet by it y of 00:00: 00:00 mouth [place] 00 :00 every 6 Medical (six) Branch hours as needed (back pain and spasm). tiZANidine 2021-0 2- No [id number] 4mg Take 1 [facility] 4 mg tablet 08-07 10-11 tablet by it y of 00:00: 00:00 mouth [place] 00 :00 every 6 Medical (six) Branch hours as needed (back pain and spasm). cefdinir 2021-0 Yes 300mg 300 mg. [facility] 300 mg -27 ity of capsule 00:00: [place] 00 Medical Branch cefdinir 2021-0 Yes 300mg 300 mg. [facility] 300 mg -27 ity of capsule 00:00: [place] 00 Medical Branch cefdinir 2021-0 Yes 300mg 300 mg. [facility] 300 mg -27 ity of capsule 00:00: [place] 00 Medical Branch cefdinir 2021-0 Yes 300mg 300 mg. [facility] 300 mg -27 ity of capsule 00:00: [place] 00 Medical Branch cefdinir 2021-0 Yes 300mg 300 mg. [facility] rs 300 mg -27 ity of capsule 00:00: [place] 00 Medical Branch cefdinir 2021-0 Yes 300mg 300 mg. [facility] rs 300 mg -27 ity of capsule 00:00: [place] 00 Medical Branch cefdinir 2021-0 2021- No 300mg 300 mg. [facility] ers 300 mg 08-02 ity of capsule 00:00: 00:00 [place] 00 :00 Medical Branch cefdinir 2021-0 2021- No 300mg 300 mg. [facility] ers 300 mg 08-02 ity of capsule 00:00: 00:00 [place] 00 :00 Medical Branch levothyroxi 2021-0 Yes [id number] 100ug Take 1 [facility] ne 4-08 tablet by ity of (EUTHYROX) 00:00: mouth [place] 100 mcg 00 every Medical tablet morning. Branch montelukast 2021-0 Yes [id number] 10mg Take 1 [facility] 10 mg 4-08 tablet by ity of tablet 00:00: mouth [place] 00 every Medical morning. Branch levothyroxi 2021-0 Yes [id number] 100ug Take 1 [facility] ne 4-08 tablet by ity of (EUTHYROX) 00:00: mouth [place] 100 mcg 00 every Medical tablet morning. Branch montelukast 2021-0 Yes [id number] 10mg Take 1 [facility] 10 mg 4-08 tablet by ity of tablet 00:00: mouth [place] 00 every Medical morning. Branch levothyroxi 2021-0 Yes [id number] 100ug Take 1 [facility] ne 4-08 tablet by ity of (EUTHYROX) 00:00: mouth [place] 100 mcg 00 every Medical tablet morning. Branch montelukast 2021-0 Yes [id number] 10mg Take 1 [facility] 10 mg 4-08 tablet by ity of tablet 00:00: mouth [place] 00 every Medical morning. Branch levothyroxi 2021-0 Yes [id number] 100ug Take 1 [facility] ne 4-08 tablet by ity of (EUTHYROX) 00:00: mouth [place] 100 mcg 00 every Medical tablet morning. Branch montelukast 2021-0 Yes [id number] 10mg Take 1 [facility] 10 mg 4-08 tablet by ity of tablet 00:00: mouth [place] 00 every Medical morning. Branch levothyroxi 2021-0 Yes [id number] 100ug Take 1 [facility] ne 4-08 tablet by ity of (EUTHYROX) 00:00: mouth [place] 100 mcg 00 every Medical tablet morning. Branch montelukast 2021-0 Yes [id number] 10mg Take 1 [facility] 10 mg 4-08 tablet by ity of tablet 00:00: mouth [place] 00 every Medical morning. Branch levothyroxi 2021-0 Yes [id number] 100ug Take 1 [facility] ne 4-08 tablet by ity of (EUTHYROX) 00:00: mouth [place] 100 mcg 00 every Medical tablet morning. Branch montelukast 2021-0 Yes [id number] 10mg Take 1 [facility] 10 mg 4-08 tablet by ity of tablet 00:00: mouth [place] 00 every Medical morning. Branch levothyroxi 2021-0 Yes [id number] 100ug Take 1 [facility] ne 4-08 tablet by ity of (EUTHYROX) 00:00: mouth [place] 100 mcg 00 every Medical tablet morning. Branch montelukast 2021-0 Yes [id number] 10mg Take 1 [facility] 10 mg 4-08 tablet by ity of tablet 00:00: mouth [place] 00 every Medical morning. Branch levothyroxi 0 Yes [id number] 100ug Take 1 [facility] ne 4-08 tablet by ity of (EUTHYROX) 00:00: mouth [place] 100 mcg 00 every Medical tablet morning. Branch montelukast 0 Yes [id number] 10mg Take 1 [facility] 10 mg 4-08 tablet by ity of tablet 00:00: mouth [place] 00 every Medical morning. Branch levothyroxi 0 Yes [id number] 100ug Take 1 [facility] ne 4-08 tablet by ity of (EUTHYROX) 00:00: mouth [place] 100 mcg 00 every Medical tablet morning. Branch montelukast 0 Yes [id number] 10mg Take 1 [facility] 10 mg 4-08 tablet by ity of tablet 00:00: mouth [place] 00 every Medical morning. Branch levothyroxi Yes [id number] 100ug Take 1 [facility] ne 4-08 tablet by ity of (EUTHYROX) 00:00: mouth [place] 100 mcg 00 every Medical tablet morning. Branch montelukast 0 Yes [id number] 10mg Take 1 [facility] 10 mg 4-08 tablet by ity of tablet 00:00: mouth [place] 00 every Medical morning. Branch levothyroxi 0 Yes [id number] 100ug Take 1 [facility] ne 4-08 tablet by ity of (EUTHYROX) 00:00: mouth [place] 100 mcg 00 every Medical tablet morning. Branch montelukast 0 Yes [id number] 10mg Take 1 [facility] 10 mg 4-08 tablet by ity of tablet 00:00: mouth [place] 00 every Medical morning. Branch levothyroxi 2021- No [id number] 100ug Take 1 [facility] ne 4-08 10-11 tablet by ity of (EUTHYROX) 00:00: 00:00 mouth [place] 100 mcg 00 :00 every Medical tablet morning. Branch montelukast 2021-0 2021- No [id number] 10mg Take 1 [facility] 10 mg 4-08 10-11 tablet by ity of tablet 00:00: 00:00 mouth [place] 00 :00 every Medical morning. Branch levothyroxi 2021- No [id number] 100ug Take 1 [facility] ne 4-08 10-11 tablet by ity of (EUTHYROX) 00:00: 00:00 mouth [place] 100 mcg 00 :00 every Medical tablet morning. Branch montelukast 2021- No [id number] 10mg Take 1 [facility] 10 mg 4-08 10-11 tablet by ity of tablet 00:00: 00:00 mouth [place] 00 :00 every Medical morning. Branch methylPREDN 2021- No [id number] Take by [facility] ISolone 05-29 mouth ity of (MEDROL, 00:00: 00:00 [place] 4 mg 00 :00 CTIONS. Medica l tablets follow [facility] package directions methocarbam 2021- No [id number] 500mg Take 1 [facility] oL 05-29 tablet by ity of (ROBAXIN) 00:00: 00:[place] 00 :00 (four) Medical tablet times [place] daily as needed for Other (muscle tightness) . citalopram Yes 40mg Take 40 mg [facility] 40 mg 6-25 by mouth ity of tablet 14:32: daily. [address] citalopram Yes 40mg Take 40 mg U nivers 40 mg 6-25 by mouth ity of tablet 14:32: daily. [address] citalopram Yes 40mg Take 40 mg U nivers 40 mg 6-25 by mouth ity of tablet 14:32: daily. [address] citalopram Yes 40mg Take 40 mg U nivers 40 mg 6-25 by mouth ity of tablet 14:32: daily. [address] citalopram Yes 40mg Take 40 mg U nivers 40 mg 6-25 by mouth ity of tablet 14:32: daily. [address] citalopram Yes 40mg Take 40 mg U nivers 40 mg 6-25 by mouth ity of tablet 14:32: daily. [address] citalopram Yes 40mg Take 40 mg U nivers 40 mg 6-25 by mouth ity of tablet 14:32: daily. [address] citalopram Yes 40mg Take 40 mg U nivers 40 mg 6-25 by mouth ity of tablet 14:32: daily. [address] Branch citalopram 0 Yes 40mg Take 40 mg U nivers 40 mg 6-25 by mouth ity of tablet 14:32: daily. [address] Branch citalopram 0 Yes 40mg Take 40 mg U nivers 40 mg 6-25 by mouth ity of tablet 14:32: daily. [address] Branch citalopram 0 Yes 40mg Take 40 mg U nivers 40 mg 6-25 by mouth ity of tablet 14:32: daily. [address] Branch citalopram 0 Yes 40mg Take 40 mg U nivers 40 mg 6-25 by mouth ity of tablet 14:32: daily. [address] Branch citalopram 0 Yes 40mg Take 40 mg U nivers 40 mg 6-25 by mouth ity of tablet 14:32: daily. [address] Branch citalopram 0 Yes 40mg Take 40 mg U nivers 40 mg 6-25 by mouth ity of tablet 14:32: daily. [address] Branch citalopram 0 Yes 40mg Take 40 mg U nivers 40 mg 6-25 by mouth ity of tablet 14:32: daily. [address] citalopram 0 Yes 40mg Take 40 mg U nivers 40 mg 6-25 by mouth ity of tablet 14:32: daily. [address] Branch citalopram 0 Yes 40mg Take 40 mg U nivers 40 mg 6-25 by mouth ity of tablet 14:32: daily. [address] Branch citalopram 0 Yes 40mg Take 40 mg U nivers 40 mg 6-25 by mouth ity of tablet 14:32: daily. [address] Branch citalopram 0 Yes 40mg Take 40 mg U nivers 40 mg 6-25 by mouth ity of tablet 14:32: daily. [address] citalopram 0 Yes 40mg Take 40 mg U nivers 40 mg 6-25 by mouth ity of tablet 14:32: daily. [address] citalopram 0 Yes 40mg Take 40 mg U nivers 40 mg 6-25 by mouth ity of tablet 14:32: daily. [address] citalopram Yes 40mg Take 40 mg U nivers 40 mg 6-25 by mouth ity of tablet 14:32: daily. [address] citalopram 0 Yes 40mg Take 40 mg U nivers 40 mg 6-25 by mouth ity of tablet 14:32: daily. [address] citalopram Yes 40mg Take 40 mg U nivers 40 mg 6-25 by mouth ity of tablet 14:32: daily. [address] citalopram 0 Yes 40mg Take 40 mg U nivers 40 mg 6-25 by mouth ity of tablet 14:32: daily. [address] citalopram 0 Yes 40mg Take 40 mg U nivers 40 mg 6-25 by mouth ity of tablet 14:32: daily. [address] citalopram Yes 40mg Take 40 mg U nivers 40 mg 6-25 by mouth ity of tablet 14:32: daily. [address] citalopram 0 Yes 40mg Take 40 mg U nivers 40 mg 6-25 by mouth ity of tablet 14:32: daily. [address] citalopram 0 Yes 40mg Take 40 mg U nivers 40 mg 6-25 by mouth ity of tablet 14:32: daily. [address] citalopram 0 Yes 40mg Take 40 mg U nivers 40 mg 6-25 by mouth ity of tablet 14:32: daily. [address] citalopram 0 Yes 40mg Take 40 mg U nivers 40 mg 6-25 by mouth ity of tablet 14:32: daily. [address] citalopram 0 Yes 40mg Take 40 mg U nivers 40 mg 6-25 by mouth ity of tablet 14:32: daily. [address] busPIRone 5 0 Yes [id number] 5mg Take 1 [facility] mg tablet 6-18 tablet by ity o f 00:00: mouth 2 [place] [address] (two) Medical times Branch daily. busPIRone 5 0 Yes [id number] 5mg Take 1 [facility] mg tablet 6-18 tablet by ity o f 00:00: mouth 2 [place] [address] (two) Medical times Branch daily. busPIRone 5 2020-0 2022- No [id number] 5mg Take 1 [facility] mg tablet 6-18 06-06 tablet by ity of 00:00: 00:00 mouth 2 [place] 00 : (two) Medical times Branch daily. amLODIPine 1-0 Yes 5mg Take 5 mg [facility] [place] 5 mg tablet 6-17 by mouth ity of 00:00: daily. [place] [facility] Branch amLODIPine 1-0 Yes 5mg Take 5 mg [facility] [place] 5 mg tablet 6-17 by mouth ity of 00:00: daily. [place] [facility] amLODIPine 1-0 Yes 5mg Take 5 mg [facility] [place] 5 mg tablet 6-17 by mouth ity of 00:00: daily. [place] [facility] amLODIPine 1-0 Yes 5mg Take 5 mg [facility] [place] 5 mg tablet 6-17 by mouth ity of 00:00: daily. [place] [facility] amLODIPine 1-0 Yes 5mg Take 5 mg [facility] [place] 5 mg tablet 6-17 by mouth ity of 00:00: daily. [place] [facility] amLODIPine 1-0 Yes 5mg Take 5 mg [facility] [place] 5 mg tablet 6-17 by mouth ity of 00:00: daily. [place] [facility] amLODIPine 1-0 Yes 5mg Take 5 mg [facility] [place] 5 mg tablet 6-17 by mouth ity of 00:00: daily. [place] [facility] amLODIPine 1-0 Yes 5mg Take 5 mg [facility] [place] 5 mg tablet 6-17 by mouth ity of 00:00: daily. [place] [facility] amLODIPine 1-0 Yes 5mg Take 5 mg [facility] [place] 5 mg tablet 6-17 by mouth ity of 00:00: daily. [place] [facility] amLODIPine 1-0 Yes 5mg Take 5 mg [facility] [place] 5 mg tablet 6-17 by mouth ity of 00:00: daily. [place] [facility] Branch amLODIPine 2021-0 Yes 5mg Take 5 mg [facility] [place] 5 mg tablet 6-17 by mouth ity of 00:00: daily. [place] [facility] amLODIPine 1-0 Yes 5mg Take 5 mg [facility] [place] 5 mg tablet 6-17 by mouth ity of 00:00: daily. [place] [facility] amLODIPine 2021-0 Yes 5mg Take 5 mg [facility] [place] 5 mg tablet 6-17 by mouth ity of 00:00: daily. [place] [facility] amLODIPine 1-0 Yes 5mg Take 5 mg [place] 5 mg tablet 6-17 by mouth ity of 00:00: daily. [place] [facility] amLODIPine 1-0 Yes 5mg Take 5 mg [place] 5 mg tablet 6-17 by mouth ity of 00:00: daily. [place] [facility] amLODIPine 1-0 Yes 5mg Take 5 mg [facility] [place] 5 mg tablet 6-17 by mouth ity of 00:00: daily. [place] [facility] amLODIPine 1-0 Yes 5mg Take 5 mg [facility] [place] 5 mg tablet 6-17 by mouth ity of 00:00: daily. [place] [facility] amLODIPine 1-0 Yes 5mg Take 5 mg [facility] [place] 5 mg tablet 6-17 by mouth ity of 00:00: daily. [place] [facility] amLODIPine 1-0 Yes 5mg Take 5 mg [place] 5 mg tablet 6-17 by mouth ity of 00:00: daily. [place] [facility] amLODIPine 1-0 Yes 5mg Take 5 mg [place] 5 mg tablet 6-17 by mouth ity of 00:00: daily. [place] [facility] amLODIPine 1-0 Yes 5mg Take 5 mg [place] 5 mg tablet 6-17 by mouth ity of 00:00: daily. [place] [facility] amLODIPine 1-0 Yes 5mg Take 5 mg [facility] [place] 5 mg tablet 6-17 by mouth ity of 00:00: daily. [place] [facility] amLODIPine 1-0 Yes 5mg Take 5 mg [facility] [place] 5 mg tablet 6-17 by mouth ity of 00:00: daily. [place] [facility] amLODIPine 1-0 Yes 5mg Take 5 mg [place] 5 mg tablet 6-17 by mouth ity of 00:00: daily. [place] [facility] amLODIPine 1-0 Yes 5mg Take 5 mg [place] 5 mg tablet 6-17 by mouth ity of 00:00: daily. [place] [facility] amLODIPine 1-0 Yes 5mg Take 5 mg [place] 5 mg tablet 6-17 by mouth ity of 00:00: daily. [place] [facility] amLODIPine 2020-0 Yes 5mg Take 5 mg [place] 5 mg tablet 6-17 by mouth ity of 00:00: daily. [place] [facility] Branch amLODIPine 2020-0 Yes 5mg Take 5 mg [place] 5 mg tablet 6-17 by mouth ity of 00:00: daily. [place] [facility] Branch amLODIPine 2020-0 Yes 5mg Take 5 mg [place] 5 mg tablet 6-17 by mouth ity of 00:00: daily. [place] [facility] amLODIPine 2020-0 Yes 5mg Take 5 mg [place] 5 mg tablet 6-17 by mouth ity of 00:00: daily. [place] [facility] amLODIPine 2020-0 Yes 5mg Take 5 mg [place] 5 mg tablet 6-17 by mouth ity of 00:00: daily. [place] [facility] Branch amLODIPine 2020-0 Yes 5mg Take 5 mg [place] 5 mg tablet 6-17 by mouth ity of 00:00: daily. [place] [facility] Branch amLODIPine 2020-0 Yes 5mg Take 5 mg [place] 5 mg tablet 6-17 by mouth ity of 00:00: daily. [place] [facility] Branch amLODIPine 2020-0 Yes 5mg Take 5 mg Un [place] 5 mg tablet 6-17 by mouth ity of 00:00: daily. [place] [facility] amLODIPine 2020-0 Yes 5mg Take 5 mg [place] 5 mg tablet 6-17 by mouth ity of 00:00: daily. [place] [facility] amLODIPine 2020-0 Yes 5mg Take 5 mg [place] 5 mg tablet 6-17 by mouth ity of 00:00: daily. [place] [facility] amLODIPine 2020-0 Yes 5mg Take 5 mg Un [place] 5 mg tablet 6-17 by mouth ity of 00:00: daily. [place] [facility] metoprolol 2019- Yes 50mg Take 50 mg U nivers succinate 1-13 by mouth ity of XL 50 mg 24 13:56: daily. [place] hr tablet 17 [facility] vit 2019- Yes Take by Univers C/E/Zn/jacqueline 1-13 mouth. ity of r/lutein/ze 13:56: Sharif axan 17 Medical ([facility] ON AREDS-2 ORAL) metoprolol 2020-1 Yes 50mg Take 50 mg U nivers succinate 1-13 by mouth ity of XL 50 mg 24 13:56: [place]. [place] [address] [place] [address] vit 2019- Yes Take by Univers C/E/Zn/jacqueline 1-13 mouth. ity of r/lutein/ze 13:56: [address] ([facility] ON AREDS-2 ORAL) metoprolol 2019-04 Yes 50mg Take 50 mg U nivers succinate 1-13 by mouth ity of XL 50 mg 24 13:56: daily. [place] [address] [place] [address] vit 2019-04 Yes Take by Univers C/E/Zn/jacqueline 1-13 mouth. ity of r/lutein/ze 13:56: [address] ([facility] ON AREDS-2 ORAL) metoprolol 2019-04 Yes 50mg Take 50 mg U nivers succinate 1-13 by mouth ity of XL 50 mg 24 13:56: daily. [place] [address] [place] [address] vit 2019-04 Yes Take by Univers C/E/Zn/jacqueline 1-13 mouth. ity of r/lutein/ze 13:56: [address] ([facility] ON AREDS-2 ORAL) metoprolol 2019-04 Yes 50mg Take 50 mg U nivers succinate 1-13 by mouth ity of XL 50 mg 24 13:56: daily. [place] [address] [place] [address] vit 2019-04 Yes Take by Univers C/E/Zn/jacqueline 1-13 mouth. ity of r/lutein/ze 13:56: [address] ([facility] ON AREDS-2 ORAL) metoprolol 2019-04 Yes 50mg Take 50 mg U nivers succinate 1-13 by mouth ity of XL 50 mg 24 13:56: daily. [place] [address] [place] [address] vit 2019-04 Yes Take by Univers C/E/Zn/jacqueline 1-13 mouth. ity of r/lutein/ze 13:56: [address] ([facility] ON AREDS-2 ORAL) metoprolol 2019-04 Yes 50mg Take 50 mg U nivers succinate 1-13 by mouth ity of XL 50 mg 24 13:56: daily. [place] [address] [place] [address] vit 2019- Yes Take by Univers C/E/Zn/jacqueline 1-13 mouth. ity of r/lutein/ze 13:56: [address] ([facility] ON AREDS-2 ORAL) metoprolol 2019-04 Yes 50mg Take 50 mg U nivers succinate 1-13 by mouth ity of XL 50 mg 24 13:56: daily. [place] [address] [place] [address] vit 2019-04 Yes Take by Univers C/E/Zn/jacqueline 1-13 mouth. ity of r/lutein/ze 13:56: [address] ([facility] ON AREDS-2 ORAL) metoprolol 2019-04 Yes 50mg Take 50 mg U nivers succinate 1-13 by mouth ity of XL 50 mg 24 13:56: daily. [place] [address] [place] [address] vit 2019-04 Yes Take by Univers C/E/Zn/jacqueline 1-13 mouth. ity of r/lutein/ze 13:56: [address] [facility] metoprolol 2019-04 Yes 50mg Take 50 mg U nivers succinate 1-13 by mouth ity of XL 50 mg 24 13:56: daily. [place] [address] [place] [address] vit 2019-04 Yes Take by Univers C/E/Zn/jacqueline 1-13 mouth. ity of r/lutein/ze 13:56: [address] ([facility] ON AREDS-2 ORAL) metoprolol 2019-04 Yes 50mg Take 50 mg U nivers succinate 1-13 by mouth ity of XL 50 mg 24 13:56: daily. [place] [address] [place] [address] vit 2019-04 Yes Take by Univers C/E/Zn/jacqueline 1-13 mouth. ity of r/lutein/ze 13:56: [address] ([facility] metoprolol 2019-04 Yes 50mg Take 50 mg U nivers succinate 1-13 by mouth ity of XL 50 mg 24 13:56: daily. [place] [address] [place] [address] vit 2019- Yes Take by Univers C/E/Zn/jacqueline 1-13 mouth. ity of r/lutein/ze 13:56: [address] ([facility] ON AREDS-2 ORAL) metoprolol 2019-04 Yes 50mg Take 50 mg U nivers succinate 1-13 by mouth ity of XL 50 mg 24 13:56: daily. [place] [address] [place] [address] vit 2019-04 Yes Take by Univers C/E/Zn/jacqueline 1-13 mouth. ity of r/lutein/ze 13:56: [address] ([facility] ON AREDS-2 ORAL) metoprolol 2019-04 Yes 50mg Take 50 mg U nivers succinate 1-13 by mouth ity of XL 50 mg 24 13:56: daily. [place] [address] [place] [address] vit 2019-04 Yes Take by Univers C/E/Zn/jacqueline 1-13 mouth. ity of r/lutein/ze 13:56: [address] ([facility] ON AREDS-2 ORAL) metoprolol 2019-04 Yes 50mg Take 50 mg U nivers succinate 1-13 by mouth ity of XL 50 mg 24 13:56: daily. [place] [address] [place] [address] vit 2019-04 Yes Take by Univers C/E/Zn/jacqueline 1-13 mouth. ity of r/lutein/ze 13:56: [address] ([facility] ON AREDS-2 ORAL) metoprolol 2019-04 Yes 50mg Take 50 mg U nivers succinate 1-13 by mouth ity of XL 50 mg 24 13:56: daily. [place] [address] [place] [address] vit 2019-04 Yes Take by Univers C/E/Zn/jacqueline 1-13 mouth. ity of r/lutein/ze 13:56: [address] ([facility] ON AREDS-2 ORAL) metoprolol 2019-04 Yes 50mg Take 50 mg U nivers succinate 1-13 by mouth ity of XL 50 mg 24 13:56: daily. [place] [address] [place] [address] vit 2019-04 Yes Take by Univers C/E/Zn/jacqueline 1-13 mouth. ity of r/lutein/ze 13:56: [address] ([facility] ON AREDS-2 ORAL) metoprolol 2019-04 Yes 50mg Take 50 mg U nivers succinate 1-13 by mouth ity of XL 50 mg 24 13:56: daily. [place] [address] [place] [address] vit 2019- Yes Take by Univers C/E/Zn/jacqueline 1-13 mouth. ity of r/lutein/ze 13:56: [address] ([facility] ON AREDS-2 ORAL) metoprolol 2019-04 Yes 50mg Take 50 mg U nivers succinate 1-13 by mouth ity of XL 50 mg 24 13:56: daily. [place] [address] [place] [address] vit 2019-04 Yes Take by Univers C/E/Zn/jacqueline 1-13 mouth. ity of r/lutein/ze 13:56: [address] ([facility] ON AREDS-2 ORAL) metoprolol 2019-04 Yes 50mg Take 50 mg U nivers succinate 1-13 by mouth ity of XL 50 mg 24 13:56: daily. [place] [address] [place] [address] vit 2019-04 Yes Take by Univers C/E/Zn/jacqueline 1-13 mouth. ity of r/lutein/ze 13:56: [address] ([facility] ON AREDS-2 ORAL) metoprolol 2019-04 Yes 50mg Take 50 mg U nivers succinate 1-13 by mouth ity of XL 50 mg 24 13:56: daily. [place] [address] [place] [address] vit 2019-04 Yes Take by Univers C/E/Zn/jacqueline 1-13 mouth. ity of r/lutein/ze 13:56: [address] ([facility] ON AREDS-2 ORAL) metoprolol 2019-04 Yes 50mg Take 50 mg U nivers succinate 1-13 by mouth ity of XL 50 mg 24 13:56: daily. [place] [address] [place] [address] vit 2019-04 Yes Take by Univers C/E/Zn/jacqueline 1-13 mouth. ity of r/lutein/ze 13:56: [address] ([facility] ON AREDS-2 ORAL) metoprolol 2019-04 Yes 50mg Take 50 mg U nivers succinate 1-13 by mouth ity of XL 50 mg 24 13:56: daily. [place] [address] [place] [address] vit 2019- Yes Take by Univers C/E/Zn/jacqueline 1-13 mouth. ity of r/lutein/ze 13:56: [address] ([facility] ON AREDS-2 ORAL) metoprolol 2019-04 Yes 50mg Take 50 mg U nivers succinate 1-13 by mouth ity of XL 50 mg 24 13:56: daily. [place] [address] [place] [address] vit 2019- Yes Take by Univers C/E/Zn/jacqueline 1-13 mouth. ity of r/lutein/ze 13:56: [address] ([facility] ON AREDS-2 ORAL) metoprolol 2019-04 Yes 50mg Take 50 mg U nivers succinate 1-13 by mouth ity of XL 50 mg 24 13:56: daily. [place] [address] [place] [address] vit 2019-04 Yes Take by Univers C/E/Zn/jacqueline 1-13 mouth. ity of r/lutein/ze 13:56: [address] ([facility] ON AREDS-2 ORAL) metoprolol 2019-04 Yes 50mg Take 50 mg U nivers succinate 1-13 by mouth ity of XL 50 mg 24 13:56: daily. [place] [address] [place] [address] vit 2019-04 Yes Take by Univers C/E/Zn/jacqueline 1-13 mouth. ity of r/lutein/ze 13:56: [address] ([facility] ON AREDS-2 ORAL) metoprolol 2019-04 Yes 50mg Take 50 mg U nivers succinate 1-13 by mouth ity of XL 50 mg 24 13:56: daily. [place] [address] [place] [address] vit 2019-04 Yes Take by Univers C/E/Zn/jacqueline 1-13 mouth. ity of r/lutein/ze 13:56: [address] ([facility] ON AREDS-2 ORAL) metoprolol 2019-04 Yes 50mg Take 50 mg U nivers succinate 1-13 by mouth ity of XL 50 mg 24 13:56: daily. [place] [address] [place] [address] vit 2019-04 Yes Take by Univers C/E/Zn/jacqueline 1-13 mouth. ity of r/lutein/ze 13:56: [address] ([facility] ON AREDS-2 ORAL) metoprolol 2019-04 Yes 50mg Take 50 mg U nivers succinate 1-13 by mouth ity of XL 50 mg 24 13:56: daily. [place] [address] [place] [address] vit 2019-04 Yes Take by Univers C/E/Zn/jacqueline 1-13 mouth. ity of r/lutein/ze 13:56: [address] ([facility] ON AREDS-2 ORAL) metoprolol 2019-04 Yes 50mg Take 50 mg U nivers succinate 1-13 by mouth ity of XL 50 mg 24 13:56: daily. [place] [address] [place] [address] vit 2019-04 Yes Take by Univers C/E/Zn/jacqueline 1-13 mouth. ity of r/lutein/ze 13:56: [address] ([facility] ON AREDS-2 ORAL) metoprolol 2019-04 Yes 50mg Take 50 mg U nivers succinate 1-13 by mouth ity of XL 50 mg 24 13:56: daily. [place] [address] [place] [address] vit 2019-04 Yes Take by Univers C/E/Zn/jacqueline 1-13 mouth. ity of r/lutein/ze 13:56: [address] ([facility] ON AREDS-2 ORAL) metoprolol 2019-04 Yes 50mg Take 50 mg U nivers succinate 1-13 by mouth ity of XL 50 mg 24 13:56: daily. [place] [address] [place] [address] vit 2019-04 Yes Take by Univers C/E/Zn/jacqueline 1-13 mouth. ity of r/lutein/ze 13:56: [address] ([facility] ON AREDS-2 ORAL) metoprolol 2019-04 Yes 50mg Take 50 mg U nivers succinate 1-13 by mouth ity of XL 50 mg 24 13:56: daily. [place] [address] [place] [address] vit 2019-04 Yes Take by Univers C/E/Zn/jacqueline 1-13 mouth. ity of r/lutein/ze 13:56: [address] ([facility] ON AREDS-2 ORAL) metoprolol 2019-04 Yes 50mg Take 50 mg U nivers succinate 1-13 by mouth ity of XL 50 mg 24 13:56: daily. [place] tablet 17 [facility] vit 2019- Yes Take by Univers C/E/Zn/jacqueline 1-13 mouth. ity of r/lutein/ze 13:56: [address] ([facility] ON AREDS-2 ORAL) metoprolol 2019-04 Yes 50mg Take 50 mg U nivers succinate 1-13 by mouth ity of XL 50 mg 24 13:56: daily. [place] tablet [facility] [place] vit 2019- Yes Take by Univers C/E/Zn/jacqueline 1-13 mouth. ity of r/lutein/ze 13:56: [address] ([facility] ON AREDS-2 ORAL) metoprolol 2019-04 Yes 50mg Take 50 mg U nivers succinate 1-13 by mouth ity of XL 50 mg 24 13:56: daily. [place] [address] [place] [address] vit 2019-04 Yes Take by Univers C/E/Zn/jacqueline 1-13 mouth. ity of r/lutein/ze 13:56: [address] ([facility] ON AREDS-2 ORAL) metoprolol 2019-04 Yes 50mg Take 50 mg U nivers succinate 1-13 by mouth ity of XL 50 mg 24 13:56: daily. [place] [address] [place] [address] vit 2019-04 Yes Take by Univers C/E/Zn/jacqeuline 1-13 mouth. ity of r/lutein/ze 13:56: [address] ([facility] ON AREDS-2 ORAL) traZODone 2019- Yes TAKE 2 Univer s 150 mg 0-13 TABLETS BY ity of tablet 00:00: MOUTH IN [place] [facility] NEEDED traZODone 2020- Yes TAKE 2 Univer s 150 mg 0-13 TABLETS BY ity of tablet 00:00: MOUTH IN [place] [facility] NEEDED traZODone 2020- Yes TAKE 2 Univer s 150 mg 0-13 TABLETS BY ity of tablet 00:00: MOUTH IN [place] [facility] NEEDED traZODone 2020- Yes TAKE 2 Univer s 150 mg 0-13 TABLETS BY ity of tablet 00:00: MOUTH IN [place] [facility] NEEDED traZODone 2020-1 Yes TAKE 2 Univer s 150 mg 0-13 TABLETS BY ity of tablet 00:00: MOUTH IN [place] 00 THE [facility] EVEN[facility] Branch NEEDED traZODone 2020-1 Yes TAKE 2 Univer s 150 mg 0-13 TABLETS BY ity of tablet 00:00: MOUTH IN [place] 00 THE [facility] EVEN[facility] Branch NEEDED traZODone 2020-1 Yes TAKE 2 Univer s 150 mg 0-13 TABLETS BY ity of tablet 00:00: MOUTH IN [place] 00 THE [facility] EVEN[facility] Branch NEEDED traZODone 2020-1 Yes TAKE 2 Univer s 150 mg 0-13 TABLETS BY ity of tablet 00:00: MOUTH IN [place] 00 THE [facility] EVEN[facility] Branch NEEDED traZODone 2020-1 Yes TAKE 2 Univer s 150 mg 0-13 TABLETS BY ity of tablet 00:00: MOUTH IN [place] 00 THE [facility] EVEN[facility] Branch NEEDED traZODone 2020-1 Yes TAKE 2 Univer s 150 mg 0-13 TABLETS BY ity of tablet 00:00: MOUTH IN [place] 00 THE [facility] NEEDED traZODone 2020-1 Yes TAKE 2 Univer s 150 mg 0-13 TABLETS BY ity of tablet 00:00: MOUTH IN [place] 00 THE [facility] NEEDED traZODone 2020-1 Yes TAKE 2 Univer s 150 mg 0-13 TABLETS BY ity of tablet 00:00: MOUTH IN [place] 00 THE [facility] EVEN[facility] Branch NEEDED traZODone 2020-1 Yes TAKE 2 Univer s 150 mg 0-13 TABLETS BY ity of tablet 00:00: MOUTH IN [place] 00 THE [facility] EVEN[facility] NEEDED traZODone 2020-1 Yes TAKE 2 Univer s 150 mg 0-13 TABLETS BY ity of tablet 00:00: MOUTH IN [place] 00 THE [facility] EVEN[facility] NEEDED traZODone 2020-1 Yes TAKE 2 Univer s 150 mg 0-13 TABLETS BY ity of tablet 00:00: MOUTH IN [place] 00 THE [facility] NEEDED traZODone 2020-1 Yes TAKE 2 Univer s 150 mg 0-13 TABLETS BY ity of tablet 00:00: MOUTH IN [place] 00 THE [facility] NEEDED traZODone 2020-1 Yes TAKE 2 Univer s 150 mg 0-13 TABLETS BY ity of tablet 00:00: MOUTH IN [place] 00 THE [facility] NEEDED traZODone 2020-1 Yes TAKE 2 Univer s 150 mg 0-13 TABLETS BY ity of tablet 00:00: MOUTH IN [place] 00 THE [facility] NEEDED traZODone 2020-1 Yes TAKE 2 Univer s 150 mg 0-13 TABLETS BY ity of tablet 00:00: MOUTH IN [place] 00 THE [facility] NEEDED traZODone 2020-1 Yes TAKE 2 Univer s 150 mg 0-13 TABLETS BY ity of tablet 00:00: MOUTH IN [place] 00 THE [facility] NEEDED traZODone 2020-1 Yes TAKE 2 Univer s 150 mg 0-13 TABLETS BY ity of tablet 00:00: MOUTH IN [place] 00 THE [facility] NEEDED traZODone 2020-1 Yes TAKE 2 Univer s 150 mg 0-13 TABLETS BY ity of tablet 00:00: MOUTH IN [place] 00 THE [facility] NEEDED traZODone 2020-1 Yes TAKE 2 Univer s 150 mg 0-13 TABLETS BY ity of tablet 00:00: MOUTH IN [place] 00 THE [facility] NEEDED traZODone 2020-1 Yes TAKE 2 Univer s 150 mg 0-13 TABLETS BY ity of tablet 00:00: MOUTH IN [place] 00 THE [facility] NEEDED traZODone 2020-1 Yes TAKE 2 Univer s 150 mg 0-13 TABLETS BY ity of tablet 00:00: MOUTH IN [place] 00 THE [facility] NEEDED traZODone 2020-1 Yes TAKE 2 Univer s 150 mg 0-13 TABLETS BY ity of tablet 00:00: MOUTH IN [place] 00 THE [facility] NEEDED traZODone 2020-1 Yes TAKE 2 Univer s 150 mg 0-13 TABLETS BY ity of tablet 00:00: MOUTH IN [place] 00 THE [facility] NEEDED traZODone 2020-1 Yes TAKE 2 Univer s 150 mg 0-13 TABLETS BY ity of tablet 00:00: MOUTH IN [place] 00 THE [facility] NEEDED traZODone 2020-1 Yes TAKE 2 Univer s 150 mg 0-13 TABLETS BY ity of tablet 00:00: MOUTH IN [place] 00 THE [facility] NEEDED traZODone 2020-1 Yes TAKE 2 Univer s 150 mg 0-13 TABLETS BY ity of tablet 00:00: MOUTH IN [place] 00 THE [facility] NEEDED traZODone 2020-1 Yes TAKE 2 Univer s 150 mg 0-13 TABLETS BY ity of tablet 00:00: MOUTH IN [place] [facility] NEEDED traZODone 2020-1 Yes TAKE 2 Univer s 150 mg 0-13 TABLETS BY ity of tablet 00:00: MOUTH IN [place] [facility] NEEDED traZODone 2020-1 Yes TAKE 2 Univer s 150 mg 0-13 TABLETS BY ity of tablet 00:00: MOUTH IN [place] [facility] NEEDED traZODone 2020-1 Yes TAKE 2 Univer s 150 mg 0-13 TABLETS BY ity of tablet 00:00: MOUTH IN [place] [facility] NEEDED traZODone 2020-1 Yes TAKE 2 Univer s 150 mg 0-13 TABLETS BY ity of tablet 00:00: MOUTH IN [place] [facility] NEEDED traZODone 2020-1 Yes TAKE 2 Univer s 150 mg 0-13 TABLETS BY ity of tablet 00:00: MOUTH IN [place] [facility] NEEDED traZODone 2020-1 Yes TAKE 2 Univer s 150 mg 0-13 TABLETS BY ity of tablet 00:00: MOUTH IN [place] [facility] NEEDED candesartan 2020-0 Yes 16mg Take 16 mg Univers 16 mg 9-15 by mouth ity of tablet 00:00: daily. [place] [facility] candesartan 2020-0 Yes 16mg Take 16 mg Univers 16 mg 9-15 by mouth ity of tablet 00:00: daily. [place] [facility] candesartan 2020-0 Yes 16mg Take 16 mg Univers 16 mg 9-15 by mouth ity of tablet 00:00: daily. [place] [facility] candesartan 2020-0 Yes 16mg Take 16 mg Univers 16 mg 9-15 by mouth ity of tablet 00:00: daily. [place] [facility] candesartan 2020-0 Yes 16mg Take 16 mg Univers 16 mg 9-15 by mouth ity of tablet 00:00: daily. [place] [facility] candesartan 2020-0 Yes 16mg Take 16 mg Univers 16 mg 9-15 by mouth ity of tablet 00:00: daily. [place] [facility] candesartan 2020-0 Yes 16mg Take 16 mg Univers 16 mg 9-15 by mouth ity of tablet 00:00: daily. [place] [address] [facility] candesartan 2020-0 Yes 16mg Take 16 mg Univers 16 mg 9-15 by mouth ity of tablet 00:00: daily. [place] [facility] candesartan 2020-0 Yes 16mg Take 16 mg Univers 16 mg 9-15 by mouth ity of tablet 00:00: daily. [place] [facility] candesartan 2020-0 Yes 16mg Take 16 mg Univers 16 mg 9-15 by mouth ity of tablet 00:00: daily. [place] [facility] candesartan 2020-0 Yes 16mg Take 16 mg Univers 16 mg 9-15 by mouth ity of tablet 00:00: daily. [place] [facility] candesartan 2020-0 Yes 16mg Take 16 mg Univers 16 mg 9-15 by mouth ity of tablet 00:00: daily. [place] [facility] candesartan 2020-0 Yes 16mg Take 16 mg Univers 16 mg 9-15 by mouth ity of tablet 00:00: daily. [place] [facility] candesartan 2020-0 Yes 16mg Take 16 mg Univers 16 mg 9-15 by mouth ity of tablet 00:00: daily. [place] [facility] candesartan 2020-0 Yes 16mg Take 16 mg Univers 16 mg 9-15 by mouth ity of tablet 00:00: daily. [place] [facility] candesartan 2020-0 Yes 16mg Take 16 mg Univers 16 mg 9-15 by mouth ity of tablet 00:00: daily. [place] [facility] candesartan 2020-0 Yes 16mg Take 16 mg Univers 16 mg 9-15 by mouth ity of tablet 00:00: daily. [place] [facility] candesartan 2020-0 Yes 16mg Take 16 mg Univers 16 mg 9-15 by mouth ity of tablet 00:00: daily. [place] [facility] candesartan 2020-0 Yes 16mg Take 16 mg Univers 16 mg 9-15 by mouth ity of tablet 00:00: daily. [place] [facility] candesartan 2020-0 Yes 16mg Take 16 mg Univers 16 mg 9-15 by mouth ity of tablet 00:00: daily. [place] [facility] candesartan 2020-0 Yes 16mg Take 16 mg Univers 16 mg 9-15 by mouth ity of tablet 00:00: daily. [place] [facility] candesartan 2020-0 Yes 16mg Take 16 mg Univers 16 mg 9-15 by mouth ity of tablet 00:00: daily. [place] [facility] candesartan 2020-0 Yes 16mg Take 16 mg Univers 16 mg 9-15 by mouth ity of tablet 00:00: daily. [place] [facility] candesartan 2020-0 Yes 16mg Take 16 mg Univers 16 mg 9-15 by mouth ity of tablet 00:00: daily. [place] [facility] candesartan 2020-0 Yes 16mg Take 16 mg Univers 16 mg 9-15 by mouth ity of tablet 00:00: daily. [place] [facility] candesartan 2020-0 Yes 16mg Take 16 mg Univers 16 mg 9-15 by mouth ity of tablet 00:00: daily. [address] candesartan 2020-0 Yes 16mg Take 16 mg Univers 16 mg 9-15 by mouth ity of tablet 00:00: daily. [address] candesartan 2020-0 Yes 16mg Take 16 mg Univers 16 mg 9-15 by mouth ity of tablet 00:00: daily. [address] candesartan 2020-0 Yes 16mg Take 16 mg Univers 16 mg 9-15 by mouth ity of tablet 00:00: daily. [address] candesartan 2020-0 Yes 16mg Take 16 mg Univers 16 mg 9-15 by mouth ity of tablet 00:00: daily. [address] candesartan 2020-0 Yes 16mg Take 16 mg Univers 16 mg 9-15 by mouth ity of tablet 00:00: daily. [address] candesartan 2020-0 Yes 16mg Take 16 mg Univers 16 mg 9-15 by mouth ity of tablet 00:00: daily. [address] candesartan 2020-0 Yes 16mg Take 16 mg Univers 16 mg 9-15 by mouth ity of tablet 00:00: daily. [address] candesartan 2020-0 Yes 16mg Take 16 mg Univers 16 mg 9-15 by mouth ity of tablet 00:00: daily. [address] candesartan 2020-0 Yes 16mg Take 16 mg Univers 16 mg 9-15 by mouth ity of tablet 00:00: daily. [address] candesartan 2020-0 Yes 16mg Take 16 mg Univers 16 mg 9-15 by mouth ity of tablet 00:00: daily. [address] candesartan 2020-0 Yes 16mg Take 16 mg Univers 16 mg 9-15 by mouth ity of tablet 00:00: daily. [address] Vital Signs Vital Name Observation Time Observation Value Comments Source Systolic blood 2022-12-26 18:53:00 132 mm[Hg] Univer sity of pressure [facility] Diastolic blood 2022-12-26 18:53:00 71 mm[Hg] Unive rsity of pressure [facility] Heart rate 2022-12-26 18:53:00 63 /min [facility] of [facility] temperature 2022-12-26 18:53:00 37.17 Pam Univ ersity of [facility] Body weight 2022-12-26 18:53:00 65.318 kg Universi ty of [facility] BMI 2022-12-26 18:53:00 33.47 kg/m2 Universi ty of [facility] Systolic blood 2022-12-05 18:09:00 137 mm[Hg] Univer sity of pressure [facility] Diastolic blood 2022-12-05 18:09:00 84 mm[Hg] Unive rsity of [facility] Heart rate 2022-12-05 18:09:00 54 /min Universi ty of [facility] Body temperature 2022-12-05 18:09:00 35.94 Pam Univ ersity of [facility] Body weight 2022-12-05 18:09:00 66.679 kg Universi ty of [place] [facility] BMI 2022-12-05 18:09:00 34.17 kg/m2 Universi ty of [facility] Systolic blood 2022-05-04 20:40:00 148 mm[Hg] Univer sity of pressure [facility] Diastolic blood 2022-05-04 20:40:00 75 mm[Hg] Unive rsity of pressure [facility] Heart rate 2022-05-04 20:38:00 63 /min Universi ty of [facility] Body temperature 2022-05-04 20:38:00 37.33 Pam Univ ersity of [facility] Respiratory rate 2022-05-04 20:38:00 17 /min Univ ersity of [facility] Body weight 2022-05-04 20:38:00 62.228 kg Universi ty of [facility] BMI 2022-05-04 20:38:00 31.89 kg/m2 Universi ty of [facility] Oxygen saturation in 2022-05-04 20:38:00 96 /min University of Arterial blood by [facility] Pulse oximetry Branch Systolic blood 2022-03-21 17:34:00 131 mm[Hg] Univer sity of pressure [facility] Diastolic blood 2022-03-21 17:34:00 83 mm[Hg] Unive rsity of pressure [facility] [facility] Heart rate 2022-03-21 17:34:00 61 /min [facility] Body temperature 2022-03-21 17:34:00 36.78 Pam Univ [facility] Body height 2022-03-21 17:34:00 139.7 cm [facility] Body weight 2022-03-21 17:34:00 63.957 kg [facility] BMI 2022-03-21 17:34:00 32.77 kg/m2 [facility] Systolic blood 2022-01-16 20:20:00 159 mm[Hg] Univer sity of pressure [facility] Diastolic blood 2022-01-16 20:20:00 78 mm[Hg] Unive rsity of pressure [facility] Heart rate 2022-01-16 20:18:00 60 /min [facility] Body temperature 2022-01-16 20:18:00 36.89 Pam [facility] Body height 2022-01-16 20:18:00 139.7 cm [facility] Body weight 2022-01-16 20:18:00 63.957 kg [facility] [place] [facility] [place] BMI 2022-01-16 20:18:00 32.77 kg/m2 [facility] Systolic blood 2021-12-28 18:13:00 138 mm[Hg] [facility] Diastolic blood 2021-12-28 18:13:00 70 mm[Hg] Unive rsity of pressure [facility] Heart rate 2021-12-28 18:13:00 47 /min [facility] Body temperature 2021-12-28 17:45:00 37.11 Pam [facility] Body height 2021-12-28 17:45:00 139.7 cm [facility] Body weight 2021-12-28 17:45:00 64.139 kg Universi ty [facility] BMI 2021-12-28 17:45:00 32.86 kg/m2 Universi [facility] Oxygen saturation in 2021-12-28 17:45:00 98 /min [facility] Arterial blood by [facility] Pulse oximetry Branch Systolic blood 2021-08-07 20:41:00 130 mm[Hg] Univer sity of pressure [facility] Diastolic blood 2021-08-07 20:41:00 65 mm[Hg] [facility] 2021-08-07 20:41:00 67 /min [facility] Body temperature 2021-08-07 20:41:00 37.33 Pam [facility] Body height 2021-08-07 20:41:00 139.7 cm [facility] Body weight 2021-08-07 20:41:00 63.504 kg [facility] BMI 2021-08-07 20:41:00 32.54 kg/m2 [facility] Procedures Procedure Date / Time Performed Performing Clinician Sour e POCT URINALYSIS 2022-12-26 00:00:00 Lynn Posada [facility] ASSIGNMENT OF BENEFITS 2022-12-05 17:56:56 Doctor Unassigned, No [facility] POCT URINALYSIS 2022-05-04 20:43:00 Natalya Walsh [facility] EXTERNAL PROVIDER 2022-01-23 05:01:00 Doctor Unassigned, No [facility] PO[facility]INALYSIS 2022-01-16 00:00:00 Lynn Posada [facility] LIPASE 2021-12-28 18:38:00 Natalya Walsh [facility] CBC WITH DIFF 2021-12-28 18:38:00 Natalya Walsh [facility] EXTERNAL PROVIDER 2021-08-10 05:01:00 Doctor Unassigned, No [facility] Encounters Start End Encounter Admission Attending Care Care Encounter Source Date/Time Date/Time Type Type Clinicians Facility Department ID 2023-01-05 2023-01-05 [facility] 1.2.840.114 [id number] Univers 00:00:00 00:00:00 Lynn [facility] 350.1.13.10 it y of [place] 4.2.7.2.686 Patrick as PRAVIN?BLEA [id number] [address] OFFICE [facility] 2022-12-26 2022-12-26 [facility] [id number] Univers 14:00:00 14:39:03 LYNN ity [facility] 2022-12-26 2022-12-26 Office [facility] 1.2.840.114 [id number] Univers 14:00:00 14:39:03 Visit [facility] 350.1.13.10 it y of [place] 4.2.7.2.686 Patrikc as PRAVIN?BLEA [phone] [address] OFFICE [facility] 2022-12-05 2022-12-05 Office [facility] 1.2.840.114 [id number] Univers 13:15:00 13:30:00 Visit [facility] 350.1.13.10 it y of [place] 4.2.7.2.686 Patrick as PRAVIN?BLEA [id number] [address] OFFICE [facility] 2022-12-05 2022-12-05 Outpatient [facility] [id number] Univers 13:15:00 13:21:45 LYNN [facility] 2022-12-05 2022-12-05 Orders Doctor LINN 1.2.840.114 [id number] Univers 00:00:00 00:00:00 Only Unassigned, JOE 350.1.13.10 ity of [place] [facility] 4.2.7.2.686 Patrick as [phone] [address] 2022-11-29 2022-11-29 [facility] 1.2.840.114 [id number] Univers 00:00:00 00:00:00 [facility] 350.1.13.10 it y of [place] 4.2.7.2.686 Patrick as PRAVIN?BLEA [id number] Ct aundrea BUSTOS [address] [place] [address] OFFICE [facility] 2022-11-04 2022-11-04 [facility] 1.2.840.114 [id number] Univers 00:00:00 00:00:00 [facility] 350.1.13.10 it y of [place] 4.2.7.2.686 Patrick as PRAVIN?BLEA [id number] Ct aundrea NICOLAS[address] OFFICE [facility] 2022-10-08 2022-10-08 [facility] 1.2.840.114 [id number] Univers 00:00:00 00:00:00 [facility] 350.1.13.10 it y of [place] 4.2.7.2.686 Patrick as PRAVIN?BLEA [id number] Ct aundrea NICOLAS[address] OFFICE [facility] 2022-09-22 2022-09-22 [facility] 1.2.840.114 [id number] Univers 00:00:00 00:00:00 [facility] 350.1.13.10 it y of [place] 4.2.7.2.686 Patrick as PRAVIN?BLEA [phone] [facility] MARIA ISABEL[address] OFFICE [facility] 2022-09-17 2022-09-17 [facility] 1.2.840.114 [id number] Univers 00:00:00 00:00:00 [facility] 350.1.13.10 it y of [place] 4.2.7.2.686 Patrick as PRAVIN?BLEA [id number] Ct aundrea NICOLAS[address] OFFICE [facility] 2022-08-19 2022-08-19 [facility] 1.2.840.114 [id number] Univers 00:00:00 00:00:00 [facility] 350.1.13.10 it y of [place] 4.2.7.2.686 Patrick as PRAVIN?BLEA [phone] [facility] MARIA ISABEL[address] OFFICE [facility] 2022-07-30 2022-07-30 [facility] 1.2.840.114 [id number] Univers 00:00:00 00:00:00 [facility] 350.1.13.10 it y of [place] 4.2.7.2.686 Patrick as PRAVIN?BLEA [id number] [address] MEDICAL OFFICE [facility] 2022-07-23 2022-07-23 [facility] 1.2.840.114 [id number] Univers 00:00:00 00:00:00 Lynn HEALTH 350.1.13.10 it y of [place] 4.2.7.2.686 Patrick as PRAVIN?BLEA [id number] [address] OFFICE [facility] 2022-07-15 2022-07-15 [facility] 1.2.840.114 [id number] [facility] 00:00:00 00:00:00 [facility] 350.1.13.10 it y of [place] 4.2.7.2.686 Patrick as PRAVIN?BLEA [id number] [address] OFFICE [facility] 2022-07-09 2022-07-09 [facility] 1.2.840.114 [id number] Univers 00:00:00 00:00:00 [facility] 350.1.13.10 it y of [place] 4.2.7.2.686 Patrick as PRAVIN?BLEA [phone] [address] OFFICE [facility] 2022-06-21 2022-06-21 [facility] 1.2.840.114 [id number] Univers 00:00:00 00:00:00 [facility] 350.1.13.10 it y of [place] 4.2.7.2.686 Patrick as PRAVIN?BLEA [id number] [address] OFFICE [facility] 2022-05-30 2022-05-30 [facility] 1.2.840.114 [id number] Univers 00:00:00 00:00:00 , Nano HEALTH 350.1.13.10 ity of M [place] 4.2.7.2.686 Patrick as PRAVIN?BLEA [id number] [address] OFFICE [facility] 2022-05-11 2022-05-11 [facility] 1.2.840.114 [id number] Univers 00:00:00 00:00:00 [facility] 350.1.13.10 [facility] 4.2.7[facility]2.686 Patrick as PRAVIN?BLEA [phone] [address] OFFICE [facility] 2022-05-04 2022-05-04 [facility] [id number] Univers 14:30:00 15:18:13 NATALYA ity [facility] 2022-05-04 2022-05-04 [facility] 1.2.840.114 [id number] Univers 14:30:00 15:18:13 Visit Natalya Blakely [facility] 350.1.13.10 i ty of [place] 4.2.7.2.686 Patrick as PRAVIN?BLEA [id number] [address] OFFICE [facility] 2022-03-21 2022-03-21 Office [facility] 1.2.840.114 [id number] Univers 11:30:00 11:45:00 Visit [facility] 350.1.13.10 it y of [place] 4.2.7.2.686 Patrick as PRAVIN?BLEA [id number] [address] OFFICE [facility] 2022-03-21 2022-03-21 Outpatient [facility] [id number] Univers 11:30:00 11:30:00 LYNN ity [facility] 2022-01-23 2022-01-23 Orders Doctor LINN 1.2.840.114 [id number] Univers 00:00:00 00:00:00 Only Unassigned, JOE 350.1.13.10 ity of [place] [facility] 4.2.7.2.686 Patrick as [phone] [address] 2022-01-16 2022-01-[address] [facility] 1.2.840.114 [id number] Univers 15:15:00 15:30:00 Visit [facility] 350.1.13.10 it y of [place] 4.2.7.2.686 Patrick as PRAVIN?BLEA [phone] [address] MEDICAL OFFICE [facility] 2022-01-16 2022-01-16 Outpatient R TOBINTERESA [facility] [id number] Univers 15:15:00 15:15:00 LYNN kylee [facility] 2022-01-04 2022-01-04 Telephone Swetha [facility] 1.2.840.114 [id number] Univers 00:00:00 00:00:00 Lynn HEALTH 350.1.13.10 it y of [place] 4.2.7.2.686 Patrick as PRAVIN?BLEA [phone] [address] MEDICAL OFFICE [facility] 2022-01-02 2022-01-02 [facility]phone [facility] 1.2.795.527 [id number] Univers 00:00:00 00:00:00 Natalya Blakely HEALTH 350.1.13.10 i ty of [place] 4.2.7.2.686 Patrick as PRAVIN?BLEA [phone] [address] OFFICE [facility] 2021-12-28 2021-12-28 [facility], Ang - Db [facility] 1.2.840.1 [id number] Univers 13:45:00 14:00:00 Visit Nico Natalya Blakely HEALTH 350.1.13.10 ity of [place] 4.2.7.2.686 Patrick as PRAVIN?BLEA [phone] [facility] [address] MEDICAL OFFICE [facility] 2021-12-28 2021-12-28 Outpatient R NICO [facility] [id number] Univers 12:30:00 13:29:55 NATALYA pichardo [facility] 2021-12-28 2021-12-28 [facility] 1.2.840.114 [id number] Univers 12:30:00 13:29:55 Visit Natalya Blakely HEALTH 350.1.13.10 i ty of [place] 4.2.7.2.686 Patrick as PRAVIN?BLEA [phone] Me [address] OFFICE [facility] 2021-12-26 2021-12-26 [facility] 1.2.840.114 [id number] Univers 00:00:00 00:00:00 [facility] 350.1.13.10 it y of [place] 4.2.7.2.686 Patrick as PRAVIN?BLEA [phone] [address] 2021-11-09 2021-11-09 [facility] 1.2.840.114 [id number] Univers 00:00:00 00:00:00 [facility] 350.1.13.10 it y of [place] 4.2.7.2.686 Patrick as PRAVIN?BLEA [phone] [address] 2021-10-09 2021-10-09 [facility] 1.2.840.114 [id number] Univers 00:00:00 00:00:00 [facility] 350.1.13.10 it y of [place] 4.2.7.2.686 Patrick as PRAVIN?BLEA [phone] [address] 2021-09-09 2021-09-09 [facility] 1.2.840.114 [id number] Univers 00:00:00 00:00:00 [facility] 350.1.13.10 it y of [place] 4.2.7.2.686 Patrick as PRAVIN?BLEA [phone] [address] 2021-08-10 2021-08-10 Orders Doctor LINN 1.2.840.114 [id number] Univers 00:00:00 00:00:00 Only Unassigned, JOE 350.1.13.10 ity of [place] [facility] 4.2.7.2.686 Patrick as [phone] [address] 2021-08-07 2021-08-07 Office [facility] 1.2.840.114 [id number] Univers 15:30:00 15:45:00 Visit [facility] 350.1.13.10 it y of [place] 4.2.7.2.686 Patrick as PRAVIN?BLEA [phone] Ct aundrea [address] MEDICAL OFFICE [facility] 2021-08-07 2021-08-07 Outpatient R SWETHA [facility] [id number] Univers 15:30:00 15:30:00 LYNN pichardo [facility] 2021-08-02 2021-08-02 Telephone [facility] 1.2.840.114 [id number] Univers 00:00:00 00:00:00 [facility] 350.1.13.10 it y of [place] 4.2.7.2.686 Patrick as PRAVIN?BLEA [id number] [address] MEDICAL OFFICE [facility] 2021-07-14 2021-07-14 Refill [facility] 1.2.840.114 [id number] Univers 00:00:00 00:00:00 [facility] 350.1.13.10 it y of [place] 4.2.7.2.686 Patrick as PRAVIN?BLEA [phone] [address] MEDICAL OFFICE [facility] 2021-05-29 2021-05-29 Outpatient R [facility] [id number] Univers 15:22:48 23:59:00 LYNN rylee [facility] 2021-05-29 2021-05-29 Office [facility] 1.2.840.114 [id number] Univers 15:00:00 15:15:00 Visit [facility] 350.1.13.10 it y of [place] 4.2.7.2.686 Patrick as PRAVIN?BLEA [phone] [address] MEDICAL OFFICE [facility] 2021-05-29 2021-05-29 Orders Doctor LINN 1.2.840.114 [id number] Univers 00:00:00 00:00:00 Only Unassigned, JOE 350.1.13.10 ity of [place] [facility] 4.2.7.2.686 Patrick as [phone] [address] 2021-02-24 2021-02-24 [facility] 1.2.840.114 [id number] Univers 11:02:18 11:24:25 Care Ella HEALTH 350.1.13.10 it y of [place] 4.2.7.2.686 Patrick as PRAVIN?BLEA [phone] [facility] [address] MEDICAL OFFICE BUILDING 2021-02-24 2021-02-24 Outpatient R OKURTNEY [facility] [id number] Univers 11:00:00 11:24:25 ELLA ity of [facility] 2021-01-23 2021-01-23 [facility]ill [facility] 1.2.840.114 [id number] Univers 00:00:00 00:00:00 Wondiful A Health 350.1.13.10 ity of [place] 4.2.7.2.686 Patrick as Professio [phone] [address] Office Building One 2020-12-13 2020-12-13 Telephone [facility] 1.2.840.114 [id number] Univers 00:00:00 00:00:00 Wondiful [facility] 350.1.13.10 ity of [place] 4.2.7.2.686 Patrick as Pravin?Blea [phone] [facility] [address] Medical Office Building 2020-12-08 2020-12-08 [facility] 1.2.840.114 [id number] Univers 10:46:30 23:59:00 Encounter Shruthi [place] 350.1.13.10 ity of [place] 4.2.7.2.686 [facility] [id number] [facility] [address] 2020-12-08 2020-12-08 Office [facility] 1.2.840.114 [id number] Univers 09:23:08 10:09:28 Visit Shruthi Health 350.1.13.10 it y of [place] 4.2.7.2.686 Patrick as Pravin?Blea [id number] [facility] [address] [facility] Office Building 2020-12-08 2020-12-08 [facility] [id number] Univers 09:30:00 09:30:00 SHRUTHI ity of [facility] 2020-12-08 2020-12-08 Outpatient R MIKE [facility] [id number] Univers 08:45:00 08:45:00 WONDIFUL ity o f [facility] 2020-12-08 2020-12-08 Orders Doctor LINN 1.2.840.114 [id number] Univers 00:00:00 00:00:00 Only Unassigned, JOE 350.1.13.10 ity of [place] [facility] 4.2.7.2.686 Patrick as [phone] [address] 2020-11-08 2020-11-08 [facility] 1.2.840.114 [id number] Univers 18:47:28 19:07:28 Care Ella [facility] 350.1.13.10 it y of [place] 4.2.7.2.686 Patrick as Professio [phone] [address] Office [facility] 2020-11-08 2020-11-08 Outpatient R KOURTNEY [facility] [id number] Univers 18:20:00 18:20:00 ELLA ity of [facility] 2020-10-04 2020-10-04 Telephone [facility] 1.2.840.114 [id number] Univers 00:00:00 00:00:00 Wondiful [facility] 350.1.13.10 ity of [place] 4.2.7.2.686 Patrick as Professio [phone] [address] Office [facility] 2020-10-03 2020-10-03 Orders Doctor ESTEVES 1.2.840.114 [id number] Univers 00:00:00 00:00:00 Only Unassigned, JOE 350.1.13.10 ity of [place] [facility] 4.2.7.2.686 Patrick as [phone] [address] 2020-09-30 2020-09-30 Office Swetha [facility] 1.2.840.114 [id number] Univers 14:19:49 14:34:49 Visit [facility] 350.1.13.10 it y of [place] 4.2.7.2.686 Patrick as Professio [phone] [address] Office [facility] 2020-09-30 2020-09-30 Outpatient R SWETHA [facility] [id number] Univers 14:15:00 14:15:00 LYNN ity [facility] 2020-09-23 2020-09-23 Office Swetha [facility] 1.2.840.114 [id number] Univers 14:36:14 15:20:24 Visit [facility] 350.1.13.10 it y of [place] 4.2.7.2.686 Patrick as Professio [phone] [address] Office [facility] 2020-09-23 2020-09-23 Outpatient R SWETHA [facility] [id number] Univers 14:30:00 14:30:00 LYNN pichardo [facility] 2020-09-22 2020-09-22 Telephone [facility] 1.2.840.114 [id number] Univers 00:00:00 00:00:00 Wondiful [facility] 350.1.13.10 ity of [place] 4.2.7.2.686 Patrick as Professio [phone] [address] Office [facility] 2020-09-20 2020-09-20 Refill [facility] 1.2.840.114 [id number] Univers 00:00:00 00:00:00 Wondiful [facility] Health 350.1.13.10 ity of [place] 4.2.7.2.686 Patrick as Professio [phone] [address] Office [facility] 2020-09-16 2020-09-16 Telephone [facility] 1.2.840.114 [id number] Univers 00:00:00 00:00:00 Wondiful [facility] 350.1.13.10 ity of [place] 4.2.7.2.686 Patrick as Professio [phone] [address] Office [facility] 2020-08-31 2020-08-31 Outpatient R MIKE [facility] [id number] Univers 10:40:00 10:40:00 WONDIFUL ity o f [facility] 2020-08-31 2020-08-31 [facility], Adc Fam Pob I [facility] 1.2. 840.114 [id number] [facility] 10:06:41 10:20:05 Visit [facility] 350.1.13.1 0 ity of [place] 4.2.7.2.686 Patrick as Professio [phone] [address] Office [facility] 2020-08-31 2020-08-31 Case Mike [facility] 1.2.840.114 [id number] Univers 00:00:00 00:00:00 Management [facility] 350.1.13.10 ity of [place] 4.2.7.2.686 Patrick as Professio [phone] [address] Office [facility] 2020-08-26 2020-08-26 Office Mike [facility] 1.2.840.114 [id number] [facility] 16:09:47 16:47:41 Visit Wondiful [facility] 350.1.13.10 [place] 4.2.7.2.686 Professio [phone] [place] [address] Office [facility] 2020-08-26 2020-08-26 Office Mike [facility] 1.2.840.[id number] [place] [address] 16:09:47 16:47:41 Visit W[facility] 350.1.13.10 ity of [place] 4.2.7.2.686 Patrick as Professio [phone] [address] Office [facility] 2020-08-26 2020-08-26 Outpatient R MIKE [facility] [id number] Univers 16:00:00 16:00:00 WONDIFUL ity o f [facility] 2020-08-18 2020-08-18 Outpatient R MIKE [facility] [id number] Univers 10:45:00 10:45:00 WONDIFUL ity o f [facility] 2020-04-26 2020-04-26 Refill Mike [facility] 1.2.840.114 [id number] Univers 00:00:00 00:00:00 Wondiful [facility] 350.1.13.10 ity of [place] 4.2.7.2.686 Patrick as Professio [phone] [address] Office Building [facility] 2020-03-08 2020-03-08 Outpatient R SUSY [facility] [id number] Univers 13:15:00 13:15:00 ATTENDING ity [facility] 2020-03-08 2020-03-08 Outpatient R [facility] [id number] Univers 09:00:00 09:00:00 ity [facility] 2020-03-08 2020-03-08 Telephone Martir [facility] 1.2.840.114 [id number] Univers 00:00:00 00:00:00 Qunesha HEALTH 350.1.13.10 it y of [place] 4.2.7.2.686 [place] [facility] [phone] [facility] 2020-03-07 2020-03-07 Telephone Mike [facility] 1.2.840.114 [id number] Univers 00:00:00 00:00:00 Wondiful A Health 350.1.13.10 ity of [place] 4.2.7.2.686 Patrick as Professio [phone] [address] Office Building [facility] 2020-02-19 2020-02-19 Office Mike [facility] 1.2.840.114 [id number] Univers 13:26:12 14:29:08 Visit Wondiful [facility] 350.1.13.10 ity of [place] 4.2.7.2.686 Patrick as Professio [phone] [address] Office Building [facility] 2020-02-19 2020-02-19 Outpatient R MIKE [facility] [id number] Univers 14:00:00 14:00:00 WONDIFUL ity o f [facility] Results Test Description Test Time Test Comments Results Result Comments Source POCT URINALYSIS W SPECIFIC GRAVITY 2022-12-26 19:15:00 Test Item Value Reference Range Interpretation Comme nts POCT U SP GRAV (test code = 3255) 1.010 mg/dl 1.005-1.025 POCT PH U (test code = 3254) 7 mg/dl 5-8 POCT U LEUK EST (test code = 3263) + Negative - Negative POCT U NIT (test code = 3262) neg Negative - Negative POCT U PROT (test code = 3259) 30 Negative - Negative POCT U GLU (test code = 3256) normal Negative - Negative POCT U KETONE (test code = 3258) neg Negative - Negative POCT U UROBILI (test code = 3260) normal 0.2-1 POCT U BILI (test code = 3261) neg Negative - Negative POCT U BLD (test code = 3257) trace Negative - Negative POCT U COLOR (test code = 3266) dark POCT U APPEAR (test code = 3267) clear [facility] URINALYSIS W SPECIFIC [id number] 19:15:00 Test Item Value Reference Range Interpretation Comments POCT U SP GRAV (test code = 1.010 mg/dl 1.005-1.025 3255) POCT PH U (test code = 3254) 7 mg/dl 5-8 POCT U LEUK EST (test code = + Negative - Negative 3262) POCT U NIT (test code = 3262) neg Negative - Negative POCT U PROT (test code = 30 Negative - Negative 3259) POCT U GLU (test code = 3256) normal Negative - Negative POCT U KETONE (test code = neg Negative - Negative 8) POCT U UROBILI (test code = normal 0.2-1 3260) POCT U BILI (test code = neg Negative - Negative 3261) POCT U BLD (test code = 3257) trace Negative - Negative POCT U COLOR (test code = dark 3266) POCT U APPEAR (test code = clear 3267) [facility] URINALYSIS W SPECIFIC [id number] 20:43:00 Test Item Value Reference Range Interpretation Comments POCT U SP GRAV (test code = 1.005 mg/dl 1.005-1.025 3255) POCT PH U (test code = 3254) 7 mg/dl 5-8 POCT U LEUK EST (test code = POS Negative - Negative 3) POCT U NIT (test code = NEG Negative - Negative 2) POCT U PROT (test code = TRACE Negative - Negative 3258) POCT U GLU (test code = NORMAL Negative - Negative 3256) POCT U KETONE (test code = NEG Negative - Negative 3258) POCT U UROBILI (test code = NORMAL 0.2-1 3260) POCT U BILI (test code = NEG Negative - Negative 3261) POCT U BLD (test code = NEG Negative - Negative 3257) POCT U COLOR (test code = LIGHT YELLOW 3266) POCT U APPEAR (test code = CLEAR 3267) Lab Interpretation (test Abnormal code = 75562-4) [facility] URINALYSIS W SPECIFIC [id number] 20:43:00 Test Item Value Reference Range Interpretation Comments POCT U SP GRAV (test code = 1.005 mg/dl 1.005-1.025 3255) POCT PH U (test code = 3254) 7 mg/dl 5-8 POCT U LEUK EST (test code = POS Negative - Negative 3263) POCT U NIT (test code = NEG Negative - Negative 3262) POCT U PROT (test code = TRACE Negative - Negative 3259) POCT U GLU (test code = NORMAL Negative - Negative 3256) POCT U KETONE (test code = NEG Negative - Negative 3258) POCT U UROBILI (test code = NORMAL 0.2-1 3260) POCT U BILI (test code = NEG Negative - Negative 3261) POCT U BLD (test code = NEG Negative - Negative 3257) POCT U COLOR (test code = LIGHT YELLOW 3266) POCT U APPEAR (test code = CLEAR 3267) Lab Interpretation (test Abnormal code = 91839-7) [facility] URINALYSIS W SPECIFIC [id number] 21:07:00 Test Item Value Reference Range Interpretation Comments POCT U SP GRAV (test code = 1.010 mg/dl 1.005-1.025 3255) POCT PH U (test code = 3254) 6 mg/dl 5-8 POCT U LEUK EST (test code = + Negative - Negative 3263) POCT U NIT (test code = Neg Negative - Negative 3262) POCT U PROT (test code = trace Negative - Negative 3259) POCT U GLU (test code = normal Negative - Negative 3256) POCT U KETONE (test code = neg Negative - Negative 3258) POCT U UROBILI (test code = normal 0.2-1 3260) POCT U BILI (test code = neg Negative - Negative 3261) POCT U BLD (test code = trace Negative - Negative 3257) POCT U COLOR (test code = light yellow 3266) POCT U APPEAR (test code = clear 3267) [facility] [id number] 21:07:00 Test Item Value Reference Range Interpretation Comments POCT U SP GRAV (test code = 1.010 mg/dl 1.005-1.025 3255) POCT PH U (test code = 3254) 6 mg/dl 5-8 POCT U LEUK EST (test code = + Negative - Negative 3263) POCT U NIT (test code = Neg Negative - Negative 3262) POCT U PROT (test code = trace Negative - Negative 3259) POCT U GLU (test code = normal Negative - Negative 3256) POCT U KETONE (test code = neg Negative - Negative 3258) POCT U UROBILI (test code = normal 0.2-1 3260) POCT U BILI (test code = neg Negative - Negative 3261) POCT U BLD (test code = trace Negative - Negative 3257) POCT U COLOR (test code = light yellow 3266) POCT U APPEAR (test code = clear 3267) [id number]42 Test Item Value Reference Range Interpretation Comments LIPASE (test code = [id number]) 391 U/L 0-220 H Lab Interpretation (test code = Abnormal 84946-8) [id number]09:42 Test Item Value Reference Range Interpretation Comments LIPASE (test code = [id number]) 391 U/L 0-220 H Lab Interpretation (test code = Abnormal 59918-0) [facility] [id number] 21:03:03 Test Item Value Reference Range Interpretation Comments WBC (test code = See_Comment H [Automated 6090-2) message] The sy stem which generated this result transmitted reference range : 4.30 - 11.10 10*3/?L. The reference range was not used to interpret this result as normal/abnormal . RBC (test code = See_Comment [Automated 049-8) message] The sy stem which generated this [...] RDW-SD (test code = 48.7 fL 39-49.9 38510-3) RDW-CV (test code = 14.0 % 12-15.5 788-0) PLT (test code = See_Comment H [Automated 777-3) message] The sy stem which generated this result transmitted reference range : 166 - 358 10*3/ ?L. The reference r jeremy was not used to interpret this result as normal/abnormal . MPV (test code = 9.9 fL 9.5-12.9 97442-5) NRBC/100 WBC (test See_Comment [Automat ed code = 1403124335) message] The system which generated this result transmitted reference range : 0.0 - 10.0 /100 WBCs. The refer ence range was not u sed to interpret th is result as normal/abnormal . NRBC x10^3 (test code See_Comment [Auto mated = [id number]) message] The s ystem which generated this result transmitted reference range : 10*3/?L. The reference range was not used to interpret this result as normal/abnormal . GRAN MAT (NEUT) % 72.3 % (test code = 770-8) IMM GRAN % (test code 0.70 % = [id number]) LYMPH % (test code = 18.4 % 736-9) MONO % (test code = 6.7 % 5905-5) EOS % (test code = 1.2 % 713-8) BASO % (test code = 0.7 % 706-2) GRAN MAT x10^3(ANC) 8.68 10*3/uL 1.88-7.09 H (test code = 1016718830) IMM GRAN x10^3 (test 0.09 10*3/uL 0-0.06 H code = 2793242355) LYMPH x10^3 (test code 2.21 10*3/uL 1.32-3.29 = 731-0) MONO x10^3 (test code 0.81 10*3/uL 0.33-0.92 = 742-7) EOS x10^3 (test code = 0.14 10*3/uL 0.03-0.39 711-2) BASO x10^3 (test code 0.08 10*3/uL 0.01-0.07 H = 704-7) Lab Interpretation Abnormal (test code = 89836-0) [facility] WITH [id number] 21:03:03 Test Item Value Reference Range Interpretation Comments WBC (test code = See_Comment H [Automated 3090-2) message] The sy stem which generated this result transmitted reference range : 4.30 - 11.10 10*3/?L. The reference range was not used to interpret this result as normal/abnormal . RBC (test code = See_Comment [Automated 149-8) message] The sy stem which generated this [...] RDW-SD (test code = 48.7 fL 39-49.9 16669-6) RDW-CV (test code = 14.0 % 12-15.5 788-0) PLT (test code = See_Comment H [Automated 777-3) message] The sy stem which generated this result transmitted reference range : 166 - 358 10*3/ ?L. The reference r jeremy was not used to interpret this result as normal/abnormal . MPV (test code = 9.9 fL 9.5-12.9 62224-9) NRBC/100 WBC (test See_Comment [Automat ed code = 7505774239) message] The system which generated this result transmitted reference range : 0.0 - 10.0 /100 WBCs. The refer ence range was not u sed to interpret th is result as normal/abnormal . NRBC x10^3 (test code See_Comment [Auto mated = [id number]) message] The s ystem which generated this result transmitted reference range : 10*3/?L. The reference range was not used to interpret this result as normal/abnormal . GRAN MAT (NEUT) % 72.3 % (test code = 770-8) IMM GRAN % (test code 0.70 % = 6600792693) LYMPH % (test code = 18.4 % 736-9) MONO % (test code = 6.7 % 5905-5) EOS % (test code = 1.2 % 713-8) BASO % (test code = 0.7 % 706-2) GRAN MAT x10^3(ANC) 8.68 10*3/uL 1.88-7.09 H (test code = 8993811295) IMM GRAN x10^3 (test 0.09 10*3/uL 0-0.06 H code = 6202202285) LYMPH x10^3 (test code 2.21 10*3/uL 1.32-3.29 = 731-0) MONO x10^3 (test code 0.81 10*3/uL 0.33-0.92 = 742-7) EOS x10^3 (test code = 0.14 10*3/uL 0.03-0.39 711-2) BASO x10^3 (test code 0.08 10*3/uL 0.01-0.07 H = 704-7) Lab Interpretation Abnormal (test code = 02132-6) [facility]
[2023-01-31 15:52] VITALS: BP 131/59; TEMP 97.6; O2SAT 97
== END 2023-01-30 13:08 | disposition home or self-care (01) ==
LOC: ER 12:17
DX: K64.9 Unspecified hemorrhoids (principal); F17.210 Nicotine dependence, cigarettes, uncomplicated

== ENCOUNTER 2023-02-09 16:42 | Emergency (ER) | payer OTHER ==
--- OUTSIDE RECORDS SUMMARY | 2023-02-09 16:48 | XMS REPORT | Continuity of Care Document ---
:1940 Author Organization [facility] t Address [address] [place] [address] [place] [id number] Care Team Providers Name Role Phone UNKNOWN, REFFERING Primary Care Physician Unavailable Lynn Posada MD Attending Clinician LYNN POSADA Attending Clinician Unavailable Doctor Unassigned, [place] Attending Clinician Unavailable Nano Be MD Attending Clinician [phone] NATALYA WALSH Attending Clinician Unavailable Natalay Lakhani Attending Clinician Lab, Ang - Db [...] Univers diarrhea diarrhea 1-15 ity of 00:00: [place] [facility] Chronic Chronic Disease Active 2019-04 Univers depression depression 1-13 it y of 00:00: [place] [facility] 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 Hands, knees, shoulders Acquired Acquired Disease Active 2019-04 Unive rs hypothyroi hypothyroi 1-13 it y of dism dism 00:00: [place] [address] Medical Branch Macular Macular Disease Active Univers degenerati degenerati it y of on on [facility] Branch Essential Essential Disease Active Uni vers hypertensi hypertensi it y of on on [facility] Allergies, Adverse Reactions, Alerts Allergy Allergy Status Severity Reaction(s) Onset Inactive Treating Comm ents Source Name Type Date Date Clinician NO KNOWN Drug Active Univers ALLERGIE Class ity of S [facility] Social History Social Habit Start Date Stop Date Quantity Comments Source Gender identity Universit y of [facility] Sexual orientation Univer sity of [facility] History SDTX University o f Alcohol Comment [place] [facility] History of tobacco Cigarette Smoker University of use [facility] Alcohol intake 2022-12-26 2022-12-26 Lifetime University of 00:00:00 00:00:00 non-drinker [facility] (finding) Branch History of Social 2022-12-05 2022-12-05 Univers ity of function 00:00:00 00:00:00 [facility] Exposure to 2022-04-24 2022-05-04 Not sure [facility] SARS-CoV-2 (event) 00:00:00 14:07:00 [facility] Cigarettes smoked 2021-12-28 2021-12-28 Univers ity of current (pack per 00:00:00 00:00:00 [facility] ) - Reported Branch Tobacco use and 2021-12-28 2021-12-28 Smokeless Universit y of exposure 00:00:00 00:00:00 tobacco non-user [facility] dical Branch History SDTX 2020-02-19 2020-02-19 1 University o f Alcohol [facility] 00:00[facility]00 [facility] 2020-02-19 2020-02-19 99 [place] o f Alcohol Std Drinks 00:00:00 00:00:00 [facility] History [facility] 2020-02-19 2020-02-19 1 [place] o f Alcohol Binge 00:00:00 00:00:00 [facility] Sex Assigned At [birth year] Universit y of 00:00:00 00:00:00 [facility] Smoking Status Start Date Stop Date Source Smokes tobacco daily 2021-12-28 00:00:[address] [facility] Medications Ordered Filled Start Stop Current Ordering Indication Dosage Frequency Signature Comments Components Source Medication Medication Date Date Medication? Clinician (SIG) Name Name LEVOTHYROXI 2022-04 Yes [id number] 100ug TAKE 1 Univers [place] 100 mcg 0-02 TABLET BY ity of tablet 00:00: MOUTH ONCE DAILY IN Medical THE Branch MORNING MONTELUKAST 2022-04 Yes [id number] 10mg TAKE 1 Univers 10 mg 0-02 TABLET BY ity of tablet 00:00: MOUTH ONCE DAILY IN Medical THE Branch MORNING tiZANidine Yes [id number] 4mg Take 1 Univers 4 mg tablet 9-20 tablet by ity of 00:00: mouth 00 every 6 Medical (six) Branch hours as needed (back pain). tiZANidine Yes [id number] 4mg Take 1 Univers 4 mg tablet 9-20 tablet by ity of 00:00: mouth [place] 00 every 6 Medical (six) Branch hours as needed (back pain). tiZANidine Yes [id number] 4mg Take 1 Univers 4 mg tablet 9-20 tablet by ity of 00:00: mouth [place] 00 every 6 Medical (six) Branch hours as needed (back pain). citalopram 2022- No 40mg Take 40 mg Univers 40 mg 8-30 08-30 by mouth ity of tablet 13:17: 00:00 daily. [place] 47 :00 [facility] citalopram 2022-2022- No 40mg Take 40 mg Univers 40 mg 8-30 08-30 by mouth ity of tablet 13:17: 00:00 daily. [place] 47 :00 [facility] cephALEXin Yes [id number] 500mg Take 1 Univers 500 mg 8-30 capsule by ity of capsule 00:00: mouth in [place] 00 the Medical morning Branch and 1 capsule in the evening. cephALEXin 2022-0 Yes [id number] 500mg Take 1 Univers 500 mg 8-30 capsule by ity of capsule 00:00: mouth in [place] 00 the Medical morning Branch and 1 capsule in the evening. cephALEXin 2022-0 2022- No [id number] 500mg Take 1 Univers 500 mg 8-30 09-20 capsule by ity of capsule 00:00: 00:00 mouth in [place] 00 :00 the Medical morning Branch and 1 capsule in the evening. cephALEXin 2022-0 2022- No [id number] 500mg Take 1 Univers 500 mg 8-30 09-20 capsule by ity of capsule 00:00: 00:00 mouth in [place] 00 :00 the Medical morning Branch and 1 capsule in the evening. fluconazole 2022-0 2022- Yes [id number] 150mg Take 1 Univers (DIFLUCAN) 8-30 -31 tablet by ity of 150 mg 00:00: 04:59 mouth [place] tablet 00 :00 now for 1 Medical dose. Branch fluconazole 2022-0 2022- Yes [id number] 150mg Take 1 Univers (DIFLUCAN) 8-30 -31 tablet by ity of 150 mg 00:00: 04:59 mouth [place] tablet 00 :00 now for 1 Medical dose. Branch TIZANIDINE 2022-0 Yes [id number] TAKE 1 Univers 4 mg tablet 8-25 TABLET BY ity of 00:00: MOUTH [place] 00 EVERY 6 Medical HOURS Branch NEEDED FOR BACK PAIN AND SPASMS TIZANIDINE 2022-0 Yes [id number] TAKE 1 Univers 4 mg tablet 8-25 TABLET BY ity of 00:00: MOUTH [place] 00 EVERY 6 Medical HOURS Branch NEEDED FOR BACK PAIN AND SPASMS TIZANIDINE 2022-0 Yes [id number] TAKE 1 Univers 4 mg tablet 8-25 TABLET BY ity of 00:00: MOUTH [place] 00 EVERY 6 Medical HOURS Branch NEEDED FOR BACK PAIN AND SPASMS TIZANIDINE 2022-0 Yes [id number] TAKE 1 Univers 4 mg tablet 8-25 TABLET BY ity of 00:00: MOUTH [place] 00 EVERY 6 Medical HOURS Branch NEEDED FOR BACK PAIN AND SPASMS TIZANIDINE 2023-0 2023- No [id number] TAKE 1 Univers 4 mg tablet 8-31 12-20 TABLET BY it y of 00:00: 00:00 MOUTH [place] 00 :00 EVERY 6 Medical HOURS Branch NEEDED FOR BACK PAIN AND SPASMS TIZANIDINE 2023-0 2023- No [id number] TAKE 1 Univers 4 mg tablet 8-31 12-20 TABLET BY it y of 00:00: 00:00 MOUTH [place] 00 :00 EVERY 6 Medical HOURS Branch NEEDED FOR BACK PAIN AND SPASMS TIZANIDINE 2023-0 Yes [id number] TAKE 1 Univers 4 mg tablet 11-05 TABLET BY ity of 00:00: MOUTH [place] 00 EVERY 6 Medical HOURS Branch NEEDED FOR BACK PAIN AND SPASMS TIZANIDINE 2023-0 2023- No [id number] TAKE 1 Univers 4 mg tablet 11-05- TABLET BY it y of 00:00: 22:00 [facility] [place] 00 :55 EVERY 6 Medical HOURS Branch NEEDED FOR BACK PAIN AND SPASMS TIZANIDINE 2023-0 Yes [id number] TAKE 1 Univers 4 mg tablet - TABLET BY ity of 00:00: MOUTH [place] 00 EVERY 6 Medical HOURS Branch NEEDED FOR BACK PAIN AND SPASMS TIZANIDINE 2023-0 2023- No [id number] TAKE 1 Univers 4 mg tablet 10-08- TABLET BY it y of 00:00: 00:00 [facility] [place] 00 :00 EVERY 6 Medical HOURS Branch NEEDED FOR BACK PAIN AND SPASMS TIZANIDINE 2023-0 Yes [id number] TAKE 1 Univers 4 mg tablet 6-12 TABLET BY ity of 00:00: [facility] 00 EVERY 6 Medical HOURS Branch NEEDED FOR BACK PAIN AND SPASMS TIZANIDINE 2023-0 Yes [id number] TAKE 1 Univers 4 mg tablet 6-12 TABLET BY ity of 00:00: MOUTH [place] 00 EVERY 6 Medical HOURS Branch NEEDED FOR BACK PAIN AND SPASMS TIZANIDINE 2023-0 2023- No [id number] TAKE 1 Univers 4 mg tablet 6-12 - TABLET BY it y of 00:00: 00:00 MOUTH [place] 00 :00 EVERY 6 Medical HOURS Branch NEEDED FOR BACK PAIN AND SPASMS TIZANIDINE 2023-0 Yes [id number] TAKE 1 Univers 4 mg tablet 5-15 TABLET BY ity of 00:00: MOUTH [place] 00 EVERY 6 Medical HOURS Branch NEEDED FOR BACK PAIN AND SPASMS TIZANIDINE 2023-0 2023- No [id number] TAKE 1 Univers 4 mg tablet 5-15 06-13 TABLET BY it y of 00:00: 02:02 [facility] 00 :51 EVERY 6 Medical HOURS Branch NEEDED FOR BACK PAIN AND SPASMS TIZANIDINE 2023-0 Yes [id number] TAKE 1 Univers 4 mg tablet 4-24 TABLET BY ity of 00:00: [facility] 00 EVERY 6 Medical HOURS Branch NEEDED FOR BACK PAIN AND SPASMS TIZANIDINE 2023-0 2023- No [id number] TAKE 1 Univers 4 mg tablet 4-24 05-15 TABLET BY it y of 00:00: 00:00 [facility] 00 :00 EVERY 6 Medical HOURS Branch NEEDED FOR BACK PAIN AND SPASMS TIZANIDINE 2023-0 Yes [id number] TAKE 1 Univers 4 mg tablet 4-04 TABLET BY ity of 00:00: [facility] EVERY 6 Medical HOURS Branch NEEDED FOR BACK PAIN AND SPASMS TIZANIDINE 2023-0 Yes [id number] TAKE 1 Univers 4 mg tablet 4-04 TABLET BY ity of 00:00: [facility] 00 EVERY 6 Medical HOURS Branch NEEDED FOR BACK PAIN AND SPASMS TIZANIDINE 2023-0 Yes [id number] TAKE 1 Univers 4 mg tablet 4-04 TABLET BY ity of 00:00: [facility] 00 EVERY 6 Medical HOURS Branch NEEDED FOR BACK PAIN AND SPASMS TIZANIDINE 2023-0 2023- No [id number] TAKE 1 Univers 4 mg tablet 4-04 04-24 TABLET BY it y of 00:00: 00:00 [facility] 00 :00 EVERY 6 Medical HOURS Branch NEEDED FOR BACK PAIN AND SPASMS TIZANIDINE 2023-0 Yes [id number] TAKE 1 Univers 4 mg tablet 3-17 TABLET BY ity of 00:00: [facility] 00 EVERY 6 Medical HOURS Branch NEEDED FOR BACK PAIN AND SPASMS TIZANIDINE 2023-0 2023- No [id number] TAKE 1 Univers 4 mg tablet 3-17 04-04 TABLET BY it y of 00:00: 00:00 [facility] 00 :00 EVERY 6 Medical HOURS Branch NEEDED FOR BACK PAIN AND SPASMS TIZANIDINE 2023-0 Yes [id number] TAKE 1 Univers 4 mg tablet 2-26 TABLET BY ity of 00:00: MOUTH [place] 00 EVERY 6 Medical HOURS Branch NEEDED FOR BACK PAIN AND SPASMS TIZANIDINE 2022-0 2022- No [id number] TAKE 1 Univers 4 mg tablet 2-26 -17 TABLET BY it y of 00:00: 14:30 MOUTH [place] 00 :10 EVERY 6 Medical HOURS Branch NEEDED FOR BACK PAIN AND SPASMS TIZANIDINE 2022-0 Yes [id number] TAKE 1 Univers 4 mg tablet 2-03 TABLET BY ity of 00:00: MOUTH [place] 00 EVERY 6 Medical HOURS Branch NEEDED FOR BACK PAIN AND SPASMS TIZANIDINE 2022-0 2022- No [id number] TAKE 1 Univers 4 mg tablet 2-03 -27 TABLET BY it y of 00:00: 02:58 MOUTH [place] 00 :31 EVERY 6 Medical HOURS Branch NEEDED FOR BACK PAIN AND SPASMS cefUROXime 2022-0 2022- No [id number] 250mg Take 1 Univers 250 mg -27 -04 tablet by ity of tablet 00:00: 05:59 mouth in [place] 00 :00 the Medical morning Branch and 1 tablet in the evening. Do all this for 7 days. cefUROXime 2022-0 2022- No [id number] 250mg Take 1 Univers 250 mg -27 -04 tablet by ity of tablet 00:00: 05:59 mouth in [place] 00 :00 the Medical morning Branch and 1 tablet in the evening. Do all this for 7 days. cefUROXime 2022-0 2022- No [id number] 250mg Take 1 Univers 250 mg -27 -04 tablet by ity of tablet 00:00: 05:59 mouth in [place] 00 :00 the Medical morning Branch and 1 tablet in the evening. Do all this for 7 days. tiZANidine 2021-04 Yes [id number] 4mg Take 1 Univers 4 mg tablet 0-11 tablet by ity of 00:00: mouth [place] 00 every 6 Medical (six) Branch hours as needed (back pain and spasm). montelukast 2021-04 Yes [id number] 10mg Take 1 Univers 10 mg 0-11 tablet by ity of tablet 00:00: mouth [place] 00 every Medical morning. Branch levothyroxi 2021-04 Yes [id number] 100ug Take 1 Univers ne 0-11 tablet by ity of (EUTHYROX) 00:00: mouth [place] 100 mcg 00 every Medical tablet morning. [place] tiZANidine 2021-04 Yes [id number] 4mg Take 1 Univers 4 mg tablet 0-11 tablet by ity of 00:00: mouth [place] 00 every 6 Medical (six) Branch hours as needed (back pain and spasm). montelukast 2021-04 Yes [id number] 10mg Take 1 Univers 10 mg 0-11 tablet by ity of tablet 00:00: mouth [place] 00 every Medical morning. [place] levothyroxi 2021-04 Yes [id number] 100ug Take 1 Univers ne 0-11 tablet by ity of (EUTHYROX) 00:00: mouth [place] 100 mcg 00 every Medical tablet morning. [place] montelukast 2021-04 Yes [id number] 10mg Take 1 Univers 10 mg 0-11 tablet by ity of tablet 00:00: mouth [place] 00 every Medical morning. [place] levothyroxi 2021-04 Yes [id number] 100ug Take 1 Univers ne 0-11 tablet by ity of (EUTHYROX) 00:00: mouth [place] 100 mcg 00 every Medical tablet morning. [place] montelukast 2021-04 Yes [id number] 10mg Take 1 Univers 10 mg 0-11 tablet by ity of tablet 00:00: mouth [place] 00 every Medical morning. [place] levothyroxi 2021-04 Yes [id number] 100ug Take 1 Univers ne 0-11 tablet by ity of (EUTHYROX) 00:00: mouth [place] 100 mcg 00 every Medical tablet morning. [place] montelukast 2021-04 Yes [id number] 10mg Take 1 Univers 10 mg 0-11 tablet by ity of tablet 00:00: mouth [place] 00 every Medical morning. [place] levothyroxi 2021-04 Yes [id number] 100ug Take 1 Univers ne 0-11 tablet by ity of (EUTHYROX) 00:00: mouth [place] 100 mcg 00 every Medical tablet morning. [place] montelukast 2021-04 Yes [id number] 10mg Take 1 Univers 10 mg 0-11 tablet by ity of tablet 00:00: mouth [place] 00 every Medical morning. [place] levothyroxi 2021-04 Yes [id number] 100ug Take 1 Univers ne 0-11 tablet by ity of (EUTHYROX) 00:00: mouth [place] 100 mcg 00 every Medical tablet morning. [place] montelukast 2021-04 Yes [id number] 10mg Take 1 Univers 10 mg 0-11 tablet by ity of tablet 00:00: mouth [place] 00 every Medical morning. [place] levothyroxi 2021-04 Yes [id number] 100ug Take 1 Univers ne 0-11 tablet by ity of (EUTHYROX) 00:00: mouth [place] 100 mcg 00 every Medical tablet morning. [place] montelukast 2021-04 Yes [id number] 10mg Take 1 Univers 10 mg 0-11 tablet by ity of tablet 00:00: mouth [place] 00 every Medical morning. [place] levothyroxi 2021-04 Yes [id number] 100ug Take 1 Univers ne 0-11 tablet by ity of (EUTHYROX) 00:00: mouth [place] 100 mcg 00 every Medical tablet morning. [place] montelukast 2021-04 Yes [id number] 10mg Take 1 Univers 10 mg 0-11 tablet by ity of tablet 00:00: mouth [place] 00 every Medical morning. [place] levothyroxi 2021-04 Yes [id number] 100ug Take 1 Univers ne 0-11 tablet by ity of (EUTHYROX) 00:00: mouth [place] 100 mcg 00 every Medical tablet morning. [place] montelukast 2021-04 Yes [id number] 10mg Take 1 Univers 10 mg 0-11 tablet by ity of tablet 00:00: mouth [place] 00 every Medical morning. [place] levothyroxi 2021-04 Yes [id number] 100ug Take 1 Univers ne 0-11 tablet by ity of (EUTHYROX) 00:00: mouth [place] 100 mcg 00 every Medical tablet morning. [place] montelukast 2021-04 Yes [id number] 10mg Take 1 Univers 10 mg 0-11 tablet by ity of tablet 00:00: mouth [place] 00 every Medical morning. [place] levothyroxi 2021-04 Yes [id number] 100ug Take 1 Univers ne 0-11 tablet by ity of (EUTHYROX) 00:00: mouth [place] 100 mcg 00 every Medical tablet morning. [place] montelukast 2021-04 Yes [id number] 10mg Take 1 Univers 10 mg 0-11 tablet by ity of tablet 00:00: mouth [place] 00 every Medical morning. [place] levothyroxi 2021-04 Yes [id number] 100ug Take 1 Univers ne 0-11 tablet by ity of (EUTHYROX) 00:00: mouth [place] 100 mcg 00 every Medical tablet morning. [place] montelukast 2021-04 Yes [id number] 10mg Take 1 Univers 10 mg 0-11 tablet by ity of tablet 00:00: mouth [place] 00 every Medical morning. [place] levothyroxi 2021-04 Yes [id number] 100ug Take 1 Univers ne 0-11 tablet by ity of (EUTHYROX) 00:00: mouth [place] 100 mcg 00 every Medical tablet morning. [place] montelukast 2021-04 Yes [id number] 10mg Take 1 Univers 10 mg 0-11 tablet by ity of tablet 00:00: mouth [place] 00 every Medical morning. [place] levothyroxi 2021-04 Yes [id number] 100ug Take 1 Univers ne 0-11 tablet by ity of (EUTHYROX) 00:00: mouth [place] 100 mcg 00 every Medical tablet morning. [place] montelukast 2021-04 Yes [id number] 10mg Take 1 Univers 10 mg 0-11 tablet by ity of tablet 00:00: mouth [place] 00 every Medical morning. [place] levothyroxi 2021-04 Yes [id number] 100ug Take 1 Univers ne 0-11 tablet by ity of (EUTHYROX) 00:00: mouth [place] 100 mcg 00 every Medical tablet morning. [place] montelukast 2021-04 Yes [id number] 10mg Take 1 Univers 10 mg 0-11 tablet by ity of tablet 00:00: mouth [place] 00 every Medical morning. [place] levothyroxi 2021-04 Yes [id number] 100ug Take 1 Univers ne 0-11 tablet by ity of (EUTHYROX) 00:00: mouth [place] 100 mcg 00 every Medical tablet morning. [place] montelukast 2021-04 Yes [id number] 10mg Take 1 Univers 10 mg 0-11 tablet by ity of tablet 00:00: mouth [place] 00 every Medical morning. [place] levothyroxi 2021-04 Yes [id number] 100ug Take 1 Univers ne 0-11 tablet by ity of (EUTHYROX) 00:00: mouth [place] 100 mcg 00 every Medical tablet morning. [place] montelukast 2021-04 Yes [id number] 10mg Take 1 Univers 10 mg 0-11 tablet by ity of tablet 00:00: mouth [place] 00 every Medical morning. Branch levothyroxi 2021-04 Yes [id number] 100ug Take 1 Univers ne 0-11 tablet by ity of (EUTHYROX) 00:00: mouth [place] 100 mcg 00 every Medical tablet morning. Branch montelukast 2021-04 Yes [id number] 10mg Take 1 Univers 10 mg 0-11 tablet by ity of tablet 00:00: mouth [place] 00 every Medical morning. Branch levothyroxi 2021-04 Yes [id number] 100ug Take 1 Univers ne 0-11 tablet by ity of (EUTHYROX) 00:00: mouth [place] 100 mcg 00 every Medical tablet morning. Branch montelukast 2021-04 Yes [id number] 10mg Take 1 Univers 10 mg 0-11 tablet by ity of tablet 00:00: mouth [place] 00 every Medical morning. Branch levothyroxi 2021-04 Yes [id number] 100ug Take 1 Univers ne 0-11 tablet by ity of (EUTHYROX) 00:00: mouth [place] 100 mcg 00 every Medical tablet morning. Branch tiZANidine 2021-04 Yes [id number] 4mg Take 1 Univers 4 mg tablet 0-11 tablet by ity of 00:00: mouth [place] 00 every 6 Medical (six) Branch hours as needed (back pain and spasm). montelukast 2021-04 Yes [id number] 10mg Take 1 Univers 10 mg 0-11 tablet by ity of tablet 00:00: mouth [place] 00 every Medical morning. Branch levothyroxi 2021-04 Yes [id number] 100ug Take 1 Univers ne 0-11 tablet by ity of (EUTHYROX) 00:00: mouth [place] 100 mcg 00 every Medical tablet morning. Branch cefUROXime 2021-04 Yes [id number] 250mg Take 1 Univers 250 mg 0-11 tablet by ity of tablet 00:00: mouth in [place] 00 the Medical morning Branch and 1 tablet in the evening. tiZANidine 2021-04 Yes [id number] 4mg Take 1 Univers 4 mg tablet 0-11 tablet by ity of 00:00: mouth [place] 00 every 6 Medical (six) Branch hours as needed (back pain and spasm). montelukast 2021-04 Yes [id number] 10mg Take 1 Univers 10 mg 0-11 tablet by ity of tablet 00:00: mouth [place] 00 every Medical morning. Branch levothyroxi 2021-04 Yes [id number] 100ug Take 1 Univers ne 0-11 tablet by ity of (EUTHYROX) 00:00: mouth [place] 100 mcg 00 every Medical tablet morning. Branch cefUROXime 2021-04 Yes [id number] 250mg Take 1 Univers 250 mg 0-11 tablet by ity of tablet 00:00: mouth in [place] 00 the Medical morning Branch and 1 tablet in the evening. tiZANidine 2021-04 Yes [id number] 4mg Take 1 Univers 4 mg tablet 0-11 tablet by ity of 00:00: mouth [place] 00 every 6 Medical (six) Branch hours as needed (back pain and spasm). montelukast 2021-04 Yes [id number] 10mg Take 1 Univers 10 mg 0-11 tablet by ity of tablet 00:00: mouth [place] 00 every Medical morning. Branch levothyroxi 2021-04 Yes [id number] 100ug Take 1 Univers ne 0-11 tablet by ity of (EUTHYROX) 00:00: mouth [place] 100 mcg 00 every Medical tablet morning. Branch cefUROXime 2021-04 Yes [id number] 250mg Take 1 Univers 250 mg 0-11 tablet by ity of tablet 00:00: mouth in [place] 00 the Medical morning Branch and 1 tablet in the evening. tiZANidine 2021-04 Yes [id number] 4mg Take 1 Univers 4 mg tablet 0-11 tablet by ity of 00:00: mouth [place] 00 every 6 Medical (six) Branch hours as needed (back pain and spasm). montelukast 2021-04 Yes [id number] 10mg Take 1 Univers 10 mg 0-11 tablet by ity of tablet 00:00: mouth [place] 00 every Medical morning. Branch levothyroxi 2021-04 Yes [id number] 100ug Take 1 Univers ne 0-11 tablet by ity of (EUTHYROX) 00:00: mouth [place] 100 mcg 00 every Medical tablet morning. Branch tiZANidine 2021-04 Yes [id number] 4mg Take 1 Univers 4 mg tablet 0-11 tablet by ity of 00:00: mouth [place] 00 every 6 Medical (six) Branch hours as needed (back pain and spasm). montelukast 2021-04 Yes [id number] 10mg Take 1 Univers 10 mg 0-11 tablet by ity of tablet 00:00: mouth [place] 00 every Medical morning. Branch levothyroxi 2021-04 Yes [id number] 100ug Take 1 Univers ne 0-11 tablet by ity of (EUTHYROX) 00:00: mouth [place] 100 mcg 00 every Medical tablet morning. Branch montelukast 2021-04- No [id number] 10mg Take 1 Univers 10 mg 0-11 10-02 tablet by ity of tablet 00:00: 00:00 mouth [place] 00 :00 every Medical morning. Branch levothyroxi 2021-04- No [id number] 100ug Take 1 Univers ne 0-11 10-02 tablet by ity of (EUTHYROX) 00:00: 00:00 mouth [place] 100 mcg 00 :00 every Medical tablet morning. Branch tiZANidine 2021-04- No [id number] 4mg Take 1 Univers 4 mg tablet 0-11 02-03 tablet by it y of 00:00: 00:00 mouth [place] 00 :00 every 6 Medical (six) Branch hours as needed (back pain and spasm). cefUROXime 2021-04- No [id number] 250mg Take 1 Univers 250 mg 0-11 12-14 tablet by ity of tablet 00:00: 00:00 mouth in [place] 00 :00 the Medical morning Branch and 1 tablet in the evening. cefUROXime 2021-04- No [id number] 250mg Take 1 Univers 250 mg 0-11 [...] HOURS FOR Branch 10 DAYS Omeprazole Yes [id number] 20mg Take 1 Univers 20 mg 9-22 tablet by ity of tablet 00:00: mouth in [place] 00 the Medical morning. Branch Omeprazole Yes [id number] 20mg Take 1 Univers 20 mg 9-22 tablet by ity of tablet 00:00: mouth in [place] 00 the Medical morning. Branch Omeprazole 2022-0 Yes [id number] 20mg Take 1 Univers 20 mg 9-22 tablet by ity of tablet 00:00: mouth in [place] the Medical morning. Branch Omeprazole 2022-0 Yes [id number] 20mg Take 1 Univers 20 mg 9-22 tablet by ity of tablet 00:00: mouth in [place] the Medical morning. Branch Omeprazole 2022-0 Yes [id number] 20mg Take 1 Univers 20 mg 9-22 tablet by ity of tablet 00:00: mouth in [place] the Medical morning. Branch Omeprazole 2022-0 Yes [id number] 20mg Take 1 Univers 20 mg 9-22 tablet by ity of tablet 00:00: mouth in [place] the Medical morning. Branch Omeprazole 2022-0 Yes [id number] 20mg Take 1 Univers 20 mg 9-22 tablet by ity of tablet 00:00: mouth in [place] the Medical morning. Branch Omeprazole 2022-0 Yes [id number] 20mg Take 1 Univers 20 mg 9-22 tablet by ity of tablet 00:00: mouth in [place] the Medical morning. Branch Omeprazole 2022-0 Yes [id number] 20mg Take 1 Univers 20 mg 9-22 tablet by ity of tablet 00:00: mouth in [place] the Medical morning. Branch Omeprazole 2022-0 Yes [id number] 20mg Take 1 Univers 20 mg 9-22 tablet by ity of tablet 00:00: mouth in [place] the Medical morning. Branch Omeprazole 2022-0 Yes [id number] 20mg Take 1 Univers 20 mg 9-22 tablet by ity of tablet 00:00: mouth in [place] the Medical morning. Branch Omeprazole 2022-0 Yes [id number] 20mg Take 1 Univers 20 mg 9-22 tablet by ity of tablet 00:00: mouth in [place] 00 the Medical morning. Branch Omeprazole 2022-0 Yes [id number] 20mg Take 1 Univers 20 mg 9-22 tablet by ity of tablet 00:00: mouth in [place] 00 the Medical morning. Branch Omeprazole 2022-0 Yes [id number] 20mg Take 1 Univers 20 mg 9-22 tablet by ity of tablet 00:00: mouth in [place] the Medical morning. Branch Omeprazole 2022-0 Yes [id number] 20mg Take 1 Univers 20 mg 9-22 tablet by ity of tablet 00:00: mouth in [place] the Medical morning. Branch Omeprazole 2022-0 Yes [id number] 20mg Take 1 Univers 20 mg 9-22 tablet by ity of tablet 00:00: mouth in [place] the Medical morning. Branch Omeprazole 2022-0 Yes [id number] 20mg Take 1 Univers 20 mg 9-22 tablet by ity of tablet 00:00: mouth in [place] the Medical morning. Branch Omeprazole 2022-0 Yes [id number] 20mg Take 1 Univers 20 mg 9-22 tablet by ity of tablet 00:00: mouth in [place] the Medical morning. Branch Omeprazole 2022-0 Yes [id number] 20mg Take 1 Univers 20 mg 9-22 tablet by ity of tablet 00:00: mouth in [place] the Medical morning. Branch Omeprazole 2022-0 Yes [id number] 20mg Take 1 Univers 20 mg 9-22 tablet by ity of tablet 00:00: mouth in [place] the Medical morning. Branch Omeprazole 2022-0 Yes [id number] 20mg Take 1 [facility] 20 mg 9-22 tablet by ity of tablet 00:00: mouth in [place] the Medical morning. Branch Omeprazole 2022-0 Yes [id number] 20mg Take 1 [facility] 20 mg 9-22 tablet by ity of tablet 00:00: mouth in [place] the Medical morning. Branch Omeprazole 2022-0 Yes [id number] 20mg Take 1 [facility] 20 mg 9-22 tablet by ity of tablet 00:00: mouth in [place] the Medical morning. Branch Omeprazole 2022-0 Yes [id number] 20mg Take 1 [facility] 20 mg 9-22 tablet by ity of tablet 00:00: mouth in [place] the Medical morning. Branch Omeprazole 2022-0 Yes [id number] 20mg Take 1 [facility] 20 mg 9-22 tablet by ity of tablet 00:00: mouth in [place] the Medical morning. Branch Omeprazole 2022-0 Yes [id number] 20mg Take 1 [facility] 20 mg 9-22 tablet by ity of tablet 00:00: mouth in [place] the Medical morning. Branch Omeprazole 2022-0 Yes [id number] 20mg Take 1 [facility] 20 mg 9-22 tablet by ity of tablet 00:00: mouth in [place] the Medical morning. Branch Omeprazole 2022-0 Yes [id number] 20mg Take 1 [facility] 20 mg 9-22 tablet by ity of tablet 00:00: mouth in [place] the Medical morning. Branch Omeprazole 2022-0 Yes [id number] 20mg Take 1 [facility] 20 mg 9-22 tablet by ity of tablet 00:00: mouth in [place] the Medical morning. Branch Omeprazole 2022-0 Yes [id number] 20mg Take 1 [facility] 20 mg 9-22 tablet by ity of tablet 00:00: mouth in [place] the Medical morning. Branch busPIRone 2022-0 Yes 10mg Take 10 mg [facility] [place] 10 mg 8-22 by mouth 2 ity of tablet 00:00: (two) [place] 00 times Medical daily as Branch needed. [...] 2 ity of tablet 00:00: (two) [place] 00 times Medical daily as Branch needed. [...] daily as Branch needed. BUSPIRONE 5 Yes [id number] Take 1 [facility] mg tablet 8-04 tablet by ity o f 00:00: mouth [place] 00 twice Medical daily Branch BUSPIRONE 5 Yes [id number] Take 1 [facility] mg tablet 8-04 tablet by ity o f 00:00: mouth [place] 00 twice Medical daily Branch BUSPIRONE 5 0 2021- No [id number] Take 1 [facility] mg tablet 812-28 tablet by ity of 00:00: 00:00 mouth [place] 00 :00 twice Medical daily Branch BUSPIRONE 5 2021- No [id number] Take 1 [facility] mg tablet 812-28 tablet by ity of 00:00: 00:00 mouth [place] 00 :00 twice Medical daily Branch BUSPIRONE 5 0 Yes [id number] Take 1 [facility] mg tablet 7-05 tablet by ity o f 00:00: mouth [place] 00 twice Medical daily Branch BUSPIRONE 5 2021-0 2021- No [id number] Take 1 [facility] mg tablet 7 08- tablet by ity of 00:00: 00:00 mouth [place] 00 :00 twice Medical daily Branch BUSPIRONE 5 0 Yes [id number] Take 1 [facility] mg tablet 6-06 tablet by ity o f 00:00: mouth [place] 00 twice Medical daily Branch BUSPIRONE 5 2021-0 2021- No [id number] Take 1 [facility] mg tablet 6- 07-05 tablet by ity of 00:00: 00:00 mouth [place] 00 :00 twice Medical daily Branch tiZANidine 2021-0 Yes [id number] 4mg Take 1 [facility] 4 mg tablet 5-02 tablet by ity of 00:00: mouth [place] 00 every 6 Medical (six) Branch hours as needed (back pain and spasm). tiZANidine 2021-0 Yes [id number] 4mg Take 1 [facility] 4 mg tablet 5-02 tablet by ity of 00:00: mouth [place] 00 every 6 Medical (six) Branch hours as needed (back pain and spasm). tiZANidine 2022-0 Yes [id number] 4mg Take 1 [facility] 4 mg tablet 5-02 tablet by ity of 00:00: mouth [place] 00 every 6 Medical (six) Branch hours as needed (back pain and spasm). tiZANidine 2-0 Yes [id number] 4mg Take 1 [facility] 4 mg tablet 5-02 tablet by ity of 00:00: mouth [place] 00 every 6 Medical (six) Branch hours as needed (back pain and spasm). tiZANidine 2-0 Yes [id number] 4mg Take 1 [facility] 4 mg tablet 5-02 tablet by ity of 00:00: mouth [place] 00 every 6 Medical (six) Branch hours as needed (back pain and spasm). tiZANidine 2-0 Yes [id number] 4mg Take 1 [facility] 4 mg tablet 5-02 tablet by ity of 00:00: mouth [place] 00 every 6 Medical (six) Branch hours as needed (back pain and spasm). tiZANidine 2021-0 Yes [id number] 4mg Take 1 [facility] 4 mg tablet 5-02 tablet by ity of 00:00: mouth [place] 00 every 6 Medical (six) Branch hours as needed (back pain and spasm). tiZANidine 2021-0 Yes [id number] 4mg Take 1 [facility] 4 mg tablet 5-02 tablet by ity of 00:00: mouth [place] 00 every 6 Medical (six) Branch hours as needed (back pain and spasm). tiZANidine 2-0 Yes [id number] 4mg Take 1 [facility] 4 mg tablet 5-02 tablet by ity of 00:00: mouth [place] 00 every 6 Medical (six) Branch hours as needed (back pain and spasm). tiZANidine 2-0 Yes [id number] 4mg Take 1 [facility] 4 mg tablet 5-02 tablet by ity of 00:00: mouth [place] 00 every 6 Medical (six) Branch hours as needed (back pain and spasm). tiZANidine 2022-0 Yes [id number] 4mg Take 1 [facility] 4 mg tablet 5-02 tablet by ity of 00:00: mouth [place] 00 every 6 Medical (six) Branch hours as needed (back pain and spasm). tiZANidine 2022-0 2022- No [id number] 4mg Take 1 [facility] 4 mg tablet 5-02 10-11 tablet by it y of 00:00: 00:00 mouth [place] 00 :00 every 6 Medical (six) Branch hours as needed (back pain and spasm). tiZANidine 0 2021- No [id number] 4mg Take 1 [facility] 4 mg tablet 08-07 10-11 tablet by it y of 00:00: 00:00 mouth [place] 00 :00 every 6 Medical (six) Branch hours as needed (back pain and spasm). cefdinir 2021-0 Yes 300mg 300 mg. [facility] rs 300 mg -27 ity of capsule 00:00: [place] 00 Medical Branch cefdinir 2021-0 Yes 300mg 300 mg. [facility] rs 300 mg -27 ity of capsule 00:00: [place] 00 Medical Branch cefdinir 2021-0 Yes 300mg 300 mg. [facility] rs 300 mg -27 ity of capsule 00:00: [place] 00 Medical Branch cefdinir 2021-0 Yes 300mg 300 mg. [facility] rs 300 mg -27 ity of capsule 00:00: [place] 00 Medical Branch cefdinir 2021-0 Yes 300mg 300 mg. [facility] rs 300 mg -27 ity of capsule 00:00: [place] 00 Medical Branch cefdinir 2021-0 Yes 300mg 300 mg. [facility] rs 300 mg -27 ity of capsule 00:00: [place] 00 Medical Branch cefdinir 2021-0 2021- No 300mg 300 mg. [facility] ers 300 mg 08-02 ity of capsule 00:00: 00:00 [place] 00 :00 Medical Branch cefdinir 2021-0 2021- No 300mg 300 mg. [facility] ers 300 mg 08-02 ity of capsule 00:00: 00:00 [place] 00 :00 Medical Branch levothyroxi 2021-0 Yes [id number] 100ug Take 1 [facility] ne 4-08 tablet by ity of (EUTHYROX) 00:00: mouth [place] 100 mcg 00 every Medical tablet morning. Branch montelukast 2021-0 Yes [id number] 10mg Take 1 [facility] 10 mg 4-08 tablet by ity of tablet 00:00: mouth [place] 00 every Medical morning. Branch levothyroxi 2021-0 Yes [id number] 100ug Take 1 [facility] ne 4-08 tablet by ity of (EUTHYROX) 00:00: mouth [place] 100 mcg 00 every Medical tablet morning. Branch montelukast 2021-0 Yes [id number] 10mg Take 1 [facility] 10 mg 4-08 tablet by ity of tablet 00:00: mouth [place] 00 every Medical morning. Branch levothyroxi 2021-0 Yes [id number] 100ug Take 1 [facility] ne 4-08 tablet by ity of (EUTHYROX) 00:00: mouth [place] 100 mcg 00 every Medical tablet morning. Branch montelukast 2021-0 Yes [id number] 10mg Take 1 [facility] 10 mg 4-08 tablet by ity of tablet 00:00: mouth [place] 00 every Medical morning. Branch levothyroxi 2021-0 Yes [id number] 100ug Take 1 [facility] ne 4-08 tablet by ity of (EUTHYROX) 00:00: mouth [place] 100 mcg 00 every Medical tablet morning. Branch montelukast 2021-0 Yes [id number] 10mg Take 1 [facility] 10 mg 4-08 tablet by ity of tablet 00:00: mouth [place] 00 every Medical morning. Branch levothyroxi 2021-0 Yes [id number] 100ug Take 1 [facility] ne 4-08 tablet by ity of (EUTHYROX) 00:00: mouth [place] 100 mcg 00 every Medical tablet morning. Branch montelukast 2021-0 Yes [id number] 10mg Take 1 [facility] 10 mg 4-08 tablet by ity of tablet 00:00: mouth [place] 00 every Medical morning. Branch levothyroxi 2021-0 Yes [id number] 100ug Take 1 [facility] ne 4-08 tablet by ity of (EUTHYROX) 00:00: mouth [place] 100 mcg 00 every Medical tablet morning. Branch montelukast 2021-0 Yes [id number] 10mg Take 1 [facility] 10 mg 4-08 tablet by ity of tablet 00:00: mouth [place] 00 every Medical morning. Branch levothyroxi 2021-0 Yes [id number] 100ug Take 1 [facility] ne 4-08 tablet by ity of (EUTHYROX) 00:00: mouth [place] 100 mcg 00 every Medical tablet morning. Branch montelukast 2021-0 Yes [id number] 10mg Take 1 [facility] 10 mg 4-08 tablet by ity of tablet 00:00: mouth [place] 00 every Medical morning. Branch levothyroxi 2021-0 Yes [id number] 100ug Take 1 [facility] ne 4-08 tablet by ity of (EUTHYROX) 00:00: mouth [place] 100 mcg 00 every Medical tablet morning. Branch montelukast 0 Yes [id number] 10mg Take 1 [facility] 10 mg 4-08 tablet by ity of tablet 00:00: mouth [place] 00 every Medical morning. Branch levothyroxi 0 Yes [id number] 100ug Take 1 [facility] ne 4-08 tablet by ity of (EUTHYROX) 00:00: mouth [place] 100 mcg 00 every Medical tablet morning. Branch montelukast 0 Yes [id number] 10mg Take 1 [facility] 10 mg 4-08 tablet by ity of tablet 00:00: mouth [place] 00 every Medical morning. Branch levothyroxi 0 Yes [id number] 100ug Take 1 [facility] ne 4-08 tablet by ity of (EUTHYROX) 00:00: mouth [place] 100 mcg 00 every Medical tablet morning. Branch montelukast 2021-0 Yes [id number] 10mg Take 1 [facility] 10 mg 4-08 tablet by ity of tablet 00:00: mouth [place] 00 every Medical morning. Branch levothyroxi 0 Yes [id number] 100ug Take 1 [facility] ne 4-08 tablet by ity of (EUTHYROX) 00:00: mouth [place] 100 mcg 00 every Medical tablet morning. Branch montelukast 0 Yes [id number] 10mg Take 1 [facility] 10 mg 4-08 tablet by ity of tablet 00:00: mouth [place] 00 every Medical morning. Branch levothyroxi 2021- No [id number] 100ug Take 1 [facility] ne 4-08 10-11 tablet by ity of (EUTHYROX) 00:00: 00:00 mouth [place] 100 mcg 00 :00 every Medical tablet morning. Branch montelukast 2021-0 2021- No [id number] 10mg Take 1 [facility] 10 mg 4-08 10-11 tablet by ity of tablet 00:00: 00:00 mouth [place] 00 :00 every Medical morning. Branch levothyroxi 2021- No [id number] 100ug Take 1 [facility] ne 4-08 10-11 tablet by ity of (EUTHYROX) 00:00: 00:00 mouth [place] 100 mcg 00 :00 every Medical tablet morning. Branch montelukast 2021- No [id number] 10mg Take 1 [facility] 10 mg 4-08 10-11 tablet by ity of tablet 00:00: 00:00 mouth [place] 00 :00 every Medical morning. Branch methylPREDN 2021- No [id number] Take by [facility] ISolone 05-29 mouth ity of (MEDROL, 00:00: 00:00 [place] 4 mg 00 :00 CTIONS. Medica l tablets follow [place] package directions methocarbam 2021- No [id number] 500mg Take 1 [facility] oL 05-29 tablet by ity of (ROBAXIN) 00:00: 00:00 [place] 00 :00 (four) Medical tablet times [place] daily as needed for Other (muscle tightness) . citalopram Yes 40mg Take 40 mg U nivers 40 mg 6-25 by mouth ity of tablet 14:32: daily. [address] citalopram Yes 40mg Take 40 mg U nivers 40 mg 6-25 by mouth ity of tablet 14:32: daily. [address] citalopram Yes 40mg Take 40 mg U nivers 40 mg 6-25 by mouth ity of tablet 14:32: daily. [address] citalopram Yes 40mg Take 40 mg U nivers 40 mg 6-25 by mouth ity of tablet 14:32: daily. [address] citalopram Yes 40mg Take 40 mg U nivers 40 mg 6-25 by mouth ity of tablet 14:32: daily. [address] citalopram Yes 40mg Take 40 mg U nivers 40 mg 6-25 by mouth ity of tablet 14:32: daily. [address] citalopram Yes 40mg Take 40 mg U nivers 40 mg 6-25 by mouth ity of tablet 14:32: daily. [address] citalopram Yes 40mg Take 40 mg U nivers 40 mg 6-25 by mouth ity of tablet 14:32: daily. [place] 47 Medical Branch citalopram 0 Yes 40mg Take 40 mg U nivers 40 mg 6-25 by mouth ity of tablet 14:32: daily. [address] Branch citalopram 0 Yes 40mg Take 40 mg U nivers 40 mg 6-25 by mouth ity of tablet 14:32: daily. [address] Branch citalopram 0 Yes 40mg Take 40 mg U nivers 40 mg 6-25 by mouth ity of tablet 14:32: daily. [address] Branch citalopram 0 Yes 40mg Take 40 mg U nivers 40 mg 6-25 by mouth ity of tablet 14:32: daily. [address] Branch citalopram 0 Yes 40mg Take 40 mg U nivers 40 mg 6-25 by mouth ity of tablet 14:32: daily. [address] Branch citalopram 0 Yes 40mg Take 40 mg U nivers 40 mg 6-25 by mouth ity of tablet 14:32: daily. [address] Branch citalopram 0 Yes 40mg Take 40 mg U nivers 40 mg 6-25 by mouth ity of tablet 14:32: daily. [address] Branch citalopram 0 Yes 40mg Take 40 mg U nivers 40 mg 6-25 by mouth ity of tablet 14:32: daily. [address] Branch citalopram 0 Yes 40mg Take 40 mg U nivers 40 mg 6-25 by mouth ity of tablet 14:32: daily. [address] Branch citalopram 0 Yes 40mg Take 40 mg U nivers 40 mg 6-25 by mouth ity of tablet 14:32: daily. [address] Branch citalopram 0 Yes 40mg Take 40 mg U nivers 40 mg 6-25 by mouth ity of tablet 14:32: daily. [address] Branch citalopram 0 Yes 40mg Take 40 mg U nivers 40 mg 6-25 by mouth ity of tablet 14:32: daily. [address] Branch citalopram 0 Yes 40mg Take 40 mg U nivers 40 mg 6-25 by mouth ity of tablet 14:32: daily. [address] Branch citalopram Yes 40mg Take 40 mg U nivers 40 mg 6-25 by mouth ity of tablet 14:32: daily. [address] citalopram 0 Yes 40mg Take 40 mg U nivers 40 mg 6-25 by mouth ity of tablet 14:32: daily. [address] Branch citalopram Yes 40mg Take 40 mg U nivers 40 mg 6-25 by mouth ity of tablet 14:32: daily. [address] citalopram 0 Yes 40mg Take 40 mg U nivers 40 mg 6-25 by mouth ity of tablet 14:32: daily. [address] citalopram 0 Yes 40mg Take 40 mg U nivers 40 mg 6-25 by mouth ity of tablet 14:32: daily. [address] citalopram Yes 40mg Take 40 mg U nivers 40 mg 6-25 by mouth ity of tablet 14:32: daily. [address] citalopram Yes 40mg Take 40 mg U nivers 40 mg 6-25 by mouth ity of tablet 14:32: daily. [address] citalopram 0 Yes 40mg Take 40 mg U nivers 40 mg 6-25 by mouth ity of tablet 14:32: daily. [address] citalopram Yes 40mg Take 40 mg U nivers 40 mg 6-25 by mouth ity of tablet 14:32: daily. [address] citalopram 0 Yes 40mg Take 40 mg U nivers 40 mg 6-25 by mouth ity of tablet 14:32: daily. [address] citalopram 0 Yes 40mg Take 40 mg U nivers 40 mg 6-25 by mouth ity of tablet 14:32: daily. [address] busPIRone 5 0 Yes [id number] 5mg Take 1 [facility] mg tablet 6-18 tablet by ity o f 00:00: mouth 2 [place] [address] (two) Medical times Branch daily. busPIRone 5 0 Yes [id number] 5mg Take 1 [facility] mg tablet 6-18 tablet by ity o f 00:00: mouth 2 [place] [address] (two) Medical times Branch daily. busPIRone 5 2020-0 2022- No [id number] 5mg Take 1 [facility] mg tablet 6-18 06-06 tablet by ity of 00:00: 00:00 mouth 2 [place] 00 : (two) Medical times Branch daily. amLODIPine 1-0 Yes 5mg Take 5 mg [facility] [place] 5 mg tablet 6-17 by mouth ity of 00:00: daily. [place] [facility] Branch amLODIPine 1-0 Yes 5mg Take 5 mg [facility] [place] [place] 5 mg tablet 6-17 by mouth ity of 00:00: daily. [place] [facility] Branch amLODIPine 1-0 Yes 5mg Take 5 mg [facility] [place] [place] 5 mg tablet 6-17 by mouth ity of 00:00: daily. [place] [facility] amLODIPine 1-0 Yes 5mg Take 5 mg [facility] [place] 5 mg tablet 6-17 by mouth ity of 00:00: daily. [place] [facility] amLODIPine 1-0 Yes 5mg Take 5 mg [facility] [place] 5 mg tablet 6-17 by mouth ity of 00:00: daily. [place] [facility] amLODIPine 1-0 Yes 5mg Take 5 mg [facility] [place] 5 mg tablet 6-17 by mouth ity of 00:00: daily. [place] [facility] amLODIPine 1-0 Yes 5mg Take 5 mg [facility] [place] 5 mg tablet 6-17 by mouth ity of 00:00: daily. [place] [facility] amLODIPine 1-0 Yes 5mg Take 5 mg [facility] [place] 5 mg tablet 6-17 by mouth ity of 00:00: daily. [place] [facility] amLODIPine 1-0 Yes 5mg Take 5 mg [facility] [place] 5 mg tablet 6-17 by mouth ity of 00:00: daily. [place] [facility] amLODIPine 1-0 Yes 5mg Take 5 mg [facility] [place] 5 mg tablet 6-17 by mouth ity of 00:00: daily. [place] [facility] Branch amLODIPine 2021-0 Yes 5mg Take 5 mg [facility] [place] 5 mg tablet 6-17 by mouth ity of 00:00: daily. [address] Branch amLODIPine 1-0 Yes 5mg Take 5 mg [facility] [place] [place] 5 mg tablet 6-17 by mouth ity of 00:00: daily. [place] [facility] amLODIPine 2021-0 Yes 5mg Take 5 mg [facility] [place] 5 mg tablet 6-17 by mouth ity of 00:00: daily. [place] [facility] Branch amLODIPine 1-0 Yes 5mg Take 5 mg [facility] [place] 5 mg tablet 6-17 by mouth ity of 00:00: daily. [place] [facility] amLODIPine 2021-0 Yes 5mg Take 5 mg [facility] [place] 5 mg tablet 6-17 by mouth ity of 00:00: daily. [place] [facility] amLODIPine 1-0 Yes 5mg Take 5 mg [facility] [place] 5 mg tablet 6-17 by mouth ity of 00:00: daily. [place] [facility] amLODIPine 1-0 Yes 5mg Take 5 mg [facility] [place] 5 mg tablet 6-17 by mouth ity of 00:00: daily. [place] [facility] amLODIPine 1-0 Yes 5mg Take 5 mg [facility] [place] 5 mg tablet 6-17 by mouth ity of 00:00: daily. [place] [facility] amLODIPine 1-0 Yes 5mg Take 5 mg [facility] [place] 5 mg tablet 6-17 by mouth ity of 00:00: daily. [place] [facility] amLODIPine 1-0 Yes 5mg Take 5 mg [facility] [place] 5 mg tablet 6-17 by mouth ity of 00:00: daily. [place] [facility] amLODIPine 1-0 Yes 5mg Take 5 mg [facility] [place] 5 mg tablet 6-17 by mouth ity of 00:00: daily. [place] [facility] amLODIPine 1-0 Yes 5mg Take 5 mg [facility] [place] 5 mg tablet 6-17 by mouth ity of 00:00: daily. [place] [facility] amLODIPine 1-0 Yes 5mg Take 5 mg [facility] [place] 5 mg tablet 6-17 by mouth ity of 00:00: daily. [place] [facility] amLODIPine 1-0 Yes 5mg Take 5 mg [place] 5 mg tablet 6-17 by mouth ity of 00:00: daily. [place] [facility] amLODIPine 1-0 Yes 5mg Take 5 mg [facility] [place] 5 mg tablet 6-17 by mouth ity of 00:00: daily. [place] [facility] amLODIPine 1-0 Yes 5mg Take 5 mg [facility] [place] 5 mg tablet 6-17 by mouth ity of 00:00: daily. [place] [facility] amLODIPine 1-0 Yes 5mg Take 5 mg [facility] [place] 5 mg tablet 6-17 by mouth ity of 00:00: daily. [place] [facility] amLODIPine 2020-0 Yes 5mg Take 5 mg [facility] [place] 5 mg tablet 6-17 by mouth ity of 00:00: daily. [place] [facility] amLODIPine 2020-0 Yes 5mg Take 5 mg [facility] [place] 5 mg tablet 6-17 by mouth ity of 00:00: daily. [place] [facility] amLODIPine 2020-0 Yes 5mg Take 5 mg [facility] [place] 5 mg tablet 6-17 by mouth ity of 00:00: daily. [place] [facility] amLODIPine 2020-0 Yes 5mg Take 5 mg [facility] [place] 5 mg tablet 6-17 by mouth ity of 00:00: daily. [place] [facility] amLODIPine 2020-0 Yes 5mg Take 5 mg [facility] [place] 5 mg tablet 6-17 by mouth ity of 00:00: daily. [place] [facility] amLODIPine 2020-0 Yes 5mg Take 5 mg [facility] [place] 5 mg tablet 6-17 by mouth ity of 00:00: daily. [place] [facility] amLODIPine 2020-0 Yes 5mg Take 5 mg [facility] [place] 5 mg tablet 6-17 by mouth ity of 00:00: daily. [place] [facility] amLODIPine 2020-0 Yes 5mg Take 5 mg [facility] [place] 5 mg tablet 6-17 by mouth ity of 00:00: daily. [place] [facility] amLODIPine 2020-0 Yes 5mg Take 5 mg [place] 5 mg tablet 6-17 by mouth ity of 00:00: daily. [place] [facility] amLODIPine 2020-0 Yes 5mg Take 5 mg [facility] [place] 5 mg tablet 6-17 by mouth ity of 00:00: daily. [place] [facility] metoprolol 2019- Yes 50mg Take 50 mg U nivers succinate 1-13 by mouth ity of XL 50 mg 24 13:56: [facility] [place] [facility] vit 2019- Yes Take by [facility] C/E/Zn/jacqueline 1-13 mouth. ity of r/lutein/ze 13:56: Sharif axan 17 Medical ([facility]ERV[facility] Branch ON AREDS-2 ORAL) metoprolol 2019-04 Yes 50mg Take 50 mg U nivers succinate 1-13 by mouth ity of XL 50 mg 24 13:56: [place]. [place] hr tablet [address] [place] [address] vit 2019- Yes Take by [facility] C/E/Zn/jacqueline 1-13 mouth. ity of r/lutein/ze 13:56: [address] ([facility]ERV[facility] Branch ON AREDS-2 ORAL) metoprolol 2019-04 Yes 50mg Take 50 mg U nivers succinate 1-13 by mouth ity of XL 50 mg 24 13:56: daily. [place] hr tablet [address] [place] [address] vit 2019-04 Yes Take by [facility] C/E/Zn/jacqueline 1-13 mouth. ity of r/lutein/ze 13:56: [address] ([facility]ERV[facility] Branch ON AREDS-2 ORAL) metoprolol 2019-04 Yes 50mg Take 50 mg U nivers succinate 1-13 by mouth ity of XL 50 mg 24 13:56: daily. [place] hr tablet [address] [place] [address] vit 2019-04 Yes Take by [facility] C/E/Zn/jacqueline 1-13 mouth. ity of r/lutein/ze 13:56: [address] ([facility] Branch ON AREDS-2 ORAL) metoprolol 2019-04 Yes 50mg Take 50 mg U nivers succinate 1-13 by mouth ity of XL 50 mg 24 13:56: daily. [place] hr tablet [address] [place] [address] vit 2019-04 Yes Take by [facility] C/E/Zn/jacqueline 1-13 mouth. ity of r/lutein/ze 13:56: [address] ([facility]ERV[facility] Branch ON AREDS-2 ORAL) metoprolol 2019-04 Yes 50mg Take 50 mg U nivers succinate 1-13 by mouth ity of XL 50 mg 24 13:56: daily. [place] hr tablet [address] [place] [address] vit 2019-04 Yes Take by [facility] C/E/Zn/jacqueline 1-13 mouth. ity of r/lutein/ze 13:56: [address] ([facility] Branch ON AREDS-2 ORAL) metoprolol 2019-04 Yes 50mg Take 50 mg U nivers succinate 1-13 by mouth ity of XL 50 mg 24 13:56: daily. [place] hr tablet [address] [place] [address] vit 2020- Yes Take by Univers C/E/Zn/jacqueline 1-13 mouth. ity of r/lutein/ze 13:56: [address] ([facility] Branch ON AREDS-2 ORAL) metoprolol 2019-04 Yes 50mg Take 50 mg U nivers succinate 1-13 by mouth ity of XL 50 mg 24 13:56: daily. [place] hr tablet [address] [place] [address] vit 2019-04 Yes Take by Univers C/E/Zn/jacqueline 1-13 mouth. ity of r/lutein/ze 13:56: [address] ([facility] Branch ON AREDS-2 ORAL) metoprolol 2019-04 Yes 50mg Take 50 mg U nivers succinate 1-13 by mouth ity of XL 50 mg 24 13:56: daily. [place] hr tablet [address] [place] [address] vit 2019-04 Yes Take by [facility] C/E/Zn/jacqueline 1-13 mouth. ity of r/lutein/ze 13:56: [address] ([facility] Branch ON AREDS-2 ORAL) metoprolol 2019-04 Yes 50mg Take 50 mg U nivers succinate 1-13 by mouth ity of XL 50 mg 24 13:56: daily. [place] hr tablet [address] [place] [address] vit 2019-04 Yes Take by Univers C/E/Zn/jacqueline 1-13 mouth. ity of r/lutein/ze 13:56: [address] [facility] ON AREDS-2 ORAL) metoprolol 2019-04 Yes 50mg Take 50 mg U nivers succinate 1-13 by mouth ity of XL 50 mg 24 13:56: daily. [place] hr tablet [address] [place] [address] vit 2019-04 Yes Take by Univers C/E/Zn/jacqueline 1-13 mouth. ity of r/lutein/ze 13:56: [address] ([facility] Branch ON AREDS-2 ORAL) metoprolol 2019-04 Yes 50mg Take 50 mg U nivers succinate 1-13 by mouth ity of XL 50 mg 24 13:56: daily. [place] hr tablet [address] [place] [address] vit 2019- Yes Take by Univers C/E/Zn/jacqueline 1-13 mouth. ity of r/lutein/ze 13:56: [address] ([facility] Branch ON AREDS-2 ORAL) metoprolol 2019-04 Yes 50mg Take 50 mg U nivers succinate 1-13 by mouth ity of XL 50 mg 24 13:56: daily. [place] hr tablet [address] [place] [address] vit 2019-04 Yes Take by Univers C/E/Zn/jacqueline 1-13 mouth. ity of r/lutein/ze 13:56: [address] ([facility] Branch ON AREDS-2 ORAL) metoprolol 2019-04 Yes 50mg Take 50 mg U nivers succinate 1-13 by mouth ity of XL 50 mg 24 13:56: daily. [place] hr tablet [address] [place] [address] vit 2019-04 Yes Take by [facility] C/E/Zn/jacqueline 1-13 mouth. ity of r/lutein/ze 13:56: [address] ([facility] Branch ON AREDS-2 ORAL) metoprolol 2019-04 Yes 50mg Take 50 mg U nivers succinate 1-13 by mouth ity of XL 50 mg 24 13:56: daily. [place] hr tablet [address] [place] [address] vit 2019-04 Yes Take by [facility] C/E/Zn/jacqueline 1-13 mouth. ity of r/lutein/ze 13:56: [address] ([facility] Branch ON AREDS-2 ORAL) metoprolol 2019-04 Yes 50mg Take 50 mg U nivers succinate 1-13 by mouth ity of XL 50 mg 24 13:56: daily. [place] hr tablet [address] [place] [address] vit 2019-04 Yes Take by [facility] C/E/Zn/jacqueline 1-13 mouth. ity of r/lutein/ze 13:56: [address] ([facility] Branch ON AREDS-2 ORAL) metoprolol 2019-04 Yes 50mg Take 50 mg U nivers succinate 1-13 by mouth ity of XL 50 mg 24 13:56: daily. [place] hr tablet [address] [place] [address] vit 2019-04 Yes Take by Univers C/E/Zn/jacqueline 1-13 mouth. ity of r/lutein/ze 13:56: [address] ([facility] ON AREDS-2 ORAL) metoprolol 2019-04 Yes 50mg Take 50 mg U nivers succinate 1-13 by mouth ity of XL 50 mg 24 13:56: [place] [address] [place] [address] vit 2019- Yes Take by Univers C/E/Zn/jacqueline 1-13 mouth. ity of r/lutein/ze 13:56: [address] ([facility] ON AREDS-2 ORAL) metoprolol 2019-04 Yes 50mg Take 50 mg U nivers succinate 1-13 by mouth ity of XL 50 mg 24 13:56: [place]. [place] [address] [place] [address] vit 2019-04 Yes Take by Univers C/E/Zn/jacqueline 1-13 mouth. ity of r/lutein/ze 13:56: [address] ([facility] ON AREDS-2 ORAL) metoprolol 2019-04 Yes 50mg Take 50 mg U nivers succinate 1-13 by mouth ity of XL 50 mg 24 13:56: [place]. [place] [address] [place] [address] vit 2019-04 Yes Take by Univers C/E/Zn/jacqueline 1-13 mouth. ity of r/lutein/ze 13:56: [address] ([facility] ON AREDS-2 ORAL) metoprolol 2019-04 Yes 50mg Take 50 mg U nivers succinate 1-13 by mouth ity of XL 50 mg 24 13:56: [place]. [place] [address] [place] [address] vit 2019-04 Yes Take by Univers C/E/Zn/jacqueline 1-13 mouth. ity of r/lutein/ze 13:56: [address] ([facility] ON AREDS-2 ORAL) metoprolol 2019-04 Yes 50mg Take 50 mg U nivers succinate 1-13 by mouth ity of XL 50 mg 24 13:56: daily. [place] [address] [place] [address] vit 2019- Yes Take by Univers C/E/Zn/jacqueline 1-13 mouth. ity of r/lutein/ze 13:56: [address] ([facility] ON AREDS-2 ORAL) metoprolol 2019-04 Yes 50mg Take 50 mg U nivers succinate 1-13 by mouth ity of XL 50 mg 24 13:56: daily. [place] [address] [place] [address] vit 2019- Yes Take by Univers C/E/Zn/jacqueline 1-13 mouth. ity of r/lutein/ze 13:56: [address] ([facility] ON AREDS-2 ORAL) metoprolol 2019-04 Yes 50mg Take 50 mg U nivers succinate 1-13 by mouth ity of XL 50 mg 24 13:56: daily. [place] [address] [place] [address] vit 2019-04 Yes Take by Univers C/E/Zn/jacqueline 1-13 mouth. ity of r/lutein/ze 13:56: [address] ([facility] ON AREDS-2 ORAL) metoprolol 2019-04 Yes 50mg Take 50 mg U nivers succinate 1-13 by mouth ity of XL 50 mg 24 13:56: daily. [place] [address] [place] [address] vit 2019-04 Yes Take by Univers C/E/Zn/jacqueline 1-13 mouth. ity of r/lutein/ze 13:56: [address] ([facility] ON AREDS-2 ORAL) metoprolol 2019-04 Yes 50mg Take 50 mg U nivers succinate 1-13 by mouth ity of XL 50 mg 24 13:56: daily. [place] [address] [place] [address] vit 2019-04 Yes Take by Univers C/E/Zn/jacqueline 1-13 mouth. ity of r/lutein/ze 13:56: [address] ([facility] ON AREDS-2 ORAL) metoprolol 2019-04 Yes 50mg Take 50 mg U nivers succinate 1-13 by mouth ity of XL 50 mg 24 13:56: daily. [place] [address] [place] [address] vit 2019-04 Yes Take by Univers C/E/Zn/jacqueline 1-13 mouth. ity of r/lutein/ze 13:56: [address] ([facility] ON AREDS-2 ORAL) metoprolol 2019-04 Yes 50mg Take 50 mg U nivers succinate 1-13 by mouth ity of XL 50 mg 24 13:56: daily. [place] [address] [place] [address] vit 2019-04 Yes Take by Univers C/E/Zn/jacqueline 1-13 mouth. ity of r/lutein/ze 13:56: [address] ([facility] ON AREDS-2 ORAL) metoprolol 2019-04 Yes 50mg Take 50 mg U nivers succinate 1-13 by mouth ity of XL 50 mg 24 13:56: daily. [place] [address] [place] [address] vit 2019-04 Yes Take by Univers C/E/Zn/jacqueline 1-13 mouth. ity of r/lutein/ze 13:56: [address] ([facility] ON AREDS-2 ORAL) metoprolol 2019-04 Yes 50mg Take 50 mg U nivers succinate 1-13 by mouth ity of XL 50 mg 24 13:56: daily. [place] [address] [place] [address] vit 2019-04 Yes Take by Univers C/E/Zn/jacqueline 1-13 mouth. ity of r/lutein/ze 13:56: [address] ([facility] ON AREDS-2 ORAL) metoprolol 2019-04 Yes 50mg Take 50 mg U nivers succinate 1-13 by mouth ity of XL 50 mg 24 13:56: daily. [place] [address] [place] [address] vit 2019-04 Yes Take by Univers C/E/Zn/jacqueline 1-13 mouth. ity of r/lutein/ze 13:56: [address] ([facility] ON AREDS-2 ORAL) metoprolol 2019-04 Yes 50mg Take 50 mg U nivers succinate 1-13 by mouth ity of XL 50 mg 24 13:56: daily. [place] [address] [place] [address] vit 2019-04 Yes Take by Univers C/E/Zn/jacqueline 1-13 mouth. ity of r/lutein/ze 13:56: [address] ([facility] ON AREDS-2 ORAL) metoprolol 2019-04 Yes 50mg Take 50 mg U nivers succinate 1-13 by mouth ity of XL 50 mg 24 13:56: daily. [place] [address] [place] [address] vit 2019-04 Yes Take by Univers C/E/Zn/jacqueline 1-13 mouth. ity of r/lutein/ze 13:56: [address] ([facility] ON AREDS-2 ORAL) metoprolol 2019-04 Yes 50mg Take 50 mg U nivers succinate 1-13 by mouth ity of XL 50 mg 24 13:56: daily. [place] [address] [place] [address] Branch vit 2019- Yes Take by Univers C/E/Zn/jacqueline 1-13 mouth. ity of r/lutein/ze 13:56: [address] ([facility] ON AREDS-2 ORAL) metoprolol 2019-04 Yes 50mg Take 50 mg U nivers succinate 1-13 by mouth ity of XL 50 mg 24 13:56: daily. [place] [facility] [place] vit 2019- Yes Take by Univers C/E/Zn/jacqueline 1-13 mouth. ity of r/lutein/ze 13:56: [address] ([facility] ON AREDS-2 ORAL) metoprolol 2019-04 Yes 50mg Take 50 mg U nivers succinate 1-13 by mouth ity of XL 50 mg 24 13:56: daily. [place] [address] [place] [address] vit 2019-04 Yes Take by Univers C/E/Zn/jacqueline 1-13 mouth. ity of r/lutein/ze 13:56: [address] ([facility] ON AREDS-2 ORAL) metoprolol 2019-04 Yes 50mg Take 50 mg U nivers succinate 1-13 by mouth ity of XL 50 mg 24 13:56: daily. [place] [address] [place] [address] vit 2019-04 Yes Take by Univers C/E/Zn/jacqueline 1-13 mouth. ity of r/lutein/ze 13:56: [address] ([facility] ON AREDS-2 ORAL) traZODone 2019- Yes TAKE 2 Univer s 150 mg 0-13 TABLETS BY ity of tablet 00:00: MOUTH IN [place] 00 [facility] NEEDED traZODone 2020- Yes TAKE 2 Univer s 150 mg 0-13 TABLETS BY ity of tablet 00:00: MOUTH IN [place] [facility] NEEDED traZODone 2020- Yes TAKE 2 Univer s 150 mg 0-13 TABLETS BY ity of tablet 00:00: MOUTH IN [place] [facility] NEEDED traZODone 2020- Yes TAKE 2 Univer s 150 mg 0-13 TABLETS BY ity of tablet 00:00: MOUTH IN [place] [facility] NEEDED traZODone 2020- Yes TAKE 2 Univer s 150 mg 0-13 TABLETS BY ity of tablet 00:00: MOUTH IN [place] 00 [facility] NEEDED traZODone 2020-1 Yes TAKE 2 Univer s 150 mg 0-13 TABLETS BY ity of tablet 00:00: MOUTH IN [place] 00 [facility] NEEDED traZODone 2020-1 Yes TAKE 2 Univer s 150 mg 0-13 TABLETS BY ity of tablet 00:00: MOUTH IN [place] 00 [facility] NEEDED traZODone 2020-1 Yes TAKE 2 Univer s 150 mg 0-13 TABLETS BY ity of tablet 00:00: MOUTH IN [place] 00 [facility] NEEDED traZODone 2020-1 Yes TAKE 2 Univer s 150 mg 0-13 TABLETS BY ity of tablet 00:00: MOUTH IN [place] 00 [facility] NEEDED traZODone 2020-1 Yes TAKE 2 Univer s 150 mg 0-13 TABLETS BY ity of tablet 00:00: MOUTH IN [place] 00 [facility] NEEDED traZODone 2020-1 Yes TAKE 2 Univer s 150 mg 0-13 TABLETS BY ity of tablet 00:00: MOUTH IN [place] 00 [facility] NEEDED traZODone 2020-1 Yes TAKE 2 Univer s 150 mg 0-13 TABLETS BY ity of tablet 00:00: MOUTH IN [place] 00 [facility] NEEDED traZODone 2020-1 Yes TAKE 2 Univer s 150 mg 0-13 TABLETS BY ity of tablet 00:00: MOUTH IN [place] 00 [facility] NEEDED traZODone 2020-1 Yes TAKE 2 Univer s 150 mg 0-13 TABLETS BY ity of tablet 00:00: MOUTH IN [place] 00 [facility] NEEDED traZODone 2020-1 Yes TAKE 2 Univer s 150 mg 0-13 TABLETS BY ity of tablet 00:00: MOUTH IN [place] 00 [facility] NEEDED traZODone 2020-1 Yes TAKE 2 Univer s 150 mg 0-13 TABLETS BY ity of tablet 00:00: MOUTH IN [place] 00 [facility] NEEDED traZODone 2020-1 Yes TAKE 2 Univer s 150 mg 0-13 TABLETS BY ity of tablet 00:00: MOUTH IN [place] 00 [facility] NEEDED traZODone 2020-1 Yes TAKE 2 Univer s 150 mg 0-13 TABLETS BY ity of tablet 00:00: MOUTH IN [place] 00 [facility] NEEDED traZODone 2020-1 Yes TAKE 2 Univer s 150 mg 0-13 TABLETS BY ity of tablet 00:00: MOUTH IN [place] 00 [facility] NEEDED traZODone 2020-1 Yes TAKE 2 Univer s 150 mg 0-13 TABLETS BY ity of tablet 00:00: MOUTH IN [place] 00 [facility] NEEDED traZODone 2020-1 Yes TAKE 2 Univer s 150 mg 0-13 TABLETS BY ity of tablet 00:00: MOUTH IN [place] 00 [facility] NEEDED traZODone 2020-1 Yes TAKE 2 Univer s 150 mg 0-13 TABLETS BY ity of tablet 00:00: MOUTH IN [place] 00 [facility] NEEDED traZODone 2020-1 Yes TAKE 2 Univer s 150 mg 0-13 TABLETS BY ity of tablet 00:00: MOUTH IN [place] 00 [facility] NEEDED traZODone 2020-1 Yes TAKE 2 Univer s 150 mg 0-13 TABLETS BY ity of tablet 00:00: MOUTH IN [place] 00 [facility] NEEDED traZODone 2020-1 Yes TAKE 2 Univer s 150 mg 0-13 TABLETS BY ity of tablet 00:00: MOUTH IN [place] 00 [facility] NEEDED traZODone 2020-1 Yes TAKE 2 Univer s 150 mg 0-13 TABLETS BY ity of tablet 00:00: MOUTH IN [place] 00 [facility] NEEDED traZODone 2020-1 Yes TAKE 2 Univer s 150 mg 0-13 TABLETS BY ity of tablet 00:00: MOUTH IN [place] 00 [facility] NEEDED traZODone 2020-1 Yes TAKE 2 Univer s 150 mg 0-13 TABLETS BY ity of tablet 00:00: MOUTH IN [place] 00 [facility] NEEDED traZODone 2020-1 Yes TAKE 2 Univer s 150 mg 0-13 TABLETS BY ity of tablet 00:00: MOUTH IN [place] 00 [facility] NEEDED traZODone 2020-1 Yes TAKE 2 Univer s 150 mg 0-13 TABLETS BY ity of tablet 00:00: MOUTH IN [place] 00 [facility] NEEDED traZODone 2020-1 Yes TAKE 2 Univer s 150 mg 0-13 TABLETS BY ity of tablet 00:00: MOUTH IN [place] [facility] NEEDED traZODone 2020-1 Yes TAKE 2 Univer s 150 mg 0-13 TABLETS BY ity of tablet 00:00: MOUTH IN [place] [facility] NEEDED traZODone 2020-1 Yes TAKE 2 Univer s 150 mg 0-13 TABLETS BY ity of tablet 00:00: MOUTH IN [place] [facility] NEEDED traZODone 2020-1 Yes TAKE 2 Univer s 150 mg 0-13 TABLETS BY ity of tablet 00:00: MOUTH IN [place] [facility] NEEDED traZODone 2020-1 Yes TAKE 2 Univer s 150 mg 0-13 TABLETS BY ity of tablet 00:00: MOUTH IN [place] [facility] NEEDED traZODone 2020-1 Yes TAKE 2 Univer s 150 mg 0-13 TABLETS BY ity of tablet 00:00: MOUTH IN [place] [facility] NEEDED traZODone 2020-1 Yes TAKE 2 Univer s 150 mg 0-13 TABLETS BY ity of tablet 00:00: MOUTH IN [place] [facility] NEEDED candesartan 2020-0 Yes 16mg Take 16 mg Univers 16 mg 9-15 by mouth ity of tablet 00:00: daily. [place] [facility] candesartan 2020-0 Yes 16mg Take 16 mg Univers 16 mg 9-15 by mouth ity of tablet 00:00: daily. [place] [facility] candesartan 2020-0 Yes 16mg Take 16 mg Univers 16 mg 9-15 by mouth ity of tablet 00:00: daily. [place] [facility] candesartan 2020-0 Yes 16mg Take 16 mg Univers 16 mg 9-15 by mouth ity of tablet 00:00: daily. [place] [facility] candesartan 2020-0 Yes 16mg Take 16 mg Univers 16 mg 9-15 by mouth ity of tablet 00:00: daily. [place] [facility] candesartan 2020-0 Yes 16mg Take 16 mg Univers 16 mg 9-15 by mouth ity of tablet 00:00: daily. [place] [facility] candesartan 2020-0 Yes 16mg Take 16 mg Univers 16 mg 9-15 by mouth ity of tablet 00:00: daily. [place] [facility] candesartan 2020-0 Yes 16mg Take 16 mg Univers 16 mg 9-15 by mouth ity of tablet 00:00: daily. [place] [facility] candesartan 2020-0 Yes 16mg Take 16 mg Univers 16 mg 9-15 by mouth ity of tablet 00:00: daily. [place] [facility] candesartan 2020-0 Yes 16mg Take 16 mg Univers 16 mg 9-15 by mouth ity of tablet 00:00: daily. [place] [facility] candesartan 2020-0 Yes 16mg Take 16 mg Univers 16 mg 9-15 by mouth ity of tablet 00:00: daily. [place] [facility] candesartan 2020-0 Yes 16mg Take 16 mg Univers 16 mg 9-15 by mouth ity of tablet 00:00: daily. [place] [facility] candesartan 2020-0 Yes 16mg Take 16 mg Univers 16 mg 9-15 by mouth ity of tablet 00:00: daily. [place] [facility] candesartan 2020-0 Yes 16mg Take 16 mg Univers 16 mg 9-15 by mouth ity of tablet 00:00: daily. [place] [facility] candesartan 2020-0 Yes 16mg Take 16 mg Univers 16 mg 9-15 by mouth ity of tablet 00:00: daily. [place] [facility] candesartan 2020-0 Yes 16mg Take 16 mg Univers 16 mg 9-15 by mouth ity of tablet 00:00: daily. [place] [facility] candesartan 2020-0 Yes 16mg Take 16 mg Univers 16 mg 9-15 by mouth ity of tablet 00:00: daily. [place] [facility] candesartan 2020-0 Yes 16mg Take 16 mg Univers 16 mg 9-15 by mouth ity of tablet 00:00: daily. [place] [facility] candesartan 2020-0 Yes 16mg Take 16 mg Univers 16 mg 9-15 by mouth ity of tablet 00:00: daily. [place] [facility] candesartan 2020-0 Yes 16mg Take 16 mg Univers 16 mg 9-15 by mouth ity of tablet 00:00: daily. [place] [facility] candesartan 2020-0 Yes 16mg Take 16 mg Univers 16 mg 9-15 by mouth ity of tablet 00:00: daily. [address] candesartan 2020-0 Yes 16mg Take 16 mg Univers 16 mg 9-15 by mouth ity of tablet 00:00: daily. [place] [facility] candesartan 2020-0 Yes 16mg Take 16 mg Univers 16 mg 9-15 by mouth ity of tablet 00:00: daily. [place] [facility] candesartan 2020-0 Yes 16mg Take 16 mg Univers 16 mg 9-15 by mouth ity of tablet 00:00: daily. [place] [facility] candesartan 2020-0 Yes 16mg Take 16 mg Univers 16 mg 9-15 by mouth ity of tablet 00:00: daily. [place] [facility] candesartan 2020-0 Yes 16mg Take 16 mg Univers 16 mg 9-15 by mouth ity of tablet 00:00: daily. [place] [facility] candesartan 2020-0 Yes 16mg Take 16 mg Univers 16 mg 9-15 by mouth ity of tablet 00:00: daily. [place] [facility] candesartan 2020-0 Yes 16mg Take 16 mg Univers 16 mg 9-15 by mouth ity of tablet 00:00: daily. [address] candesartan 2020-0 Yes 16mg Take 16 mg Univers 16 mg 9-15 by mouth ity of tablet 00:00: daily. [place] [facility] candesartan 2020-0 Yes 16mg Take 16 mg Univers 16 mg 9-15 by mouth ity of tablet 00:00: daily. [place] [facility] candesartan 2020-0 Yes 16mg Take 16 mg Univers 16 mg 9-15 by mouth ity of tablet 00:00: daily. [place] [facility] candesartan 2020-0 Yes 16mg Take 16 mg Univers 16 mg 9-15 by mouth ity of tablet 00:00: daily. [place] [facility] candesartan 2020-0 Yes 16mg Take 16 mg Univers 16 mg 9-15 by mouth ity of tablet 00:00: daily. [place] [facility] candesartan 2020-0 Yes 16mg Take 16 mg Univers 16 mg 9-15 by mouth ity of tablet 00:00: daily. [place] [facility] candesartan 2020-0 Yes 16mg Take 16 mg Univers 16 mg 9-15 by mouth ity of tablet 00:00: daily. [address] candesartan 2020-0 Yes 16mg Take 16 mg Univers 16 mg 9-15 by mouth ity of tablet 00:00: daily. [address] candesartan 2020-0 Yes 16mg Take 16 mg Univers 16 mg 9-15 by mouth ity of tablet 00:00: daily. [address] Vital Signs Vital Name Observation Time Observation Value Comments Source Systolic blood 2022-12-26 18:53:00 132 mm[Hg] Univer sity of pressure [facility] Diastolic blood 2022-12-26 18:53:00 71 mm[Hg] Unive rsity of pressure [facility] Heart rate 2022-12-26 18:53:00 63 /min Universi ty of [facility] Body temperature 2022-12-26 18:53:00 37.17 Pam Univ ersity of [facility] Body weight 2022-12-26 18:53:00 65.318 kg Universi ty of [facility] BMI 2022-12-26 18:53:00 33.47 kg/m2 Universi ty of [facility] Systolic blood 2022-12-05 18:09:00 137 mm[Hg] Univer sity of [facility] Diastolic blood 2022-12-05 18:09:00 84 mm[Hg] Unive rsity of [facility] Heart rate 2022-12-05 18:09:00 54 /min Universi ty of [facility] Body temperature 2022-12-05 18:09:00 35.94 Pam Univ ersity of [facility] Body weight 2022-12-05 18:09:00 66.679 kg Universi ty of [place] [facility] BMI 2022-12-05 18:09:00 34.17 kg/m2 Universi ty of [facility] Systolic blood 2022-05-04 20:40:00 148 mm[Hg] Univer sity of [facility] Diastolic blood 2022-05-04 20:40:00 75 mm[Hg] Unive rsity of [facility] Heart rate 2022-05-04 20:38:00 63 /min Universi ty of [facility] Body temperature 2022-05-04 20:38:00 37.33 Pam Univ ersity of [facility] Respiratory rate 2022-05-04 20:38:00 17 /min Univ ersity of [facility] Body weight 2022-05-04 20:38:00 62.228 kg Universi ty of [place] [facility] BMI 2022-05-04 20:38:00 31.89 kg/m2 Universi ty of [facility] Oxygen saturation in 2022-05-04 20:38:00 96 /min University of Arterial blood by [facility] Pulse oximetry Branch Systolic blood 2022-03-21 17:34:00 131 mm[Hg] Univer sity of pressure [facility] Diastolic blood 2022-03-21 17:34:00 83 mm[Hg] Unive rsity of pressure [facility] Heart rate 2022-03-21 17:34:00 61 /min Universi ty of [facility] Body temperature 2022-03-21 17:34:00 36.78 Pam Univ ersity of [facility] Body height 2022-03-21 17:34:00 139.7 cm Universi ty of [place] [facility] Body weight 2022-03-21 17:34:[address] 63[address] [facility] BMI 2022-03-21 17:34:00 32.77 kg/m2 Universi ty of [facility] Systolic blood 2022-01-16 20:20:00 159 mm[Hg] Univer sity of pressure [facility] Diastolic blood 2022-01-16 20:20:00 78 mm[Hg] Unive rsity of pressure [facility] Heart rate 2022-01-16 20:18:00 60 /min Universi ty of [place] [facility] Body temperature 2022-01-16 20:18:00 36.89 Pam Univ ersity of [facility] Body height 2022-01-16 20:18:00 139.7 cm Universi ty of [place] [facility] Body weight 2022-01-16 20:18:00 63.957 kg Universi ty of [place] [facility] [place] BMI 2022-01-16 20:18:00 32.77 kg/m2 Universi ty of [facility] Systolic blood 2021-12-28 18:13:00 138 mm[Hg] Univer sity of pressure [place] [facility] Diastolic blood 2021-12-28 18:13:00 70 mm[Hg] Unive rsity of pressure [facility] Heart rate 2021-12-28 18:13:00 47 /min Universi ty of [facility] Body temperature 2021-12-28 17:45:00 37.11 Pam Univ ersity of [facility] Body height 2021-12-28 17:45:00 139.7 cm Universi ty of [facility] Body weight 2021-12-28 17:45:00 64.139 kg Universi ty [facility] BMI 2021-12-28 17:45:00 32.86 kg/m2 Universi [facility] Oxygen saturation in 2021-12-28 17:45:00 98 /min [facility] Arterial blood by [facility] Pulse oximetry Branch Systolic blood 2021-08-07 20:41:00 130 mm[Hg] Univer sity of pressure [facility] Diastolic blood 2021-08-07 20:41:00 65 mm[facility]Hg[facility] 2021-08-07 20:41:00 67 /min [facility]i [facility] Body temperature 2021-08-07 20:41:00 37.33 Pam [facility] [place] [facility] Body height 2021-08-07 20:41:00 139.7 [facility] Body weight 2021-08-07 20:41:00 63.504 kg [facility] BMI 2021-08-07 20:41:00 32.54 kg/m2 [facility] Procedures Procedure Date / Time Performed Performing Clinician Sour e POCT URINALYSIS 2022-12-26 00:00:00 Lynn Posada [facility] ASSIGNMENT OF BENEFITS 2022-12-05 17:56:56 Doctor Unassigned, No [facility] POCT URINALYSIS 2022-05-04 20:43:00 Natalya Walsh [facility] EXTERNAL PROVIDER 2022-01-23 05:01:00 [facility] 2022-01-16 00:00:00 Lynn Posada [facility] LIPASE 2021-12-28 18:38:00 Natalya Walsh [facility] CBC WITH DIFF 2021-12-28 18:38:00 Natalya Walsh [facility] EXTERNAL PROVIDER 2021-08-10 05:01:00 [facility], [facility] En[facility]ters Start End Encounter Admission Attending Care Care Encounter Source Date/Time Date/Time Type Type Clinicians Facility Department ID 2023-01-05 2023-01-05 Refill [facility] [id number] Univers 00:00:00 00:00:00 [facility] [id number] it y of [place] [id number] Patrick as PRAVIN?BLEA [id number] [address] OFFICE [facility] 2022-12-26 2022-12-26 [facility] [id number] Univers 14:00:00 14:39:03 LYNN ity [facility] 2022-12-26 2022-12-26 Office [facility] [id number] Univers 14:00:00 14:39:03 Visit [facility] [id number] it y of [place] [id number] Patrick as PRAVIN?BLEA [id number] [address] OFFICE [facility] 2022-12-05 2022-12-05 Office [facility] [id number] Univers 13:15:00 13:30:00 Visit [facility] [id number] it y of [place] [id number] Patrick as PRAVIN?BLEA [id number] [address] OFFICE [facility] 2022-12-05 2022-12-05 [facility] [place] [id number] Univers 13:15:00 13:21:45 LYNN y [facility] 2022-12-05 2022-12-05 Orders Doctor LINN [id number] Univers 00:00:00 00:00:00 Only Unassigned, JOE [id number] ity of [place] [facility] [id number] Patrick as [id number] [address] 2022-11-29 2022-11-29 Refill [facility] [id number] Univers 00:00:00 00:00:00 [facility] [id number] it y of [place] [id number] Patrick as PRAVIN?BLEA [id number] Nd aundrea BUSTOS [address] [place] [address] OFFICE [facility] 2022-11-04 2022-11-04 [facility] [id number] Univers 00:00:00 00:00:00 [facility] [id number] it y of [place] [id number] Patrick as PRAVIN?BLEA [id number] [facility] MARIA ISAB[address] OFFICE [facility] 2022-10-08 2022-10-08 [facility] [id number] Univers 00:00:00 00:00:00 [facility] HEALTH [id number] it y of [place] [id number] Patrick as PRAVIN?BLEA [id number] [address] OFFICE [facility] 2022-09-22 2022-09-22 [facility] [id number] Univers 00:00:00 00:00:00 [facility] [id number] it y of [place] [id number] Patrick as PRAVIN?BLEA [id number] [address] OFFICE [facility] 2022-09-17 2022-09-17 [facility] [id number] Univers 00:00:00 00:00:00 [facility] [id number] it y of [place] [id number] Patrick as PRAVIN?BLEA [id number] [address] OFFICE [facility] 2022-08-19 2022-08-19 [facility] 1.2.840.114 [id number] Univers 00:00:00 00:00:00 [facility] HEALTH 350.1.13.10 it y of [place] 4.2.7.2.686 Patrick as PRAVIN?BLEA [phone] [address] OFFICE [facility] 2022-07-30 2022-07-30 [facility] 1.2.840.114 [id number] Univers 00:00:00 00:00:00 [facility] 350.1.13.10 it y of [place] 4.2.7.2.686 Patrick as PRAVIN?BLEA [phone] [facility] MARIA ISABEL[address] OFFICE [facility] 2022-07-23 2022-07-23 [facility] 1.2.840.114 [id number] Univers 00:00:00 00:00:00 [facility] HEALTH 350.1.13.10 it y of [place] 4.2.7.2.686 Patrick as PRAVIN?BLEA [phone] [address] OFFICE [facility] 2022-07-15 2022-07-15 [facility] 1.2.840.114 [id number] [facility] 00:00:00 00:00:00 [facility] 350.1.13.10 it y of [place] 4.2.7.2.686 Patrick as PRAVIN?BLEA [phone] [address] OFFICE [facility] 2022-07-09 2022-07-09 [facility] 1.2.840.114 [id number] Univers 00:00:00 00:00:00 [facility] 350.1.13.10 it y of [place] 4.2.7.2.686 Patrick as PRAVIN?BLEA [phone] [address] OFFICE [facility] 2022-06-21 2022-06-21 [facility] 1.2.840.114 [id number] Univers 00:00:00 00:00:00 [facility] 350.1.13.10 it y of [place] 4.2.7.2.686 Patrick as PRAVIN?BLEA [phone] [address] OFFICE [facility] 2022-05-30 2022-05-30 [facility] 1.2.840.114 [id number] Univers 00:00:00 00:00:00 , Nano HEALTH 350.1.13.10 ity of [place] 4.2.7.2.686 Patrick as PRAVIN?BLEA [phone] [address] OFFICE [facility] 2022-05-11 2022-05-11 Refill [facility] 1.2.840.114 [id number] Univers 00:00:00 00:00:00 Lynn [facility] 350.1.13.10 it y of [place] 4.2.7.2.686 Patrick as PRAVIN?BLEA [phone] [address] OFFICE [facility] 2022-05-04 2022-05-04 Outpatient R NICO [facility] [id number] Univers 14:30:00 15:18:13 NATALYA ity [facility] 2022-05-04 2022-05-04 [facility] 1.2.840.114 [id number] Univers 14:30:00 15:18:13 Visit Natalya Blakely [facility] 350.1.13.10 i ty of [place] 4.2.7.2.686 Patrick as PRAVIN?BLEA [phone] [address] OFFICE [facility] 2022-03-21 2022-03-21 Office [facility] 1.2.840.114 [id number] Univers 11:30:00 11:45:00 Visit [facility] 350.1.13.10 it y of [place] 4.2.7.2.686 Patrick as PRAVIN?BLEA [phone] [address] OFFICE [facility] 2022-03-21 2022-03-21 [facility] [id number] Univers 11:30:00 11:30:00 LYNN ity [facility] 2022-01-23 2022-01-23 Orders Doctor LINN 1.2.840.114 [id number] Univers 00:00:00 00:00:00 Only Unassigned, JOE 350.1.13.10 ity of [place] [facility] 4.2.7.2.686 Patrick as [phone] [address] 2022-01-16 2022-01-16 Office [facility] 1.2.840.114 [id number] Univers 15:15:00 15:30:00 Visit [facility] 350.1.13.10 it y of [place] 4.2.7.2.686 Patrick as PRAVIN?BLEA [phone] [address] OFFICE [facility] 2022-01-16 2022-01-16 Outpatient R SWETHA [facility] [id number] Univers 15:15:00 15:15:00 LYNN pichardo [facility] 2022-01-04 2022-01-04 [facility] 1.2.840.114 [id number] Univers 00:00:00 00:00:00 Lynn HEALTH 350.1.13.10 it y of [place] 4.2.7.2.686 Patrick as PRAVIN?BLEA [phone] [address] OFFICE [facility] 2022-01-02 2022-01-02 [facility] 1.2.530.944 [id number] Univers 00:00:00 00:00:00 Natalya Blakely HEALTH 350.1.13.10 i ty of [place] 4.2.7.2.686 Patrick as PRAVIN?BLEA [phone] [address] OFFICE [facility] 2021-12-28 2021-12-28 [employer] Att[employer] Lab, Ang - Db [facility] 1.2.840.1 14 [id number] Univers 13:45:00 14:00:00 Visit Natalya Walsh HEALTH 350.1.13.10 ity of [place] 4.2.7.2.686 Patrick as PRAVIN?BLEA [phone] [address] OFFICE [facility] 2021-12-28 2021-12-28 Outpatient R NICO [facility] [id number] Univers 12:30:00 13:29:55 NATALYA pichardo [facility] 2021-12-28 2021-12-28 [facility] 1.2.840.114 [id number] Univers 12:30:00 13:29:55 Visit Natalya Blakely HEALTH 350.1.13.10 i ty of [place] 4.2.7.2.686 Patrick as PRAVIN?BLEA [phone] [address] OFFICE [facility] 2021-12-26 2021[facility] 1.2.840.114 [id number] Univers 00:00:00 00:00:00 [facility] 350.1.13.10 it y of [place] 4.2.7.2.686 Patrick as PRAVIN?BLEA [phone] [address] 2021-11-09 2021-11-09 [facility] 1.2.840.114 [id number] Univers 00:00:00 00:00:00 [facility] 350.1.13.10 it y of [place] 4.2.7.2.686 Patrick as PRAVIN?BLEA [phone] [address] OFFICE [facility] 2021-10-09 2021-10-09 [facility] 1.2.840.114 [id number] Univers 00:00:00 00:00:00 [facility] 350.1.13.10 it y of [place] 4.2.7.2.686 Patrick as PRAVIN?BLEA [phone] [address] 2021-09-09 2021-09-09 [facility] 1.2.840.114 [id number] Univers 00:00:00 00:00:00 [facility] 350.1.13.10 it y of [place] 4.2.7.2.686 Patrick as PRAVIN?BLEA [phone] [address] OFFICE [facility] 2021-08-10 2021-08-10 Orders Doctor LINN 1.2.840.114 [id number] Univers 00:00:00 00:00:00 Only Unassigned, JEO 350.1.13.10 ity of [place] [facility] 4.2.7.2.686 Patrick as [phone] [address] 2021-08-07 2021-08-07 Office [facility] 1.2.840.114 [id number] Univers 15:30:00 15:45:00 Visit [facility] 350.1.13.10 it y of [place] 4.2.7.2.686 Patrick as PRAVIN?BLEA [phone] Nd alanna[address] MEDICAL OFFICE [facility] 2021-08-07 2021-08-07 Outpatient R SWETHA [facility] [id number] Univers 15:30:00 15:30:00 LYNN pichardo [facility] 2021-08-02 2021-08-02 Telephone [facility] 1.2.840.114 [id number] Univers 00:00:00 00:00:00 [facility] 350.1.13.10 it y of [place] 4.2.7.2.686 Patrick as PRAVIN?BLEA [phone] [address] MEDICAL OFFICE [facility] 2021-07-14 2021-07-14 Refill [facility] 1.2.840.114 [id number] Univers 00:00:00 00:00:00 [facility] 350.1.13.10 it y of [place] 4.2.7.2.686 Patrick as PRAVIN?BLEA [phone] [address] MEDICAL OFFICE [facility] 2021-05-29 2021-05-29 Outpatient R [facility] [id number] Univers 15:22:48 23:59:00 LYNN rylee [facility] 2021-05-29 2021-05-29 Office [facility] 1.2.840.114 [id number] Univers 15:00:00 15:15:00 Visit [facility] 350.1.13.10 it y of [place] 4.2.7.2.686 Patrick as PRAVIN?BLEA [phone] [address] MEDICAL OFFICE [facility] 2021-05-29 2021-05-29 Orders Doctor LINN 1.2.840.114 [id number] Univers 00:00:00 00:00:00 Only Unassigned, JOE 350.1.13.10 ity of [place] [facility] 4.2.7.2.686 Patrick as [phone] [address] 2021-02-24 2021-02-24 [facility] 1.2.840.114 [id number] Univers 11:02:18 11:24:25 Care Ella HEALTH 350.1.13.10 it y of [place] 4.2.7.2.686 Patrick as PRAVIN?BLEA [phone] [facility] MARIA ISABEL [address] MEDICAL OFFICE BUILDING 2021-02-24 2021-02-24 Outpatient R KOURTNEY [facility] [id number] Univers 11:00:00 11:24:[address] [facility] 2021-01-23 2021-01-23 [facility] 1.2.840.114 [id number] Univers 00:00:00 00:00:00 [facility] 350.1.13.10 ity of [place] 4.2.7.2.686 Patrick as Professio [phone] [address] Office [facility] 2020-12-13 2020-12-13 Telephone [facility] 1.2.840.114 [id number] Univers 00:00:00 00:00:00 [facility] 350.1.13.10 ity of [place] 4.2.7.2.686 Patrick as Pravin?Blea [phone] [facility] [address] [place] Medical Office [facility] 2020-12-08 2020-12-08 [facility] 1.2.840.114 [id number] Univers 10:46:30 23:59:00 Encounter Shruthi [place] 350.1.13.10 ity of [place].2.[place] [phone] [facility] [address] [place] 2020-12-08 2020-12-08 Office [facility] 1.2.840.114 [id number] Univers 09:23:08 10:09:28 Visit Shruthi Health 350.1.13.10 it y of [place] 4.2.7.2.686 Patrick as Pravin?Blea [phone] [facility] [address] [place] Medical Office Building 2020-12-08 2020-12-08 Outpatient R [facility] [id number] Univers 09:30:00 09:30:[address] [facility] 2020-12-08 2020-12-08 Outpatient R MIKE [facility] [id number] Univers 08:45:00 08:45:00 WONDIFUL ity o f [facility] 2020-12-08 2020-12-08 Orders Doctor LINN 1.2.840.114 [id number] Univers 00:00:00 00:00:00 Only Unassigned, JOE 350.1.13.10 ity of [place] [facility] 4.2.7.2.686 Patrick as [phone] [address] 2020-11-08 2020-11-08 [facility] 1.2.840.114 [id number] Univers 18:47:28 19:07:28 Care Ella [facility] 350.1.13.10 it y of [place] 4.2.7.2.686 Patrick as Professio [phone] [address] Office Building One 2020-11-08 2020-11-08 Outpatient R KOURTNEY [facility] [id number] Univers 18:20:00 18:20:[address] [facility] 2020-10-04 2020-10-04 [facility]phone [facility] 1.2.840.114 [id number] Univers 00:00:00 00:00:00 [facility] 350.1.13.10 ity of [place] 4.2.7.2.686 Patrick as Professio [phone] [address] Office [facility] 2020-10-03 2020-10-03 Orders Doctor ESTEVES 1.2.840.114 [id number] Univers 00:00:00 00:00:00 Only Unassigned, JOE 350.1.13.10 ity of [place] [facility] 4.2.7.2.686 Patrick as [phone] [address] 2020-09-30 2020-09-30 Office Swetha [facility] 1.2.840.114 [id number] Univers 14:19:49 14:34:49 Visit [facility] 350.1.13.10 it y of [place] 4.2.7.2.686 Patrick as Professio [phone] [address] Office Building One 2020-09-30 2020-09-30 Outpatient R SWETHA [facility] [id number] Univers 14:15:00 14:15:00 LYNN ity [facility] 2020-09-23 2020-09-23 Office [facility] 1.2.840.114 [id number] Univers 14:36:14 15:20:24 Visit [facility] 350.1.13.10 it y of [place] 4.2.7.2.686 Patrick as Professio [phone] [address] Office [facility] 2020-09-23 2020-09-23 Outpatient R SWETHA [facility] [id number] Univers 14:30:00 14:30:00 LYNN pichardo [facility] 2020-09-22 2020-09-22 Telephone [facility] 1.2.840.114 [id number] Univers 00:00:00 00:00:00 [facility] 350.1.13.10 ity of [place] 4.2.7.2.686 Patrick as Professio [phone] [address] One 2020-09-20 2020-09-20 [facility] 1.2.840.114 [id number] Univers 00:00:00 00:00:00 [facility] 350.1.13.10 ity of [place] 4.2.7.2.686 Patrick as Professio [phone] [address] One 2020-09-16 2020-09-16 Telephone [facility] 1.2.840.114 [id number] Univers 00:00:00 00:00:00 [facility] 350.1.13.10 ity of [place] 4.2.7.2.686 Patrick as Professio [phone] [address] One 2020-08-31 2020-08-31 Outpatient R MIKE [facility] [id number] Univers 10:40:00 10:40:00 W[address]IF[address] ity o f [facility] 2020-08-31 2020-08-31 [employer] Station Attendant Lab, Adc Fam Pob I [facility] 1.2. 840.114 [id number] [facility] 10:06:41 10:20:05 Visit [facility] 350.1.13.1 0 ity of [place] 4.2.7.2.686 Patrick as Professio [phone] [address] Office Building [facility] 2020-08-31 2020-08-31 Case Mike [facility] 1.2.840.114 [id number] Univers 00:00:00 00:00:00 Management [facility] 350.1.13.10 ity of [place] 4.2.7.2.686 Patrick as Professio [phone] [address] Office Building [facility] 2020-08-26 2020-08-26 Office Mike [facility] 1.2.840.114 [id number] [facility] 16:09:47 16:47:41 Visit [facility] 350.1.13.10 [place] 4.2.7.2.686 Professio [phone] [place] [address] Office Building One 2020-08-26 2020-08-26 Office Mike [facility] 1.2.840.114 [id number] [facility] 16:09:47 16:47:41 Visit [facility] 350.1.13.10 ity of [place] 4.2.7.2.686 Patrick as Professio [phone] [address] Office [facility] 2020-08-26 2020-08-26 Outpatient R MIKE [facility] [id number] Univers 16:00:00 16:00:[address] o f [facility] 2020-08-18 2020-08-18 Outpatient R MIKE [facility] [id number] Univers 10:45:00 10:45:[address] ity o f [facility] 2020-04-26 2020-04-26 Refill Mike [facility] 1.2.840.114 [id number] Univers 00:00:00 00:00:00 [facility] 350.1.13.10 ity of [place] 4.2.7.2.686 Patrick as Professio [phone] Nd aundrea loco [address] [place] [address] Office Building [facility] 2020-03-08 2020-03-08 Outpatient R SUSY [facility] [id number] Univers 13:15:00 13:15:00 ATTENDING ity [facility] 2020-03-08 2020-03-08 Outpatient R [facility] [id number] Univers 09:00:00 09:00:00 ity [facility] 2020-03-08 2020-03-08 Telephone Martir [facility] 1.2.840.114 [id number] Univers 00:00:00 00:00:00 Qunesha HEALTH 350.1.13.10 it [place] of [place].2.[place] [facility] [phone] [facility] 2020-03-07 2020-03-07 Telephone Mike [facility] 1.2.840.114 [id number] Univers 00:00:00 00:00:00 [facility] 350.1.13.10 ity of [place] 4.2.7.2.686 Patrick as Professio [phone] Nd alanna[address] Office Building [facility] 2020-02-19 2020-02-19 Office [facility] 1.2.840.114 [id number] Univers 13:26:12 14:29:08 Visit [facility] 350.1.13.10 ity of [place] 4.2.7.2.686 Patrick as Professio [phone] [address] Office Building [facility] 2020-02-19 2020-02-19 Outpatient R MIKE [facility] [id number] Univers 14:00:00 14:00:00 W[address] ity o f [facility] Results Test Description Test Time [...] U APPEAR (test code = 3267) clear [facility] URINALYSIS W SPECIFIC [id number] 19:15:00 Test Item Value Reference Range Interpretation [...] U UROBILI (test code = normal 0.2-1 0) POCT U BILI (test code = neg Negative - Negative 3261) POCT U BLD (test code = 3257) trace Negative - Negative POCT U COLOR (test code = dark 3266) POCT U APPEAR (test code = clear 3267) [facility] URINALYSIS W SPECIFIC [id number] 20:43:00 Test Item Value Reference Range Interpretation [...] 3267) Lab Interpretation (test Abnormal code = 29095-2) [facility] URINALYSIS W SPECIFIC [id number] 20:43:00 Test Item Value Reference Range Interpretation [...] (test code = NEG Negative - Negative 1) POCT U BLD (test code = NEG Negative - Negative 3257) POCT U COLOR (test code = LIGHT YELLOW 3266) POCT U APPEAR (test code = CLEAR 3267) Lab Interpretation (test Abnormal code = 94303-3) [facility] URINALYSIS W SPECIFIC [id number] 21:07:00 Test Item Value Reference Range Interpretation [...] U APPEAR (test code = clear 3267) [facility]CIFIC [id number] 21:07:00 Test Item Value Reference Range Interpretation [...] U APPEAR (test code = clear 3267) [facility] 21:09:42 Test Item Value Reference Range Interpretation Comments LIPASE (test code = 3115797938) 391 U/L 0-220 H Lab Interpretation (test code = Abnormal 92987-0) [facility] 21:09:42 Test Item Value Reference Range Interpretation Comments LIPASE (test code = 9616264051) 391 U/L 0-220 H Lab Interpretation (test code = Abnormal 72271-8) [facility] WITH [id number] 21:03:03 Test Item Value Reference Range Interpretation Comments WBC (test code = See_Comment H [Automated 9740-2) message] The sy stem which generated this result transmitted reference range : 4.30 - 11.10 10*3/?L. The reference range was not used to interpret this result as normal/abnormal . RBC (test code = See_Comment [Automated 119-8) message] The sy stem which generated this [...] RDW-SD (test code = 48.7 fL 39-49.9 48708-5) RDW-CV (test code = 14.0 % 12-15.5 788-0) PLT (test code = See_Comment H [Automated 777-3) message] The sy stem which generated this result transmitted reference range : 166 - 358 10*3/ ?L. The reference r jeremy was not used to interpret this result as normal/abnormal . MPV (test code = 9.9 fL 9.5-12.9 07817-2) NRBC/100 WBC (test See_Comment [Automat ed code = 7840075983) message] The system which generated this result transmitted reference range : 0.0 - 10.0 /100 WBCs. The refer ence range was not u sed to interpret th is result as normal/abnormal . NRBC x10^3 (test code See_Comment [Auto mated = 1040232007) message] The s ystem which generated this result transmitted reference range : 10*3/?L. The reference range was not used to interpret this result as normal/abnormal . GRAN MAT (NEUT) % 72.3 % (test code = 770-8) IMM GRAN % (test code 0.70 % = 4117792971) LYMPH % (test code = 18.4 % 736-9) MONO % (test code = 6.7 % 5905-5) EOS % (test code = 1.2 % 713-8) BASO % (test code = 0.7 % 706-2) GRAN MAT x10^3(ANC) 8.68 10*3/uL 1.88-7.09 H (test code = 7034004049) IMM GRAN x10^3 (test 0.09 10*3/uL 0-0.06 H code = 0425257422) LYMPH x10^3 (test code 2.21 10*3/uL 1.32-3.29 = 731-0) MONO x10^3 (test code 0.81 10*3/uL 0.33-0.92 = 742-7) EOS x10^3 (test code = 0.14 10*3/uL 0.03-0.39 711-2) BASO x10^3 (test code 0.08 10*3/uL 0.01-0.07 H = 704-7) Lab Interpretation Abnormal (test code = 13797-8) [facility] WITH [id number] 21:03:03 Test Item Value Reference Range Interpretation Comments WBC (test code = See_Comment H [Automated 6590-2) message] The sy stem which generated this result transmitted reference range : 4.30 - 11.10 10*3/?L. The reference range was not used to interpret this result as normal/abnormal . RBC (test code = See_Comment [Automated 119-8) message] The sy stem which generated this [...] RDW-SD (test code = 48.7 fL 39-49.9 29355-4) RDW-CV (test code = 14.0 % 12-15.5 788-0) PLT (test code = See_Comment H [Automated 777-3) message] The sy stem which generated this result transmitted reference range : 166 - 358 10*3/ ?L. The reference r jeremy was not used to interpret this result as normal/abnormal . MPV (test code = 9.9 fL 9.5-12.9 71785-2) NRBC/100 WBC (test See_Comment [Automat ed code = 3263491306) message] The system which generated this result transmitted reference range : 0.0 - 10.0 /100 WBCs. The refer ence range was not u sed to interpret th is result as normal/abnormal . NRBC x10^3 (test code See_Comment [Auto mated = 1203804156) message] The s ystem which generated this result transmitted reference range : 10*3/?L. The reference range was not used to interpret this result as normal/abnormal . GRAN MAT (NEUT) % 72.3 % (test code = 770-8) IMM GRAN % (test code 0.70 % = 6927708849) LYMPH % (test code = 18.4 % 736-9) MONO % (test code = 6.7 % 5905-5) EOS % (test code = 1.2 % 713-8) BASO % (test code = 0.7 % 706-2) GRAN MAT x10^3(ANC) 8.68 10*3/uL 1.88-7.09 H (test code = 2961396032) IMM GRAN x10^3 (test 0.09 10*3/uL 0-0.06 H code = 8314475073) LYMPH x10^3 (test code 2.21 10*3/uL 1.32-3.29 = 731-0) MONO x10^3 (test code 0.81 10*3/uL 0.33-0.92 = 742-7) EOS x10^3 (test code = 0.14 10*3/uL 0.03-0.39 711-2) BASO x10^3 (test code 0.08 10*3/uL 0.01-0.07 H = 704-7) Lab Interpretation Abnormal (test code = 81150-2) [facility]
[2023-02-09 17:42] LABS: Absolute Lymphocytes (CBC) 2.4 K/uL (0.7-4.9); Lymphocytes % 21.5 % (15.3-44.8); MCV 91.8 fL (80-100); MPV 7.6 fL (7.6-11.3); Platelets 470 thou/uL (152-406); RBC Red Blood Cell Count 4.68 M/uL (3.86-4.86)
--- NOTE | 2023-02-09 18:05 | RAD REPORT ---
EXAM DESCRIPTION: RAD - Chest Single View - 02/09/2023 5:50 pm CLINICAL HISTORY: CHEST PAIN COMPARISON: Chest Single View dated 08/02/2021; Chest Single View dated 04/01/2020; Chest Single View dated 01/27/2020; Chest Pa And Lat (2 Views) dated 06/03/2019 FINDINGS: Lines: None. Lungs: No evidence of edema or pneumonia. Pleural: No significant pleural effusions or pneumothorax. Cardiac: The heart size is within normal limits. Mediastinum: Within normal limits. Bones: No acute fractures. Other: None IMPRESSION: No acute cardiopulmonary disease.
[2023-02-09 18:09] LABS: Potassium 3.2 mEq/L (3.5-5.1)
--- NOTE | 2023-02-09 18:33 | ER ---
Nurse's Notes [facility] Name: Shanae Del Cid Age: 82 yrs Sex: Female : 1940 Arrival Date: 02/09/2023 Time: 16:42 Bed 19 Private MD: Diagnosis: Chest pain, unspecified Presentation: 02/09 16:55 Chief complaint: Patient states: PATIENT STARTED WITH CENTER CHEST PAIN TODAY. db Coronavirus screen: Vaccine status: Patient reports being unvaccinated. Client denies travel out of the [place] in the last 14 days. At this time, the client does not indicate any symptoms associated with coronavirus-19. Ebola Screen: Patient negative for fever greater than or equal to 101.5 degrees Fahrenheit, and additional compatible Ebola Virus Disease symptoms Patient denies exposure to infectious person. Patient denies travel to an Ebola-affected area in the 21 days before illness onset. No symptoms or risks identified at this time. Initial Sepsis Screen: Does the patient meet any 2 criteria? No. Patient's initial sepsis screen is negative. Does the patient have a suspected source of infection? No. Patient's initial sepsis screen is negative. Risk Assessment: Do you want to hurt yourself or someone else? Patient reports no desire to harm self or others. Onset of symptoms was February 09, 2023. 16:55 Method Of Arrival: Ambulatory db 16:55 Acuity: CONNER 2 db Triage Assessment: 17:00 General: Appears in no apparent distress. comfortable, Behavior is calm, cooperative. db Pain: Complains of pain in chest Pain does not radiate. Neuro: Level of Consciousness is awake, alert, obeys commands, Oriented to person, place, time, situation, Speech is normal. Cardiovascular: Reports chest pain. Respiratory: Airway is patent Respiratory effort is even, unlabored, Respiratory pattern is regular, symmetrical. Historical: - Allergies: 17:00 No Known Allergies; db - PMHx: 17:00 BRADYCARDIA; eye disease; Hypertension; Hypothyroidism; db - PSHx: 17:00 bowel blockage SX; Tonsillectomy; uterus removed; db - Immunization history:: Adult Immunizations unknown. - Social history:: Smoking status: Patient reports the use of cigarette tobacco products, smokes one-half pack cigarettes per day. - Family history:: not pertinent. - Hospitalizations: : No recent hospitalization is reported. Screenin:04 [facility] ED Fall Risk Assessment (Adult) History of falling in the last 3 months, db including since admission No falls in past 3 months (0 pts) Confusion or Disorientation No (0 pts) Intoxicated or Sedated No (0 pts) Impaired Gait No (0 pts) Mobility Assist Device Used No (0 pt) Altered Elimination No (0 pt) Score/Fall Risk Level 0 - 2 = Low Risk Oriented to surroundings, Maintained a safe environment. Abuse screen: Denies threats or abuse. Denies injuries from another. Nutritional screening: No deficits noted. Tuberculosis screening: No symptoms or risk factors identified. Assessment: 17:04 Reassessment: Patient appears in no apparent distress at this time. Patient and/or db family updated on plan of care and expected duration. Pain level reassessed. Patient is alert, oriented x 3, equal unlabored respirations, skin warm/dry/pink. General: Appears in no apparent distress. comfortable, Behavior is calm, cooperative. Pain: Complains of pain in chest. 18:40 Reassessment: Patient appears in no apparent distress at this time. Patient and/or db family updated on plan of care and expected duration. Pain level reassessed. Patient is alert, oriented x 3, equal unlabored respirations, skin warm/dry/pink. Reassessment: Patient states feeling better. Patient states symptoms have improved. General: Appears in no apparent distress. comfortable, Behavior is calm, cooperative. Pain: Pain began gradually. 18:56 Pain: Denies pain. db Vital Signs: 16:55 BP 128 / 65; Pulse 58; Resp 18; Temp 98.5(O); Pulse Ox 98% ; Weight 63.5 kg; Height 4 db ft. 8 in. ; 17:00 BP 131 / 59; Pulse 57; Resp 18; Pulse Ox 98% on R/A; db 18:00 BP 147 / 58; Pulse 55; Resp 18; Pulse Ox 97% on R/A; db 16:55 Body Mass Index 31.39 (63.50 kg, 142.24 cm) db ED Course: 16:45 Patient arrived in ED. ts1 16:50 Hussein Jackson MD is Attending Physician. rn 16:53 Maria D Strickland RN is Primary Nurse. db 17:00 Triage completed. db 17:00 Arm band placed on Patient placed in an exam room. db 17:04 Patient has correct armband on for positive identification. Bed in low position. Call db light in reach. Side rails up X 1. Client placed on continuous cardiac and pulse oximetry monitoring. NIBP monitoring applied. 17:30 Inserted saline lock: 20 gauge in right antecubital area, using aseptic technique. db Blood collected. 17:52 XRAY Chest (1 view) In Process Unspecified. EDMS 18:56 Provided Education on: DISCHARGE. db 18:56 No provider procedures requiring assistance completed. IV discontinued, intact, db bleeding controlled, No redness/swelling at site. Patient maintains SpO2 saturation greater than 95% on room air. Administered Medications: No medications were administered Medication: 18:56 VIS not applicable for this client. db Outcome: 18:32 Discharge ordered by . rn 18:56 Discharged to home ambulatory, with family, db 18:56 Condition: stable 18:56 Discharge instructions given to patient, family, Instructed on discharge instructions, follow up and referral plans. 18:57 Patient left the ED. db Signatures: Dispatcher [employer] EDMS Hussein Jackson MD MD rn Benton, Danielle RN RN Miranda Dill, PAS PAS ts1
--- NOTE | 2023-02-09 18:33 | EDPHYS ---
Physician Documentation [facility] Name: Shanae Del Cid Age: 82 yrs Sex: Female : 1940 Arrival Date: 02/09/2023 Time: 16:42 Bed 19 Private MD: ED Physician Hussein Jackson HPI: 02/09 17:07 This 82 yrs old Female presents to ER via Ambulatory with complaints of Chest Pain. rn 17:07 The patient or guardian reports chest pain that is located primarily in the substernal rn area. Onset: today. The pain does not radiate. Associated signs and symptoms: Pertinent negatives: abdominal pain, cough, diaphoresis, lower extremity swelling, shortness of breath, syncope, vomiting. The chest pain is described as aching. Duration: The patient or guardian reports multiple episodes, that are intermittent. Modifying factors: The symptoms are alleviated by nothing. the symptoms are aggravated by nothing. Severity of pain: At its worst the pain was mild in the emergency department the pain has improved. The patient has not experienced similar symptoms in the past. The patient has not recently seen a physician. Patient reports substernal chest pain, nonradiating, no shortness of breath or diaphoresis. No vomiting. Sees Dr. Sy. Just had carotid ultrasound recently. Unsure when last stress test was. Told to come to the ER if had any chest pain. No recent illness or fever. No cough. No shortness of breath. No abdominal pain.. Historical: - Allergies: 17:00 No Known Allergies; db - PMHx: 17:00 BRADYCARDIA; eye disease; Hypertension; Hypothyroidism; db - PSHx: 17:00 bowel blockage SX; Tonsillectomy; uterus removed; db - Immunization history:: Adult Immunizations unknown. - Social history:: Smoking status: Patient reports the use of cigarette tobacco products, smokes one-half pack cigarettes per day. - Family history:: not pertinent. - Hospitalizations: : No recent hospitalization is reported. ROS: 17:07 Constitutional: Negative for fever, chills, and weight loss, Neck: Negative for injury, rn pain, and swelling, Cardiovascular: Positive for chest pain Respiratory: Negative for shortness of breath, cough, wheezing, and pleuritic chest pain, Abdomen/GI: Negative for abdominal pain, nausea, vomiting, diarrhea, and constipation, MS/Extremity: Negative for injury and deformity, Skin: Negative for injury, rash, and discoloration, Neuro: Negative for headache, weakness, numbness, tingling, and seizure, Exam: 17:07 Constitutional: This is a well developed, well nourished patient who is awake, alert, rn and in no acute distress. Head/Face: Normocephalic, atraumatic. Cardiovascular: Bradycardic, regular. No pulse deficits. Respiratory: No increased work of breathing, no retractions or nasal flaring. Abdomen/GI: Soft, non-tender Skin: Warm, dry MS/ Extremity: Pulses equal, no cyanosis Neuro: Awake and alert, GCS 15 17:15 ECG was reviewed by the Attending Physician. rn Vital Signs: 16:55 BP 128 / 65; Pulse 58; Resp 18; Temp 98.5(O); Pulse Ox 98% ; Weight 63.5 kg; Height 4 db ft. 8 in. ; 17:00 BP 131 / 59; Pulse 57; Resp 18; Pulse Ox 98% on R/A; db 18:00 BP 147 / 58; Pulse 55; Resp 18; Pulse Ox 97% on R/A; db 16:55 Body Mass Index 31.39 (63.50 kg, 142.24 cm) db MDM: 16:50 Patient medically screened. rn 18:30 Differential diagnosis: abnormal EKG, acute myocardial infarction, acute pericarditis, rn anxiety, coronary artery disease chest wall pain, costochondritis, esophagitis, gastritis, gastroesophageal reflux disease (GERD), pericarditis, pneumonia, pneumothorax, stable angina. HEART Score: History: Slightly Suspicious (0), ECG: Non specific repolarization disturbance / LBTB / PM (1), Age: > or = 65 years (2), Risk Factors: 1 or 2 risk factors (1), Troponin: < or = 1 x Normal Limit (0), Total Score = 4. Data reviewed: vital signs, nurses notes, lab test result(s), EKG, radiologic studies, plain films, and as a result, I will discharge patient. Counseling: I had a detailed discussion with the patient and/or guardian regarding the historical points, exam findings, and any diagnostic results supporting the discharge/admit diagnosis, lab results, radiology results, the need for outpatient follow up, to return to the emergency department if symptoms worsen or persist or if there are any questions or concerns that arise at home. Special discussion: Based on the patient's history, exam, and Dx evaluation, there is no indication for emergent intervention or inpatient Tx. It is understood by the patient/guardian that if the Sx's persist or worsen they need to return immediately for re-evaluation. I discussed with the patient/guardian in detail that at this point there is no indication for admission to the hospital. It is understood, however, that if the symptoms persist or worsen the patient needs to return immediately for re-evaluation. Based on the history and exam findings, there is no indication for further emergent testing or inpatient evaluation. I discussed with the patient/guardian the need to see the scratch polisher for further evaluation of the symptoms. I discussed with the patient/guardian the need to see the primary care provider for further evaluation of the symptoms. ED course: Patient with negative work-up here, no ischemia on EKG, troponin negative. Patient offered admission to patient for observation and cardiology consultation, patient states pain-free and does not want to be admitted, understands risks of going home and states will return if things worsen. Plans to make up follow-up appointment with Dr. Sy. Son is in the room and agrees with plan that she desires. Strict return precautions given and understood.. 02/09 16:55 Order name: Basic Metabolic Panel; Complete Time: 18:18 02/09 16:55 Order name: CBC with Diff; Complete Time: 18:02 02/09 16:55 Order name: NT PRO-BNP; Complete Time: 18:18 02/09 16:55 Order name: Troponin HS; Complete Time: 18:18 rn 02/09 16:55 Order name: XRAY Chest (1 view); Complete Time: 18:08 rn 02/09 16:55 Order name: EKG; Complete Time: 16:56 rn 02/09 16:55 Order name: Cardiac monitoring; Complete Time: 17: rn 02/09 16:55 Order name: EKG - Nurse/Tech; Complete Time: 17: 02/09 16:55 Order name: IV Saline Lock; Complete Time: 17: 02/09 16:55 Order name: Labs collected and sent; Complete Time: 17: 02/09 16:55 Order name: O2 Per Protocol; Complete Time: 17:05 rn 02/09 16:55 Order name: O2 Sat Monitoring; Complete Time: 17:05 rn EC:15 Rate is 54 beats/min. Rhythm is regular. QRS [place] is Normal. SC interval is normal. QRS rn interval is normal. QT interval is normal. No Q waves. T waves are Normal. No ST changes noted. Clinical impression: Sinus bradycardia. Interpreted by me. Reviewed by me. Administered Medications: No medications were administered Disposition Summary: 02/09/23 18:32 Discharge Ordered Notes: Location: Home rn Problem: new rn Symptoms: have improved rn Condition: Stable rn Diagnosis - Chest pain, unspecified rn Followup: rn - With: Private Physician - When: As needed - Reason: Recheck today's complaints, Re-evaluation by your physician Discharge Instructions: - Discharge Summary Sheet rn - Nonspecific Chest Pain, Adult rn Forms: - Medication Reconciliation Form rn - Thank You Letter rn - Antibiotic government relations director - Prescription Opioid Use rn - Patient Portal Instructions rn - Leadership Thank You Letter rn Signatures: Dispatcher [employer] Hussein Dozier MD MD rn Benton, Danielle, RN RN db
[2023-02-09 19:14] VITALS: TEMP 98.5
[2023-02-09 19:25] VITALS: BP 147/58; O2SAT 97
--- NOTE | 2023-02-16 14:39 | EKG ---
Test Date: 2023-02-09 Test Time: 17:12:21 Director Clinical Pharmacology: MEASUREMENT RESULTS: Intervals: Rate: 54 CT: 156 QRSD: 74 QT: 478 QTc: 453 [place]: P: -26 CT: 156 QRS: 27 T: 33 INTERPRETIVE STATEMENTS: Sinus bradycardia Nonspecific T wave abnormality Abnormal ECG Compared to ECG 08/02/2021 11:44:19 Sinus arrhythmia no longer present T-wave abnormality still present Electronically Signed On 02-16-23 14:19:41 HEALTH COACH by Matt Sy
== END 2023-02-09 18:57 | disposition home or self-care (01) ==
LOC: ER 16:42
DX: R07.9 Chest pain, unspecified (principal); I10 Essential (primary) hypertension; F17.210 Nicotine dependence, cigarettes, uncomplicated
CPT/HCPCS: 36415; 71045; 80048; 83880; 84484; 85025; 93005; 99284

== ENCOUNTER 2023-11-01 04:07 | Observation (INO) | payer OTHER ==
--- OUTSIDE RECORDS SUMMARY | 2023-11-01 04:11 | XMS REPORT | Continuity of Care Document ---
Author Name Unknown Address [address] [facility]. [address] [place] [place] [id number] [facility] Address [address] [facility] [address] [place] [address] Care Team Providers Care [employer] Manager Name Role Phone UNKNOWN, REFFERING Primary Care Physician Lynn Abbasi MD Attending Clinician + [phone] LYNN POSADA Attending Clinician Monico kennedy Doctor Unassigned, [place] Attending Clinician U Nano Kumar MD Attending Clinician NATALYA WALSH Attending Clinician Unavailable Natalya Lakhani Attending Clinician [phone] Lab, Ang - Db Attending Clinician Unavailable Ella Dior Attending Clinician [phone] ELLA OCONNELL Attending Clinician Unavailable Mick Mckeon MD Attending Clinician + [phone] Shruthi Burris Attending Clinician [phone] SHRUTHI ABAD Attending Clinician Unavailable MICK MCKEON Attending Clinician Unavailmadeleine ble Lab, Adc Fam Pob I Attending Clinician Unavailab le SUSY, ATTENDING Attending Clinician Unavailab Kylah Heard Attending Clinician [phone] ALEX FONTANEZ M.D., Nisreen SAPP Clinician Unavailable ALEX FONTANEZ M.D., Nisreen SAPP Clinician Unavailable Payers Payer Name Policy Type Policy Number Effective Date Expirati on Date Source Problems Condition Name Condition Details Condition Category Status Onset Date Resolution Date Last Treatment Date Treating Clinician Comments Source Chronic diarrhea Chronic diarrhea Disease Active 2019-04 00:00: 00 [facility] Chronic depression Chronic depression Disease Active 2019-04 00:00: 00 [facility] Seasonal allergic rhinitis Seasonal allergic rhinitis Disease Active 2019-04 00:00: 00 [facility] Arthritis Arthritis Disease Active 2019-04 00:00: 00 Overview: Formattin g of this note might be different from the original. Hands, knees, shoulders [facility] Acquired hypothyroi dism Acquired hypothyroi dism Disease Active 2019-04 00:00: 00 [facility] Macular degenerati on Macular degenerati on Disease Active [facility] Essential hypertensi on Essential hypertensi on Disease Active [facility] Allergies, Adverse Reactions, Alerts Allergy Name Allergy Type Status Severity Reaction(s) Onset Date Inactive Date Treating Clinician Comments Source NO KNOWN ALLERGIE S Drug Class Active [facility] Social History Social Habit Start Date Stop Date Quantity Comments Source Gender identity [facility] SDOH Alcohol Comment [facility] History of tobacco use Cigarette Smoker [facility] Alcoholic beverage intake 2022-12-26 00:00:00 2022-12-26 00:00:00 Lifetime non-drinker (finding) [facility] Alcohol intake 2022-12-26 00:00:00 2022-12-26 00:00:00 Lifetime non-drinker (finding) [facility] History of Social function 2022-12-05 00:00:00 2022-12-05 00:00:00 [facility] Exposure to SARS-CoV-2 (event) 2022-04-24 00:00:00 2022-05-04 14:07:00 Not sure [facility] Cigarettes smoked current (pack per day) - Reported 2021-12-28 00:00:00 2021-12-28 00:00:00 [facility] Tobacco use and exposure 2021-12-28 00:00:00 2021-12-28 00:00:00 Smokeless tobacco non-user [facility] History SDOH Alcohol Frequency 2020-02-19 00:00:00 2020-02-19 00:00:00 1 [facility] History SDOH Alcohol Std Drinks 2020-02-19 00:00:00 2020-02-19 00:00:00 99 [facility] History SDOH Alcohol Binge 2020-02-19 00:00:00 2020-02-19 00:00:00 1 [facility] Sex assigned at 1940 00:00:00 1940 00:00:00 [facility] Smoking Status Start Date Stop Date Source Smokes tobacco daily 2021-12-28 00:00:00 [facility] Medications Ordered Medication Name Filled Medication Name Start Date Stop Date Current Medication? Ordering Clinician Indication Dosage Frequency Signature (SIG) Comments Components Source TIZANIDINE 4 mg tablet 10-30 00:00: 00 Yes [id number] TAKE 1 TABLET BY MOUTH EVERY 6 HOURS NEEDED (BACK PAIN) [facility] LEVOTHYROXI NE 100 mcg tablet 09-29 00:00: 00 Yes [id number] 100ug TAKE 1 TABLET BY MOUTH ONCE DAILY IN THE MORNING [facility] MONTELUKAST 10 mg tablet 24 00:00: 00 Yes [id number] 10mg TAKE 1 TABLET BY MOUTH ONCE DAILY IN THE MORNING [facility] TIZANIDINE 4 mg tablet 17 00:00: 00 10-30 00:00 :00 No [id number] TAKE 1 TABLET BY MOUTH EVERY 6 HOURS NEEDED (BACK PAIN) [facility] fluconazole 150 mg tablet -28 00:00: 00 09-03 04:59 :00 Yes [id number] 150mg Take 1 tablet by mouth once now for 1 dose. [facility] TIZANIDINE 4 mg tablet 5-15 00:00: 00 09-22 00:00 :00 No [id number] TAKE 1 TABLET BY MOUTH EVERY 6 HOURS NEEDED (BACK PAIN) [facility] TIZANIDINE 4 mg tablet 4-14 00:00: 00 08-20 00:00 :00 No [id number] TAKE 1 TABLET BY MOUTH EVERY 6 HOURS NEEDED (BACK PAIN) [facility] MONTELUKAST 10 mg tablet 4-02 00:00: 00 09-29 00:00 :00 No [id number] 10mg TAKE 1 TABLET BY MOUTH ONCE DAILY IN THE MORNING [facility] LEVOTHYROXI NE 100 mcg tablet 4- 00:00: 00 09-29 00:00 :00 No [id number] 100ug TAKE 1 TABLET BY MOUTH ONCE DAILY IN THE MORNING [facility] LEVOTHYROXI NE 100 mcg tablet 04-09 00:00: 00 Yes [id number] 100ug TAKE 1 TABLET BY MOUTH ONCE DAILY IN THE MORNING [facility] MONTELUKAST 10 mg tablet - 00:00: 00 Yes [id number] 10mg TAKE 1 TABLET BY MOUTH ONCE DAILY IN THE MORNING [facility] LEVOTHYROXI NE 100 mcg tablet 2022-04 0- 00:00: 00 Yes [id number] 100ug TAKE 1 TABLET BY MOUTH ONCE DAILY IN THE MORNING [facility] MONTELUKAST 10 mg tablet 2022-04 0- 00:00: 00 Yes [id number] 10mg TAKE 1 TABLET BY MOUTH ONCE DAILY IN THE MORNING [facility] tiZANidine 4 mg tablet 9-20 00:00: 00 07-21 01:14 :01 No [id number] 4mg Take 1 tablet by mouth every 6 (six) hours as needed (back pain). [facility] citalopram 40 mg tablet 12-05 13:17: 47 12-05 00:00 :00 No 40mg Take 40 mg by mouth daily. [facility] cephALEXin 500 mg capsule 12-05 00:00: 00 12-26 00:00 :00 No [id number] 500mg Take 1 capsule by mouth in the morning and 1 capsule in the evening. [facility] fluconazole (DIFLUCAN) 150 mg tablet 2023-0 8-30 00:00: 00 12-06 04:59 :00 No [id number] 150mg Take 1 tablet by mouth once now for 1 dose. [facility] TIZANIDINE 4 mg tablet 2022-0 8-25 00:00: 00 12-26 00:00 :00 No [id number] TAKE 1 TABLET BY MOUTH EVERY 6 HOURS NEEDED FOR BACK PAIN AND SPASMS [facility] TIZANIDINE 4 mg tablet 0 7-31 00:00: 00 Yes [id number] TAKE 1 TABLET BY MOUTH EVERY 6 HOURS NEEDED FOR BACK PAIN AND SPASMS [facility] mg tablet 0 7-03 00:00: 00 Yes [id number] TAKE 1 TABLET BY MOUTH EVERY 6 HOURS NEEDED FOR BACK PAIN AND SPASMS [facility] TIZANIDINE 4 mg tablet 0 6-12 00:00: 00 10-08 00:00 :00 No [id number] TAKE 1 TABLET BY MOUTH EVERY 6 HOURS NEEDED FOR BACK PAIN AND SPASMS [facility] mg tablet 2022-0 5-15 00:00: 00 Yes [id number] TAKE 1 TABLET BY MOUTH EVERY 6 HOURS NEEDED FOR BACK PAIN AND SPASMS [facility] TIZANIDINE 4 mg tablet 0 4-24 00:00: 00 Yes [id number] TAKE 1 TABLET BY MOUTH EVERY 6 HOURS NEEDED FOR BACK PAIN AND SPASMS [facility] TIZANIDINE 4 mg tablet 2022-0 4-04 00:00: 00 24 00:00 :00 No [id number] TAKE 1 TABLET BY MOUTH EVERY 6 HOURS NEEDED FOR BACK PAIN AND SPASMS [facility] TIZANIDINE 4 mg tablet 2022-0 3-17 00:00: 00 Yes [id number] TAKE 1 TABLET BY MOUTH EVERY 6 HOURS NEEDED FOR BACK PAIN AND SPASMS [facility] TIZANIDINE 4 mg tablet 2022-0 2-26 00:00: 00 Yes [id number] TAKE 1 TABLET BY MOUTH EVERY 6 HOURS NEEDED FOR BACK PAIN AND SPASMS [facility] TIZANIDINE 4 mg tablet 2-03 00:00: 00 Yes [id number] TAKE 1 TABLET BY MOUTH EVERY 6 HOURS NEEDED FOR BACK PAIN AND SPASMS [facility] cefUROXime 250 mg tablet 1-27 00:00: 00 05-12 05:59 :00 No [id number] 250mg Take 1 tablet by mouth in the morning and 1 tablet in the evening. Do all this for 7 days. [facility] montelukast 10 mg tablet 2021-04 0 00:00: 00 01-07 00:00 :00 No [id number] 10mg Take 1 tablet by mouth every morning. [facility] levothyroxi ne (EUTHYROX) 100 mcg tablet 2021-04 00:00: 00 01-07 00:00 :00 No [id number] 100ug Take 1 tablet by mouth every morning. [facility] tiZANidine 4 mg tablet 2021-04 0 00:00: 00 05-11 00:00 :00 No [id number] 4mg Take 1 tablet by mouth every 6 (six) hours as needed (back pain and spasm). [facility] cefUROXime 250 mg tablet 2021-04 0 00:00: 00 03-21 00:00 :00 No [id number] 250mg Take 1 tablet by mouth in the morning and 1 tablet in the evening. [facility] cefdinir 300 mg capsule 01-04 00:00: 00 01-16 00:00 :00 No TAKE 1 CAPSULE BY MOUTH EVERY 12 HOURS FOR 10 DAYS [facility] Omeprazole 20 mg tablet 12-28 00:00: 00 Yes [id number] 20mg Take 1 tablet by mouth in the morning. [facility] busPIRone 10 mg tablet 11-27 00:00: 00 Yes 10mg Take 10 mg by mouth 2 (two) times daily as needed. [facility] BUSPIRONE 5 mg tablet 8 00:00: 00 12-28 00:00 :00 No [id number] Take 1 tablet by mouth twice daily [facility] BUSPIRONE 5 mg tablet 7 00:00: 00 Yes [id number] Take 1 tablet by mouth twice daily [facility] BUSPIRONE 5 mg tablet 09-11 00:00: 00 Yes [id number] Take 1 tablet by mouth twice daily [facility] tiZANidine 4 mg tablet 08-07 00:00: 00 01-16 00:00 :00 No [id number] 4mg Take 1 tablet by mouth every 6 (six) hours as needed (back pain and spasm). [facility] cefdinir 300 mg capsule 08-02 00:00: 00 12-28 00:00 :00 No 300mg 300 mg. [facility] levothyroxi ne (EUTHYROX) 100 mcg tablet 07-14 00:00: 00 01-16 00:00 :00 No [id number] 100ug Take 1 tablet by mouth every morning. [facility] montelukast 10 mg tablet 07-14 00:00: 00 01-16 00:00 :00 No [id number] 10mg Take 1 tablet by mouth every morning. [facility] methylPREDN ISolone (MEDROL, ALDO,) 4 mg tablets 05-29 00:00: 00 08-07 00:00 :00 No [id number] Take by mouth SEE-INSTRU CTIONS. follow package directions [facility] methocarbam oL (ROBAXIN) 500 mg tablet 05-29 00:00: 00 08-07 00:00 :00 No [id number] 500mg Take 1 tablet by mouth 4 (four) times daily as needed for Other (muscle tightness) . [facility] citalopram 40 mg tablet 09-30 14:32: 47 Yes 40mg Take 40 mg by mouth daily. [facility] busPIRone 5 mg tablet 18 00:00: 00 09-11 00:00 :00 No [id number] 5mg Take 1 tablet by mouth 2 (two) times daily. [facility] amLODIPine 5 mg tablet 09-22 00:00: 00 Yes 5mg Take 5 mg by mouth daily. [facility] metoprolol succinate XL 50 mg 24 hr tablet 2019-04 13:56: 17 Yes 50mg Take 50 mg by mouth daily. [facility] vit C/E/Zn/jacqueline r/lutein/ze axan (PRESERVISI ON AREDS-2 ORAL) 2019-04 13:56: 17 Yes Take by mouth. [facility] traZODone 150 mg tablet 2019-04 00:00: 00 Yes TAKE 2 TABLETS BY MOUTH IN THE EVENING NEEDED [facility] candesartan 16 mg tablet 12-21 00:00: 00 Yes 16mg Take 16 mg by mouth daily. [facility] Vital Signs Vital Name Observation Time Observation Value Comments S ource Systolic blood pressure 2022-12-26 18:53:00 132 mm[Hg[facility] Diastolic blood pressure 2022-12-26 18:53:00 71 mm[Hg] [facility] Heart rate 2022-12-26 18:53:00 63 /min [facility] Body temperature 2022-12-26 18:53:00 37.17 Pam [facility] Body weight 2022-12-26 18:53:00 65.318 kg [facility] BMI 2022-12-26 18:53:00 33.47 kg/m2 [facility] Systolic blood pressure 2022-12-05 18:09:00 137 mm[Hg] [facility] Diastolic blood pressure 2022-12-05 18:09:00 84 mm[Hg] [facility] Heart rate 2022-12-05 18:09:00 54 /min [facility] Body temperature 2022-12-05 18:09:00 35.94 Pam [facility] Body weight 2022-12-05 18:09:00 66.679 kg [facility] BMI 2022-12-05 18:09:00 34.17 kg/m2 [facility] Systolic blood pressure 2022-05-04 20:40:00 148 mm[Hg] [facility] Diastolic blood pressure 2022-05-04 20:40:00 75 mm[Hg] [facility] Heart rate 2022-05-04 20:38:00 63 /min [facility] Body temperature 2022-05-04 20:38:00 37.33 Pam [facility] Respiratory rate 2022-05-04 20:38:00 17 /min [facility] Body weight 2022-05-04 20:38:00 62.228 kg [facility] BMI 2022-05-04 20:38:00 31.89 kg/m2 [facility] Oxygen saturation in Arterial blood by Pulse oximetry 2022-05-04 20:38:00 96 /min [facility] Systolic blood pressure 2022-03-21 17:34:00 131 mm[Hg] [facility] Diastolic blood pressure 2022-03-21 17:34:00 83 mm[Hg] [facility] Heart rate 2022-03-21 17:34:00 61 /min [facility] Body temperature 2022-03-21 17:34:00 36.78 Pam [facility] Body height 2022-03-21 17:34:00 139.7 cm [facility] Body weight 2022-03-21 17:34:00 63.957 kg [facility] BMI 2022-03-21 17:34:00 32.77 kg/m2 [facility] Systolic blood pressure 2022-01-16 20:20:00 159 mm[Hg] [facility] Diastolic blood pressure 2022-01-16 20:20:00 78 mm[Hg] [facility] Heart rate 2022-01-16 20:18:00 60 /min [facility] Body temperature 2022-01-16 20:18:00 36.89 Pam [facility] Body height 2022-01-16 20:18:00 139.7 cm [facility] Body weight 2022-01-16 20:18:00 63.957 kg [facility] BMI 2022-01-16 20:18:00 32.77 kg/m2 [facility] Systolic blood pressure 2021-12-28 18:13:00 138 mm[Hg] [facility] Diastolic blood pressure 2021-12-28 18:13:00 70 mm[Hg] [facility] Heart rate 2021-12-28 18:13:00 47 /min [facility] Body temperature 2021-12-28 17:45:00 37.11 Pam [facility] Body height 2021-12-28 17:45:00 139.7 cm [facility] Body weight 2021-12-28 17:45:00 64.139 kg [facility] BMI 2021-12-28 17:45:00 32.86 kg/m2 [facility] Oxygen saturation in Arterial blood by Pulse oximetry 2021-12-28 17:45:00 98 /min [facility] Systolic blood pressure 2021-08-07 20:41:00 130 mm[Hg] [facility] Diastolic blood pressure 2021-08-07 20:41:00 65 mm[Hg] [facility] Heart rate 2021-08-07 20:41:00 67 /min [facility] Body temperature 2021-08-07 20:41:00 37.33 Pam [facility] Body height 2021-08-07 20:41:00 139.7 cm [facility] Body weight 2021-08-07 20:41:00 63.504 kg [facility] BMI 2021-08-07 20:41:00 32.54 kg/m2 [facility] Procedures Procedure Date / Time Performed Performing Clinicia n Source POCT URINALYSIS 2022-12-26 00:00:00 Lynn Posada [facility] ASSIGNMENT OF BENEFITS 2022-12-05 17:56:56 Docto r Unassigned, [place] [facility] POCT URINALYSIS 2022-05-04 20:43:00 Natalya Walsh U [facility] EXTERNAL PROVIDER RECORDS 2022-01-23 05:01:00 Doctor Unassigned, [place] [facility] POCT URINALYSIS 2022-01-16 00:00:00 Lynn Posada brannon [facility] LIPASE 2021-12-28 18:38:00 Natalya Walsh [facility] CBC WITH DIFF 2021-12-28 18:38:00 Natalya Walsh [facility] EXTERNAL PROVIDER RECORDS 2021-08-10 05:01:00 Doctor Unassigned, [place] [facility] Encounters Start Date/Time End Date/Time Encounter Type Admission Type Attending [facility] Care Facility Care Department Encounter ID Source 2023-10-31 00:00:00 2023-10-31 11:13:22 [facility]ill [facility] [id number] 350.1.13.10 4.2.7.2.686 [id number] [facility] 2023-10-02 00:00:00 2023-10-02 14:29:16 Telephone Lauren [facility] PRAVIN?[employer] [facility] 1.2.840.114 350.1.13.10 4.2.7.2.686 [id number] [facility] 2023-09-28 00:00:00 2023-09-30 08:50:36 Refill [facility] [id number] 350.1.13.10 4.2.7.2.686 [id number] [facility] 2023-09-21 00:00:00 2023-09-23 12:41:08 Refill [facility] [employer] [facility] 1.2840.114 350.1.13.10 4.2.7.2.686 [id number] [facility] 2023-08-30 00:00:00 2023-09-03 08:32:14 Telephone Lynn [facility] 1.2840.114 350.1.13.10 4.2.7.2.686 [id number] [facility] 2023-08-21 00:00:00 2023-08-21 12:03:01 Reftheodore Posada [facility]IN?[facility] 1.2840.114 350.1.13.10 4.2.7.2.686 [id number] [facility] 2023-07-18 00:00:00 2023-07-18 00:00:00 Refill [facility] 1.2840.114 350.1.13.10 4.2.7.2.686 [id number] [facility] 2023-07-09 00:00:00 2023-07-09 00:00:00 RefLynn Lee [facility] 1.2840.114 350.1.13.10 4.2.7.2.686 [id number] [facility] 2023-04-09 00:00:00 2023-04-09 00:00:00 [facility] 1.2840.114 350.1.13.10 4.2.7.2.686 [id number] [facility] 2023-01-05 00:00:00 2023-01-05 00:00:00 Reftheodore Lynn [facility] 1.840.114 350.1.13.10 4.2.7.2.686 [id number] [facility] 2022-12-26 14:00:00 2022-12-26 14:39:03 Outpatient LYNN [facility] [id number] [facility] 2022-12-26 14:00:00 2022-12-26 14:39:03 Office Visit Lynn Posada [facility] 1.840.114 350.1.13.10 4.2.7.2.686 [id number] [facility] 2022-12-05 13:15:00 2022-12-05 13:30:00 Office Visit Lynn Posada [facility]?[employer] [facility] 1.84.114 350.1.13.10 4.2.7.2.686 [id number] [facility] 2022-12-05 13:15:00 2022-12-05 13:21:45 Outpatient LYNN [facility] [id number] [facility] 2022-12-05 00:00:00 2022-12-05 00:00:00 Orders Only Doctor Unassigned, [place] [facility] 1.84.114 350.1.13.10 4.2.7.2.686 [id number] [facility] 2022-11-29 00:00:00 2022-11-29 00:00:00 [facility] 1.84.114 350.1.13.10 4.2.7.2.686 [id number] [facility] 2022-11-04 00:00:00 2022-11-04 00:00:00 Refill Lynn Posada [facility] NICO CYR?[facility] 1.2840.114 350.1.13.10 4.2.7.2.686 [id number] [facility] 2022-10-08 00:00:00 2022-10-08 00:00:00 [facility] 1.2.840.114 350.1.13.10 4.2.7.2.686 [id number] [facility] 2022-09-22 00:00:00 2022-09-22 00:00:00 [facility] 1.2840.114 350.1.13.10 4.2.7.2.686 [id number] [facility] 2022-09-17 00:00:00 2022-09-17 00:00:00 [facility] 1.2840.114 350.1.13.10 4.2.7.2.686 [id number] [facility] 2022-08-19 00:00:00 2022-08-19 00:00:00 [facility] 1.2840.114 350.1.13.10 4.2.7.2.686 [id number] [facility] 2022-07-30 00:00:00 2022-07-30 00:00:00 [facility] 1.2840.114 350.1.13.10 4.2.7.2.686 [id number] [facility] 2022-07-23 00:00:00 2022-07-23 00:00:00 [facility] 1.2840.114 350.1.13.10 4.2.7.2.686 [id number] [facility] 2022-07-15 00:00:00 2022-07-15 00:00:00 [facility] 1.2840.114 350.1.13.10 4.2.7.2.686 [id number] [facility] 2022-07-09 00:00:00 2022-07-09 00:00:00 Refill [facility] [facility] 1.20.114 350.1.13.10 4.2.7.2.686 [id number] [facility] 2022-06-21 00:00:00 2022-06-21 00:00:00 Refill [facility]?[employer] [facility] 1.2840.114 350.1.13.10 4.2.7.2.686 [id number] [facility] 2022-05-30 00:00:00 2022-05-30 00:00:00 Refill Nano Be Cherelle [facility] PRAVIN?[employer] [facility] 1.84.114 350.1.13.10 4.2.7.2.686 [id number] [facility] 2022-05-11 00:00:00 2022-05-11 00:00:00 Refill [facility]?[employer] [facility] 1.2840.114 350.1.13.10 4.2.7.2.686 [id number] [facility] 2022-05-04 14:30:00 2022-05-04 15:18:13 Outpatient R NATALYA [facility] [id number] [facility] 2022-05-04 14:30:00 2022-05-04 15:18:13 Office Visit Natalya Walsh [facility]?[employer] 1.84.114 350.1.13.10 4.2.7.2.686 [id number] [facility] 2022-03-21 11:30:00 2022-03-21 11:45:00 Office Visit Lynn Posada [facility]?[employer] [facility] 1.84.114 350.1.13.10 4.2.7.2.686 [id number] [facility] 2022-03-21 11:30:00 2022-03-21 11:30:00 Outpatient R LYNN POS[facility] [id number] [facility] 2022-01-23 00:00:00 2022-01-23 00:00:00 Orders Only Doctor Unassigned, [place] [facility] 1.84.114 350.1.13.10 4.2.7.2.686 [id number] [facility] 2022-01-16 15:15:00 2022-01-16 15:30:00 Office Visit Lynn Posada [facility]?[employer] [facility] 1.84.114 350.1.13.10 4.2.7.2.686 [id number] [facility] 2022-01-16 15:15:00 2022-01-16 15:15:00 Outpatient R LYNN POSADA [facility] [id number] [facility] 2022-01-04 00:00:00 2022-01-04 00:00:00 Telephone Lauren Lynn deangelo [facility]?[employer] 1..840.114 350.1.13.10 4.2.7.2.686 [id number] [facility] 2022-01-02 00:00:00 2022-01-02 00:00:00 Telephone Natalya Walsh [facility]?[employer] [facility] 1..840.114 350.1.13.10 4.2.7.2.686 [id number] [facility] 2021-12-28 13:45:00 2021-12-28 14:00:00 Garment Sewer Hand Visit Lab, Rashi - Natalya [facility] [facility] 1..840.114 350.1.13.10 4.2.7.2.686 [id number] [facility] 2021-12-28 12:30:00 2021-12-28 13:29:55 Outpatient R NATALYA WALSH [facility] [id number] [facility] 2021-12-28 12:30:00 2021-12-28 13:29:55 Office Visit Natalya Walsh [facility] [facility] 1..840.114 350.1.13.10 4.2.7.2.686 [id number] [facility] 2021-12-26 00:00:00 2021-12-26 00:00:00 Refill Lynn [facility]?[employer] 1..840.114 350.1.13.10 4.2.7.2.686 [id number] [id number] [facility] 2021-11-09 00:00:00 2021-11-09 00:00:00 Refill Lynn [facility]ada [facility] 1.840.114 350.1.13.10 4.2.7.2.686 [id number] [id number] [facility] 2021-10-09 00:00:00 2021-10-09 00:00:00 Refill Lauren Lynn [facility] 1.84.114 350.1.13.10 4.2.7.2.686 [id number] [facility] 2021-09-09 00:00:00 2021-09-09 00:00:00 Refill Lynn [facility] 1.840.114 350.1.13.10 4.2.7.2.686 [id number] [facility] 2021-08-10 00:00:00 2021-08-10 00:00:00 Orders Only Doctor Unassigned, [place] [facility] 1.84.114 350.1.13.10 4.2.7.2.686 [id number] [facility] 2021-08-07 15:30:00 2021-08-07 15:45:00 Office Visit Lynn [facility] 1.840.114 350.1.13.10 4.2.7.2.686 [id number] [id number] [facility] 2021-08-07 15:30:00 2021-08-07 15:30:00 Outpatient R LYNN POSADA [facility] [id number] [facility] 2021-08-02 00:00:00 2021-08-02 00:00:00 Telephone Lynn [facility]ada [facility] 1.2840.114 350.1.13.10 4.2.7.2.686 [id number] 044 [id number] [facility] 2021-07-14 00:00:00 2021-07-14 00:00:00 Refill Luislindalien Lynn [facility] 1.2.840.114 350.1.13.10 4.2.7.2.686 [id number] [id number] [facility] 2021-05-29 15:22:48 2021-05-29 23:59:00 Outpatient R LYNN POSADA [facility] [id number] [facility] 2021-05-29 15:00:00 2021-05-29 15:15:00 Office Visit Shoaiblien Lynn [facility] 1..840.114 350.1.13.10 4.2.7.2.686 [id number] 044 [id number] [facility] 2021-05-29 00:00:00 2021-05-29 00:00:00 Orders Only Doctor Unassigned, [place] [facility] 1.2.840.114 350.1.13.10 4.2.7.2.686 [id number] [facility] 2021-02-24 11:02:18 2021-02-24 11:24:25 Urgent Care Ella Oconnell [facility] 1.2.840.114 350.1.13.10 4.2.7.2.686 [id number] [facility] 2021-02-24 11:00:00 2021-02-24 11:24:25 Outpatient R ELLA OCONNELL [facility] [id number] [facility] 2021-01-23 00:00:00 2021-01-23 00:00:00 [facility] 1.2.840.114 350.1.13.10 4.2.7.2.686 [id number] 044 [id number] [facility] 2020-12-13 00:00:00 2020-12-13 00:00:00 Telephone Mick Mckeon [facility] 1..840.114 350.1.13.10 4.2.7.2.686 [id number] [id number] [facility] 2020-12-08 10:46:30 2020-12-08 23:59:00 Hospital Encounter Shruthi Abad [facility] 1.2840.114 350.1.13.10 4.2.7.2.686 [id number] [facility] 2020-12-08 09:23:08 2020-12-08 10:09:28 Office Visit Shruthi Abad [facility] 1.2840.114 350.1.13.10 4.2.7.2.686 [id number] 044 [id number] [facility] 2020-12-08 09:30:00 2020-12-08 09:30:00 Outpatient R SHRUTHI ABAD [facility] [id number] [facility] 2020-12-08 08:45:00 2020-12-08 08:45:00 Outpatient R MICK MCKEON [facility] [id number] [facility] 2020-12-08 00:00:00 2020-12-08 00:00:00 Orders Only Doctor Unassigned, [place] [facility] 1.284.114 350.1.13.10 4.2.7.2.686 [id number] [facility] 2020-11-08 18:47:28 2020-11-08 19:07:28 [facility] 1.114 350.1.13.10 4.2.7.2.686 [id number] [facility] 2020-11-08 18:20:00 2020-11-08 18:20:00 Outpatient ELLA DEE [facility] [id number] [facility] 2020-10-04 00:00:00 2020-10-04 00:00:00 Telephone Mick Mckeon [facility] Office Building One 1.114 350.1.13.10 4.2.7.2.686 [id number] 044 [id number] [facility] 2020-10-03 00:00:00 2020-10-03 00:00:00 Orders Only Doctor Unassigned, [place] [facility] 1.114 350.1.13.10 4.2.7.2.686 [id number] [facility] 2020-09-30 14:19:49 2020-09-30 14:34:49 Office Visit Lynn Posada deangelo [facility] Office Building One .114 350.1.13.10 4.2.7.2.686 [id number] [facility] 2020-09-30 14:15:00 2020-09-30 14:15:00 Outpatient LYNN BRISCOE [facility] [id number] [facility] 2020-09-23 14:36:14 2020-09-23 15:20:24 Office Visit Lynn Posada deangelo [facility] Office Building One .114 350.1.13.10 4.2.7.2.686 [id number] [facility] 2020-09-23 14:30:00 2020-09-23 14:30:00 Outpatient R LYNN POSADA [facility] [id number] [facility] 2020-09-22 00:00:00 2020-09-22 00:00:00 Telephone Mick Mckeon [facility] One 1..114 350.1.13.10 4.2.7.2.686 [id number] [facility] 2020-09-20 00:00:00 2020-09-20 00:00:00 Refill Mick Mckeon [facility] Office Building One 1..114 350.1.13.10 4.2.7.2.686 [id number] 044 [id number] [facility] 2020-09-16 00:00:00 2020-09-16 00:00:00 Telephone Mick Mckeon [facility] One 1.114 350.1.13.10 4.2.7.2.686 [id number] [id number] [facility] 2020-08-31 10:40:00 2020-08-31 10:40:00 Outpatient R MICK MCKEON [facility] [id number] [facility] 2020-08-31 10:06:41 2020-08-31 10:20:05 Garment Sewer Hand Visit Lab, Ad[facility] Pob I Mick Mckeon [facility] Office Building One 1.114 350.1.13.10 4.2.7.2.686 [id number] [facility] 2020-08-31 00:00:00 2020-08-31 00:00:00 Case Management Mick Mckeon [facility] Building One 1..114 350.1.13.10 4.2.7.2.686 [id number] [facility] 2020-08-26 16:09:47 2020-08-26 16:47:41 Office Visit Mick Mckeon [facility] Office Building One 1.284.114 350.1.13.10 4.2.7.2.686 [id number] 2020-08-26 16:09:47 2020-08-26 16:47:41 Office Visit Mick Mckeon [facility] Office Building One 1.284.114 350.1.13.10 4.2.7.2.686 [id number] [facility] 2020-08-26 16:00:00 2020-08-26 16:00:00 Outpatient R MICK MCKEON [facility] [id number] [facility] 2020-08-18 10:45:00 2020-08-18 10:45:00 [id number] 2020-04-26 00:00:00 2020-04-26 00:00:00 [facility] 1.840.114 350.1.13.10 4.2.7.2.686 [id number] [facility] 2020-03-08 13:15:00 2020-03-08 13:15:00 Outpatient R UNKNOWN, ATTENDING [facility] [id number] [facility] 2020-03-08 09:00:00 2020-03-08 09:00:00 Outpatient R [facility] [id number] [facility] 2020-03-08 00:00:00 2020-03-08 00:00:00 Telephone Kylah Mcmahan [facility] 1.2840.114 350.1.13.10 4.2.7.2.686 [id number] [facility] 2020-03-07 00:00:00 2020-03-07 00:00:00 Telephone Mick Mckeon [facility] Office Building One 1.2.840.114 350.1.13.10 4.2.7.2.686 [id number] [facility] 2020-02-19 13:26:12 2020-02-19 14:29:08 [facility] 1.2840.114 350.1.13.10 4.2.7.2.686 [id number] [facility] 2020-02-19 14:00:00 2020-02-19 14:00:00 Outpatient R MICK MCKEON [facility] [id number] [facility] Results Test Description Test Time Test Comments Results Result Co mments Source [facility] URINALYSIS W SPECIFIC [id number] 19:15:00* Test Item Value Reference Range Interpretation Comme nts POCT U SP GRAV (test code = 3255) 1.010 mg/dl 1.005-1.025 POCT PH U (test code = 3254) 7 mg/dl 5-8 POCT U LEUK EST (test code = 3263) + Negative - Negative POCT U NIT (test code = 3262) neg Negative - Negati ve POCT U PROT (test code = 3259) 30 Negative - Negative POCT U GLU (test code = 3256) normal Negative - Negati ve POCT U KETONE (test code = 3258) neg Negative - Negative POCT U UROBILI (test code = 3260) normal 0.2-1 POCT U BILI (test code = 3261) neg Negative - Negative POCT U BLD (test code = 3257) trace Negative - Negati ve POCT U COLOR (test code = 3266) dark POCT U APPEAR (test code = 3267) clear [facility] URINALYSIS W SPECIFIC [id number] 20:43:00* Test Item Value Reference Range Interpretation Comme nts POCT U SP GRAV (test code = 3255) 1.005 mg/dl 1.005-1.025 POCT PH U (test code = 3254) 7 mg/dl 5-8 POCT U LEUK EST (test code = 3263) POS Negative - Negative POCT U NIT (test code = 3262) NEG Negative - Negative POCT U PROT (test code = 3259) TRACE Negative - Negative POCT U GLU (test code = 3256) NORMAL Negative - Negative POCT U KETONE (test code = 3258) NEG Negative - Negative POCT U UROBILI (test code = 3260) NORMAL 0.2-1 POCT U BILI (test code = 3261) NEG Negative - Negative POCT U BLD (test code = 3257) NEG Negative - Negative POCT U COLOR (test code = 3266) LIGHT YELLOW POCT U APPEAR (test code = 3267) CLEAR Lab Interpretation (test code = 39313-3) Abnormal [facility] URINALYSIS W SPECIFIC [id number] 20:43:00* Test Item Value Reference Range Interpretation Comme nts POCT U SP GRAV (test code = 3255) 1.005 mg/dl 1.005-1.025 POCT PH U (test code = 3254) 7 mg/dl 5-8 POCT U LEUK EST (test code = 3263) POS Negative - Negative POCT U NIT (test code = 3262) NEG Negative - Negative POCT U PROT (test code = 3259) TRACE Negative - Negative POCT U GLU (test code = 3256) NORMAL Negative - Negative POCT U KETONE (test code = 3258) NEG Negative - Negative POCT U UROBILI (test code = 3260) NORMAL 0.2-1 POCT U BILI (test code = 3261) NEG Negative - Negative POCT U BLD (test code = 3257) NEG Negative - Negative POCT U COLOR (test code = 3266) LIGHT YELLOW POCT U APPEAR (test code = 3267) CLEAR Lab Interpretation (test code = 81650-8) Abnormal [facility] URINALYSIS W SPECIFIC [id number] 21:07:00* Test Item Value Reference Range Interpretation Comme nts POCT U SP GRAV (test code = 3255) 1.010 mg/dl 1.005-1.025 POCT PH U (test code = 3254) 6 mg/dl 5-8 POCT U LEUK EST (test code = 3263) + Negative - Negative POCT U NIT (test code = 3262) Neg Negative - Negative POCT U PROT (test code = 3259) trace Negative - Negative POCT U GLU (test code = 3256) normal Negative - Negative POCT U KETONE (test code = 3258) neg Negative - Negative POCT U UROBILI (test code = 3260) normal 0.2-1 POCT U BILI (test code = 3261) neg Negative - Negative POCT U BLD (test code = 3257) trace Negative - Negative POCT U COLOR (test code = 3266) light yellow POCT U APPEAR (test code = 3267) clear [facility]IFIC [id number] 21:07:00* Test Item Value Reference Range Interpretation Comme nts POCT U SP GRAV (test code = 3255) 1.010 mg/dl 1.005-1.025 POCT PH U (test code = 3254) 6 mg/dl 5-8 POCT U LEUK EST (test code = 3263) + Negative - Negative POCT U NIT (test code = 3262) Neg Negative - Negative POCT U PROT (test code = 3259) trace Negative - Negative POCT U GLU (test code = 3256) normal Negative - Negative POCT U KETONE (test code = 3258) neg Negative - Negative POCT U UROBILI (test code = 3260) normal 0.2-1 POCT U BILI (test code = 3261) neg Negative - Negative POCT U BLD (test code = 3257) trace Negative - Negative POCT U COLOR (test code = 3266) light yellow POCT U APPEAR (test code = 3267) clear [facility] 21:09:42* Test Item Value Reference Range Interpretation Comme nts LIPASE (test code = 2272962185) 391 U/L 0-220 H Lab Interpretation (test cod e = 80619-2) [facility]normal [facility] 21:09:42* Test Item Value Reference Range Interpretation Comme nts LIPASE (test code = 4008040199) 391 U/L 0-220 H Lab Interpretation (test cod e = 08561-3) Abnormal [facility] WITH [id number] 21:03:03* Test Item Value Reference Range Interpretation Comme nts WBC (test code = 6690-2) See_Comment H [Automated messa ge] The system which generated this result transmitted reference range: 4.30 - 11.10 10*3/?L. The reference range was not used to interpret this result as normal/abnormal. RBC (test code = 789-8) See_Comment [Automated messa ge] The system which generated this result transmitted reference range: 3.93 - 5.25 10*6/?L. The reference range was not used to interpret this result as normal/abnormal. HGB (test code = 718-7) 14.5 g/dL 11.6-15 HCT (test code = 4544-3) 44.1 % 35.7-45.2 MCV (test code = 787-2) 94.8 fL 80.6-95.5 MCH (test code = 785-6) 31.2 pg 25.9-32.8 MCHC (test code = 786-4) 32.9 g/dL 31.6-35.1 RDW-SD (test code = 55625-4) 48.7 fL 39-49.9 RDW-CV (test code = 788-0) 14.0 % 12-15.5 PLT (test code = 777-3) See_Comment H [Automated messa ge] The system which generated this result transmitted reference range: 166 - 358 10*3/?L. The reference range was not used to interpret this result as normal/abnormal. MPV (test code = 20463-6) 9.9 fL 9.5-12.9 NRBC/100 WBC (test code = 6854838169) See_Comment [Automated me ssage] The system which generated this result transmitted reference range: 0.0 - 10.0 /100 WBCs. The reference range was not used to interpret this result as normal/abnormal. NRBC x10^3 (test code = 8160358742) See_Comment [Automated messa ge] The system which generated this result transmitted reference range: 10*3/?L. The reference range was not used to interpret this result as normal/abnormal. GRAN MAT (NEUT) % (test code = 770-8) 72.3 % IMM GRAN % (test code = 3346638630) 0.70 % LYMPH % (test code = 736-9) 18.4 % MONO % (test code = 5905-5) 6.7 % EOS % (test code = 713-8) 1.2 % BASO % (test code = 706-2) 0.7 % GRAN MAT x10^3(ANC) (test code = 1177364829) 8.68 10*3/uL 1.88-7.09 H IMM GRAN x10^3 (test code = 3206630472) 0.09 10*3/uL 0-0.06 H LYMPH x10^3 (test code = 731-0) 2.21 10*3/uL 1.32-3.29 MONO x10^3 (test code = 742-7) 0.81 10*3/uL 0.33-0.92 EOS x10^3 (test code = 711-2) 0.14 10*3/uL 0.03-0.39 BASO x10^3 (test code = 704-7) 0.08 10*3/uL 0.01-0.07 H Lab Interpretation (test code = 05480-1) Abnormal [facility] WITH [id number] 21:03:03* Test Item Value Reference Range Interpretation Comme nts WBC (test code = 6690-2) See_Comment H [Automated messa ge] The system which generated this result transmitted reference range: 4.30 - 11.10 10*3/?L. The reference range was not used to interpret this result as normal/abnormal. RBC (test code = 789-8) See_Comment [Automated messa ge] The system which generated this result transmitted reference range: 3.93 - 5.25 10*6/?L. The reference range was not used to interpret this result as normal/abnormal. HGB (test code = 718-7) 14.5 g/dL 11.6-15 HCT (test code = 4544-3) 44.1 % 35.7-45.2 MCV (test code = 787-2) 94.8 fL 80.6-95.5 MCH (test code = 785-6) 31.2 pg 25.9-32.8 MCHC (test code = 786-4) 32.9 g/dL 31.6-35.1 RDW-SD (test code = 68777-0) 48.7 fL 39-49.9 RDW-CV (test code = 788-0) 14.0 % 12-15.5 PLT (test code = 777-3) See_Comment H [Automated messa ge] The system which generated this result transmitted reference range: 166 - 358 10*3/?L. The reference range was not used to interpret this result as normal/abnormal. MPV (test code = 19568-2) 9.9 fL 9.5-12.9 NRBC/100 WBC (test code = 0835448763) See_Comment [Automated [facility] ssage] The system which generated this result transmitted reference range: 0.0 - 10.0 /100 WBCs. The reference range was not used to interpret this result as normal/abnormal. NRBC x10^3 (test code = 7572199688) See_Comment [Automated messa ge] The system which generated this result transmitted reference range: 10*3/?L. The reference range was not used to interpret this result as normal/abnormal. GRAN MAT (NEUT) % (test code = 770-8) 72.3 % IMM GRAN % (test code = 0270488638) 0.70 % LYMPH % (test code = 736-9) 18.4 % MONO % (test code = 5905-5) 6.7 % EOS % (test code = 713-8) 1.2 % BASO % (test code = 706-2) 0.7 % GRAN MAT x10^3(ANC) (test code = 1087648704) 8.68 10*3/uL 1.88-7.09 H IMM GRAN x10^3 (test code = 1218982152) 0.09 10*3/uL 0-0.06 H LYMPH x10^3 (test code = 731-0) 2.21 10*3/uL 1.32-3.29 MONO x10^3 (test code = 742-7) 0.81 10*3/uL 0.33-0.92 EOS x10^3 (test code = 711-2) 0.14 10*3/uL 0.03-0.39 BASO x10^3 (test code = 704-7) 0.08 10*3/uL 0.01-0.07 H Lab Interpretation (test code = 84070-9) Abnormal [facility] Notes Date/Time Note Provider Source 2023-10-31 10:44:55 2916-83-20D66:44:55F ormatting of this note is different from the original.Images from the original note were not included.Requested RenewalsName from pharmacy: tiZANidine HCl 4 MG Oral TabletWill file in chart as: TIZANIDINE 4 mg tabletSig: TAKE 1 TABLET BY MOUTH EVERY 6 HOURS NEEDED (BACK PAIN)Disp: 60 tablet Refills: 0Start: 10/31/2023lass: eRXNon-formulary For: Chronic bilateral low back pain without sciaticaLast ordered: 1 month ago (09/23/2023) by Lynn Posada MDLasjustin refill: 4Rx #: [id number] Review Required Rsljba7510/31/2023 10:42 AMProtocol Details This refill cannot be delegatedValid encounter within last 12 monthsTo be filled at: [facility] [address] [place], [place] [address] VisitsDate Type Provider Dept12/26/22 Office Visit Lynn Posada MD [facility]12/05/22 Office Visit Lynn Posada MD Ang-[facility] MedShowing recent visits within past 540 days with a meds authorizing provider and meeting all other requirementsFuture AppointmentsNo visits were found meeting these conditions.Showing future appointments within next 150 days with a meds authorizing provider and meeting all other requirements 70988-4Jkutvoosn encounter CjxwKL0443-69-12X38:45:04Telephone encounter NoteTXT1.2.840.787350.1.13.104.2.7.2 .085988|[id number] for patient wmkd15959-5KrkqDNJHRVAXQABPsduaxzne C-CDA narrative [id number] CKGFYGOBTKPFNPIMVVCHQT7611-50-35M92: 45:041.2.840.540432.1.72.3.15|1.2.84 0.443030.1.13.104.2.7.2.727879_21545 02771 [facility] 2023-10-02 14:27:49 7370-19-23B24:27:49F ormatting of this note might be different from the original.Spoke with [facility] they did receive scripts , 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 until 10/09/2023 because 90 was given in JulyNot Patient 60840-9Ojvblbtni encounter FuatPO5390-20-59H91:29:16Telephone encounter NoteTXT1.2.840.044078.1.13.104.2.7.2 .709394|[id number] for patient lfkk26031-7ZnngOIBEOSXMYSKWcxfhxtjf C-CDA narrative [id number] PRWBDZXVVSZLLKOABQRPMN1402-33-23H81: 29:161.2.840.393899.1.72.3.15|1.2.84 0.227632.1.13.104.2.7.2.727879_21322 96677 [facility] 2023-10-02 13:25:56 1770-99-26Y28:25:56F ormatting of this note might be different from the original.Shanae Del Cid is a 82 year old femalePt calling in stating shiela never recieved her refills . Please resend:LEVOTHYROXINE 100 mcg tabletMONTELUKAST 10 mg tabletPlease contact pt once done. 49355-5Jmzhrxdcb encounter EdinEY9613-78-15J05:26:43Telephone encounter NoteTXT1.2.840.256948.1.13.104.2.7.2 .890366|[id number] for patient zxuk43254-0QfdbNJVMIYFUDYFWznjqnxes C-CDA narrative [id number] N [address][id number] SCQETHAHTDPISLFFPTQQJY2569-95-82V75: 26:431.2.840.588048.1.72.3.15|1.2.84 0.868409.1.13.104.2.7.2.727879_21321 79164 Katie Wolfe [facility] 2023-09-23 08:51:32 8107-37-14S74:51:32F ormatting of this note is different from the original.Recent VisitsDate Type Provider Dept12/26/22 Office Visit Lynn Posdaa MD Ang[facility] Med12/05/22 Office Visit Lynn Posada MD [facility] Med05/04/22 [facility] recent visits within past 540 days with a meds authorizing provider and meeting all other requirementsFuture AppointmentsNo visits were found meeting these conditions.Showing future appointments within next 150 days with a meds authorizing provider and meeting all other requirementsLast refill wasDisp Refills Start End DAWTIZANIDINE 4 mg tablet 60 tablet 0 08/21/2023 -- NoSig: TAKE 1 TABLET BY MOUTH EVERY 6 HOURS NEEDED (BACK PAIN)Sent to pharmacy as: tiZANidine 4 mg tablet (ZANAFLEX) 38756-0Ngabqbbwd encounter HejmPJ4532-20-60N73:51:46Telephone encounter NoteTXT1.2.840.941101.1.13.104.2.7.2 .064955|[id number] for patient ehnb52819-9RhpkCCFUNYJGJJHLimyfikkp C-CDA narrative textUT[address] StreetQb[id number] DQUVIWUWSABEMAJTKIFIZJ0715-31-22R11: 51:461.2.840.537134.1.72.3.15|1.2.84 0.887325.1.13.104.2.7.2.727879_21248 [address] [facility] 2023-08-30 13:05:01 9354-99-55N22:05:01F ormatting of this note might be different from the original.Copied from [facility] #[id number]. Topic: Clinical - Order>> August 30, 2023 1:04 PM Patient Camp Advisor wrote:Pt request rx refill. Pt is having itching at this time.fluconazole (DIFLUCAN) 150 mg [facility] [address] [place] [id number]: [phone] Xladsefcsdzvku signed by Thu Josue at 08/30/2023 1:08 PM OSJ22083-8Qbfpwbpuo encounter QpldAE7970-98-15A30:08:29Telephone encounter NoteTXT1.2.840.779247.1.13.104.2.7.2 .778613|[id number] for patient qttw33938-1UoduNSWGJNHXEIFFhcmpynvl C-CDA narrative [id number] N FanninUT39 [address] StreetNd[id number] KGHEMRNXPHGIXQXPFSYOSO5398-82-59Y48: 08:291.2.840.563726.1.72.3.15|1.2.84 0.141206.1.13.104.2.7.2.727879_21076 83279 Thu [facility] 2023-08-21 11:54:52 8212-54-19Q40:54:52F ormatting of this note is different from the original.Recent VisitsDate Type Provider Dept12/26/22 Office Visit Lynn Posada MD Ang[facility] Med12/05/22 Office Visit Lynn Posada MD [facility] Med05/04/22 Office Visit Natalya Walsh PA [facility] Med03/21/22 Office Visit Lynn Posada MD [facility] MedShowing recent visits within past 540 days with a meds authorizing provider and meeting all other requirementsFuture AppointmentsNo visits were found meeting these conditions.Showing future appointments within next 150 days with a meds authorizing provider and meeting all other requirementsLast refill wasTIZANIDINE 4 mg tablet 60 tablet 0 07/21/2023 -- NoSig: TAKE 1 TABLET BY MOUTH EVERY 6 HOURS NEEDED (BACK PAIN)Sent to pharmacy as: tiZANidine 4 mg tablet (ZANAFLEX)Class: eRX 85552-0Mwjmtbeon encounter EvxeHU3519-74-58B62:55:04Telephone encounter NoteTXT1.2.840.512259.1.13.104.2.7.2 .319129|[id number] for patient oljw34112-5NglwEXOXZHPDYDUBfhxqlmgz C-CDA narrative textUT39 Rodriguez StreetBs[id number] OCCFMMWUGHDYECSGCKMCJI3482-83-84J96: 55:041.2.840.094810.1.72.3.15|1.2.84 0.735554.1.13.104.2.7.2.727879_20999 00058 [facility] 2023-07-19 07:36:55 6375-93-92G77:36:55F ormatting of this note is different from the original.Images from the original note were not included.Requested RenewalsName from pharmacy: tiZANidine HCl 4 MG Oral TabletWill file in chart as: TIZANIDINE 4 mg tabletSig: TAKE 1 TABLET BY MOUTH EVERY 6 HOURS NEEDED (BACK PAIN)Disp: 60 tablet Refills: 0Start: 07/18/2023lass: eRXNon-formulary For: Chronic bilateral low back pain without sciaticaLast ordered: 6 months ago (12/26/2022) by Manav Alejandra refill: 4Rx #: [id number] Review Required Konuft6307/18/2023 07:58 PMProtocol Details This refill cannot be delegatedValid encounter within last 12 monthsTo be filled at: [facility] [address] [place] [address] VisitsDate Type Provider Dept12/26/22 Office Visit Lynn Posada MD [facility] Med12/05/22 Office Visit Lynn Posada MD [facility] Med05/04/22 Office Visit Natalya Walsh PA [facility] Med03/21/22 Office Visit Lynn Posada MD [facility] MedShowing recent visits within past 540 days with a meds authorizing provider and meeting all other requirementsFuture AppointmentsNo visits were found meeting these conditions.Showing future appointments within next 150 days with a meds authorizing provider and meeting all other requirements 38212-9Ftfbqfabl encounter KncxWH7199-88-12A61:37:11Telephone encounter NoteTXT1.2.840.852840.1.13.104.2.7.2 .316967|[id number] for patient qmxj16334-7DacsACMPKNWTTFPWnccuvvgj C-CDA narrative textUT[address] Cm[id number] YTFVAAKHJXNHHOITKFFUJZ0627-23-69S09: 37:111.2.840.975467.1.72.3.15|1.2.84 0.762822.1.13.104.2.7.2.727879_20727 00342 [facility] 2023-07-09 13:42:37 4478-25-33G76:42:37F ormatting of this note is different from the original.Images from the original note were not included.Requested RenewalsName from pharmacy: Montelukast Sodium 10 MG Oral TabletWill file in chart as: MONTELUKAST 10 mg tabletSig: TAKE 1 TABLET BY MOUTH ONCE DAILY IN THE MORNINGDisp: 90 tablet Refills: 0Start: 4Class: eRXFor: Seasonal allergic rhinitis due to pollenLast ordered: 3 months ago (04/09/2023) by Manav Alejandra refill: 4Rx #: [id number] Xqruac4207/09/2023 01:19 PMProtocol Details Valid encounter within last 12 monthsName from pharmacy: Levothyroxine Sodium 100 MCG Oral TabletWill file in chart as: LEVOTHYROXINE 100 mcg tabletSig: TAKE 1 TABLET BY MOUTH ONCE DAILY IN THE MORNINGDisp: 90 tablet Refills: 0Start: 4Class: eRXFor: Acquired hypothyroidismLast ordered: 3 months ago (04/09/2023) by Manav Alejandra refill: 4Rx #: [id number]: Hypothyroid Agents Yxqrcs6307/09/2023 01:19 PMProtocol Details Manual Review: ENT providers forward refill request to PCP.TSH in normal range and within 360 daysValid encounter within last 12 monthsTo be filled at: [address] are no current results on file for these tests and/or test for 1 year.NO TSH ON FILERecent VisitsDate Type Provider Dept12/26/22 Office Visit Lynn Posada MD [facility] Med12/05/22 Office Visit Lynn Posada MD [facility] Med05/04/22 Office Visit Natalya Walsh PA Ang[facility] Med03/21/22 Office Visit Lynn Posada MD [facility] Med01/16/22 Office Visit Lynn Posada MD [facility] MedShowing recent visits within past 540 days with a meds authorizing provider and meeting all other requirementsFuture AppointmentsNo visits were found meeting these conditions.Showing future appointments within next 150 days with a meds authorizing provider and meeting all other requirements 54204-9Emwoqbttr encounter EhntUG9406-88-25G95:42:55Telephone encounter NoteTXT1.2.840.125681.1.13.104.2.7.2 .617436|[id number] for patient ainb31146-2IglkESZMFFGDPMZStbtgbyek C-CDA narrative textUT[address] Gh[id number] SACIJEGBAEVKJKZXONTEQB2299-80-07U59: 42:551.2.840.924760.1.72.3.15|1.2.84 0.588445.1.13.104.2.7.2.727879_20639 00128 [facility] 2022-11-29 17:44:43 1181-62-67Q05:44:43F ormatting of this note is different from the original.Images from the original note were not included.Please review and sign if appropriate. Name from pharmacy: tiZANidine HCl 4 MG Oral Tablet Will file in chart as: TIZANIDINE 4 mg tablet Sig: TAKE 1 TABLET BY MOUTH EVERY 6 HOURS NEEDED FOR BACK PAIN AND SPASMS Disp: 30 tablet Refills: 0 Start: 11/29/2022 Class: eRX Non-formulary For: Chronic bilateral low back pain without sciatica Last ordered: 3 weeks ago (11/05/2022) by Lynn Posada MD Last refill: 11/05/2022 Rx #: [id number] Provider Review Required Failed 11/29/2022 05:12 PM Protocol Details This refill cannot be delegated Valid encounter within last 12 months To be filled at: [facility] [address] [place] [address] Recent VisitsDate Type Provider Dept 05/04/22 Office Visit Natalya Walsh PA [facility] 03/21/22 Office Visit Lynn Posada MD [facility] 01/16/22 Office Visit Lynn Posada MD [facility] 12/28/21 Office Visit Natalya Walsh PA [facility] 08/07/21 [facility] Showing recent visits within past 540 days with a meds authorizing provider and meeting all other requirementsFuture AppointmentsNo visits were found meeting these conditions.Showing future appointments within next 150 days with a meds authorizing provider and meeting all other requirements 35705-6Czqmmejng encounter QtcvLG7395-52-65X59:45:10Telephone encounter NoteTXT1.2.840.335432.1.13.104.2.7.2 .004810|[id number] for patient psjp30298-5RsmjKKTLOOQUGZ[address] Pt[id number] XPUSNMUAOSZZBCXOYTRUHL7435-94-73C18: 45:101.2.840.586858.1.72.3.15|1.2.84 0.126973.1.13.104.2.7.2.727879_18827 72079 [facility] 2022-11-05 13:11:49 6260-44-50J94:11:49F ormatting of this note is different from the original.Images from the original note were not included.Requested Renewals Name from pharmacy: tiZANidine HCl 4 MG Oral Tablet Will file in chart as: TIZANIDINE 4 mg tablet Sig: TAKE 1 TABLET BY MOUTH EVERY 6 HOURS NEEDED FOR BACK PAIN AND SPASMS Disp: 30 tablet Refills: 0 Start: 11/04/2022 Class: eRX Non-formulary For: Chronic bilateral low back pain without sciatica Last ordered: 4 weeks ago (10/08/2022) by Lynn Posada MD Last refill: 10/08/2022 Rx #: [id number] Provider Review Required Failed 11/04/2022 01:06 PM Protocol Details This refill cannot be delegated Valid encounter within last 12 months To be filled at: [facility] [address] [place] [address] Recent VisitsDate Type Provider Dept 05/04/22 Office Visit Natalya Walsh PA [facility] 03/21/22 Office Visit Lynn Posada MD [facility] 01/16/22 Office Visit yLnn Posada MD [facility] 12/28/21 Office Visit Natalya Walsh PA [facility] 08/07/21 Office Visit Lynn Posada MD [facility] 05/29/21 Office Visit Lynn Posada MD [facility] Showing recent visits within past 540 days with a meds authorizing provider and meeting all other requirementsFuture AppointmentsNo visits were found meeting these conditions.Showing future appointments within next 150 days with a meds authorizing provider and meeting all other requirements 09410-8Frlpsgeyh encounter WuapDD6063-31-87N22:12:14Telephone encounter NoteTXT1.2.840.370484.1.13.104.2.7.2 .038363|[id number] for patient nclr76835-9KisaCXEJIMLNIF19 [id number] OMAKBZYUZLKPUONGSHAJBP1566-04-63W98: 12:141.2.840.775585.1.72.3.15|1.2.84 0.384771.1.13.104.2.7.2.727879_18627 92450 [facility] 2017-04-30 21:22:23 4098411002eyjWwvlT5q mHI9zKCbmDRwoUlN LW+7+KcFQMQT1mwcfroSODI6ugHrihVaHj34 hx9770-99-77E47:22:23 [facility] Operative Report/ProcedurePATIENT NAME: SHANAE DEL CID PHYSICIAN: Alex Fontanez MD Admitted: MR NUMBER: [id number] DISCHARGED: 04/11/2017 04:25:00 Date of surgery:04/11/2017.PREOPERATIVE DIAGNOSIS:Macular hole, left eye.POSTOPERATIVE DIAGNOSIS:Macular hole, left eye.SURGEON:Alex Fontanez MDANESTHESIA:Retrobulbar injection monitored anesthesia care.PROCEDURE PERFORMED:Vitrectomy, internal limiting membrane peel, and gas fluid exchange.COMPLICATIONS:None.PROCEDUR E IN DETAIL:The patient was given retrobulbar block as well as retrobulbar steroid injection. The patient was prepped and draped in usual fashion for ophthalmic surgery. The wire lid speculum inserted, 23-gauge cannulas were placed superiorly and anterior central and posterior vitrectomy carried out. Care was taken to disinsert the posterior hyaloid with suction. [place] blue dye was then used to stain the internal limiting membrane. This was then peeled in a circular fashion using straight intraocular forceps. Air fluid exchange next undertaken. Air was exchanged for 20% sulfur hexafluoride gas. All cannulas were removed and eye patched with neomycin, polymyxin, and dexamethasone ophthalmic ointment.Alex Fontanez MDKAB/RADDD: 04/11/2017 16:12TD: 04/11/2017 18:51Job #: [id number]:Alex Fontanez MD([employer])Electronically Authenticated by:Alex Fontanez MD On 04/16/2017 12:10 PM CSTOPOperative [id number] for patient jwqcPXEGZVBQHSFE8032-23-49N80:22:23 [facility]"
[2023-11-01] MEDS ORDERED: LIDOCAINE 2% W/EPI 1:200,000 MPF 20 ML VIAL IM ONE (04:37)
[2023-11-01 05:41] LABS: Absolute Lymphocytes (CBC) 1.4 K/uL (0.7-4.9); Absolute Monocytes 0.7 K/uL (0.1-1.3); Absolute Neutrophil 5.8 K/uL (1.8-8.0); Basophils % 0.4 % (0-1.3); Eosinophils % 0.1 % (0-4.4); Hemoglobin 13.7 g/dL (12.0-15.0); Lymphocytes % 17.5 % (15.3-44.8); MCH 31.5 pg (27.0-35.0); MCHC 33.4 g/dL (32.0-36.0); MCV 94.3 fL (80-100); MPV 7.9 fL (7.6-11.3); Monocytes % 8.4 % (3.3-12.3); Neutrophils % 73.6 % (41.7-73.7); Nucleated Red Blood Cells % 0.3 % (0-0); Platelets 378 thou/uL (152-406); RBC Red Blood Cell Count 4.35 M/uL (3.86-4.86); Red Cell Distribution Width 15.3 % (12.1-15.2)
[2023-11-01 06:02] LABS: PT Prothrombin Time 12.2 SECONDS (9.4-12.5); Protime INR 1.09
[2023-11-01 06:09] LABS: Anion Gap 8.9 mEq/L (5.0-15.0); Potassium 2.9 mEq/L (3.5-5.1)
[2023-11-01 06:11] LABS: Troponin High Sensitivity 151.3 (<58.9)
[2023-11-01] MEDS ORDERED: ONDANSETRON 4 MG (ODT) TAB ONE (06:12)
--- NOTE | 2023-11-01 06:45 | ER ---
Nurse's Notes [facility] Name: Shanae Del Cid Age: 82 yrs Sex: Female : 1940 Arrival Date: 11/01/2023 Time: 04:07 Bed 8 Private MD: Diagnosis: Laceration without foreign body of unspecified part of head;Subsequent non-ST elevation (NSTEMI) myocardial infarction;Syncope;Hypokalemia Presentation: 10/31 04:09 Chief complaint: EMS states: went to the bathroom and "woke up on the floor", vc1 laceration to right side of head, nose swollen and bruised. Coronavirus screen: Client denies travel out of the [place] in the last 14 days. At this time, the client does not indicate any symptoms associated with coronavirus-19. Ebola Screen: Patient negative for fever greater than or equal to 101.5 degrees Fahrenheit, and additional compatible Ebola Virus Disease symptoms Patient denies exposure to infectious person. Patient denies travel to an Ebola-affected area in the 21 days before illness onset. No symptoms or risks identified at this time. Initial Sepsis Screen: Does the patient meet any 2 criteria? No. Patient's initial sepsis screen is negative. Does the patient have a suspected source of infection? No. Patient's initial sepsis screen is negative. Risk Assessment: Do you want to hurt yourself or someone else? Patient reports no desire to harm self or others. Onset of symptoms was November 01, 2023. Care prior to arrival: IV initiated. 22 GA, in the left antecubital area. Activity prior to arrival: loss of consciousness. Mechanism of Injury: Fall toilet. Transition of care: patient was not received from another setting of care. 04:09 Method Of Arrival: EMS: [facility] vc1 04:09 Acuity: CONNER 2 vc1 Triage Assessment: 04:12 General:. vc1 04:12 General: Appears in no apparent distress. uncomfortable, Behavior is agitated, fussy. vc1 Pain: Complains of pain in right frontal area Pain does not radiate. Pain currently is 8 out of 10 on a pain scale. EENT: No deficits noted. No signs and/or symptoms were reported regarding the EENT system. Neuro: Level of Consciousness is awake, alert, obeys commands, Oriented to person, place, time, situation, Appropriate for age. Cardiovascular: No deficits noted. Heart tones S1 S2 Capillary refill < 3 seconds Patient's skin is warm and dry. Respiratory: Airway is patent Respiratory effort is even, unlabored, Respiratory pattern is regular, symmetrical, Breath sounds are clear bilaterally. GI: Abdomen is flat, Abd is soft and non tender. : No deficits noted. No signs and/or symptoms were reported regarding the genitourinary system. Derm: Wound noted right frontal area. Injury Description: Head injury sustained to right frontal area Laceration sustained to right frontal area. 04:12 Musculoskeletal: No deficits noted. No signs and/or symptoms reported regarding the vc1 musculoskeletal system. Historical: - Allergies: 04:10 No Known Allergies; vc1 - PMHx: 04:10 BRADYCARDIA; eye disease; Hypertension; Hypothyroidism; vc1 - PSHx: 04:10 bowel blockage SX; Tonsillectomy; uterus removed; vc1 - Infectious Disease History:: Denies. - Social history:: Smoking status: Patient denies any tobacco usage or history of. Screenin:11 [facility] ED Fall Risk Assessment (Adult) History of falling in the last 3 months, vc1 including since admission Yes- physiologic fall (2 pts) Confusion or Disorientation No (0 pts) Intoxicated or Sedated No (0 pts) Impaired Gait No (0 pts) Mobility Assist Device Used No (0 pt) Altered Elimination No (0 pt) Score/Fall Risk Level 3 or more points = High Risk Oriented to surroundings, Maintained a safe environment, Educated pt \\T\\ family on fall prevention, incl call for assistance when getting out of bed, Hourly rounding (assess needs \\T\\ fall precautionary measures) done. Abuse screen: Denies threats or abuse. Nutritional screening: No deficits noted. Tuberculosis screening: No symptoms or risk factors identified. Vital Signs: 04:09 BP 120 / 58; Pulse 59; Resp 14; Temp 98.6; Pulse Ox 99% ; Height 4 ft. 9 in. ; vc1 Dane Coma Score: 04:15 Eye Response: spontaneous(4). Motor Response: obeys commands(6). Verbal Response: cp oriented(5). Total: 15. 04:23 Eye Response: spontaneous(4). Motor Response: obeys commands(6). Verbal Response: cp oriented(5). Total: 15. ED Course: 04:08 Patient arrived in ED. jj6 04:09 Georgette Lua, RN is Primary Nurse. vc1 04:10 Donovan Weinstein PA is PHCP. cp 04:10 Donovan Irby MD is Attending Physician. cp 04:10 Triage completed. vc1 04:12 Arm band placed on right wrist. vc1 04:12 Patient has correct armband on for positive identification. Placed in gown. Bed in low vc1 position. Pulse ox on. NIBP on. 04:30 One-on-one care X 45 minutes. vc1 04:40 CT Facial Bones W/O Con In Process Unspecified. EDMS 04:40 CT Traumagram (Head C Spine CAP wo con) In Process Unspecified. EDMS 05:00 Wound care: to laceration located on right frontal area was cleaned with soap and vc1 water, irrigated with normal saline, Patient tolerated well. 05:15 One-on-one care X 30 minutes. vc1 06:03 No provider procedures requiring assistance completed. IV discontinued, intact, vc1 bleeding controlled, No redness/swelling at site. Pressure dressing applied. 06:43 Emanuel Hernandez MD is Hospitalizing Provider. cp 06:54 Inserted saline lock: 22 gauge in right antecubital area, using aseptic technique. vc1 Flushed with 10 mL NS. Administered Medications: 06:15 Drug: Ondansetron PO 4 mg PO once Route: PO; jb4 07:40 Drug: Potassium PO Effervescent Tablet 50 mEq PO once; dissolve in 4 ounces of water or vc1 juice Route: PO; 07:41 Drug: fentaNYL (PF) IVP 25 mcg IVP once Route: IVP; Site: right antecubital; vc1 Medication: 06:08 VIS not applicable for this client. vc1 Outcome: 06:07 Condition: good vc1 06:45 Decision to Hospitalize by Provider. cp 11:37 Patient left the ED. hb Signatures: Dispatcher [employer] EDMS Donovan Weinstein PA PA cp Joselin Lee RN RN Cruzito Vuong RN RN jb4 Paulnia Serrano jj6 Georgette Lua RN RN vc1
--- NOTE | 2023-11-01 06:45 | EDPHYS ---
Physician Documentation [facility] Name: Shanae Del Cid Age: 82 yrs Sex: Female : 1940 Arrival Date: 11/01/2023 Time: 04:07 Bed 8 Private MD: ED Physician Donovan Irby HPI: 10/31 04:15 This 82 yrs old Female presents to ER via EMS with complaints of Fall Injury, cp Laceration To Head. 04:15 The patient or guardian reports injury, a laceration, clean. The complaints affect the cp right frontal area. Context of injury: The problem was sustained at home, resulted from a fall. Onset: The symptoms/episode began/occurred this morning. Associated signs and symptoms: Loss of consciousness: This patient experience a loss of consciousness, for an unknown period of time, Pertinent negatives: chest pain and abdominal pain. Historical: - Allergies: 04:10 No Known Allergies; vc1 - PMHx: 04:10 BRADYCARDIA; eye disease; Hypertension; Hypothyroidism; vc1 - PSHx: 04:10 bowel blockage SX; Tonsillectomy; uterus removed; vc1 - Infectious Disease History:: Denies. - Social history:: Smoking status: Patient denies any tobacco usage or history of. ROS: 04:20 Neuro: Positive for headache, syncope, cp 04:20 Constitutional: Negative for body aches, chills, fever, cp 04:20 Abdomen/GI: Positive for nausea, Negative for abdominal pain, vomiting, 04:20 Back: Positive for pain at rest, pain with movement, 04:20 Eyes: Negative for injury, pain, redness, and discharge, cp 04:20 Cardiovascular: Negative for chest pain, palpitations, 04:20 Respiratory: Negative for cough, shortness of breath, wheezing, 04:20 All other systems are negative, Exam: 04:23 Constitutional: The patient appears in no acute distress, alert, awake, non-toxic, well cp developed, well nourished, uncomfortable, 04:23 Head/face: Noted is a laceration(s), that is deep, that is linear, of the right top of cp head and right forehead, swelling, that is mild, 04:23 Eyes: Periorbital structures: appear normal, Pupils: equal, round, and reactive to light and accomodation, Extraocular movements: intact throughout, Sclera: no appreciated abnormality, Lids and lashes: appear normal, bilaterally, 04:23 Neck: C-spine: vertebral tenderness, is not appreciated, crepitus, is not appreciated, ROM/movement: is normal, is supple, without pain, no range of motions limitations, 04:23 Chest/axilla: Inspection: normal, Palpation: crepitus, is not appreciated, tenderness, is not appreciated, 04:23 Cardiovascular: Rate: normal, Rhythm: regular, 04:23 Respiratory: the patient does not display signs of respiratory distress, Respirations: normal, no use of accessory muscles, no retractions, labored breathing, is not present, Breath sounds: are clear throughout, no decreased breath sounds, no stridor, no wheezing, 04:23 Abdomen/GI: Inspection: abdomen appears normal, Palpation: abdomen is soft and non-tender, in all quadrants, 04:23 Neuro: Orientation: to person, place \T\ time. Mentation: is normal, Motor: moves all fours, strength is normal, 05:50 ECG was reviewed by the Attending Physician. Vital Signs: 04:09 BP 120 / 58; Pulse 59; Resp 14; Temp 98.6; Pulse Ox 99% ; Height 4 ft. 9 in. ; vc1 Dane Coma Score: 04:15 Eye Response: spontaneous(4). Motor Response: obeys commands(6). Verbal Response: cp oriented(5). Total: 15. 04:23 Eye Response: spontaneous(4). Motor Response: obeys commands(6). Verbal Response: cp oriented(5). Total: 15. Laceration: 06:40 Wound Repair of 7cm ( 2.8in ) subcutaneous laceration to right frontal area and right cp forehead. Linear shaped.. Distal neuro/vascular/tendon intact. Anesthesia: Local anesthetic administered with 8 mls of 2% lidocaine. Wound prep: Moderate cleansing by nurse. Skin closed with 14 5-0 Prolene using interrupted sutures and sterile technique. Dressed with Bacitracin, 4x4's. Patient tolerated well. MDM: 04:10 Patient medically screened. 06:45 Data reviewed: vital signs, nurses notes, lab test result(s), EKG, radiologic studies, CT scan. 06:45 Differential diagnosis: Contusion of Hematoma on Laceration of Intracranial bleed- cp Concussion cerebral contusion. Management of patient was discussed with the following: Hospitalist: DR Hernandez will admit after discussion. I considered the following discharge prescriptions or medication management in the emergency department Medications were administered in the Emergency Department. See MAR. Independent interpretation of the following test(s) in the Emergency Department EKG: See my EKG interpretation above. Care significantly affected by the following chronic conditions: Hypertension. Counseling: I had a detailed discussion with the patient and/or guardian regarding the historical points, exam findings, and any diagnostic results supporting the discharge/admit diagnosis, lab results, radiology results, the need for further work-up and treatment in the hospital. Response to treatment: the patient's symptoms have markedly improved after treatment. 10/31 04:14 Order name: Basic Metabolic Panel; Complete Time: 06:15 cp 10/31 06:15 Interpretation: Normal except: K 2.9; CL 108; GLUC 134; CRE 1.05; GFR 54. cp 10/31 04:14 Order name: CBC with Diff; Complete Time: 06:15 cp 10/31 06:16 Interpretation: Normal except: RDW 15.3. cp 10/31 04:14 Order name: PT-INR; Complete Time: 06:15 cp 10/31 04:14 Order name: Troponin HS; Complete Time: 06:15 cp 10/31 06:16 Interpretation: Abnormal: Troponin HS 151.3. cp 10/31 05:23 Order name: Urinalysis W/Microscopic cp 10/31 08:16 Order name: CBC with Automated Diff EDMS 10/31 08:16 Order name: CBC with Automated Diff EDMS 10/31 08:16 Order name: Comprehensive Metabolic Panel EDMI 10/31 08:16 Order name: Comprehensive Metabolic Panel EDMS 10/31 08:16 Order name: Lipid Profile EDMS 10/31 08:16 Order name: Lipid Profile EDMS 10/31 08:16 Order name: Protime (+INR) EDMS 10/31 08:16 Order name: Protime (+INR) EDMS 10/31 08:16 Order name: PTT, Activated Partial Thromb EDMS 10/31 08:16 Order name: PTT, Activated Partial Thromb EDMS 10/31 08:16 Order name: Troponin High Sensitivity EDMS 10/31 08:16 Order name: Troponin High Sensitivity EDMS 10/31 08:16 Order name: Troponin High Sensitivity [facility] 10/31 08:16 Order name: CBC with Automated Diff [facility] 10/31 11:03 Order name: CBC Smear Scan [facility] 10/31 04:14 Order name: CT Facial Bones W/O Con 10/31 04:14 Order name: CT Traumagram (Head C Spine CAP wo con) 10/31 08:16 Order name: Echo with Doppler [facility] 10/31 08:17 Order name: Carotid Artery Bilateral [facility] 10/31 04:14 Order name: EKG; Complete Time: 04:15 cp 10/31 08:18 Order name: Case Management Consult [facility] 10/31 08:18 Order name: Physical Therapy Consult [facility] 10/31 04:14 Order name: Cardiac monitoring; Complete Time: 08:57 10/31 04:14 Order name: EKG - Nurse/Tech; Complete Time: 07:04 10/31 04:14 Order name: IV Saline Lock; Complete Time: 04:42 cp 10/31 04:14 Order name: Labs collected and sent; Complete Time: 07:04 10/31 04:14 Order name: O2 Per Protocol; Complete Time: 07:04 10/31 04:14 Order name: O2 Sat Monitoring; Complete Time: 07:41 10/31 06:33 Order name: Wound dressing; Complete Time: 08:57 cp EC:50 Rate is 63 beats/min. Rhythm is regular. QRS interval is normal. QT interval is normal. cp Interpreted by me. Reviewed by me. Administered Medications: 06:15 Drug: Ondansetron PO 4 mg PO once Route: PO; jb4 07:40 Drug: Potassium PO Effervescent Tablet 50 mEq PO once; dissolve in 4 ounces of water or vc1 juice Route: PO; 07:41 Drug: fentaNYL (PF) IVP 25 mcg IVP once Route: IVP; Site: right antecubital; vc1 Disposition: 11/01 05:17 Co-signature as Attending Physician, Donovan Irby MD I agree with the assessment and jojo plan of care. Disposition Summary: 11/01/23 06:45 Hospitalization Ordered Notes: Hospitalization Status: Inpatient Admission cp Provider: Emanuel Hernandez cp Condition: Stable cp Problem: new cp Symptoms: have improved cp Bed/Room Type: Standard cp Location: Telemetry/MedSurg (Inpatient)(11/01/23 10:36) eb Room Assignment: [facility](11/01/23 10:36) eb Diagnosis - Laceration without foreign body of unspecified part of head cp - Subsequent non-ST elevation (NSTEMI) myocardial infarction cp - Syncope cp - Hypokalemia cp Forms: - Medication Reconciliation Form cp - SBAR form cp - Leadership Thank You Letter cp Signatures: Dispatcher [employer] EDMS Donovan Irby MD MD cha Page, Corey, PA PA cp Cruzito Vuong, RN RN jb4 Rosario Galvez Vanessa RN RN vc1 Marbella Floyd RN RN kb3 Corrections: (The following items were deleted from the chart) 10/31 04:15 04:15 Facial Bones W/ MPR+CT.RAD.BRZ ordered. EDMS EDMS 04:15 04:15 Head C Spine Cap Wo Con+CT.RAD.BRZ ordered. EDMS EDMS 05:24 05:24 Urinalysis W/Microscopic+U.LAB.BRZ ordered. EDMS EDMS 08:40 06:45 Telemetry/MedSurg (Inpatient) cp kb3 08:40 06:45 cp kb3 10:36 08:40 [facility] ER HOLD kb3 eb 10:36 08:40 ERHOLD- kb3 eb
[2023-11-01] MEDS ORDERED: POTASSIUM 25 MEQ EFFERV TAB ONE (07:16)
[2023-11-01] MEDS ORDERED: FENTANYL CITR 100 MCG/2 ML ONE ×2 (07:17→09:04)
[2023-11-01] MEDS ORDERED: ONDANSETRON 4 MG/2 ML VIAL IV PRN (08:11)
--- NOTE | 2023-11-01 08:15 | P.HP ---
Certification for Inpatient Patient admitted to: Observation With expected LOS: <2 Midnights Patient will require the following post-hospital care: None Practitioner: I am a practitioner with admitting privileges, knowledge of patient current condition, hospital course, and medical plan of care. Services: Services provided to patient in accordance with Admission requirements found in Title 42 Section 412.3 of the Code of Federal Regulations Patient History Date of Service: 11/01/23 Reason for admission: syncope and collapse History of Present Illness: Patient is an 82 yr old female who presents to ER via EMS with complaints of fall Injury and laceration to the scalp. Patient apparently had an episode of syncope and collapse. Patient is unresponsive and difficult to arouse. Patient was brought into the emergency room for further evaluation. In the ER patient labs were unremarkable. Patient was admitted for further workup of syncope. Allergies No Known Allergies Allergy (Verified 04/09/18 16:58) Home Medications: Levothyroxine Sodium 100 mcg PO [id number] 05/02/17 Montelukast [Singulair*] 10 mg PO DAILY 05/02/17 Desvenlafaxine Succinate [Pristiq ER] 50 mg PO DAILY 05/03/17 Colestipol HCl [Colestid] 1 gm PO DAILY 04/09/18 Trazodone [Desyrel*] 150 mg PO BEDTIME 04/09/18 Vit C/E/Zn/Coppr/Lutein/Zeaxan [Preservision Areds 2 Softgel] 1 each PO BID 04/09/18 Aspirin [Aspirin EC 81 MG] 81 mg PO DAILY #30 tab 11/02/23 Hydrocodone 5/APAP 325 [[place] 5/325*] 1 tab PO Q6H PRN #20 tab 11/02/23 Metoprolol Tartrate [Lopressor] 25 mg PO BID #60 tab 11/02/23 Potassium Chloride 20 meq PO DAILY #10 tab 11/02/23 - Past Medical/Surgical History Diabetic: No -: tobacco abuse -: eye disease -: Hysterectomy -: appendectomy -: Tonsillectomy - Family History Father Family History: Reviewed- Non-Contributory - Social History Smoking Status: Former smoker CD- Drugs: No Review of Systems 10-point ROS is otherwise unremarkable Physical Examination - Vital Signs Temperature: 98 F (reviewed) - Physical Exam General: Alert, In no apparent distress, Oriented x3 HEENT: Atraumatic, PERRLA, Mucous membr. moist/pink, EOMI, Sclerae nonicteric Neck: Supple, 2+ carotid pulse no bruit, No LAD, Without JVD or thyroid abnorm ality Respiratory: Clear to auscultation bilaterally, Normal air movement Cardiovascular: Regular rate/rhythm, Normal S1 S2, No murmurs Gastrointestinal: Normal bowel sounds, Soft and benign, Non-distended, No tenderness Musculoskeletal: No clubbing, No swelling, No tenderness Integumentary: No rashes Neurological: Normal gait, Normal speech, Normal strength at 5/5 x4 extr, Normal tone, Normal affect Lymphatics: No axilla or inguinal lymphadenopathy - Studies Laboratory Data (last 24 hrs) 11/01/23 11/01/23 11/01/23 05:02 05:02 05:02 WBC 7.80 Hgb 13.7 Hct 41.0 Plt Count 378 PT 12.2 INR 1.09 Sodium 142 Potassium 2.9 L BUN 12 Creatinine 1.05 H Glucose 134 H Assessment & Plan - Problems (Diagnosis) (1) Syncope and collapse Status: Acute - Plan Plan: 1. Continue with IV fluids 2. Echocardiogram 3. Carotid Doppler 4. monitor on telemetry 5. Cardiology consultation Discharge Plan: Home Plan to discharge in: 24 Hours - Advance Directives Does patient have a Living Will: No Does patient have a Durable POA for Healthcare: No - Code Status/Comfort Care Code Status Assessed: Yes Code Status: Full Code Critical Care: No Time Spent Managing PTS Care (In Minutes): 45
[2023-11-01] MEDS: FENTANYL CITR 100 MCG/2 ML IV ONE (08:25)
[2023-11-01] MEDS: NA CHLORIDE 0.9% 1,000 ML IV SCH (09:00)
[2023-11-01] MEDS ORDERED: NA CHLORIDE 0.9% 1,000 ML ONE (09:04)
[2023-11-01 09:29] VITALS: BMI 23.1
--- NOTE | 2023-11-01 10:21 | RAD REPORT ---
EXAM DESCRIPTION: - CP - 11/01/2023 9:49 am CLINICAL HISTORY: syncope COMPARISON: No comparisons TECHNIQUE: Real-time sonographic grayscale, color duplex, and spectral wave Doppler evaluation of [facility] carotid systems was performed. FINDINGS: Normal high resistance waveforms are noted in both external carotid arteries. The common c arotid arteries and internal carotid arteries show normal low resistance waveforms. Mild right and moderate left carotid bulb atherosclerotic plaque formation is seen, with some luminal irregularity on the left. Peak systolic velocity less than 125 cm/ sec bilaterally. ICA/CCA peak sy stolic ratios less than 2.0 bilaterally. Antegrade flow seen in both vertebral arteries. IMPRESSION: Up to moderate atherosclerotic changes noted at the carotid bulbs, worse on the left. Less than 50% ICA stenosis bilaterally. Evaluation of carotid artery stenosis, if any, is reported based on consensus recommendations of the Society of Radiologists in Ultrasound (Horace et al., Radiology, 2003)
[2023-11-01 10:49] LABS: Absolute Lymphocytes (CBC) 0.7 K/uL (0.7-4.9); Absolute Monocytes 0.8 K/uL (0.1-1.3); Absolute Neutrophil 10.4 K/uL (1.8-8.0); Basophils % 0.3 % (0-1.3); Hematocrit 39.9 % (36.0-45.0); Hemoglobin 12.6 g/dL (12.0-15.0); Lymphocytes % 6.2 % (15.3-44.8); MCH 30.1 pg (27.0-35.0); MCHC 31.7 g/dL (32.0-36.0); MPV 8.3 fL (7.6-11.3); Monocytes % 6.6 % (3.3-12.3); Neutrophils % 86.9 % (41.7-73.7); Platelets 402 thou/uL (152-406); Red Cell Distribution Width 15.3 % (12.1-15.2)
[2023-11-01 11:03] LABS: Blood Morphology Comment NOT SEEN (NOT SEEN); Platelet Estimate ADEQ; White Blood Cell Scan OK (OK)
[2023-11-01 11:49] VITALS: O2SAT 99
[2023-11-01] MEDS: FENTANYL CITR 100 MCG/2 ML IV PRN (13:13)
--- NOTE | 2023-11-01 14:27 | ECHO ---
HEIGHT: 5 ft 4 in WEIGHT: 135 lb 0 oz DATE OF STUDY: 11/01/[address]: Emanuel Hernandez MD 2-DIMENSIONAL: YES M.MODE: YES DOPPLER: YES COLOR FLOW: YES TDS: NO PORTABLE: YES DEFINITY: NO BUBBLE STUDY: NO DIAGNOSIS: SYNCOPE CARDIAC HISTORY: CATHERIZATION: NO SURGERY: NO PROSTHETIC VALVE: NO PACEMAKER: NO MEASUREMENTS (cm) DIASTOLIC (NORMALS) SYSTOLIC (NORMALS) IVSd 1.2 (0.6-1.2) LA Diam 3.0 (1.9-4.0) LVEF 53% LVIDd 4.1 (3.5-5.7) LVIDs 3.0 (2.0-3.5) %FS 27% LVPWd 1.2 (0.6-1.2) Ao Diam 2.9 (2.0-3.7) 2 DIMENSIONAL ASSESSMENT: RIGHT ATRIUM: NORMAL LEFT ATRIUM: MILDLY DILATED RIGHT VENTRICLE: NORMAL LEFT VENTRICLE: NORMAL TRICUSPID VALVE: NORMAL MITRAL VALVE: NORMAL PULMONIC VALVE: NORMAL AORTIC VALVE: NORMAL PERICARDIAL EFFUSION: NONE AORTIC ROOT: NORMAL LEFT VENTRICULAR WALL MOTION: NORMAL. DOPPLER/COLOR FLOW: DIASTOLIC DYSFUNCTION. COMMENTS: 1. NORMAL LEFT VENTRICULAR SYSTOLIC FUNCTION, EJECTION FRACTION 55-60%, NORMAL WALL MOTION. 2. DIASTOLIC DYSFUNCTION. TECHNOLOGIST: KRISTEN JOHNSON
[2023-11-01] MEDS: ACETAMINOPHEN 500 MG TAB PO PRN (19:35)
[2023-11-01] MEDS: CYCLOBENZAPRINE 10 MG TAB PO ONE (21:43)
[2023-11-01] MEDS: TRAZODONE 50 MG TABLET PO SCH (21:44)
[2023-11-02] MEDS: LEVOTHYROXINE SOD 0.1 MG TAB PO SCH (05:39)
[2023-11-02 06:29] LABS: Absolute Lymphocytes (CBC) 1.5 K/uL (0.7-4.9); Absolute Neutrophil 8.1 K/uL (1.8-8.0); Basophils % 0.3 % (0-1.3); Eosinophils % 0.1 % (0-4.4); Hematocrit 33.6 % (36.0-45.0); Hemoglobin 11.5 g/dL (12.0-15.0); Lymphocytes % 13.9 % (15.3-44.8); MCHC 34.3 g/dL (32.0-36.0); MCV 93.5 fL (80-100); MPV 7.8 fL (7.6-11.3); Monocytes % 9.7 % (3.3-12.3); Nucleated Red Blood Cells % 0.2 % (0-0); Platelets 362 thou/uL (152-406); RBC Red Blood Cell Count 3.59 M/uL (3.86-4.86); Red Cell Distribution Width 14.9 % (12.1-15.2)
[2023-11-02 06:31] LABS: PT Prothrombin Time 12.3 SECONDS (9.4-12.5); PTT, Activated Partial Thromb 29.9 SECONDS (24.3-36.9); Protime INR 1.1
[2023-11-02 06:41] LABS: Albumin 2.9 g/dL (3.4-5.0); Albumin/Globulin Ratio 1.2 (1.1-1.8); Bilirubin Total 0.3 mg/dL (0.2-1.0); Globulin 2.5 g/dL (2.3-3.5); Protein, Total 5.4 g/dL (6.4-8.2)
[2023-11-02] MEDS: DESVENLAFAXINE SUCCINATE 50 MG ER TAB PO SCH (08:16)
[2023-11-02] MEDS ORDERED: HYDROCODONE/APAP 5/325 MG TAB PO PRN (09:54)
[2023-11-02 12:17] VITALS: BP 161/69
[2023-11-02] MEDS: POTASSIUM 25 MEQ EFFERV TAB PO ONE (13:06)
--- NOTE | 2023-11-02 14:30 | EKG ---
Test Date: 2023-11-01 Test Time: 05:43:48 Culinary Director: ASHLEE MEASUREMENT RESULTS: Intervals: Rate: 63 OK: QRSD: 64 QT: 488 QTc: 499 [place]: P: OK: QRS: 13 T: 50 INTERPRETIVE STATEMENTS: Normal sinus rhythm ST & T wave abnormality, consider inferior ischemia Prolonged QT Abnormal ECG Compared to ECG 02/09/2023 17:12:21 ST (T wave) deviation now present Possible ischemia now present Prolonged QT interval now present Sinus bradycardia no longer present T-wave abnormality no longer present Electronically Signed On 11-02-23 14:29:06 CDT by Michlee Petty
--- NOTE | 2023-11-04 08:35 | RAD REPORT ---
EXAM DESCRIPTION: CT - Head C Spine Cap Wo Con - 11/01/2023 6:38 am CLINICAL HISTORY: The patient is 82 years old and is Female; fall TECHNIQUE: Axial computed tomography images of the head/brain and cervical spine without intravenous contrast. Sagittal and coronal reformatted images were created and reviewed. This CT exam was pe rformed using one or more of the following dose reduction techniques: automated exposure control, a djustment of the mA and/or kV according to patient size, and/or use of iterative reconstruction techn ique. COMPARISON: No relevant prior studies available. FINDINGS: Brain: Mild nonspecific white matter changes likely related to chronic microvascular isc hemic disease. No hemorrhage. Ventricles: Unremarkable. No ventriculomegaly. Skull: No acute fracture. Sinuses: Unremarkable as visualized. No acute sinusitis. Mastoid air cells: Unremarkable as visualized. No mastoid effusion. Vertebrae: 3 mm of anterolisthesis of C4 on C5. Discs/spinal canal/neural foramina: Disc space narrowing with degenerative endplate changes at C5 -6 and C6-7. Moderate to severe right neural foraminal narrowing at C2-3. moderate to severe bilateral neural foraminal narrowing at C3-4. Soft tissues: Unremarkable. * A single impression for all exams can be found at the end of this report EXAM DESCRIPTION: CT Chest, Abdomen and Pelvis Without Intravenous Contrast CLINICAL HISTORY: The patient is 82 years old and is Female; fall TECHNIQUE: Axial computed tomography images of the chest, abdomen and pelvis without intravenous con trast. Sagittal and coronal reformatted images were created and reviewed. This CT exam was perfor med using one or more of the following dose reduction techniques: automated exposure control, adjus tment of the mA and/or kV according to patient size, and/or use of iterative reconstruction technique . COMPARISON: No relevant prior studies available. FINDINGS: CHEST: Lungs: Unremarkable. No mass. No consolidation. Pleural space: Unremarkable. No significant effusion. No pneumothorax. Heart: Unremarkable. No cardiomegaly. No significant pericardial effusion. No significant c oronary artery calcifications. ABDOMEN: Liver: Unremarkable. Gallbladder and bile ducts: Unremarkable. No calcified stones. No ductal dilation. Pancreas: Unremarkable. No ductal dilation. Spleen: Unremarkable. No splenomegaly. Adrenals: Unremarkable. No mass. Kidneys and ureters: Multiple simple cysts in the kidneys bilaterally. No follow-up imaging is re commended. Mild bilateral perinephric stranding. No obstructing stones. No hydronephrosis. Stomach and bowel: Sigmoid diverticulosis. No obstruction. No mucosal thickening. PELVIS: Appendix: No findings to suggest acute appendicitis. Bladder: Unremarkable. No stones. Reproductive: Uterus is not seen. CHEST, ABDOMEN and PELVIS: Intraperitoneal space: Small amount of free fluid in the lower pelvis. No free air. Bones/joints: Disc space narrowing with degenerative endplate changes in the spine. 5 mm of anterolisthesis of L4 on L5. Indeterminate age mild compression deformity with 20% vertebral body height loss at L3. No dislocation. Soft tissues: Unremarkable. Vasculature: Scattered atherosclerotic vascular calcifications. No aortic aneurysm. Lymph nodes: Unremarkable. No enlarged lymph nodes. * A single impression for all exams can be found at the end of this report IMPRESSION: CT Head and Cervical Spine Without Intravenous Contrast: No acute intracranial abnormality. No acute findings in the cervical spine. CT Chest, Abdomen and Pelvis Without Intravenous Contrast: No acute findings in the chest, abdomen or pelvis. Electronically signed by: Corbin Mathur MD 11/01/2023 05:12 AM CDT RP 8 Due to temporary technical issues with the PACS/Fluency reporting system, reports are being signed by the in house radiologist without review as a courtesy to ensure prompt reporting. The interpreting r adiologist is fully responsible for the content of the report.
--- NOTE | 2023-11-04 09:04 | RAD REPORT ---
EXAM DESCRIPTION: CT - Facial Bones W/ Mpr - 11/01/2023 6:38 am CLINICAL HISTORY: The patient is 82 years old and is Female; fall TECHNIQUE: Axial computed tomography images of the face without intravenous contrast. Sagittal and coronal reformatted images were created and reviewed. This CT exam was performed using one or more of the following dose reduction techniques: automated exposure control, adjustment of the mA and/o r kV according to patient size, and/or use of iterative reconstruction technique. COMPARISON: No relevant prior studies available. FINDINGS: Bones/joints: Nondisplaced nasal fractures. Multilevel degenerative changes in the visualized cervical spine. See CT head/cervical spine report. Soft tissues: Paranasal soft tissue swelling/hematoma. Orbits: Previous cataract surgery. No evidence of globe rupture. No retrobulbar hemorrhage. Sinuses: Unremarkable. No air-fluid levels. IMPRESSION: 1. Nondisplaced nasal fractures. 2. Paranasal soft tissue swelling/hematoma. Electronically signed by: Andree Grubbs MD 11/01/2023 05:00 AM CDT ND Due to temporary technical issues with the PACS/Fluency reporting system, reports are being signed by the in house radiologist without review as a courtesy to ensure prompt reporting. The interpreting r adiologist is fully responsible for the content of the report.
[2023-11-17 05:52] VITALS: TEMP 98
--- NOTE | 2023-11-17 05:55 | P.DS ---
Discharge Date: 11/02/23 Disposition: ROUTINE DISCHARGE Discharge Condition: GOOD Reason for Admission: Syncope and collapse - Problems (1) Syncope and collapse Status: Acute Brief History of Present Illness: Patient is an 82 yr old female who presents to ER via EMS with complaints of fall Injury and laceration to the scalp. Patient apparently had an episode of syncope and collapse. Patient is unresponsive and difficult to arouse. Patient was brought into the emergency room for further evaluation. In the ER patient labs were unremarkable. Patient was admitted for further workup of syncope. Hospital Course: Patient has done well during hospital stay. Clinically, patient is much better. Echocardiogram and carotid Doppler were reviewed. Patient did not have any abnormalities on telemetry. At this time, patient is stable for discharge home. Patient will follow-up with consultants and PCP as an outpatient. Vital Signs/Physical Exam: Temp Pulse Resp BP Pulse Ox 98 F 89 22 H 161/69 H 96 11/17/23 05:52 11/02/23 12:00 11/02/23 12:00 11/02/23 12:00 11/02/23 12:00 General: Alert, In no apparent distress, Oriented x3 Laboratory Data at Discharge: WBC 10.60 thou/uL (4.3-10.9) 11/02/23 05:58 Hgb 11.5 g/dL (12.0-15.0) L D 11/02/23 05:58 Hct 33.6 % (36.0-45.0) L 11/02/23 05:58 Plt Count 362 thou/uL (152-406) 11/02/23 05:58 PT 12.3 SECONDS (9.4-12.5) 11/02/23 05:58 INR 1.10 11/02/23 05:58 APTT 29.9 SECONDS (24.3-36.9) 11/02/23 05:58 Sodium 141 mEq/L (136-145) 11/02/23 05:58 Potassium 3.0 mEq/L (3.5-5.1) L 11/02/23 05:58 BUN 14 mg/dL (7-18) 11/02/23 05:58 Creatinine 1.08 mg/dL (0.55-1.02) H 11/02/23 05:58 Glucose 96 mg/dL (74-106) 11/02/23 05:58 Total Bilirubin 0.3 mg/dL (0.2-1.0) 11/02/23 05:58 AST 27 U/L (15-37) 11/02/23 05:58 ALT 24 U/L (13-56) 11/02/23 05:58 Alkaline Phosphatase 47 U/L (45-117) 11/02/23 05:58 Triglycerides 106 mg/dL (<150) 11/02/23 05:58 Cholesterol 81 mg/dL (<200) 11/02/23 05:58 HDL Cholesterol 42 mg/dL (40-60) 11/02/23 05:58 Cholesterol/HDL Ratio 1.93 11/02/23 05:58 Home Medications: Levothyroxine Sodium 100 mcg PO [id number] 05/02/17 Montelukast [Singulair*] 10 mg PO DAILY 05/02/17 Desvenlafaxine Succinate [Pristiq ER] 50 mg PO DAILY 05/03/17 Colestipol HCl [Colestid] 1 gm PO DAILY 04/09/18 Trazodone [Desyrel*] 150 mg PO BEDTIME 04/09/18 Vit C/E/Zn/Coppr/Lutein/Zeaxan [Preservision Areds 2 Softgel] 1 each PO BID 04/09/18 Aspirin [Aspirin EC 81 MG] 81 mg PO DAILY #30 tab 11/02/23 Hydrocodone 5/APAP 325 [[place] 5/325*] 1 tab PO Q6H PRN #20 tab 11/02/23 Metoprolol Tartrate [Lopressor] 25 mg PO BID #60 tab 11/02/23 Potassium Chloride 20 meq PO DAILY #10 tab 11/02/23 New Medications: Aspirin [Aspirin EC 81 MG] 81 mg PO DAILY #30 tab Metoprolol Tartrate [Lopressor] 25 mg PO BID #60 tab Hydrocodone 5/APAP 325 [[place] 5/325*] 1 tab PO Q6H PRN #20 tab PRN Reason: Pain Scale 5-7 (Moderate) Potassium Chloride 20 meq PO DAILY #10 tab Physician Discharge Instructions: -DC IV and DC home -Follow-up with PCP in 1 to 2 weeks -Follow-up with Cardiology in 1 to 2 weeks -Please call Dr. Hernandez at [phone] if any questions regarding hospital stay -Please call nursing station at [phone] if any nursing or medication questions -Return to the emergency room if symptoms worsen Diet: AHA Activity: Fall precautions Followup: NONE,NONE [Primary Care Provider] - Time spent managing pt's care (in minutes): 35
== END 2023-11-02 13:55 | disposition home or self-care (01) ==
LOC: ER 04:07 → ERHOLD 08:11 → 2ND 10:36
PROVIDERS: ADMIT Hospitalist; ATTEND Hospitalist
PROC: 0JQ13ZZ Repair Face Subcutaneous Tissue and Fascia, Percutaneous Approach (ICD-10-PCS; principal; 2023-11-01)
DX: R55 Syncope and collapse (principal); S01.91XA Laceration without foreign body of unspecified part of head, initial encounter; W18.30XA Fall on same level, unspecified, initial encounter; Y93.9 Activity, unspecified; Y92.012 Bathroom of single-family (private) house as the place of occurrence of the external cause; E87.6 Hypokalemia; I10 Essential (primary) hypertension; E03.9 Hypothyroidism, unspecified; R00.1 Bradycardia, unspecified
CPT/HCPCS: 12014; 93005; 93306; 85025 ×3; 80048; 36415 ×2; 85610 ×2; 80061; 85730; 84484 ×3; 80053; 70450; 71250; 72125; 70486; 76377; 93880; 97161; 96374; 99291; 99292; Q0162; J3010 ×6; J7030 ×3; G0378 ×4; 12001

== ENCOUNTER 2023-12-16 15:13 | Emergency (ER) | payer OTHER ==
--- OUTSIDE RECORDS SUMMARY | 2023-12-16 15:17 | XMS REPORT | Continuity of Care Document ---
Author Name Unknown Address [address] [facility] [place]. [address] [place] [id number] [facility] Address [address] [facility]. [address] [place] [address] Care Team Providers Care Customer Assistant Name Role Phone UNKNOWN, REFFERING Primary Care Physician TAWANNA Tellez Attending Clinician Unavailable TAWANNA TANNER Attending Clinician Unavailable Lynn Posada MD Attending Clinician + [phone] LYNN POSADA Attending Clinician Monico kennedy Doctor Unassigned, [place] Attending Clinician U lori Be MD, Nano Villarreal Attending Clinician NATALYA WALSH Attending Clinician Unavailable Natalya Lakhani Attending Clinician +[phone] Lab, Ang - Db Attending Clinician Unavailable Ella Dior Attending Clinician [phone] ELLA OCONNELL Attending Clinician Unavailable Mick Mckeon MD Attending Clinician + [phone] Shruthi Burris Attending Clinician +[phone] SHRUTHI ABAD Attending Clinician Unavailable MICK MCKEON Attending Clinician Unavailmadeleine ble Lab, Adc Fam Pob I Attending Clinician Unavailab le SUSY, ATTENDING Attending Clinician Unavailab sarai PALUMBO Qunesermelinda Attending Clinician [phone] ALEX FONTANEZ M.D., Nisreen SAPPin g Clinician Unavailable ALEX FONTANEZ M.D., ALEX Blakely M.D. Thuy gibson Clinician Unavailable Payers Payer Name Policy Type Policy Number Effective Date Expirati on Date Source [employer] MCARE ADV CHOICE PPO [id number] 2021 00:00:00 Problems Condition Name Condition Details Condition Category Status Onset Date Resolution Date Last Treatment Date Treating Clinician Comments Source Chronic diarrhea Chronic diarrhea Disease Active 2019-04 00:00: 00 [facility] Chronic depression Chronic depression Disease Active 2019-04 00:00: 00 [facility] Seasonal allergic rhinitis Seasonal allergic rhinitis Disease Active 2019-04 00:00: 00 [facility] Arthritis Arthritis Disease Active 2019-04 00:00: 00 Overview: Formattin g of this note might be different from the original. Hands, knees, shoulders [facility] Acquired hypothyroi dism Acquired hypothyroi dism Disease Active 2019-04 00:00: 00 [facility] Macular degenerati on Macular degenerati on Disease Active [facility] Essential hypertensi on Essential hypertensi on Disease Active [facility] Allergies, Adverse Reactions, Alerts Allergy Name Allergy Type Status Severity Reaction(s) Onset Date Inactive Date Treating Clinician Comments Source NO KNOWN ALLERGIE S Drug Class Active [facility] Social History Social Habit Start Date Stop Date Quantity Comments Source Gender identity [facility] Sexual orientation U [facility] History SDOH Alcohol Comment [place] o [facility] History of tobacco use Cigarette Smoker [facility] Alcoholic beverage intake 2022-12-26 00:00:00 2022-12-26 00:00:00 Lifetime non-drinker (finding) [facility] Alcohol intake 2022-12-26 00:00:00 2022-12-26 00:00:00 Lifetime non-drinker (finding) [facility] History of Social function 2022-12-05 00:00:00 2022-12-05 00:00:00 [facility] Exposure to SARS-CoV-2 (event) 2022-04-24 00:00:00 2022-05-04 14:07:00 Not sure [facility] Cigarettes smoked current (pack per day) - Reported 2021-12-28 00:00:00 2021-12-28 00:00:00 [facility] Tobacco use and exposure 2021-12-28 00:00:00 2021-12-28 00:00:00 Smokeless tobacco non-user [facility] History SDOH Alcohol Frequency 2020-02-19 00:00:00 2020-02-19 00:00:00 1 [facility] History SDOH Alcohol Std Drinks 2020-02-19 00:00:00 2020-02-19 00:00:00 99 [facility] History SDOH Alcohol Binge 2020-02-19 00:00:00 2020-02-19 00:00:00 1 [facility] Sex assigned at 1940 00:00:00 1940 00:00:00 [facility] Smoking Status Start Date Stop Date Source Smokes tobacco daily 2021-12-28 00:00:00 [facility] Medications Ordered Medication Name Filled Medication Name Start Date Stop Date Current Medication? Ordering Clinician Indication Dosage Frequency Signature (SIG) Comments Components Source TIZANIDINE 4 mg tablet 10-30 00:00: 00 Yes [id number] TAKE 1 TABLET BY MOUTH EVERY 6 HOURS NEEDED (BACK PAIN) [facility] LEVOTHYROXI NE 100 mcg tablet 09-29 00:00: 00 Yes [id number] 100ug TAKE 1 TABLET BY MOUTH ONCE DAILY IN THE MORNING [facility] MONTELUKAST 10 mg tablet 09-29 00:00: 00 Yes [id number] 10mg TAKE 1 TABLET BY MOUTH ONCE DAILY IN THE MORNING [facility] TIZANIDINE 4 mg tablet 09-22 00:00: 00 10-30 00:00 :00 No [id number] TAKE 1 TABLET BY MOUTH EVERY 6 HOURS NEEDED (BACK PAIN) [facility] fluconazole 150 mg tablet 28 00:00: 00 09-03 04:59 :00 No [id number] 150mg Take 1 tablet by mouth once now for 1 dose. [facility] TIZANIDINE 4 mg tablet 15 00:00: 00 09-22 00:00 :00 No [id number] TAKE 1 TABLET BY MOUTH EVERY 6 HOURS NEEDED (BACK PAIN) [facility] TIZANIDINE 4 mg tablet 4-14 00:00: 00 08-20 00:00 :00 No [id number] TAKE 1 TABLET BY MOUTH EVERY 6 HOURS NEEDED (BACK PAIN) [facility] MONTELUKAST 10 mg tablet 07-08 00:00: 00 09-29 00:00 :00 No [id number] 10mg TAKE 1 TABLET BY MOUTH ONCE DAILY IN THE MORNING [facility] LEVOTHYROXI NE 100 mcg tablet 07-08 00:00: 00 09-29 00:00 :00 No [id number] 100ug TAKE 1 TABLET BY MOUTH ONCE DAILY IN THE MORNING [facility] LEVOTHYROXI NE 100 mcg tablet 04-09 00:00: 00 Yes [id number] 100ug TAKE 1 TABLET BY MOUTH ONCE DAILY IN THE MORNING [facility] MONTELUKAST 10 mg tablet 04-09 00:00: 00 Yes [id number] 10mg TAKE 1 TABLET BY MOUTH ONCE DAILY IN THE MORNING [facility] LEVOTHYROXI NE 100 mcg tablet 2022-04 0 00:00: 00 Yes [id number] 100ug TAKE 1 TABLET BY MOUTH ONCE DAILY IN THE MORNING [facility] MONTELUKAST 10 mg tablet 2022-04 0 00:00: 00 Yes [id number] 10mg TAKE 1 TABLET BY MOUTH ONCE DAILY IN THE MORNING [facility] tiZANidine 4 mg tablet 9-20 00:00: 00 07-21 01:14 :01 No [id number] 4mg Take 1 tablet by mouth every 6 (six) hours as needed (back pain). [facility] citalopram 40 mg tablet 12-05 13:17: 47 12-05 00:00 :00 No 40mg Take 40 mg by mouth daily. [facility] cephALEXin 500 mg capsule 12-05 00:00: 00 12-26 00:00 :00 No [id number] 500mg Take 1 capsule by mouth in the morning and 1 capsule in the evening. [facility] fluconazole (DIFLUCAN) 150 mg tablet 0 8-30 00:00: 00 12-06 04:59 :00 No [id number] 150mg Take 1 tablet by mouth once now for 1 dose. [facility] TIZANIDINE 4 mg tablet 0 8-25 00:00: 00 12-26 00:00 :00 No [id number] TAKE 1 TABLET BY MOUTH EVERY 6 HOURS NEEDED FOR BACK PAIN AND SPASMS [facility] TIZANIDINE 4 mg tablet 0 7-31 00:00: 00 Yes [id number] TAKE 1 TABLET BY MOUTH EVERY 6 HOURS NEEDED FOR BACK PAIN AND SPASMS [facility] TIZANIDINE 4 mg tablet 0 7-03 00:00: 00 Yes [id number] TAKE 1 TABLET BY MOUTH EVERY 6 HOURS NEEDED FOR BACK PAIN AND SPASMS [facility] TIZANIDINE 4 mg tablet 2022-0 6-12 00:00: 00 10-08 00:00 :00 No [id number] TAKE 1 TABLET BY MOUTH EVERY 6 HOURS NEEDED FOR BACK PAIN AND SPASMS [facility] TIZANIDINE 4 mg tablet 2022-0 5-15 00:00: 00 Yes [id number] TAKE 1 TABLET BY MOUTH EVERY 6 HOURS NEEDED FOR BACK PAIN AND SPASMS [facility] TIZANIDINE 4 mg tablet 2022-0 4-24 00:00: 00 Yes [id number] TAKE 1 TABLET BY MOUTH EVERY 6 HOURS NEEDED FOR BACK PAIN AND SPASMS [facility] TIZANIDINE 4 mg tablet 2022-0 4-04 00:00: 00 24 00:00 :00 No [id number] TAKE 1 TABLET BY MOUTH EVERY 6 HOURS NEEDED FOR BACK PAIN AND SPASMS [facility] TIZANIDINE 4 mg tablet 2022-0 3-17 00:00: 00 Yes [id number] TAKE 1 TABLET BY MOUTH EVERY 6 HOURS NEEDED FOR BACK PAIN AND SPASMS [facility] TIZANIDINE 4 mg tablet 2-26 00:00: 00 Yes [id number] TAKE 1 TABLET BY MOUTH EVERY 6 HOURS NEEDED FOR BACK PAIN AND SPASMS [facility] TIZANIDINE 4 mg tablet 2-03 00:00: 00 Yes [id number] TAKE 1 TABLET BY MOUTH EVERY 6 HOURS NEEDED FOR BACK PAIN AND SPASMS [facility] cefUROXime 250 mg tablet 1-27 00:00: 00 05-12 05:59 :00 No [id number] 250mg Take 1 tablet by mouth in the morning and 1 tablet in the evening. Do all this for 7 days. [facility] montelukast 10 mg tablet 2021-04 0 00:00: 00 01-07 00:00 :00 No [id number] 10mg Take 1 tablet by mouth every morning. [facility] levothyroxi ne (EUTHYROX) 100 mcg tablet 2021-04 0 00:00: 00 01-07 00:00 :00 No [id number] 100ug Take 1 tablet by mouth every morning. [facility] tiZANidine 4 mg tablet 2021-04 0 00:00: 00 05-11 00:00 :00 No [id number] 4mg Take 1 tablet by mouth every 6 (six) hours as needed (back pain and spasm). [facility] cefUROXime 250 mg tablet 2021-04 0- 00:00: 00 03-21 00:00 :00 No [id number] 250mg Take 1 tablet by mouth in the morning and 1 tablet in the evening. [facility] cefdinir 300 mg capsule 01-04 00:00: 00 01-16 00:00 :00 No TAKE 1 CAPSULE BY MOUTH EVERY 12 HOURS FOR 10 DAYS [facility] Omeprazole 20 mg tablet 12-28 00:00: 00 Yes [id number] 20mg Take 1 tablet by mouth in the morning. [facility] busPIRone 10 mg tablet 8 00:00: 00 Yes 10mg Take 10 mg by mouth 2 (two) times daily as needed. [facility] BUSPIRONE 5 mg tablet 8-04 00:00: 00 12-28 00:00 :00 No [id number] Take 1 tablet by mouth twice daily [facility] BUSPIRONE 5 mg tablet 7-05 00:00: 00 Yes [id number] Take 1 tablet by mouth twice daily [facility] BUSPIRONE 5 mg tablet 6-06 00:00: 00 Yes [id number] Take 1 tablet by mouth twice daily [facility] tiZANidine 4 mg tablet 5-02 00:00: 00 01-16 00:00 :00 No [id number] 4mg Take 1 tablet by mouth every 6 (six) hours as needed (back pain and spasm). [facility] cefdinir 300 mg capsule 27 00:00: 00 12-28 00:00 :00 No 300mg 300 mg. [facility] levothyroxi ne (EUTHYROX) 100 mcg tablet 08 00:00: 00 01-16 00:00 :00 No [id number] 100ug Take 1 tablet by mouth every morning. [facility] montelukast 10 mg tablet 4-08 00:00: 00 01-16 00:00 :00 No [id number] 10mg Take 1 tablet by mouth every morning. [facility] methylPREDN ISolone (MEDROL, ALDO,) 4 mg tablets 05-29 00:00: 00 08-07 00:00 :00 No [id number] Take by mouth SEE-INSTRU CTIONS. follow package directions [facility] methocarbam oL (ROBAXIN) 500 mg tablet 05-29 00:00: 00 08-07 00:00 :00 No [id number] 500mg Take 1 tablet by mouth 4 (four) times daily as needed for Other (muscle tightness) . [facility] citalopram 40 mg tablet 6 14:32: 47 Yes 40mg Take 40 mg by mouth daily. [facility] busPIRone 5 mg tablet 09-23 00:00: 00 09-11 00:00 :00 No [id number] 5mg Take 1 tablet by mouth 2 (two) times daily. [facility] amLODIPine 5 mg tablet 09-22 00:00: 00 Yes 5mg Take 5 mg by mouth daily. [facility] metoprolol succinate XL 50 mg 24 hr tablet 2019-04 13:56: 17 Yes 50mg Take 50 mg by mouth daily. [facility] vit C/E/Zn/jacqueline r/lutein/ze axan (PRESERVISI ON AREDS-2 ORAL) 2019-04 13:56: 17 Yes Take by mouth. [facility] traZODone 150 mg tablet 2019-04 00:00: 00 Yes TAKE 2 TABLETS BY MOUTH IN THE EVENING NEEDED [facility] candesartan 16 mg tablet 12-21 00:00: 00 Yes 16mg Take 16 mg by mouth daily. [facility] Vital Signs Vital Name Observation Time Observation Value Comments S ource Systolic blood pressure 2022-12-26 18:53:00 132 mm[Hg] [facility] Diastolic blood pressure 2022-12-26 18:53:00 71 mm[Hg] [facility] Heart rate 2022-12-26 18:53:00 63 /min [facility] Body temperature 2022-12-26 18:53:00 37.17 Pam [facility] Body weight 2022-12-26 18:53:00 65.318 kg [facility] BMI 2022-12-26 18:53:00 33.47 kg/m2 [facility] Systolic blood pressure 2022-12-05 18:09:00 137 mm[Hg] [facility] Diastolic blood pressure 2022-12-05 18:09:00 84 mm[Hg] [facility] Heart rate 2022-12-05 18:09:00 54 /min [facility] Body temperature 2022-12-05 18:09:00 35.94 Pam [facility] Body weight 2022-12-05 18:09:00 66.679 kg [facility] BMI 2022-12-05 18:09:00 34.17 kg/m2 [facility] Systolic blood pressure 2022-05-04 20:40:00 148 mm[Hg] [facility] Diastolic blood pressure 2022-05-04 20:40:00 75 mm[Hg] [facility] Heart rate 2022-05-04 20:38:00 63 /min [facility] Body temperature 2022-05-04 20:38:00 37.33 Pam [facility] Respiratory rate 2022-05-04 20:38:00 17 /min [facility] Body weight 2022-05-04 20:38:00 62.228 kg [facility] BMI 2022-05-04 20:38:00 31.89 kg/m2 [facility] Oxygen saturation in Arterial blood by Pulse oximetry 2022-05-04 20:38:00 96 /min [facility] Systolic blood pressure 2022-03-21 17:34:00 131 mm[Hg] [facility] Diastolic blood pressure 2022-03-21 17:34:00 83 mm[Hg] [facility] Heart rate 2022-03-21 17:34:00 61 /min [facility] Body temperature 2022-03-21 17:34:00 36.78 Pam [facility] Body height 2022-03-21 17:34:00 139.7 cm [facility] Body weight 2022-03-21 17:34:00 63.957 kg [facility] BMI 2022-03-21 17:34:00 32.77 kg/m2 [facility] Systolic blood pressure 2022-01-16 20:20:00 159 mm[Hg] [facility] Diastolic blood pressure 2022-01-16 20:20:00 78 mm[Hg] [facility] Heart rate 2022-01-16 20:18:00 60 /min [facility] Body temperature 2022-01-16 20:18:00 36.89 Pam [facility] Body height 2022-01-16 20:18:00 139.7 cm [facility] Body weight 2022-01-16 20:18:00 63.957 kg [facility] BMI 2022-01-16 20:18:00 32.77 kg/m2 [facility] Systolic blood pressure 2021-12-28 18:13:00 138 mm[Hg] [facility] Diastolic blood pressure 2021-12-28 18:13:00 70 mm[Hg] [facility] Heart rate 2021-12-28 18:13:00 47 /min [facility] Body temperature 2021-12-28 17:45:00 37.11 Pam [facility] Body height 2021-12-28 17:45:00 139.7 cm [facility] Body weight 2021-12-28 17:45:00 64.139 kg [facility] BMI 2021-12-28 17:45:00 32.86 kg/m2 [facility] Oxygen saturation in Arterial blood by Pulse oximetry 2021-12-28 17:45:00 98 /min [facility] Systolic blood pressure 2021-08-07 20:41:00 130 mm[Hg] [facility] Diastolic blood pressure 2021-08-07 20:41:00 65 mm[Hg] [facility] Heart rate 2021-08-07 20:41:00 67 /min [facility] Body temperature 2021-08-07 20:41:00 37.33 Pam [facility] Body height 2021-08-07 20:41:00 139.7 cm [facility] Body weight 2021-08-07 20:41:00 63.504 kg [facility] BMI 2021-08-07 20:41:00 32.54 kg/m2 [facility] Procedures Procedure Date / Time Performed Performing Clinicia n Source POCT URINALYSIS 2022-12-26 00:00:00 Lynn Posada [facility] ASSIGNMENT OF BENEFITS 2022-12-05 17:56:56 Docto r Unassigned, [place] [facility] POCT URINALYSIS 2022-05-04 20:43:00 Natalya Walsh [facility] EXTERNAL PROVIDER RECORDS 2022-01-23 05:01:00 Doctor Unassigned, [place] [facility] POCT URINALYSIS 2022-01-16 00:00:00 Lynn Posada [facility] LIPASE 2021-12-28 18:38:00 Natalya Walsh [facility] CBC WITH DIFF 2021-12-28 18:38:00 Natalya Walsh [facility] EXTERNAL PROVIDER RECORDS 2021-08-10 05:01:00 Doctor Unassigned, [place] [facility] Encounters Start Date/Time End Date/Time Encounter Type Admission Type Attending Clinicians Care Facility Care Department Encounter ID Source 2023-12-20 10:30:00 2023-12-20 10:30:00 Outpatient R CIRO, TAWANNA TANNER, TAWANNA [facility] [id number] [facility] 2023-10-31 00:00:00 2023-10-31 11:13:22 Refill [facility] [id number] 350.1.13.10 4.2.7.2.686 [id number] [facility] 2023-10-02 00:00:00 2023-10-02 14:29:16 Telephone [facility] 1..840.114 350.1.13.10 4.2.7.2.686 [id number] [facility] 2023-09-28 00:00:00 2023-09-30 08:50:36 Refill [facility] [id number] 350.1.13.10 4.2.7.2.686 [id number] [facility] 2023-09-21 00:00:00 2023-09-23 12:41:08 Lynn Lilly [facility] 1.2.840.114 350.1.13.10 4.2.7.2.686 [id number] [facility] 2023-08-30 00:00:00 2023-09-03 08:32:14 Telephone [facility] 1.2.840.114 350.1.13.10 4.2.7.2.686 [id number] [facility] 2023-08-21 00:00:00 2023-08-21 12:03:01 RefLynn Lee [facility] 1.2.840.114 350.1.13.10 4.2.7.2.686 [id number] [facility] 2023-07-18 00:00:00 2023-07-18 00:00:00 Solange Posada [facility] 1.2840.114 350.1.13.10 4.2.7.2.686 [id number] [facility] 2023-07-09 00:00:00 2023-07-09 00:00:00 Lynn Lilly [facility] 1.2.840.114 350.1.13.10 4.2.7.2.686 [id number] [facility] 2023-04-09 00:00:00 2023-04-09 00:00:00 Lynn Lilly [facility] 1.840.114 350.1.13.10 4.2.7.2.686 [id number] [facility] 2023-01-05 00:00:00 2023-01-05 00:00:00 RefLynn Lee [facility] 1.84.114 350.1.13.10 4.2.7.2.686 [id number] [facility] 2022-12-26 14:00:00 2022-12-26 14:39:03 Outpatient William LYNN POSADA [facility] [id number] [facility] 2022-12-26 14:00:00 2022-12-26 14:39:03 Office Visit Lynn Posada [facility] 1.840.114 350.1.13.10 4.2.7.2.686 [id number] [facility] 2022-12-05 13:15:00 2022-12-05 13:30:00 [facility] Visit [facility] 1.840.114 350.1.13.10 4.2.7.2.686 [id number] [facility] 2022-12-05 13:15:00 2022-12-05 13:21:45 Outpatient R LYNN POSADA [facility] [id number] [facility] 2022-12-05 00:00:00 2022-12-05 00:00:00 Orders Only Doctor Unassigned, [place] [facility] 1.840.114 350.1.13.10 4.2.7.2.686 [id number] [facility] 2022-11-29 00:00:00 2022-11-29 00:00:00 [facility] 1.2840.114 350.1.13.10 4.2.7.2.686 [id number] [facility] 2022-11-04 00:00:00 2022-11-04 00:00:00 [facility]ill [facility] 1.2840.114 350.1.13.10 4.2.7.2.686 [id number] [facility] 2022-10-08 00:00:00 2022-10-08 00:00:00 [facility]ill [facility] 1.2840.114 350.1.13.10 4.2.7.2.686 [id number] [facility] 2022-09-22 00:00:00 2022-09-22 00:00:00 Refill Lynn Posada [facility] BU[facility] 1.2840.114 350.1.13.10 4.2.7.2.686 [id number] [facility] 2022-09-17 00:00:00 2022-09-17 00:00:00 [facility]ill [facility] 1.2840.114 350.1.13.10 4.2.7.2.686 [id number] [facility] 2022-08-19 00:00:00 2022-08-19 00:00:00 Refill [facility] 1.2840.114 350.1.13.10 4.2.7.2.686 [id number] [facility] 2022-07-30 00:00:00 2022-07-30 00:00:00 Refill [facility] 1.2840.114 350.1.13.10 4.2.7.2.686 [id number] [facility] 2022-07-23 00:00:00 2022-07-23 00:00:00 Refill [facility] 1.2840.114 350.1.13.10 4.2.7.2.686 [id number] [facility] 2022-07-15 00:00:00 2022-07-15 00:00:00 Refill Lynn Posada [facility] BU[facility] 1.20.114 350.1.13.10 4.2.7.2.686 [id number] [facility] 2022-07-09 00:00:00 2022-07-09 00:00:00 Refill Lynn Posada [facility] 1.840.114 350.1.13.10 4.2.7.2.686 [id number] [facility] 2022-06-21 00:00:00 2022-06-21 00:00:00 [facility]ill [facility] 1.2840.114 350.1.13.10 4.2.7.2.686 [id number] [facility] 2022-05-30 00:00:00 2022-05-30 00:00:00 Refill [facility] 1.284.114 350.1.13.10 4.2.7.2.686 [id number] [facility] 2022-05-11 00:00:00 2022-05-11 00:00:00 Refill Lynn Posada [facility] 1..840.114 350.1.13.10 4.2.7.2.686 [id number] [facility] 2022-05-04 14:30:00 2022-05-04 15:18:13 Outpatient R NATALYA WALSH [facility] [id number] [facility] 2022-05-04 14:30:00 2022-05-04 15:18:13 Office Visit Natalya Walsh [facility]?JORGE L [facility] MEDICAL OFFICE BUILDING 1..840.114 350.1.13.10 4.2.7.2.686 [id number] [facility] 2022-03-21 11:30:00 2022-03-21 11:45:00 Office Visit [facility] MEDICAL OFFICE BUILDING 1..840.114 350.1.13.10 4.2.7.2.686 [id number] [facility] 2022-03-21 11:30:00 2022-03-21 11:30:00 Outpatient R LYNN POSADA [facility] [id number] [facility] 2022-01-23 00:00:00 2022-01-23 00:00:00 Orders Only Doctor Unassigned, [place] [facility] 1.840.114 350.1.13.10 4.2.7.2.686 [id number] [facility] 2022-01-16 15:15:00 2022-01-16 15:30:00 Office Visit Lynn [facility]ada [facility] MEDICAL OFFICE BUILDING 1.2.840.114 350.1.13.10 4.2.7.2.686 [id number] [facility] 2022-01-16 15:15:00 2022-01-16 15:15:00 Outpatient R LYNN POSADA [facility] [id number] [facility] 2022-01-04 00:00:00 2022-01-04 00:00:00 Telephone [facility] MEDICAL OFFICE BUILDING 1.2.840.114 350.1.13.10 4.2.7.2.686 [id number] [facility] 2022-01-02 00:00:00 2022-01-02 00:00:00 Telephone Natalya Walsh Madeleine [facility] MEDICAL OFFICE BUILDING 1..840.114 350.1.13.10 4.2.7.2.686 [id number] [facility] 2021-12-28 13:45:00 2021-12-28 14:00:00 Supervisor Cytology Visit Lab, Natalya Helms Madeleine [facility] MEDICAL OFFICE BUILDING 1..840.114 350.1.13.10 4.2.7.2.686 [id number] [facility] 2021-12-28 12:30:00 2021-12-28 13:29:55 Outpatient R NATALYA WALSH [facility] [id number] [facility] 2021-12-28 12:30:00 2021-12-28 13:29:55 Office Visit Natalya Walsh Madeleine [facility] MEDICAL OFFICE BUILDING 1.2.840.114 350.1.13.10 4.2.7.2.686 [id number] [facility] 2021-12-26 00:00:00 2021-12-26 00:00:00 Refill Lynn Posada Critical [facility] hospital PRAVIN?[facility] MED[facility] OFF[facility] BUILDING 1.2840.114 350.1.13.10 4.2.7.2.686 [id number] [facility] 2021-11-09 00:00:00 2021-11-09 00:00:00 Refill Lynn Posada Critical access hospital PRAVIN?[facility] MEDICAL OFFICE BUILDING 1.2840.114 350.1.13.10 4.2.7.2.686 [id number] [facility] 2021-10-09 00:00:00 2021-10-09 00:00:00 Refill Lynn Posada Critical access hospital PRAVIN?[facility]OR[facility] L [facility] MEDICAL OFFICE BUILDING 1.2840.114 350.1.13.10 4.2.7.2.686 [id number] [facility] 2021-09-09 00:00:00 2021-09-09 00:00:00 Refill [facility] PRAVIN?[facility] MEDICAL OFFICE BUILDING 1.2840.114 350.1.13.10 4.2.7.2.686 [id number] [facility] 2021-08-10 00:00:00 2021-08-10 00:00:00 Orders Only Doctor Unassigned, [place] [facility] 1.2840.114 350.1.13.10 4.2.7.2.686 [id number] [facility] 2021-08-07 15:30:00 2021-08-07 15:45:00 Office Visit Lynn Posada Critical access hospital PARVIN?[facility]OR[facility] L [facility] MEDICAL OFFICE BUILDING 1.2840.114 350.1.13.10 4.2.7.2.686 [id number] [facility] 2021-08-07 15:30:00 2021-08-07 15:30:00 Outpatient R SWETHA LYNN [facility] [id number] [facility] 2021-08-02 00:00:00 2021-08-02 00:00:00 Telephone Lynn Posada [facility]OR[facility] L [facility] MEDICAL OFFICE BUILDING 1.114 350.1.13.10 4.2.7.2.686 [id number] [facility] 2021-07-14 00:00:00 2021-07-14 00:00:00 Refill Swetha [facility] MEDICAL OFFICE BUILDING 1.114 350.1.13.10 4.2.7.2.686 [id number] [facility] 2021-05-29 15:22:48 2021-05-29 23:59:00 Outpatient R SWETHA LYNN [facility] [id number] [facility] 2021-05-29 15:00:00 2021-05-29 15:15:00 Office Visit Lynn Posada [facility] MEDICAL OFFICE BUILDING 1.114 350.1.13.10 4.2.7.2.686 [id number] [facility] 2021-05-29 00:00:00 2021-05-29 00:00:00 Orders Only Doctor Unassigned, [place] [facility] 1.114 350.1.13.10 4.2.7.2.686 [id number] [facility] 2021-02-24 11:02:18 2021-02-24 11:24:25 [facility] 1.114 350.1.13.10 4.2.7.2.686 [id number] [facility] 2021-02-24 11:00:00 2021-02-24 11:24:25 Outpatient R ELLA OCONNELL [facility] [id number] [facility] 2021-01-23 00:00:00 2021-01-23 00:00:00 Refill Mike Anuradhabernadette Madeleine [facility] Office Building One 1.2.840.114 350.1.13.10 4.2.7.2.686 [id number] [facility] 2020-12-13 00:00:00 2020-12-13 00:00:00 Telephone Mick Mckeon [facility] Pravin?[facility] Medical Office Building 1..840.114 350.1.13.10 4.2.7.2.686 [id number] [facility] 2020-12-08 10:46:30 2020-12-08 23:59:00 Hospital Encounter Shruthi Abad [facility] 1.2.840.114 350.1.13.10 4.2.7.2.686 [id number] [facility] 2020-12-08 09:23:08 2020-12-08 10:09:28 [facility] Medical Office Building 1.2.840.114 350.1.13.10 4.2.7.2.686 [id number] [facility] 2020-12-08 09:30:00 2020-12-08 09:30:00 Outpatient R SHRUTHI ABAD [facility] [id number] [facility] 2020-12-08 08:45:00 2020-12-08 08:45:00 Outpatient R MICK MCKEON [facility] [id number] [facility] 2020-12-08 00:00:00 2020-12-08 00:00:00 Orders Only Doctor Unassigned, [place] [facility] 1.2840.114 350.1.13.10 4.2.7.2.686 [id number] [facility] 2020-11-08 18:47:28 2020-11-08 19:07:28 Urgent Care Kourtney Ella [facility] Office Building One 1.840.114 350.1.13.10 4.2.7.2.686 [id number] [facility] 2020-11-08 18:20:00 2020-11-08 18:20:00 Outpatient R KOURTNEY [facility] [id number] [facility] 2020-10-04 00:00:00 2020-10-04 00:00:00 Telephone Mick Mckeon [facility] Office Building One 1.840.114 350.1.13.10 4.2.7.2.686 [id number] [facility] 2020-10-03 00:00:00 2020-10-03 00:00:00 Orders Only Doctor Unassigned, [place] [facility] 1.2840.114 350.1.13.10 4.2.7.2.686 [id number] [facility] 2020-09-30 14:19:49 2020-09-30 14:34:49 Office Visit Lynn Posada [facility] Office Building One 1.84.114 350.1.13.10 4.2.7.2.686 [id number] [facility] 2020-09-30 14:15:00 2020-09-30 14:15:00 Outpatient R LYNN POSADA [facility] [id number] [facility] 2020-09-23 14:36:14 2020-09-23 15:20:24 Office Visit Lynn Posada [facility] Office Building One ..114 350.1.13.10 4.2.7.2.686 [id number] [facility] 2020-09-23 14:30:00 2020-09-23 14:30:00 Outpatient William RUDDTERESA LYNN [facility] [id number] [facility] 2020-09-22 00:00:00 2020-09-22 00:00:00 Telephone MikeAnuradha friedmangriceldacarol [facility] Office Building One ..114 350.1.13.10 4.2.7.2.686 [id number] [facility] 2020-09-20 00:00:00 2020-09-20 00:00:00 Refill MikeAnuradhagriceldacarol [facility] Office Building One 1..114 350.1.13.10 4.2.7.2.686 [id number] [facility] 2020-09-16 00:00:00 2020-09-16 00:00:00 Telephone MidwayAnuradha friedmanbernadette Madeleine [facility] Office Building One 1..114 350.1.13.10 4.2.7.2.686 [id number] [facility] 2020-08-31 10:40:00 2020-08-31 10:40:00 Outpatient R MIKEANURADHA FRIEDMANBERNADETTE [facility] [id number] [facility] 2020-08-31 10:06:41 2020-08-31 10:20:05 Supervisor Cytology Visit Lab, Johanne WinklerAnuradha friedmanbernadette [facility] Office Building One 1..114 350.1.13.10 4.2.7.2.686 [id number] [facility] 2020-08-31 00:00:00 2020-08-31 00:00:00 Case Management Mick Mckeon [facility] Office Building One 1.2840.114 350.1.13.10 4.2.7.2.686 [id number] [facility] 2020-08-26 16:09:47 2020-08-26 16:47:41 Office Visit Mick Mckeon [facility] Office Building One 1.20.114 350.1.13.10 4.2.7.2.686 [id number] 2020-08-26 16:09:47 2020-08-26 16:47:41 Office Visit Mick Mckeon [facility] Office Building One 1.2840.114 350.1.13.10 4.2.7.2.686 [id number] [facility] 2020-08-26 16:00:00 2020-08-26 16:00:00 Outpatient R MICK MCKEON [facility] [id number] [facility] 2020-08-18 10:45:00 2020-08-18 10:45:00 Outpatient R MICK MCKEON [facility] [id number] [facility] 2020-04-26 00:00:00 2020-04-26 00:00:00 Refill Mick Mckeon [facility] Office Building One 1.84.114 350.1.13.10 4.2.7.2.686 [id number] [facility] 2020-03-08 13:15:00 2020-03-08 13:15:00 Outpatient R UNKNOWN, FLORENCIO [facility] [id number] [facility] 2020-03-08 09:00:00 2020-03-08 09:00:00 Outpatient R [facility] [id number] [facility] 2020-03-08 00:00:00 2020-03-08 00:00:00 Telephone Kylah Mcmahan [facility] 1.2.840.114 350.1.13.10 4.2.7.2.686 [id number] [facility] 2020-03-07 00:00:00 2020-03-07 00:00:00 Telephone Mick Mckeon [facility] Office Building One 1.2.840.114 350.1.13.10 4.2.7.2.686 [id number] [facility] 2020-02-19 13:26:12 2020-02-19 14:29:08 Office Visit Mick Mckeon [facility] Office Building One 1.2.840.114 350.1.13.10 4.2.7.2.686 [id number] [facility] 2020-02-19 14:00:00 2020-02-19 14:00:00 [id number] Results Test Description Test Time Test Comments Results Result Co mments Source [facility]CIFIC [id number] 19:15:00* Test Item Value Reference Range Interpretation [...] U APPEAR (test code = 3267) clear [facility] URINALYSIS W SPECIFIC [id number] 20:43:00* Test Item Value Reference Range Interpretation [...] 3267) CLEAR Lab Interpretation (test code = 81690-7) Abnormal [facility] URINALYSIS W SPECIFIC [id number] 20:43:00* Test Item Value Reference Range Interpretation [...] 3267) CLEAR Lab Interpretation (test code = 49564-8) Abnormal [facility] URINALYSIS W SPECIFIC [id number] 21:07:00* Test Item Value Reference Range Interpretation [...] U APPEAR (test code = 3267) clear [facility] W SPECIFIC [id number] 21:07:00* Test Item Value Reference Range Interpretation [...] U APPEAR (test code = 3267) clear [facility]2022-[facility]-22 21:09:42* Test Item Value Reference Range Interpretation Comme nts LIPASE (test code = 0994174093) 391 U/L 0-220 H Lab Interpretation (test cod e = 55664-9) Abnormal [facility] 21:09:42* Test Item Value Reference Range Interpretation Comme nts LIPASE (test code = 0040034853) 391 U/L 0-220 H Lab Interpretation (test cod e = 00012-4) Abnormal [facility] WITH [id number] 21:03:03* Test Item Value Reference Range Interpretation [...] 32.9 g/dL 31.6-35.1 RDW-SD (test code = 99363-6) 48.7 fL 39-49.9 RDW-CV (test code = 788-0) 14.0 % 12-15.5 PLT (test code = 777-3) See_Comment H [Automated messa ge] The system which generated this result transmitted reference range: 166 - 358 10*3/?L. The reference range was not used to interpret this result as normal/abnormal. MPV (test code = 64206-5) 9.9 fL 9.5-12.9 NRBC/100 WBC (test code = 6532399173) See_Comment [Automated me ssage] The system which generated this result transmitted reference range: 0.0 - 10.0 /100 WBCs. The reference range was not used to interpret this result as normal/abnormal. NRBC x10^3 (test code = 5664609469) See_Comment [Automated messa ge] The system which generated this result transmitted reference range: 10*3/?L. The reference range was not used to interpret this result as normal/abnormal. GRAN MAT (NEUT) % (test code = 770-8) 72.3 % IMM GRAN % (test code = 4823644634) 0.70 % LYMPH % (test code = 736-9) 18.4 % MONO % (test code = 5905-5) 6.7 % EOS % (test code = 713-8) 1.2 % BASO % (test code = 706-2) 0.7 % GRAN MAT x10^3(ANC) (test code = 4428618094) 8.68 10*3/uL 1.88-7.09 H IMM GRAN x10^3 (test code = 4269462946) 0.09 10*3/uL 0-0.06 H LYMPH x10^3 (test code = 731-0) 2.21 10*3/uL 1.32-3.29 MONO x10^3 (test code = 742-7) 0.81 10*3/uL 0.33-0.92 EOS x10^3 (test code = 711-2) 0.14 10*3/uL 0.03-0.39 BASO x10^3 (test code = 704-7) 0.08 10*3/uL 0.01-0.07 H Lab Interpretation (test code = 22799-5) Abnormal [facility] WITH [id number] 21:03:03* Test Item Value Reference Range Interpretation [...] 32.9 g/dL 31.6-35.1 RDW-SD (test code = 60791-8) 48.7 fL 39-49.9 RDW-CV (test code = 788-0) 14.0 % 12-15.5 PLT (test code = 777-3) See_Comment H [Automated messa ge] The system which generated this result transmitted reference range: 166 - 358 10*3/?L. The reference range was not used to interpret this result as normal/abnormal. MPV (test code = 19841-6) 9.9 fL 9.5-12.9 NRBC/100 WBC (test code = 7320618155) See_Comment [Automated me ssage] The system which generated this result transmitted reference range: 0.0 - 10.0 /100 WBCs. The reference range was not used to interpret this result as normal/abnormal. NRBC x10^3 (test code = 7237708172) See_Comment [Automated messa ge] The system which generated this result transmitted reference range: 10*3/?L. The reference range was not used to interpret this result as normal/abnormal. GRAN MAT (NEUT) % (test code = 770-8) 72.3 % IMM GRAN % (test code = 0774403125) 0.70 % LYMPH % (test code = 736-9) 18.4 % MONO % (test code = 5905-5) 6.7 % EOS % (test code = 713-8) 1.2 % BASO % (test code = 706-2) 0.7 % GRAN MAT x10^3(ANC) (test code = 5864571192) 8.68 10*3/uL 1.88-7.09 H IMM GRAN x10^3 (test code = 3315228916) 0.09 10*3/uL 0-0.06 H LYMPH x10^3 (test code = 731-0) 2.21 10*3/uL 1.32-3.29 MONO x10^3 (test code = 742-7) 0.81 10*3/uL 0.33-0.92 EOS x10^3 (test code = 711-2) 0.14 10*3/uL 0.03-0.39 BASO x10^3 (test code = 704-7) 0.08 10*3/uL 0.01-0.07 H Lab Interpretation (test code = 92858-3) Abnormal [facility] Notes Date/Time Note Provider Source 2023-10-31 10:44:55 Images from the original note were not included. Requested Renewals Name from pharmacy: tiZANidine HCl 4 MG Oral Tablet Will file in chart as: TIZANIDINE 4 mg tablet Sig: TAKE 1 TABLET BY MOUTH EVERY 6 HOURS NEEDED (BACK PAIN) Disp: 60 tablet Refills: 0 Start: 10/31/2023 Class: eRX Non-formulary For: Chronic bilateral low back pain without sciatica Last ordered: 1 month ago (09/23/2023) by Lynn Posada MD Last refill: 09/23/2023 Rx #: [id number] Provider Review Required Ojkrim8510/31/2023 10:42 AM Protocol Details This refill cannot be delegated Valid encounter within last 12 months To be filled at: [address] Recent Visits Date Type Provider Dept 12/26/22 Office Visit Lynn Posada MD [facility] 12/05/22 Office Visit Lynn Posada MD [facility] Showing recent visits within past 540 days with a meds authorizing provider and meeting all other requirements Future Appointments No visits were found meeting these conditions. 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 Please resend: LEVOTHYROXINE 100 mcg tablet MONTELUKAST 10 mg tablet Please contact pt once done. Katie Wolfe [facility] 2023-09-23 08:51:32 Recent Visits Date Type Provider Dept 12/26/22 Office Visit Lynn Posada MD [facility] 12/05/22 Office Visit Lynn Posada MD [facility] 05/04/22 Office Visit Natalya Walsh PA [facility] Showing recent visits within past 540 days with a meds authorizing provider and meeting all other requirements Future Appointments No visits were found meeting these conditions. Showing future appointments within next 150 days with a meds authorizing provider and meeting all other requirements Last refill was Disp Refills Start End ERNIE TIZANIDINE 4 mg tablet 60 tablet 0 08/21/2023 -- No Sig: TAKE 1 TABLET BY MOUTH EVERY 6 HOURS NEEDED (BACK PAIN) Sent to pharmacy as: tiZANidine 4 mg tablet (ZANAFLEX) T [facility] 2023-08-30 13:05:01 Copied from [facility] #[id number]. Topic: Clinical - Order >> August 30, 2023 1:04 PM Patient Therapeutic Support Staff wrote: Pt request rx refill. Pt is having itching at this time. fluconazole (DIFLUCAN) [address] [facility] - [address] [place] [address] Thu Josue [facility] 2023-08-21 11:54:52 Recent Visits Date Type Provider Dept 12/26/22 Office Visit Lynn Posada MD [facility] 12/05/22 Office Visit Lynn Posada MD [facility] 05/04/22 Office Visit Natalya Walsh PA [facility] 03/21/22 Office Visit Lynn Posada MD [facility] Showing recent visits within past 540 days with a meds authorizing provider and meeting all other requirements Future Appointments No visits were found meeting these conditions. Showing future appointments within next 150 days with a meds authorizing provider and meeting all other requirements Last refill was TIZANIDINE 4 mg tablet 60 tablet 0 07/21/2023 -- No Sig: TAKE 1 TABLET BY MOUTH EVERY 6 HOURS NEEDED (BACK PAIN) Sent to pharmacy as: tiZANidine 4 mg tablet (ZANAFLEX) Class: eRX [facility] 2023-07-19 07:36:55 Images from the original note were not included. Requested Renewals Name from pharmacy: tiZANidine HCl 4 MG Oral Tablet Will file in chart as: TIZANIDINE 4 mg tablet Sig: TAKE 1 TABLET BY MOUTH EVERY 6 HOURS NEEDED (BACK PAIN) Disp: 60 tablet Refills: 0 Start: 07/18/2023 Class: eRX Non-formulary For: Chronic bilateral low back pain without sciatica Last ordered: 6 months ago (12/26/2022) by Lynn Posada MD Last refill: 06/13/2023 Rx #: [id number] Provider Review Required Gxyggq9407/18/2023 07:58 PM Protocol Details This refill cannot be delegated Valid encounter within last 12 months To be filled at: [facility] [address] [place], [place] - [address] [place] [address] Recent Visits Date Type Provider Dept 12/26/22 Office Visit Lynn Posada MD [facility] 12/05/22 Office Visit Lynn Posada MD [facility] 05/04/22 Office Visit Natalya Walsh PA [facility] 03/21/22 Office Visit Lynn Posada MD [facility] Showing recent visits within past 540 days with a meds authorizing provider and meeting all other requirements Future Appointments No visits were found meeting these conditions. Showing future appointments within next 150 days with a meds authorizing provider and meeting all other requirements [facility] 2023-07-09 13:42:37 Images from the original note were not included. Requested Renewals Name from pharmacy: Montelukast Sodium 10 MG Oral Tablet Will file in chart as: MONTELUKAST 10 mg tablet Sig: TAKE 1 TABLET BY MOUTH ONCE DAILY IN THE MORNING Disp: 90 tablet Refills: 0 Start: 07/09/2023 Class: eRX For: Seasonal allergic rhinitis due to pollen Last ordered: 3 months ago (04/09/2023) by Lynn Posada MD Last refill: 04/09/2023 Rx #: [id number] Allergy Ajipkq8307/09/2023 01:19 PM Protocol Details Valid encounter within last 12 months Name from pharmacy: Levothyroxine Sodium 100 MCG Oral Tablet Will file in chart as: LEVOTHYROXINE 100 mcg tablet Sig: TAKE 1 TABLET BY MOUTH ONCE DAILY IN THE MORNING Disp: 90 tablet Refills: 0 Start: 07/09/2023 Class: eRX For: Acquired hypothyroidism Last ordered: 3 months ago (04/09/2023) by Lynn Posada MD Last refill: 04/09/2023 Rx #: [id number] Endocrinology: Hypothyroid Agents Zorpmk9907/09/2023 01:19 PM Protocol Details Manual Review: ENT providers forward refill request to PCP. TSH in normal range and within 360 days Valid encounter within last 12 months To be filled at: [facility] [address] [place] [address] There are no current results on file for these tests and/or test for 1 year. NO TSH ON FILE Recent Visits Date Type Provider Dept 12/26/22 Office Visit Lynn Posada MD [facility] 12/05/22 Office Visit Lynn Posada MD [facility] 05/04/22 Office Visit Natalya Walsh PA [facility] 03/21/22 Office Visit Lynn Posada MD [facility] 01/16/22 Office Visit Lynn Posada MD [facility] Showing recent visits within past 540 days with a meds authorizing provider and meeting all other requirements Future Appointments No visits were found meeting these conditions. Showing future appointments within next 150 days with a meds authorizing provider and meeting all other requirements [facility] 2022-11-29 17:44:43 Formatting of this n ote is different from the original. Images from the original note were not included. Please review and sign if appropriate. Name from [...] Posada MD Last refill: 11/05/2022 Rx #: [id number] Provider Review Required Failed 11/29/2022 05:12 PM Protocol Details This refill cannot be delegated Valid encounter within last 12 months To be filled at: [facility] [address] [place] [address] Recent Visits Date Type Provider Dept 05/04/22 Office Visit Natalya Walsh PA [facility] 03/21/22 Office Visit Lynn Posada MD [facility] 01/16/22 Office Visit Lynn Posada MD [facility] 12/28/21 Office Visit Natalya Walsh PA [facility] 08/07/21 Office Visit Lynn Posada MD [facility] Showing recent visits within past 540 days with a meds authorizing provider and meeting all other requirements Future Appointments No visits were found meeting these conditions. Showing future appointments within next 150 days with a meds authorizing provider and meeting all other requirements [facility] 2022-11-05 13:11:49 Formatting of this n ote is different from the original. Images from the original note were not included. Requested Renewals Name from pharmacy: tiZANidine HCl 4 [...] Posada MD Last refill: 10/08/2022 Rx #: [id number] Provider Review Required Failed 11/04/2022 01:06 PM Protocol Details This refill cannot be delegated Valid encounter within last 12 months To be filled at: [facility] [address] [place] [address] Recent Visits Date Type Provider Dept 05/04/22 Office Visit Natalya Walsh PA [facility] 03/21/22 Office Visit Lynn Posada MD [facility] 01/16/22 Office Visit Lynn Posada MD [facility] 12/28/21 Office Visit Natalya Walsh PA [facility] 08/07/21 Office Visit Lynn Posada MD [facility] 05/29/21 Office Visit Lynn Posada MD [facility] Showing recent visits within past 540 days with a meds authorizing provider and meeting all other requirements Future Appointments No visits were found meeting these conditions. Showing future appointments within next 150 days with a meds authorizing provider and meeting all other requirements [facility] 2017-04-30 21:22:23 [facility] enter Operative Report/Procedure PATIENT NAME: SHANAE DEL CID PHYSICIAN: Alex Fontanez MD Admitted: MR NUMBER: [id number] DISCHARGED: 04/11/2017 04:25:00 Date of surgery: 04/11/2017. PREOPERATIVE DIAGNOSIS: Macular hole, left eye. POSTOPERATIVE DIAGNOSIS: Macular hole, left eye. SURGEON: Alex Fontanez MD ANESTHESIA: Retrobulbar injection monitored anesthesia care. PROCEDURE PERFORMED: Vitrectomy, internal limiting membrane peel, and gas fluid exchange. COMPLICATIONS: None. PROCEDURE IN DETAIL: The patient was given retrobulbar block as well as retrobulbar steroid injection. The patient was prepped and draped in usual fashion for ophthalmic surgery. The wire lid speculum inserted, 23-gauge cannulas were placed superiorly and anterior central and posterior vitrectomy carried out. Care was taken to disinsert the posterior hyaloid with suction. [place] blue dye was then used to stain the internal limiting membrane. This was then peeled in a circular fashion using straight intraocular forceps. Air fluid exchange next undertaken. Air was exchanged for 20% sulfur hexafluoride gas. All cannulas were removed and eye patched with neomycin, polymyxin, and dexamethasone ophthalmic ointment. MD JOCE Gong/NEO TD: 04/11/2017 18:51 CC:Alex Fontanez MD([employer]) Electronically Authenticated by: Alex Fontanez MD On 04/16/2017 12:10 PM [facility]
[2023-12-16 16:43] LABS: Absolute Basophils 0.1 K/uL (0-0.5); Absolute Eosinophils 0.1 K/uL (0-0.5); Absolute Monocytes 0.9 K/uL (0.1-1.3); Absolute Neutrophil 8.7 K/uL (1.8-8.0); Basophils % 0.8 % (0-1.3); Hematocrit 39.1 % (36.0-45.0); Hemoglobin 12.8 g/dL (12.0-15.0); Lymphocytes % 16.8 % (15.3-44.8); MCH 31.2 pg (27.0-35.0); MCHC 32.8 g/dL (32.0-36.0); MCV 95.3 fL (80-100); MPV 7.6 fL (7.6-11.3); Monocytes % 7.6 % (3.3-12.3); Neutrophils % 73.8 % (41.7-73.7); Nucleated Red Blood Cells % 0.1 % (0-0); Platelets 525 thou/uL (152-406); RBC Red Blood Cell Count 4.11 M/uL (3.86-4.86)
[2023-12-16] MEDS ORDERED: ONDANSETRON 4 MG/2 ML VIAL ONE (16:57)
[2023-12-16] MEDS ORDERED: MORPHINE 2 MG/ML SYR ONE ×2 (16:58→18:26)
[2023-12-16 16:59] LABS: Albumin 3.7 g/dL (3.4-5.0); Albumin/Globulin Ratio 1.3 (1.1-1.8); Anion Gap 12.6 mEq/L (5.0-15.0); Bilirubin Total 0.3 mg/dL (0.2-1.0); Globulin 2.9 g/dL (2.3-3.5); Potassium 3.6 mEq/L (3.5-5.1); Protein, Total 6.6 g/dL (6.4-8.2)
[2023-12-16 17:13] LABS: Specific Gravity 1.007 (1.005-1.030); Urine Bacteria <20 /HPF (<20); Urine Bilirubin NEGATIVE (Negative); Urine Blood Negative (Negative); Urine Clarity Extremely Turbid (Clear); Urine Color Light-Yellow (Yellow); Urine Crystals Unidentified Few /HPF (None Seen); Urine Culture Reflex Order NOT NEEDED; Urine Glucose NEGATIVE (Negative); Urine Ketones NEGATIVE (Negative); Urine Microscopic Reflex YN ORDER UMIC; Urine Mucus Slight /HPF (None Seen); Urine Nitrite NEGATIVE (Negative); Urine Protein TRACE (Negative); Urine Urobilinogen Normal (Normal); Urine WBC <5 /HPF (<5); Urine WBC Clump Rare /HPF (None Seen); Urine Yeast (Budding) Trace /HPF (None Seen)
--- NOTE | 2023-12-16 18:31 | RAD REPORT ---
EXAM DESCRIPTION: CT - Abdomen Pelvis W Contrast - 12/16/2023 6:16 pm CLINICAL HISTORY: Abdominal pain COMPARISON: 2021 TECHNIQUE: Computed axial tomography of the abdomen pelvis was obtained. 100 cc Isovue-300 was admin istered intravenously. Oral contrast was not requested which limits evaluation of bowel and appendix All CT scans are performed using dose optimization technique as appropriate and may include automated exposure control or mA/KV adjustment according to patient size. FINDINGS: The liver, spleen, pancreas, and adrenals unremarkable Multiple, bilateral renal cysts. Largest right kidney 5 centimeters Hysterectomy. Diverticula stem from the colon. Minimal stranding adjacent to the sigmoid colon There is no evidence of diverticulitis. No adnexal mass Chronic mild deformity L3 vertebral body. Mild anterior subluxation of L4 on L5 Thickening of the wall gastric body Postsurgical changes jejunum with mild dilatation at anastomotic site IMPRESSION: Minimal sigmoid diverticulitis Thickening of the wall of the gastric body could be secondary to incomplete distention or pathology s uch as inflammation
[2023-12-16] MEDS ORDERED: FENTANYL CITR 100 MCG/2 ML ONE (19:26)
[2023-12-16] MEDS ORDERED: NA CHLORIDE 0.9% 100 ML ONE (19:27)
[2023-12-16] MEDS ORDERED: PIPERACIL/TAZO 3.375 GM VIAL IV ONE (19:27)
--- NOTE | 2023-12-16 19:31 | EDPHYS ---
Physician Documentation [facility] Name: Shanae Del Cid Age: 83 yrs Sex: Female : 1940 Arrival Date: 12/16/2023 Time: 15:13 Bed 20 Private MD: ED Physician Oni Velazquez HPI: 12/15 15:50 This 83 yrs old Female presents to ER via Ambulatory with complaints of Abdominal Pain, cp Back Pain. 15:50 The patient presents with abdominal pain in the lower abdomen, suprapubic area. Onset: cp The symptoms/episode began/occurred 3 week(s) ago. The symptoms radiate to lower back. Associated signs and symptoms: Pertinent positives: fever, nausea, Pertinent negatives: blood in stools, constipation, diarrhea, vomiting. The symptoms are described as waxing/waning. Patient reports that she is being treating for persistent uti and currently taking prescribed metronidazole. Historical: - Allergies: 15:23 No Known Allergies; cm10 - Home Meds: 15:23 amlodipine 5 mg oral tablet [Active]; candesartan oral [Active]; metoprolol tartrate 50 cm10 mg Oral tablet [Active]; levothyroxine 100 mcg oral tablet [Active]; montelukast 10 mg oral tablet [Active]; citalopram 40 mg tablet [Active]; tizanidine 4 mg oral capsule [Active]; buspirone 15 mg Oral tablet [Active]; - PMHx: 15:23 BRADYCARDIA; eye disease; Hypertension; Hypothyroidism; cm10 - PSHx: 15:23 bowel blockage SX; Tonsillectomy; uterus removed; cm10 - Immunization history:: Adult Immunizations up to date. - Infectious Disease History:: Denies. - Social history:: Smoking status: Patient reports the use of cigarette tobacco products, smokes one pack cigarettes per day. ROS: 15:55 Eyes: Negative for injury, pain, redness, and discharge, cp 15:55 Constitutional: Positive for body aches, fever, Negative for poor PO intake, 15:55 ENT: Negative for drainage from ear(s), ear pain, sore throat, difficulty swallowing, difficulty handling secretions, 15:55 Cardiovascular: Negative for chest pain, palpitations, 15:55 Respiratory: Negative for cough, shortness of breath, wheezing, 15:55 Abdomen/GI: Positive for abdominal pain, nausea, Negative for diarrhea, constipation, black/tarry stool, rectal bleeding, 15:55 Back: Positive for pain at rest, radiated pain, 15:55 : Positive for urinary symptoms, 15:55 Neuro: Negative for altered mental status, dizziness, headache, weakness, 15:55 All other systems are negative, Exam: 16:00 Constitutional: The patient appears in no acute distress, alert, awake, cp non-diaphoretic, non-toxic, well developed, well nourished, uncomfortable, 16:00 Head/Face: Normocephalic, atraumatic. cp 16:00 Eyes: Periorbital structures: appear normal, Conjunctiva: normal, no exudate, no injection, Sclera: no appreciated abnormality, Lids and lashes: appear normal, bilaterally, 16:00 ENT: External ear(s): are unremarkable, Nose: is normal, Mouth: Lips: moist, Oral mucosa: moist, Posterior pharynx: Airway: no evidence of obstruction, patent, 16:00 Chest/axilla: Inspection: normal, 16:00 Cardiovascular: Rate: normal, Rhythm: regular, Edema: is not appreciated, JVD: is not appreciated, 16:00 Respiratory: the patient does not display signs of respiratory distress, Respirations: normal, no use of accessory muscles, no retractions, labored breathing, is not present, Breath sounds: are clear throughout, no decreased breath sounds, no stridor, no wheezing, 16:00 Abdomen/GI: Inspection: abdomen appears normal, Bowel sounds: active, all quadrants, Palpation: soft, in all quadrants, moderate abdominal tenderness, in the suprapubic area, right lower quadrant and left lower quadrant, rebound tenderness, is not appreciated, involuntary guarding, is not appreciated, 16:00 Back: pain, that is mild, of the low back area, CVA tenderness, is absent, 16:00 Neuro: Orientation: to person, place \T\ time. Mentation: is normal, Motor: moves all fours, strength is normal, Sensation: is normal, Vital Signs: 15:21 BP 112 / 78; Pulse 90; Resp 16; Temp 98(IR); Pulse Ox 98% on R/A; Weight 61.23 kg; cm10 Height 4 ft. 8 in. ; Pain 8/10; 18:04 BP 159 / 62; Pulse 72; Resp 16; Pulse Ox 98% on R/A; db 15:21 Body Mass Index 30.27 (61.23 kg, 142.24 cm) cm10 15:21 Pain Scale: Adult cm10 MDM: 15:45 Patient medically screened. 19:30 Data reviewed: vital signs, nurses notes, lab test result(s), radiologic studies, CT cp scan, and as a result, I will discharge patient. 19:30 I considered the following discharge prescriptions or medication management in the emergency department Medications were administered in the Emergency Department. See MAR. Counseling: I had a detailed discussion with the patient and/or guardian regarding the historical points, exam findings, and any diagnostic results supporting the discharge/admit diagnosis, lab results, radiology results, to return to the emergency department if symptoms worsen or persist or if there are any questions or concerns that arise at home. Response to treatment: the patient's symptoms have mildly improved after treatment. ED course: Pain improved. Discussed admission for continued pain control and IV antibiotics. Patient requesting discharge to home and to try oral antibiotics. 12/15 15:46 Order name: Urinalysis w/ reflexes; Complete Time: 17:27 12/15 18:56 Interpretation: Normal except: [facility] Extremely Turbid; UPROT TRACE; UESTR 500; URBC cp 5-10; HYAL 5-10; BYST Trace. 12/15 15:46 Order name: CBC with Diff; Complete Time: 17:27 12/15 18:49 Interpretation: Normal except: WBC 11.80; PLT 525; AMA% 73.8; NEUT A 8.7. 12/15 15:46 Order name: CMP; Complete Time: 17:27 12/15 19:12 Interpretation: Normal except: NA 135; CO2 20; GFR 70. 12/15 15:46 Order name: Lipase; Complete Time: 17:27 12/15 15:46 Order name: Lactate w/ 2H reflex if indic.; Complete Time: 17:27 12/15 16:51 Order name: CT Abd/Pelvis - IV Contrast Only; Complete Time: 18:48 12/15 15:46 Order name: IV Saline Lock; Complete Time: 16:33 12/15 15:46 Order name: Labs collected and sent; Complete Time: 16:33 cp Administered Medications: 16:58 Drug: Ondansetron IVP 4 mg IVP once; over 2 minutes Route: IVP; Site: right wrist; db 16:59 Drug: morphine IVP or IV 2 mg IVP once over 4 mins Route: IVP; Infused Over: 4 mins; db Site: right wrist; 18:33 Drug: morphine IVP or IV 2 mg IVP once over 4 mins Route: IVP; Infused Over: 4 mins; db Site: right wrist; 19:55 Drug: Piperacillin-Tazobactam IVPB 3.375 grams IVPB once over 60 mins; (mix in NS 100 hb mL) Route: IVPB; Infused Over: 60 mins; Site: right wrist; 20:40 Follow up: IV Status: Completed infusion ss 19:55 Drug: fentaNYL (PF) IVP 25 mcg IVP once Route: IVP; Site: right wrist; hb Disposition Summary: 12/16/23 19:30 Discharge Ordered Notes: Location: Home cp Problem: an ongoing problem cp Symptoms: have improved cp Condition: Stable cp Diagnosis - Diverticulitis of large intestine without perforation or abscess without bleeding cp Followup: cp - With: Private Physician - When: 2 - 3 days - Reason: Recheck today's complaints Discharge Instructions: - Discharge Summary Sheet cp - High-Fiber Eating Plan cp - Diverticulitis cp Forms: - Medication Reconciliation Form cp - Antibiotic Education cp - Prescription Opioid Use cp - Patient Portal Instructions cp - Leadership Thank You Letter cp Prescriptions: - Augmentin 875-125 mg Oral Tablet - take 1 tablet ORAL route every 12 hours for 10 days; 20 tablet; Refills: 0, cp Product Selection Permitted - Zofran 4 mg Oral Tablet - take 1 tablet ORAL route every 12 hours As needed; 20 tablet; Refills: 0, cp Product Selection Permitted - dicyclomine 20 mg Oral tablet - take 1 tablet ORAL route 4 times per day; 30 tablet; Refills: 0, Product cp Selection Permitted Addendum: 12/19/2023 09:03 Co-signature as Attending Physician, Oni Velazquez MD I reviewed the patient's care r t provided by the Advanced Practice Provider and agree with the diagnosis and treatment plan. Signatures: Dispatcher [facility] Donovan Weinstein PA PA cp Joselin Lee RN RN hb Benton, Danielle, RN RN db [place], Ryan, MD MD rt Fang Leon RN RN cm10 Marisol Littlejohn RN ss Corrections: (The following items were deleted from the chart) 09 18:49 17:28 Normal except: WBC 11.80; PLT 525. cp cp 18:49 18:49 Normal except: WBC 11.80; PLT 525; AMA% 73.8. cp cp 12/16 19:12/15 15:05 Constitutional: Positive for body aches, fever, Negative for poor PO cp intake, cp 12/16 19:12/15 15:05 Cardiovascular: Negative for chest pain, palpitations, cp cp 12/16 19:12/15 15:05 Respiratory: Negative for cough, shortness of breath, wheezing, cp cp 12/16 18:12/15 15:05 Abdomen/GI: Positive for abdominal pain, nausea, Negative for diarrhea, cp constipation, black/tarry stool, rectal bleeding, cp 12/16 18:12/15 15:05 Back: Positive for pain at rest, radiated pain, cp cp 12/16 18:12/15 15:05 Eyes: Negative for injury, pain, redness, and discharge, cp cp 12/16 18: 09 15:05 ENT: Negative for drainage from ear(s), ear pain, sore throat, difficulty cp swallowing, difficulty handling secretions, cp 12/16 19:10 12/15 15:05 : Positive for urinary symptoms, cp cp 12/16 18:12/15 15:05 Neuro: Negative for altered mental status, dizziness, headache, weakness, cpcp 12/16 18:12/15 15:05 All other systems are negative, cp cp
--- NOTE | 2023-12-16 19:31 | ER ---
Nurse's Notes [facility] Name: Shanae Del Cid Age: 83 yrs Sex: Female : 1940 Arrival Date: 12/16/2023 Time: 15:13 Bed 20 Private MD: Diagnosis: Diverticulitis of large intestine without perforation or abscess without bleeding Presentation: 12/15 15:21 Chief complaint: Patient states: Lower abdominal pain that radiates to her back onset 3 cm10 weeks ago. Pt states that she was diagnosed with a UTI 3 weeks ago and is still being treated. Pt reports urinary frequency. Coronavirus screen: Client denies travel out of the [place] in the last 14 days. At this time, the client does not indicate any symptoms associated with coronavirus-19. Ebola Screen:. Initial Sepsis Screen: Does the patient meet any 2 criteria? HR > 90 bpm. Does the patient have a suspected source of infection? No. Patient's initial sepsis screen is negative. Risk Assessment: Do you want to hurt yourself or someone else? Patient reports no desire to harm self or others. Onset of symptoms was December 16, 2023. 15:21 Method Of Arrival: Ambulatory cm10 15:21 Acuity: CONNER 3 cm10 Triage Assessment: 15:26 General: Appears in no apparent distress. uncomfortable. General: Behavior is calm, cm10 cooperative. Neuro: No deficits noted. Level of Consciousness is awake, alert, obeys commands, Oriented to person, place, time, situation, Appropriate for age. Historical: - Allergies: 15:23 No Known Allergies; cm10 - Home Meds: 15:23 amlodipine 5 mg oral tablet [Active]; candesartan oral [Active]; metoprolol tartrate 50 cm10 mg Oral tablet [Active]; levothyroxine 100 mcg oral tablet [Active]; montelukast 10 mg oral tablet [Active]; citalopram 40 mg tablet [Active]; tizanidine 4 mg oral capsule [Active]; buspirone 15 mg Oral tablet [Active]; - PMHx: 15:23 BRADYCARDIA; eye disease; Hypertension; Hypothyroidism; cm10 - PSHx: 15:23 bowel blockage SX; Tonsillectomy; uterus removed; cm10 - Immunization history:: Adult Immunizations up to date. - Infectious Disease History:: Denies. - Social history:: Smoking status: Patient reports the use of cigarette tobacco products, smokes one pack cigarettes per day. Screenin:34 [facility] ED Fall Risk Assessment (Adult) History of falling in the last 3 months, db including since admission Yes- single mechanical fall (1 pt) Confusion or Disorientation No (0 pts) Intoxicated or Sedated No (0 pts) Impaired Gait No (0 pts) Mobility Assist Device Used No (0 pt) Altered Elimination No (0 pt) Score/Fall Risk Level 0 - 2 = Low Risk Oriented to surroundings, Maintained a safe environment. Abuse screen: Denies threats or abuse. Denies injuries from another. Nutritional screening: No deficits noted. Tuberculosis screening: No symptoms or risk factors identified. Assessment: 16:27 Reassessment: Patient appears in no apparent distress at this time. Patient and/or db family updated on plan of care and expected duration. Pain level reassessed. Reassessment: Patient is alert, oriented x 3, equal unlabored respirations, skin warm/dry/pink. General: Appears in no apparent distress. comfortable, Behavior is calm, cooperative. General: Behavior is appropriate for age. Pain: Complains of pain in back and abdomen. Neuro: Level of Consciousness is awake, alert, obeys commands, Oriented to person, place, time, situation. Respiratory: Airway is patent Respiratory effort is even, unlabored, Respiratory pattern is regular, symmetrical. GI: Bowel sounds present X 4 quads. Abd is soft. 18:03 Reassessment: PATIENT REQUESTS PAIN MEDICATION. NOTIFIED WILL GIVE PAIN MEDICATION UPON db RETURN FROM CT. VERBALIZES UNDERSTANDING. PT UPDATED ON PLAN OF CARE. Vital Signs: 15:21 BP 112 / 78; Pulse 90; Resp 16; Temp 98(IR); Pulse Ox 98% on R/A; Weight 61.23 kg; cm10 Height 4 ft. 8 in. ; Pain 8/10; 18:04 BP 159 / 62; Pulse 72; Resp 16; Pulse Ox 98% on R/A; db 15:21 Body Mass Index 30.27 (61.23 kg, 142.24 cm) cm10 15:21 Pain Scale: Adult cm10 ED Course: 15:17 Patient arrived in ED. im 15:23 Triage completed. cm10 15:26 Donovan Weinstein PA is PHCP. cp 15:26 Oni Velazquez MD is Attending Physician. cp 15:26 Arm band placed on Patient placed in an exam room, on a stretcher. cm10 16:27 Initial lab(s) drawn, by me, sent to lab. Inserted saline lock: 22 gauge in right db wrist, using aseptic technique. Blood collected. Flushed with 10 mL NS. 16:33 Maria D Strickland, RN is Primary Nurse. db 18:[address] db 18:03 Patient has correct armband on for positive identification. Bed in low position. Call db light in reach. Side rails up X 1. Pulse ox on. NIBP on. Warm blanket given. Pillow given. 18:17 CT Abd/Pelvis - IV Contrast Only In Process Unspecified. EDMS 20:40 No provider procedures requiring assistance completed. IV discontinued, intact, ss bleeding controlled, No redness/swelling at site. Pressure dressing applied. Administered Medications: 16:58 Drug: Ondansetron IVP 4 mg IVP once; over 2 minutes Route: IVP; Site: right wrist; db 16:59 Drug: morphine IVP or IV 2 mg IVP once over 4 mins Route: IVP; Infused Over: 4 mins; db Site: right wrist; 18:33 Drug: morphine IVP or IV 2 mg IVP once over 4 mins Route: IVP; Infused Over: 4 mins; db Site: right wrist; 19:55 Drug: Piperacillin-Tazobactam IVPB 3.375 grams IVPB once over 60 mins; (mix in NS 100 hb mL) Route: IVPB; Infused Over: 60 mins; Site: right wrist; 20:40 Follow up: IV Status: Completed infusion ss 19:55 Drug: fentaNYL (PF) IVP 25 mcg IVP once Route: IVP; Site: right wrist; hb Outcome: 19:30 Discharge ordered by MD. cp 20:40 Discharged to home ambulatory, with family, ss 20:40 Condition: good 20:40 Discharge instructions given to patient, family, Instructed on discharge instructions, follow up and referral plans. medication usage, Demonstrated understanding of instructions, follow-up care, medications, Prescriptions given X 3, 20:41 Patient left the ED. ss Signatures: Dispatcher [facility] Marisol Littlejohn RN RN ss Donovan Weinstein PA PA cp Baxter, Heather, RN RN Maria D Singh, RN RN db Tanya Diallo Clarissa RN RN cm10
[2023-12-16 21:12] VITALS: TEMP 98; O2SAT 98
[2023-12-16 21:14] VITALS: BP 159/62
== END 2023-12-16 20:41 | disposition home or self-care (01) ==
LOC: ER 15:13
DX: K57.32 Diverticulitis of large intestine without perforation or abscess without bleeding (principal); I10 Essential (primary) hypertension; E03.9 Hypothyroidism, unspecified; F17.210 Nicotine dependence, cigarettes, uncomplicated
CPT/HCPCS: 96365; 85025; 81001; 36415; 83605; 83690; 80053; 74177; 96375; 99285; Q9967; J2543; J3010; J2270 ×2; J2405

== ENCOUNTER 2024-08-25 10:31 | Emergency (ER) | payer OTHER ==
--- OUTSIDE RECORDS SUMMARY | 2024-08-25 10:37 | XMS REPORT | Continuity of Care Document ---
Author Name Unknown Address [address] [place] [address] Organization [facility] Address [address] [place] [address] Care Team Providers Care Winder Helper Name Role Phone UNKNOWN, REFFERING Primary Care Physician Elza Blas MD Attending Clinician [phone] Lab, Ang - Db Attending Clinician Unavailable ELZA MCCOY Attending Clinician Unavailable ELZA MCCOY Attending Clinician Unavailable Rm1, Adc Surg Proc Attending Clinician UnavailLynn Perez MD Attending Clinician + [phone] LYNN POSADA Attending Clinician Monico kennedy Doctor Unassigned, Odon Attending Clinician U lori Be MD, Nano Villarreal Attending Clinician NATALYA WALSH Attending Clinician Unavailable Natalya Lakhani Attending Clinician [phone] Lab, Ang Natty Db Attending Clinician Unavailable Ella Dior Attending Clinician [phone] ELLA OCONNELL Attending Clinician Unavailable Mick Mckeon MD Attending Clinician + [phone] Shruthi Burris Attending Clinician [phone] SHRUTHI ABAD Attending Clinician Unavailable MICK MCKEON Attending Clinician Unavaila ble Lab, Adc Fam Pob I Attending Clinician Unavailab sarai JAIN, ATTENDING Attending Clinician Unavailab Kylah Heard Attending Clinician [phone] BOURGEOIS, ALEX A, M.DALEX Farnsworth M.D. Attendin g Clinician Unavailable ALEX FONTANEZ M.D., Nisreen SAPP Clinician Unavailable Payers Payer Name Policy Type Policy Number Effective Date Expirati on Date Source Problems Condition Name Condition Details Condition Category Status Onset Date Resolution Date Last Treatment Date Treating Clinician Comments Source Chronic diarrhea Chronic diarrhea Disease Active 2019-04 00:00: 00 [facility] Chronic depression Chronic depression Disease Active 2019-04 00:00: 00 [facility] Seasonal allergic rhinitis Seasonal allergic rhinitis Disease Active 2019-04 00:00: 00 [facility] Arthritis Arthritis Disease Active 2019-04 00:00: 00 Overview: Formattunde g of this note might be different from the original. Hands, knees, shoulders [facility] Acquired hypothyroi dism Acquired hypothyroi dism Disease Active 2019-04 00:00: 00 [facility] Macular degenerati on Macular degenerati on Disease Active [facility] Essential hypertensi on Essential hypertensi on Disease Active [facility] Allergies, Adverse Reactions, Alerts Allergy Name Allergy Type Status Severity Reaction(s) Onset Date Inactive Date Treating Clinician Comments Source NO KNOWN ALLERGIE S Drug Class Active [facility] Social History Social Habit Start Date Stop Date Quantity Comments Source Gender identity [facility] Sexual orientation U [facility] History SDOH Alcohol Comment [place] o f [facility] History of tobacco use Cigarette Smoker [facility] Alcoholic beverage intake 2024-03-27 00:00:00 2024-03-27 00:00:00 Lifetime non-drinker (finding) [facility] Tobacco use and exposure 2023-12-20 00:00:00 2023-12-20 00:00:00 Smokeless tobacco non-user [facility] Alcohol intake 2022-12-26 00:00:00 2022-12-26 00:00:00 Lifetime non-drinker (finding) [facility] History of Social function 2022-12-05 00:00:00 2022-12-05 00:00:00 [facility] Exposure to SARS-CoV-2 (event) 2022-04-24 00:00:00 2022-05-04 14:07:00 Not sure [facility] Cigarettes smoked current (pack per day) - Reported 2021-12-28 00:00:00 2021-12-28 00:00:00 [facility] History SDOH Alcohol Frequency 2020-02-19 00:00:00 2020-02-19 00:00:00 1 [facility] History SDOH Alcohol Std Drinks 2020-02-19 00:00:00 2020-02-19 00:00:00 99 [facility] History SDOH Alcohol Binge 2020-02-19 00:00:00 2020-02-19 00:00:00 1 [facility] Sex assigned at 1940 00:00:00 1940 00:00:00 [facility] Smoking Status Start Date Stop Date Source Smokes tobacco daily 2023-12-20 00:00:00 [facility] Medications Ordered Medication Name Filled Medication Name Start Date Stop Date Current Medication? Ordering Clinician Indication Dosage Frequency Signature (SIG) Comments Components Source trimethopri m 100 mg tablet 2023-04 00:00: 00 Yes [id number] 100mg Take 1 tablet by mouth at bedtime. To prevent utis [facility] estradioL (ESTRACE) 0.01 % (0.1 mg/gram) vaginal cream 01-02 00:00: 00 Yes [id number] Apply 1g vaginally at bedtime 2 times per week [facility] trimethopri m 100 mg tablet 01-02 00:00: 00 Yes [id number] 100mg Take 1 tablet by mouth at bedtime. [facility] TIZANIDINE 4 mg tablet 10-30 00:00: 00 Yes [id number] TAKE 1 TABLET BY MOUTH EVERY 6 HOURS NEEDED (BACK PAIN) [facility] LEVOTHYROXI NE 100 mcg tablet 09-29 00:00: 00 Yes [id number] 100ug TAKE 1 TABLET BY MOUTH ONCE DAILY IN THE MORNING [facility] MONTELUKAST 10 mg tablet 09-29 00:00: 00 Yes [id number] 10mg TAKE 1 TABLET BY MOUTH ONCE DAILY IN THE MORNING [facility] TIZANIDINE 4 mg tablet 0 6-17 00:00: 00 10-30 00:00 :00 No [id number] TAKE 1 TABLET BY MOUTH EVERY 6 HOURS NEEDED (BACK PAIN) [facility] fluconazole 150 mg tablet 5-28 00:00: 00 09-03 04:59 :00 No [id number] 150mg Take 1 tablet by mouth once now for 1 dose. [facility] TIZANIDINE 4 mg tablet 5-15 00:00: 00 09-22 00:00 :00 No [id number] TAKE 1 TABLET BY MOUTH EVERY 6 HOURS NEEDED (BACK PAIN) [facility] TIZANIDINE 4 mg tablet 4-14 00:00: 00 08-20 00:00 :00 No [id number] TAKE 1 TABLET BY MOUTH EVERY 6 HOURS NEEDED (BACK PAIN) [facility] MONTELUKAST 10 mg tablet 07-08 00:00: 00 09-29 00:00 :00 No [id number] 10mg TAKE 1 TABLET BY MOUTH ONCE DAILY IN THE MORNING [facility] LEVOTHYROXI NE 100 mcg tablet 07-08 00:00: 00 09-29 00:00 :00 No [id number] 100ug TAKE 1 TABLET BY MOUTH ONCE DAILY IN THE MORNING [facility] LEVOTHYROXI NE 100 mcg tablet 04-09 00:00: 00 Yes [id number] 100ug TAKE 1 TABLET BY MOUTH ONCE DAILY IN THE MORNING [facility] MONTELUKAST 10 mg tablet 1- 00:00: 00 Yes [id number] 10mg TAKE 1 TABLET BY MOUTH ONCE DAILY IN THE MORNING [facility] LEVOTHYROXI NE 100 mcg tablet 2022-04 0- 00:00: 00 Yes [id number] 100ug TAKE 1 TABLET BY MOUTH ONCE DAILY IN THE MORNING [facility] MONTELUKAST 10 mg tablet 2022-04 0- 00:00: 00 Yes [id number] 10mg TAKE 1 TABLET BY MOUTH ONCE DAILY IN THE MORNING [facility] tiZANidine 4 mg tablet 0 9-20 00:00: 00 07-21 01:14 :01 No [id number] 4mg Take 1 tablet by mouth every 6 (six) hours as needed (back pain). [facility] citalopram 40 mg tablet 8-30 13:17: 47 12-05 00:00 :00 No 40mg Take 40 mg by mouth daily. [facility] cephALEXin 500 mg capsule 830 00:00: 00 12-26 00:00 :00 No [id number] 500mg Take 1 capsule by mouth in the morning and 1 capsule in the evening. [facility] fluconazole (DIFLUCAN) 150 mg tablet 12-05 00:00: 00 12-06 04:59 :00 No [id number] 150mg Take 1 tablet by mouth once now for 1 dose. [facility] TIZANIDINE 4 mg tablet 0 8-25 00:00: 00 12-26 00:00 :00 No [id number] TAKE 1 TABLET BY MOUTH EVERY 6 HOURS NEEDED FOR BACK PAIN AND SPASMS [facility] TIZANIDINE 4 mg tablet 0 31 00:00: 00 Yes [id number] TAKE 1 TABLET BY MOUTH EVERY 6 HOURS NEEDED FOR BACK PAIN AND SPASMS [facility] TIZANIDINE 4 mg tablet 0 7-03 00:00: 00 Yes [id number] TAKE 1 TABLET BY MOUTH EVERY 6 HOURS NEEDED FOR BACK PAIN AND SPASMS [facility] TIZANIDINE 4 mg tablet 2022-0 6-12 00:00: 00 10-08 00:00 :00 No [id number] TAKE 1 TABLET BY MOUTH EVERY 6 HOURS NEEDED FOR BACK PAIN AND SPASMS [facility] TIZANIDINE 4 mg tablet 0 5-15 00:00: 00 Yes [id number] TAKE 1 TABLET BY MOUTH EVERY 6 HOURS NEEDED FOR BACK PAIN AND SPASMS [facility] TIZANIDINE 4 mg tablet 4-24 00:00: 00 Yes [id number] TAKE 1 TABLET BY MOUTH EVERY 6 HOURS NEEDED FOR BACK PAIN AND SPASMS [facility] TIZANIDINE 4 mg tablet 4-04 00:00: 00 07-30 00:00 :00 No [id number] TAKE 1 TABLET BY MOUTH EVERY 6 HOURS NEEDED FOR BACK PAIN AND SPASMS [facility] TIZANIDINE 4 mg tablet 3-17 00:00: 00 Yes [id number] TAKE 1 TABLET BY MOUTH EVERY 6 HOURS NEEDED FOR BACK PAIN AND SPASMS [facility] TIZANIDINE 4 mg tablet 2-26 00:00: 00 Yes [id number] TAKE 1 TABLET BY MOUTH EVERY 6 HOURS NEEDED FOR BACK PAIN AND SPASMS [facility] TIZANIDINE 4 mg tablet 2-03 00:00: 00 Yes [id number] TAKE 1 TABLET BY MOUTH EVERY 6 HOURS NEEDED FOR BACK PAIN AND SPASMS [facility] cefUROXime 250 mg tablet 1-27 00:00: 00 05-12 05:59 :00 No [id number] 250mg Take 1 tablet by mouth in the morning and 1 tablet in the evening. Do all this for 7 days. [facility] montelukast 10 mg tablet 2021-04 00:00: 00 01-07 00:00 :00 No [id number] 10mg Take 1 tablet by mouth every morning. [facility] levothyroxi ne (EUTHYROX) 100 mcg tablet 2021-04 00:00: 00 01-07 00:00 :00 No [id number] 100ug Take 1 tablet by mouth every morning. [facility] tiZANidine 4 mg tablet 2021-04 0 00:00: 00 05-11 00:00 :00 No [id number] 4mg Take 1 tablet by mouth every 6 (six) hours as needed (back pain and spasm). [facility] cefUROXime 250 mg tablet 2021-04 011 00:00: 00 03-21 00:00 :00 No [id number] 250mg Take 1 tablet by mouth in the morning and 1 tablet in the evening. [facility] cefdinir 300 mg capsule 929 00:00: 00 01-16 00:00 :00 No TAKE 1 CAPSULE BY MOUTH EVERY 12 HOURS FOR 10 DAYS [facility] Omeprazole 20 mg tablet 9- 00:00: 00 Yes [id number] 20mg Take 1 tablet by mouth in the morning. [facility] busPIRone 10 mg tablet -22 00:00: 00 Yes 10mg Take 10 mg by mouth 2 (two) times daily as needed. [facility] BUSPIRONE 5 mg tablet 8-04 00:00: 00 12-28 00:00 :00 No [id number] Take 1 tablet by mouth twice daily [facility] BUSPIRONE 5 mg tablet 7-05 00:00: 00 Yes [id number] Take 1 tablet by mouth twice daily [facility] BUSPIRONE 5 mg tablet 6-06 00:00: 00 Yes [id number] Take 1 tablet by mouth twice daily [facility] tiZANidine 4 mg tablet 5-02 00:00: 00 01-16 00:00 :00 No [id number] 4mg Take 1 tablet by mouth every 6 (six) hours as needed (back pain and spasm). [facility] cefdinir 300 mg capsule 427 00:00: 00 12-28 00:00 :00 No 300mg 300 mg. [facility] levothyroxi ne (EUTHYROX) 100 mcg tablet 4-08 00:00: 00 01-16 00:00 :00 No [id number] 100ug Take 1 tablet by mouth every morning. [facility] montelukast 10 mg tablet 4-08 00:00: 00 01-16 00:00 :00 No [id number] 10mg Take 1 tablet by mouth every morning. [facility] methylPREDN ISolone (MEDROL, ALDO,) 4 mg tablets 05-29 00:00: 00 08-07 00:00 :00 No [id number] Take by mouth SEE-INSTRU CTIONS. follow package directions [facility] methocarbam oL (ROBAXIN) 500 mg tablet 05-29 00:00: 00 08-07 00:00 :00 No [id number] 500mg Take 1 tablet by mouth 4 (four) times daily as needed for Other (muscle tightness) . [facility] citalopram 40 mg tablet 09-30 14:32: 47 Yes 40mg Take 40 mg by mouth daily. [facility] busPIRone 5 mg tablet 09-23 00:00: 00 09-11 00:00 :00 No [id number] 5mg Take 1 tablet by mouth 2 (two) times daily. [facility] amLODIPine 5 mg tablet 09-22 00:00: 00 Yes 5mg Take 5 mg by mouth daily. [facility] metoprolol succinate XL 50 mg 24 hr tablet 2019-04 13:56: 17 Yes 50mg Take 1 tablet by mouth in the morning. [facility] vit C/E/Zn/jacqueline r/lutein/ze axan (PRESERVISI ON AREDS-2 ORAL) 2019-04 13:56: 17 Yes Take by mouth. [facility] traZODone 150 mg tablet 2019-04 00:00: 00 Yes TAKE 2 TABLETS BY MOUTH IN THE EVENING NEEDED [facility] candesartan 16 mg tablet 12-21 00:00: 00 Yes 16mg Take 16 mg by mouth daily. [facility] Vital Signs Vital Name Observation Time Observation Value Comments S ivan Systolic blood pressure 2024-03-27 19:07:00 141 mm[Hg] [facility] Diastolic blood pressure 2024-03-27 19:07:00 57 mm[Hg] [facility] Heart rate 2024-03-27 19:07:00 71 /min [facility] Body height 2024-03-27 19:07:00 142.2 cm [facility] Body weight 2024-03-27 19:07:00 62.596 kg [facility] BMI 2024-03-27 19:07:00 30.94 kg/m2 [facility] Oxygen saturation in Arterial blood by Pulse oximetry 2024-03-27 19:07:00 95 /min [facility] Systolic blood pressure 2024-01-03 18:49:00 120 mm[Hg] [facility] Diastolic blood pressure 2024-01-03 18:49:00 67 mm[Hg] [facility] Heart rate 2024-01-03 18:49:00 82 /min [facility] Body temperature 2024-01-03 18:49:00 36.11 Pam [facility] Respiratory rate 2024-01-03 18:49:00 18 /min [facility] Body height 2024-01-03 18:49:00 142.2 cm Univ [facility] Body weight 2024-01-03 18:49:00 57.607 kg [facility] BMI 2024-01-03 18:49:00 28.47 kg/m2 Univ [facility] Oxygen saturation in Arterial blood by Pulse oximetry 2024-01-03 18:49:00 100 /min [facility] Systolic blood pressure 2023-12-20 16:09:00 127 mm[Hg] [facility] Diastolic blood pressure 2023-12-20 16:09:00 66 mm[Hg] [facility] Heart rate 2023-12-20 16:09:00 83 /min [facility] Body height 2023-12-20 16:09:00 142.2 cm [facility] Body weight 2023-12-20 16:09:00 60.328 kg [facility] BMI 2023-12-20 16:09:00 29.82 kg[facility]2 [facility] in Arterial blood by Pulse oximetry 2023-12-20 16:09:00 97 /min [facility] Systolic blood pressure 2022-12-26 18:53:00 132 mm[Hg] [facility] Diastolic blood pressure 2022-12-26 18:53:00 71 mm[Hg] [facility] Heart rate 2022-12-26 18:53:00 63 /min [facility] Body temperature 2022-12-26 18:53:00 37.17 Pam [facility] Body weight 2022-12-26 18:53:00 65.318 kg Univ [facility] BMI 2022-12-26 18:53:00 33.47 kg/m2 Univ [facility] Systolic blood pressure 2022-12-05 18:09:00 137 mm[Hg] [facility] Diastolic blood pressure 2022-12-05 18:09:00 84 mm[Hg] [facility] Heart rate 2022-12-05 18:09:00 54 /min [facility] Body temperature 2022-12-05 18:09:00 35.94 Pam [facility] Body weight 2022-12-05 18:09:00 66.679 kg Univ [facility] BMI 2022-12-05 18:09:00 34.17 kg/m2 Univ [facility] Systolic blood pressure 2022-05-04 20:40:00 148 mm[Hg] [facility] Diastolic blood pressure 2022-05-04 20:40:00 75 mm[Hg] [facility] Heart rate 2022-05-04 20:38:00 63 /min [facility] Body temperature 2022-05-04 20:38:00 37.33 Pam [facility] Respiratory rate 2022-05-04 20:38:00 17 /min [facility] Body weight 2022-05-04 20:38:00 62.228 kg Univ [facility] BMI 2022-05-04 20:38:00 31.89 kg/m2 Univ [facility] Oxygen saturation in Arterial blood by Pulse oximetry 2022-05-04 20:38:00 96 /min [facility] Systolic blood pressure 2022-03-21 17:34:00 131 mm[Hg] [facility] Diastolic blood pressure 2022-03-21 17:34:00 83 mm[Hg] [facility] Heart rate 2022-03-21 17:34:00 61 /min [facility] Body temperature 2022-03-21 17:34:00 36.78 Pam [facility] Body height 2022-03-21 17:34:00 139.7 cm [facility] weight 2022-03-21 17:34:00 63.957 kg Univ [facility] BMI 2022-03-21 17:34:00 32.77 kg/m2 Univ [facility] Systolic blood pressure 2022-01-16 20:20:00 159 mm[Hg] [facility] Diastolic blood pressure 2022-01-16 20:20:00 78 mm[Hg] [facility] Heart rate 2022-01-16 20:18:00 60 /min [facility] Body temperature 2022-01-16 20:18:00 36.89 Pam [facility] Body height 2022-01-16 20:18:00 139.7 cm Univ [facility] Body weight 2022-01-16 20:18:00 63.957 kg Univ [facility] BMI 2022-01-16 20:18:00 32.77 kg/m2 Univ [facility] Systolic blood pressure 2021-12-28 18:13:00 138 mm[Hg] [facility] Diastolic blood pressure 2021-12-28 18:13:00 70 mm[Hg] [facility] Heart rate 2021-12-28 18:13:00 47 /min [facility] Body temperature 2021-12-28 17:45:00 37.11 Pam [facility] Body height 2021-12-28 17:45:00 139.7 cm Univ [facility] Body weight 2021-12-28 17:45:00 64.139 kg Univ [facility] BMI 2021-12-28 17:45:00 32.86 kg/m2 Univ [facility] Oxygen saturation in Arterial blood by Pulse oximetry 2021-12-28 17:45:00 98 /min [facility] Systolic blood pressure 2021-08-07 20:41:00 130 mm[Hg] [facility] Diastolic blood pressure 2021-08-07 20:41:00 65 mm[Hg] [facility] Heart rate 2021-08-07 20:41:00 67 /min [facility] Body temperature 2021-08-07 20:41:00 37.33 Pam [facility] Body height 2021-08-07 20:41:00 139.7 cm [facility] Body weight 2021-08-07 20:41:00 63.504 kg [facility] BMI 2021-08-07 20:41:00 32.54 kg/m2 [facility] Procedures Procedure Date / Time Performed Performing Clinician Source ASHLEY,POST-VOID RES,US,NON-IMAGING 2024-03-27 19:18:00 Elza Mccoy [facility] POCT URINALYSIS AUTO 2024-03-27 00:00:00 Nichole Mccoy [facility] POCT URINALYSIS AUTO 2024-01-03 00:00:00 Nichoel Mccoy [facility] URINALYSIS MICROSCOPIC 2023-12-20 17:05:00 Emerson Mccoy [facility] URINE CULTURE 2023-12-20 17:05:00 Elza Mccoy [facility] POCT URINALYSIS 2022-12-26 00:00:00 Lynn Posada [facility] ASSIGNMENT OF BENEFITS 2022-12-05 17:56:56 Docto r Unassigned, Odon [facility] POCT URINALYSIS 2022-05-04 20:43:00 Natalya [facility] EXTERNAL PROVIDER RECORDS 2022-01-23 05:01:00 Doctor Unassigned, Odon [facility] POCT URINALYSIS 2022-01-16 00:00:00 Lynn Posada [facility] LIPASE 2021-12-28 18:38:00 Judith, Natalya A [facility] CBC WITH DIFF 2021-12-28 18:38:00 Natalya Walsh [facility] EXTERNAL PROVIDER RECORDS 2021-08-10 05:01:00 Doctor Unassigned, Odon [facility] Encounters Start Date/Time End Date/Time Encounter Type Admission Type Attending Clinicians Care Facility Care Department Encounter ID Source 2024-06-02 00:00:00 2024-07-06 08:42:24 Telephone Elza Mccoy [facility] [id number] [id number] [id number] [facility] 2024-06-03 10:30:00 2024-06-03 10:45:00 Chief Accountant Visit Lab, Elza Ruvalcaba, Rashi Gomez [facility] [id number] [id number] [id number] [id number] [facility] 2024-06-03 10:30:00 2024-06-03 10:30:00 Outpatient R ELZA MCCOY [facility] [id number] [facility] 2024-03-27 13:00:00 2024-03-27 13:30:00 Office Visit Elza Mccoy [facility] [id number] [id number] [id number] [id number] [facility] 2024-03-27 13:00:00 2024-03-27 13:00:00 Outpatient ELZA SALGADO [facility] [id number] [facility] 2024-01-03 13:00:00 2024-01-03 15:16:16 Outpatient ELZA SALGADO [facility] [id number] [facility] 2024-01-03 13:00:00 2024-01-03 15:16:16 Office Visit Elza Mccoy Rm1, Adc Surg Proc Rm1, Adc Surg Proc [facility] [id number] 350.1.13.10 [id number] [id number] [facility] 2023-12-20 11:00:00 2023-12-20 12:10:59 [facility] [id number] [facility] 2023-12-20 11:00:00 2023-12-20 12:10:59 Office Visit Elza Mccoy [facility] [id number] 350.1.13.10 4.2.7.2.686 [id number] [facility] 2023-10-31 00:00:00 2023-10-31 11:13:22 Refill Swetha [facility] PRAVIN?[facility] [id number] 350.1.13.10 4.2.7.2.686 [id number] [facility] 2023-10-02 00:00:00 2023-10-02 14:29:16 [facility] [id number] 350.1.13.10 [id number] [id number] [facility] 2023-09-28 00:00:00 2023-09-30 08:50:36 Refill Swetha [facility] PRAVIN?[facility] [id number] 350.1.13.10 4.2.7.2.686 [id number] [facility] 2023-09-21 00:00:00 2023-09-23 12:41:08 [facility] [id number] 350.1.13.10 [id number] [id number] [facility] 2023-08-30 00:00:00 2023-09-03 08:32:14 Lynn Osborne [facility] PRAVIN?[facility] [id number] 350.1.13.10 4.2.7.2.686 [id number] [facility] 2023-08-21 00:00:00 2023-08-21 12:03:01 Lynn Lilly [facility]IN?[facility] [id number] 350.1.13.10 4.2.7.2.686 [id number] 044 [id number] [facility] 2023-07-18 00:00:00 2023-07-18 00:00:00 Refill Lynn Posada [facility]IN?[facility] 1.2840.114 350.1.13.10 4.2.7.2.686 [id number] 044 [id number] [facility] 2023-07-09 00:00:00 2023-07-09 00:00:00 Lynn Lilly [facility] 1.2840.114 350.1.13.10 4.2.7.2.686 [id number] 044 [id number] [facility] 2023-04-09 00:00:00 2023-04-09 00:00:00 Lynn Lilly [facility] 1.2840.114 350.1.13.10 4.2.7.2.686 [id number] 044 [id number] [facility] 2023-01-05 00:00:00 2023-01-05 00:00:00 Refill Lynn Posada [facility] 1.84.114 350.1.13.10 4.2.7.2.686 [id number] 044 [id number] [facility] 2022-12-26 14:00:00 2022-12-26 14:39:03 Outpatient R LYNN POSADA [facility] [id number] [facility] 2022-12-26 14:00:00 2022-12-26 14:39:03 Office Visit Lynn Posada [facility] 1.84.114 350.1.13.10 4.2.7.2.686 [id number] 044 [id number] [facility] 2022-12-05 13:15:00 2022-12-05 13:30:00 Office Visit Lynn Posada [facility] 1.84.114 350.1.13.10 4.2.7.2.686 [id number] 044 [id number] [facility] 2022-12-05 13:15:00 2022-12-05 13:21:45 Outpatient R LYNN POSADA [facility] [id number] [facility] 2022-12-05 00:00:00 2022-12-05 00:00:00 Orders Only Doctor Unassigned, Odon [facility] 1..114 350.1.13.10 4.2.7.2.686 [id number] [facility] 2022-11-29 00:00:00 2022-11-29 00:00:00 Refill Swetha [facility] 1.84.114 350.1.13.10 4.2.7.2.686 [id number] 044 [id number] [facility] 2022-11-04 00:00:00 2022-11-04 00:00:00 RefLynn Lee [facility] 1.2.840.114 350.1.13.10 4.2.7.2.686 [id number] 044 [id number] [facility] 2022-10-08 00:00:00 2022-10-08 00:00:00 Refill Lynn Posada [facility] 1.2840.114 350.1.13.10 4.2.7.2.686 [id number] 044 [id number] [facility] 2022-09-22 00:00:00 2022-09-22 00:00:00 Refill Lynn Posada [facility] 1.2840.114 350.1.13.10 4.2.7.2.686 [id number] 044 [id number] [facility] 2022-09-17 00:00:00 2022-09-17 00:00:00 Refill Lynn Posada [facility] 1.2840.114 350.1.13.10 4.2.7.2.686 [id number] 044 [id number] [facility] 2022-08-19 00:00:00 2022-08-19 00:00:00 Refill Lynn Posada [facility] 1.2840.114 350.1.13.10 4.2.7.2.686 [id number] 044 [id number] [facility] 2022-07-30 00:00:00 2022-07-30 00:00:00 Refill Lynn Posada [facility] 1.2840.114 350.1.13.10 4.2.7.2.686 [id number] 044 [id number] [facility] 2022-07-23 00:00:00 2022-07-23 00:00:00 Refill Lynn Posada [facility] 1.2840.114 350.1.13.10 4.2.7.2.686 [id number] 044 [id number] [facility] 2022-07-15 00:00:00 2022-07-15 00:00:00 Refill Lynn Posada [facility] 1.284.114 350.1.13.10 4.2.7.2.686 [id number] 044 [id number] [facility] 2022-07-09 00:00:00 2022-07-09 00:00:00 Refill Lynn Posada [facility] 1.84.114 350.1.13.10 4.2.7.2.686 [id number] 044 [id number] [facility] 2022-06-21 00:00:00 2022-06-21 00:00:00 Refill Lynn Posada [facility] 1.84.114 350.1.13.10 4.2.7.2.686 [id number] 044 [id number] [facility] 2022-05-30 00:00:00 2022-05-30 00:00:00 Refill Nano Be C[facility] 1.84.114 350.1.13.10 4.2.7.2.686 [id number] 044 [id number] [facility] 2022-05-11 00:00:00 2022-05-11 00:00:00 Refill Lynn Posada [facility] 1.84.114 350.1.13.10 4.2.7.2.686 [id number] 044 [id number] [facility] 2022-05-04 14:30:00 2022-05-04 15:18:13 Outpatient R NATALYA WALSH [facility] [id number] [facility] 2022-05-04 14:30:00 2022-05-04 15:18:13 Office Visit Natalya Walsh [facility] 1.84.114 350.1.13.10 4.2.7.2.686 [id number] 044 [id number] [facility] 2022-03-21 11:30:00 2022-03-21 11:45:00 Office Visit Lynn Posada [facility] 1.84.114 350.1.13.10 4.2.7.2.686 [id number] 044 [id number] [facility] 2022-03-21 11:30:00 2022-03-21 11:30:00 Outpatient LYNN BRISCOE [facility] [id number] [facility] 2022-01-23 00:00:00 2022-01-23 00:00:00 Orders Only Doctor Unassigned, Odon [facility] 1.84.114 350.1.13.10 4.2.7.2.686 [id number] [facility] 2022-01-16 15:15:00 2022-01-16 15:30:00 [facility] 1.84.114 350.1.13.10 4.2.7.2.686 [id number] 044 [id number] [facility] 2022-01-16 15:15:00 2022-01-16 15:15:00 Outpatient LYNN BRISCOE [facility] [id number] [facility] 2022-01-04 00:00:00 2022-01-04 00:00:00 Telephone Lynn Posada [facility] 1..840.114 350.1.13.10 4.2.7.2.686 [id number] 044 [id number] [facility] 2022-01-02 00:00:00 2022-01-02 00:00:00 Telephone Natalya Walsh [facility] 1.840.114 350.1.13.10 4.2.7.2.686 [id number] 044 [id number] [facility] 2021-12-28 13:45:00 2021-12-28 14:00:00 Chief Accountant Visit Lab, Rashi - Jason Walsh Natalya Zora [facility] 1.840.114 350.1.13.10 4.2.7.2.686 [id number] [facility] 2021-12-28 12:30:00 2021-12-28 13:29:55 Outpatient R NATALYA WALSH [facility] [id number] [facility] 2021-12-28 12:30:00 2021-12-28 13:29:55 Office Visit Judith [facility] 1.840.114 350.1.13.10 4.2.7.2.686 [id number] 044 [id number] [facility] 2021-12-26 00:00:00 2021-12-26 00:00:00 Refill Lynn Posada [facility] 1.840.114 350.1.13.10 4.2.7.2.686 [id number] 044 [id number] [facility] 2021-11-09 00:00:00 2021-11-09 00:00:00 [facility] 1.2.840.114 350.1.13.10 4.2.7.2.686 [id number] 044 [id number] [facility] 2021-10-09 00:00:00 2021-10-09 00:00:00 [facility] 1.2.840.114 350.1.13.10 4.2.7.2.686 [id number] 044 [id number] [facility] 2021-09-09 00:00:00 2021-09-09 00:00:00 [facility] 1.2.840.114 350.1.13.10 4.2.7.2.686 [id number] 044 [id number] [facility] 2021-08-10 00:00:00 2021-08-10 00:00:00 Orders Only Doctor Unassigned, Odon [facility] 1.2840.114 350.1.13.10 4.2.7.2.686 [id number] [facility] 2021-08-07 15:30:00 2021-08-07 15:45:00 [facility] 1.2.840.114 350.1.13.10 4.2.7.2.686 [id number] 044 [id number] [facility] 2021-08-07 15:30:00 2021-08-07 15:30:00 Outpatient R LYNN POSADA [facility] [id number] [facility] 2021-08-02 00:00:00 2021-08-02 00:00:00 Telephone Lynn Posada [facility] 1.2.840.114 350.1.13.10 4.2.7.2.686 [id number] 044 [id number] [facility] 2021-07-14 00:00:00 2021-07-14 00:00:00 Refill Lynn Posada [facility] 1.2840.114 350.1.13.10 4.2.7.2.686 [id number] 044 [id number] [facility] 2021-05-29 15:22:48 2021-05-29 23:59:00 Outpatient R SWETHA LYNN [facility] [id number] [facility] 2021-05-29 15:00:00 2021-05-29 15:15:00 Office Visit Lynn Posada [facility] 1.840.114 350.1.13.10 4.2.7.2.686 [id number] 044 [id number] [facility] 2021-05-29 00:00:00 2021-05-29 00:00:00 Orders Only Doctor Unassigned, Odon [facility] 1.2840.114 350.1.13.10 4.2.7.2.686 [id number] [facility] 2021-02-24 11:02:18 2021-02-24 11:24:25 Urgent Care [facility] 1.840.114 350.1.13.10 4.2.7.2.686 [id number] [facility] 2021-02-24 11:00:00 2021-02-24 11:24:25 Outpatient R KOURTNEY ELLA [facility] [id number] [facility] 2021-01-23 00:00:00 2021-01-23 00:00:00 Refill Mick Mckeon [facility] 1..840.114 350.1.13.10 4.2.7.2.686 [id number] [facility] 2020-12-13 00:00:00 2020-12-13 00:00:00 Telephone Mick Mckeon [facility] 1.2840.114 350.1.13.10 4.2.7.2.686 [id number] 044 [id number] [facility] 2020-12-08 10:46:30 2020-12-08 23:59:00 Hospital Encounter Shruthi Abad [facility] 1.840.114 350.1.13.10 4.2.7.2.686 [id number] [facility] 2020-12-08 09:23:08 2020-12-08 10:09:28 Office Visit Shruthi Abad [facility] 1.2840.114 350.1.13.10 4.2.7.2.686 [id number] 044 [id number] [facility] 2020-12-08 09:30:00 2020-12-08 09:30:00 Outpatient R SHRUTHI ABAD [facility] [id number] [facility] 2020-12-08 08:45:00 2020-12-08 08:45:00 Outpatient R MICK MCKEON [facility] [id number] [facility] 2020-12-08 00:00:00 2020-12-08 00:00:00 Orders Only Doctor Unassigned, Odon [facility] 1.2840.114 350.1.13.10 4.2.7.2.686 [id number] [facility] 2020-11-08 18:47:28 2020-11-08 19:07:28 Urgent Care Ella Oconnell [facility] 1.114 350.1.13.10 4.2.7.2.686 [id number] 044 [id number] [facility] 2020-11-08 18:20:00 2020-11-08 18:20:00 Outpatient R ELLA OCONNELL [facility] [id number] [facility] 2020-10-04 00:00:00 2020-10-04 00:00:00 Telephone Elke Anuradhahui Blakely [facility] 1.114 350.1.13.10 4.2.7.2.686 [id number] 044 [id number] [facility] 2020-10-03 00:00:00 2020-10-03 00:00:00 Orders Only Doctor Unassigned, Odon [facility] 1.114 350.1.13.10 4.2.7.2.686 [id number] [facility] 2020-09-30 14:19:49 2020-09-30 14:34:49 Office Visit Lynn Posada deangelo [facility] .114 350.1.13.10 4.2.7.2.686 [id number] [id number] [facility] 2020-09-30 14:15:00 2020-09-30 14:15:00 Outpatient R LYNN POSADA [facility] [id number] [facility] 2020-09-23 14:36:14 2020-09-23 15:20:24 Office Visit Lynn Posada deangelo [facility] .114 350.1.13.10 4.2.7.2.686 [id number] 044 [id number] [facility] 2020-09-23 14:30:00 2020-09-23 14:30:00 Outpatient R TOBINTERESALYNN [facility] [id number] [facility] 2020-09-22 00:00:00 2020-09-22 00:00:00 Telephone Mick Mckeon [facility] 1.0.114 350.1.13.10 4.2.7.2.686 [id number] [facility] 2020-09-20 00:00:00 2020-09-20 00:00:00 Refill Mick Mckeon [facility] 1..114 350.1.13.10 4.2.7.2.686 [id number] 044 [id number] [facility] 2020-09-16 00:00:00 2020-09-16 00:00:00 Telephone Mick Mckeon [facility] 1.114 350.1.13.10 4.2.7.2.686 [id number] 044 [id number] [facility] 2020-08-31 10:40:00 2020-08-31 10:40:00 Outpatient R MICK MCKEON [facility] [id number] [facility] 2020-08-31 10:06:41 2020-08-31 10:20:05 Chief Accountant Visit Lab, Adc Fam Pob I Mick Mckeon [facility] 1..114 350.1.13.10 4.2.7.2.686 [id number] 044 [id number] [facility] 2020-08-31 00:00:00 2020-08-31 00:00:00 Case Management Mick Mckeon [facility] 1..114 350.1.13.10 4.2.7.2.686 [id number] 044 [id number] [facility] 2020-08-26 16:09:47 2020-08-26 16:47:41 Office Visit Mick Mckeon [facility] 1..114 350.1.13.10 4.2.7.2.686 [id number] 044 [id number] [facility] 2020-08-26 16:09:47 2020-08-26 16:47:41 [facility] 1..114 350.1.13.10 4.2.7.2.686 [id number] 044 [id number] 2020-08-26 16:00:00 2020-08-26 16:00:[address] [facility] [address] [id number] [facility] 2020-08-18 10:45:00 2020-08-18 10:45:00 Outpatient R MICK MCKEON [facility] [id number] [facility] 2020-04-26 00:00:00 2020-04-26 00:00:00 [facility] 1.114 350.1.13.10 4.2.7.2.686 [id number] [facility] 2020-03-08 13:15:00 2020-03-08 13:15:00 Outpatient R UNKNOWN, ATTENDING [facility] [id number] [facility] 2020-03-08 09:00:00 2020-03-08 09:00:00 Outpatient R [facility] [id number] [facility] 2020-03-08 00:00:00 2020-03-08 00:00:00 Telephone Kylah Mcmahan [facility] 1..114 350.1.13.10 4.2.7.2.686 [id number] [facility] 2020-03-07 00:00:00 2020-03-07 00:00:00 Telephone Mick Mckeon [facility] 1.2.840.114 350.1.13.10 4.2.7.2.686 [id number] 044 [id number] [facility] 2020-02-19 13:26:12 2020-02-19 14:29:08 Office Visit Mick Mckeon [facility] 1.2.840.114 350.1.13.10 4.2.7.2.686 [id number] 044 [id number] [facility] 2020-02-19 14:00:00 2020-02-19 14:00:00 Outpatient R MICK MCKEON [facility] [id number] [facility] Results Test Description Test Time Test Comments Results Result Co mments Source [facility],POST-VOID RES,US,[id number] 19:18:00* Test Item Value Reference Range Interpretation Comme nts PVR (URINE VOLUME) (test code = 5193) 52 ml 0-100 [facility]PO[facility] Urinalysis, [id number] 18:51:00 * Test Item Value Reference Range Interpretation Comme nts POCT U SP GRAV (test code = 3255) 1.020 mg/dl 1.005-1.025 POCT PH U (test code = 3254) 5.5 mg/dl 5-8 POCT U LEUK EST (test code = 3263) negative Negative - Negative POCT U NIT (test code = 3262) negative Negative - Negati ve POCT U PROT (test code = 3259) 100 Negative - Negative POCT U GLU (test code = 3256) negative Negative - Negati ve POCT U KETONE (test code = 3258) trace Negative - Negative POCT U UROBILI (test code = 3260) 1.0 mg/dl 0.2-1 POCT U BILI (test code = 3261) negative Negative - Negative POCT U BLD (test code = 3257) negative Negative - Negati ve POCT U COLOR (test code = 3266) POCT U APPEAR (test code = 3267) [facility] URINALYSIS W SPECIFIC [id number] 19:15:00* Test Item Value Reference Range Interpretation [...] APPEAR (test code = 3267) clear [facility] URINALYSIS W SPECIFIC [id number] 19:15:00* Test Item Value Reference Range Interpretation [...] APPEAR (test code = 3267) clear [facility] URINALYSIS W SPECIFIC [id number] 20:43:00* Test Item Value Reference Range Interpretation [...] 3267) CLEAR Lab Interpretation (test code = 75106-7) Abnormal [facility] URINALYSIS W SPECIFIC [id number] 20:43:00* Test Item Value Reference Range Interpretation [...] 3267) CLEAR Lab Interpretation (test code = 58202-3) Abnormal [facility] URINALYSIS W SPECIFIC [id number] 21:07:00* Test Item Value Reference Range Interpretation [...] APPEAR (test code = 3267) clear [facility] URINALYSIS W SPECIFIC [id number] 21:07:00* Test Item Value Reference Range Interpretation [...] U APPEAR (test code = 3267) clear [facility] HospitalLIPASE2022-09-22 21:09:42* Test Item Value Reference Range Interpretation Comme nts LIPASE (test code = 5704724377) 391 U/L 0-220 H Lab Interpretation (test cod e = 48751-6) Abnormal [facility]2022-09-22 21:09:42* Test Item Value Reference Range Interpretation Comme nts LIPASE (test code = 3639533190) 391 U/L 0-220 H Lab Interpretation (test cod e = 43917-5) Abnormal [facility] acute hospital WITH [id number] 21:03:03* Test Item Value Reference Range Interpretation [...] 32.9 g/dL 31.6-35.1 RDW-SD (test code = 81621-1) 48.7 fL 39-49.9 RDW-CV (test code = 788-0) 14.0 % 12-15.5 PLT (test code = 777-3) See_Comment H [Automated messa ge] The system which generated this result transmitted reference range: 166 - 358 10*3/?L. The reference range was not used to interpret this result as normal/abnormal. MPV (test code = 92647-3) 9.9 fL 9.5-12.9 NRBC/100 WBC (test code = 6723460396) See_Comment [Automated me ssage] The system which generated this result transmitted reference range: 0.0 - 10.0 /100 WBCs. The reference range was not used to interpret this result as normal/abnormal. NRBC x10^3 (test code = 6438207018) See_Comment [Automated messa ge] The system which generated this result transmitted reference range: 10*3/?L. The reference range was not used to interpret this result as normal/abnormal. GRAN MAT (NEUT) % (test code = 770-8) 72.3 % IMM GRAN % (test code = 1031746056) 0.70 % LYMPH % (test code = 736-9) 18.4 % MONO % (test code = 5905-5) 6.7 % EOS % (test code = 713-8) 1.2 % BASO % (test code = 706-2) 0.7 % GRAN MAT x10^3(ANC) (test code = 2883522911) 8.68 10*3/uL 1.88-7.09 H IMM GRAN x10^3 (test code = 6034828657) 0.09 10*3/uL 0-0.06 H LYMPH x10^3 (test code = 731-0) 2.21 10*3/uL 1.32-3.29 MONO x10^3 (test code = 742-7) 0.81 10*3/uL 0.33-0.92 EOS x10^3 (test code = 711-2) 0.14 10*3/uL 0.03-0.39 BASO x10^3 (test code = 704-7) 0.08 10*3/uL 0.01-0.07 H Lab Interpretation (test code = 98854-7) Abnormal General acute hospital WITH [id number] 21:03:03* Test Item Value Reference Range Interpretation [...] 32.9 g/dL 31.6-35.1 RDW-SD (test code = 48040-9) 48.7 fL 39-49.9 RDW-CV (test code = 788-0) 14.0 % 12-15.5 PLT (test code = 777-3) See_Comment H [Automated messa ge] The system which generated this result transmitted reference range: 166 - 358 10*3/?L. The reference range was not used to interpret this result as normal/abnormal. MPV (test code = 16571-8) 9.9 fL 9.5-12.9 NRBC/100 WBC (test code = 4812096314) See_Comment [Automated [employer] ssage] The system which generated this result transmitted reference range: 0.0 - 10.0 /100 WBCs. The reference range was not used to interpret this result as normal/abnormal. NRBC x10^3 (test code = 5036881554) See_Comment [Automated messa ge] The system which generated this result transmitted reference range: 10*3/?L. The reference range was not used to interpret this result as normal/abnormal. GRAN MAT (NEUT) % (test code = 770-8) 72.3 % IMM GRAN % (test code = 5521079892) 0.70 % LYMPH % (test code = 736-9) 18.4 % MONO % (test code = 5905-5) 6.7 % EOS % (test code = 713-8) 1.2 % BASO % (test code = 706-2) 0.7 % GRAN MAT x10^3(ANC) (test code = 9638318744) 8.68 10*3/uL 1.88-7.09 H IMM GRAN x10^3 (test code = 4215185174) 0.09 10*3/uL 0-0.06 H LYMPH x10^3 (test code = 731-0) 2.21 10*3/uL 1.32-3.29 MONO x10^3 (test code = 742-7) 0.81 10*3/uL 0.33-0.92 EOS x10^3 (test code = 711-2) 0.14 10*3/uL 0.03-0.39 BASO x10^3 (test code = 704-7) 0.08 10*3/uL 0.01-0.07 H Lab Interpretation (test code = 94097-4) Abnormal [facility] Notes Date/Time Note Provider Source 2024-06-03 10:30:00 Patient presented with specimen for drop-off and was identified by and name. Collection information/ total volume were documented accordingly. The following specimens were sent to [facility] laboratories per lab order on 06/03/2024 : 24 hour urine Random urine 1 Stool Swab Other [facility] 2024-06-03 10:05:57 Contacted patient, son obtained a new sample and is taking it to [facility] at this time. Contacted [facility] to let them know they can call me at [phone] with any questions or concerns. [facility] 2024-06-03 09:09:41 Shanae Del Cid is a 83 year old female Pt was asked to give a urine sample but she used a vaginal cream this morning and some of it went with the urine. Pt is asking if she should rinse it out and try again or if it is ok as is. Pt will like a call back at home: [phone] [facility] Aura Valdovinos [facility] 2024-06-02 16:30:45 Patient states she is having pain to lower abdomen and pubic area, no other symptoms. Advised patient to present to [facility] lab for standing order for urine culture. Patient and son state they will present to lab in the morning for urine collection. Patient does have home health who was at patient home today and did collect a sample, however, son Brayden informed this RN that he and his mother had the cup and hat "for a while" and had to clean it out with soap and water a few times before the got a good sample. Asked son if they let their home health nurse know this, son said he did not. Explained sterile urine sample collection to son and patient. Both verbalized understanding. Patient also requesting a refill on trimethoprim 100mg a day stating she has none left. Pended medication. [facility] 2024-06-02 16:12:14 Pt would like to schedule an appt for a possible uti or bladder infection. No appts available until june 22, please assist with getting a sooner appt if possible. IE Fine [facility] 2023-10-31 10:44:55 Images from the original note [...] Posada MD Last refill: 09/23/2023 Rx #: [id number] Provider Review Required Fabiol6710/31/2023 10:42 AM Protocol Details This refill cannot be delegated Valid encounter within last 12 months To be filled at: [facility] [address] [place] [address] Recent Visits Date Type Provider Dept 12/26/22 Office Visit Lynn Posada MD [facility] 12/05/22 Office Visit Veselka, Lynn Edward, MD [facility] Showing recent visits within past 540 days with a meds authorizing provider and meeting all other requirements Future Appointments No visits were found meeting these conditions. 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 Please resend: LEVOTHYROXINE 100 mcg tablet MONTELUKAST 10 mg tablet Please contact pt once done. Katie Wolfe [facility] 2023-09-23 08:51:32 Recent Visits Date Type Provider [...] as: tiZANidine 4 mg tablet (ZANAFLEX) T [facility] 2023-08-30 13:05:01 Copied from [facility] #[id number]. Topic: Clinical - Order >> August 30, 2023 1:04 PM Patient Administrative Associate wrote: Pt request rx refill. Pt is having itching at this time. fluconazole (DIFLUCAN) 150 mg tablet [facility] [address] [place] [id number] Thu Josue [facility] 2023-08-21 11:54:52 Recent Visits Date Type Provider [...] tiZANidine 4 mg tablet (ZANAFLEX) Class: eRX [facility] 2023-07-19 07:36:55 Images from the original note [...] Posada MD Last refill: 06/13/2023 Rx #: [id number] Provider Review Required Sdvusn2107/18/2023 07:58 PM Protocol Details This refill cannot be delegated Valid encounter within last 12 months To be filled at: [facility] [address] [place] [address] Recent Visits Date Type Provider Dept 12/26/22 [...] authorizing provider and meeting all other requirements [facility] 2023-07-09 13:42:37 Images from the original note [...] Posada MD Last refill: 04/09/2023 Rx #: [id number] Allergy Bkrygo3107/09/2023 01:19 PM Protocol Details Valid encounter within [...] Posada MD Last refill: 04/09/2023 Rx #: [id number] Endocrinology: Hypothyroid Agents Omyqsl5907/09/2023 01:19 PM Protocol Details Manual Review: ENT providers forward refill request to PCP. TSH in normal range and within 360 days Valid encounter within last 12 months To be filled at: [address] There are no current results on file [...] authorizing provider and meeting all other requirements T [facility] 2022-11-29 17:44:43 Formatting of this n ote [...] Posada MD Last refill: 11/05/2022 Rx #: [id number] Provider Review Required Failed 11/29/2022 05:12 PM Protocol Details This refill cannot be delegated Valid encounter within last 12 months To be filled at: [facility] [address] [place] [address] Recent Visits Date Type Provider Dept 05/04/22 [...] authorizing provider and meeting all other requirements [facility] 2022-11-05 13:11:49 Formatting of this n ote [...] Posada MD Last refill: 10/08/2022 Rx #: [id number] Provider Review Required Failed 11/04/2022 01:06 PM Protocol Details This refill cannot be delegated Valid encounter within last 12 months To be filled at: [facility] [address] [place] [address] Recent Visits Date Type Provider Dept 05/04/22 Office Visit Natalya Walsh PA [facility] 03/21/22 Office Visit Lynn Posada MD [facility] 01/16/22 Office Visit Lynn Posada MD [facility] 12/28/21 Office Visit Natalya Walsh PA [facility] 08/07/21 Office Visit Lynn Posada MD [facility] Med 05/29/21 Office Visit Lynn Posada MD [facility] Showing recent visits within past 540 days with a meds authorizing provider and meeting all other requirements Future Appointments No visits were found meeting these conditions. Showing future appointments within next 150 days with a meds authorizing provider and meeting all other requirements [facility] 2017-04-30 21:22:23 [facility] enter Operative Report/Procedure PATIENT NAME: SHANAE DEL CID PHYSICIAN: Alex Fontanez MD Admitted: MR NUMBER: [id number] DISCHARGED: 04/11/2017 04:25:00 Date of surgery: 04/11/2017. [...] to disinsert the posterior hyaloid with suction. [place] blue dye was then used to stain [...] Alex Fontanez MD On 04/16/2017 12:10 PM [facility]
[2024-08-25] MEDS ORDERED: MORPHINE 4 MG/ML SYR ONE (11:05)
[2024-08-25] MEDS ORDERED: NA CHLORIDE 0.9% 1,000 ML ONE (11:06)
[2024-08-25 11:33] LABS: Absolute Basophils 0.1 K/uL (0-0.5); Absolute Eosinophils 0.2 K/uL (0-0.5); Absolute Lymphocytes (CBC) 1.2 K/uL (0.7-4.9); Absolute Neutrophil 11.7 K/uL (1.8-8.0); Basophils % 0.7 % (0-1.3); Eosinophils % 1.4 % (0-4.4); Hematocrit 41.2 % (36.0-45.0); Hemoglobin 13.6 g/dL (12.0-15.0); Lymphocytes % 8.5 % (15.3-44.8); MCH 28.8 pg (27.0-35.0); MCHC 33.1 g/dL (32.0-36.0); MCV 87.1 fL (80-100); MPV 7.6 fL (7.6-11.3); Neutrophils % 82.4 % (41.7-73.7); Platelets 673 thou/uL (152-406); RBC Red Blood Cell Count 4.73 M/uL (3.86-4.86)
[2024-08-25 11:44] LABS: Albumin 3.4 g/dL (3.4-5.0); Anion Gap 9.3 mEq/L (5.0-15.0); Bilirubin Total 0.5 mg/dL (0.2-1.0); Globulin 3.4 g/dL (2.3-3.5); Potassium 3.3 mEq/L (3.5-5.1); Protein, Total 6.8 g/dL (6.4-8.2)
--- NOTE | 2024-08-25 12:41 | RAD REPORT ---
EXAMINATION: Neck Angio CLINICAL INDICATION: Right neck pain TECHNIQUE: Axial CT images were obtained from the aortic arch to the skull base after intravenous adm inistration of 100 cc Isovue-370 utilizing angiographic protocol. Multiplanar reformats, as well as 3D post-processing (maximum intensity projection images, volume rendered images and/or shaded surface rendered images) were generated and reviewed. One or more of the following dose reduction techniques were used: Automated exposure control, adjustment of the mA and/or kV according to patient size, and/or iterative reconstruction. Unless otherwise specified, incidental findings do not require dedicated imaging follow-up. COMPARISON: No prior exam. FINDINGS: The visualized aortic arch and great vessels do not demonstrate a significant abnormality Calcified plaque proximal left internal carotid artery is moderate. Mild plaque involves remainder common carotid, internal carotid and external carotid arteries bilater ally. Evaluation of distal brachiocephalic artery nondiagnostic secondary to artifact. Mild to moderate calcified plaque distal left vertebral artery. Vertebral arteries are otherwise No dissection. Mild anterior subluxation C3 on C4. Mild to moderate anterior subluxation C4 on C5. Methods for NASCET criteria: Mild stenosis, 0% to 49%; Moderate stenosis 50% to 69%; Severe stenosis, 70% to 99% IMPRESSION: Calcified plaque proximal left internal carotid artery appears to result in an approximately 50% sten osis.
--- NOTE | 2024-08-25 12:48 | RAD REPORT ---
EXAMINATION: CT ABDOMEN AND PELVIS WITH CONTRAST CLINICAL INDICATION: Abdominal pain TECHNIQUE: CT abdomen and pelvis was performed, after the administration of 100 cc Isovue-300.. Sagit zahra and coronal reconstructions were obtained. One or more of the following dose reduction techniques were used: Automated exposure control, adjustment of the mA and kV according to patient si ze, and iterative reconstruction. Unless otherwise specified, incidental findings do not require dedicated imaging follow-up. [id number]. Oral contrast was not given which limits evaluation of bowel and appendix. COMPARISON: . 2021 FINDINGS: Mild dilatation intrahepatic biliary tree has developed. Spleen, pancreas and adrenals unremarkable. Bilateral renal cysts. Largest right kidney 5.5 cm. No hydronephrosis. Hysterectomy. Mild to moderate thickening of the wall of the descending, transverse and ascending colon compatible with colitis. Pneumatosis intestinalis not seen. Small benign right adnexal cyst. No evidence of diverticulitis. Mild chronic compression deformity L3 vertebral body. Minimal chronic compression deformity T12 verte bral body. Laxity anterior abdominal wall : IMPRESSION: Mild to moderate colitis Mild dilatation intrahepatic biliary tree of questionable significance. If abnormal enzymes are prese nt MRCP could be obtained
[2024-08-25] MEDS ORDERED: DIAZEPAM 5 MG TABLET ONE (13:31)
--- NOTE | 2024-08-25 13:52 | EDPHYS ---
Physician Documentation [facility] Name: Shanae Del Cid Age: 83 yrs Sex: Female : 1940 Arrival Date: 08/25/2024 Time: 10:31 Bed 18 Private MD: ED Physician Clint Fernandez HPI: 08/25 12:11 This 83 yrs old Female presents to ER via Ambulatory with complaints of Neck Pain, ms3 Diarrhea, Possible Dehydration. 12:11 83-year-old female with past medical history of bradycardia, eye disease, hypertension, ms3 hypothyroidism presents to the emergency department for right-sided neck pain and diarrhea. Patient states she became fatigued on Saturday, developed diarrhea on Saturday, and yesterday developed a crick in her neck. Patient states her neck pain is rated 10/10. She denies any alleviating factors. Patient states her pain is worse with turning her neck.. Historical: - Allergies: 10:50 No Known Allergies; ss - Home Meds: 10:40 tizanidine 4 mg Oral capsule [Active]; levothyroxine 100 mcg tablet [Active]; mb9 citalopram 40 mg tablet [Active]; amlodipine 5 mg tablet [Active]; buspirone 15 mg Oral tablet [Active]; candesartan oral [Active]; metoprolol tartrate 50 mg Oral tablet [Active]; montelukast 10 mg Oral tablet [Active]; - PMHx: 10:40 BRADYCARDIA; eye disease; Hypertension; Hypothyroidism; mb9 - PSHx: 10:40 bowel blockage SX; Tonsillectomy; uterus removed; mb9 - Immunization history:: Adult Immunizations up to date. - Infectious Disease History:: Denies. ROS: 12:11 Constitutional: Negative for fever, and chills. Cardiovascular: Negative for chest ms3 pain, and palpitations. Respiratory: Negative for shortness of breath, cough, wheezing, and pleuritic chest pain, 12:11 Abdomen/GI: Positive for diarrhea, Negative for abdominal pain, nausea and vomiting, 12:11 MS/extremity: Positive for Right-sided neck pain, Exam: 12:11 Constitutional: This is a well developed, well nourished patient who is awake, alert, ms3 and in no acute distress. Cardiovascular: Regular rate and rhythm with a normal S1 and S2. No gallops, murmurs, or rubs. Normal PMI, no JVD. No pulse deficits. Respiratory: Lungs have equal breath sounds bilaterally, clear to auscultation and percussion. No rales, rhonchi or wheezes noted. No increased work of breathing, no retractions or nasal flaring. Abdomen/GI: Soft, non-tender, with normal bowel sounds. No distension or tympany. No guarding or rebound. No evidence of tenderness throughout. Skin: Warm, dry with normal turgor. Normal color with no rashes, no lesions, and no evidence of cellulitis. Vital Signs: 10:46 BP 165 / 53; Pulse 77; Resp 20; Temp 99.1(O); Pulse Ox 97% on R/A; Weight 61.23 kg; ss Height 4 ft. 8 in. ; Pain 10/10; 11:41 BP 129 / 65; Pulse 66; Resp 18; Pulse Ox 95% on R/A; mb9 10:46 Body Mass Index 30.27 (61.23 kg, 142.24 cm) ss 10:46 Pain Scale: Adult ss MDM: 10:53 Medical Screening Exam initiated ms3 12:11 Differential diagnosis: Nonspecific abd pain, gastroenteritis, Vertebral artery ms3 dissection. 13:53 Data reviewed: vital signs, nurses notes, lab test result(s), radiologic studies, and ms3 as a result, I will discharge patient. I considered the following discharge prescriptions or medication management in the emergency department Medications were administered in the Emergency Department. See MAR. Historians other than the Patient: Daughter/Son: Patient's son. Counseling: I had a detailed discussion with the patient and/or guardian regarding the historical points, exam findings, and any diagnostic results supporting the discharge/admit diagnosis, lab results, radiology results, the need for outpatient follow up, to return to the emergency department if symptoms worsen or persist or if there are any questions or concerns that arise at home. Special discussion: I discussed with the patient/guardian in detail that at this point there is no indication for admission to the hospital. It is understood, however, that if the symptoms persist or worsen the patient needs to return immediately for re-evaluation. ED course: Discussed labs and CT findings with the patient. CT showing mild to moderate colitis. Patient states her diarrhea has subsided and stopped today. Patient to follow-up with primary care physician in 2 to 3 days. All questions were answered. Return precautions discussed include worsening symptoms, or any other concerns. 08/25 11:09 Order name: CBC with Diff; Complete Time: 12:05 ms3 08/25 11:09 Order name: CMP; Complete Time: 12:05 ms3 08/25 11:09 Order name: CT Neck Angio; Complete Time: 12:54 ms3 08/25 12:10 Order name: Abdomen ; Complete Time: 12:54 EDMS Administered Medications: 11:23 Drug: morphine IVP or IV 4 mg IVP once over 4 mins Route: IVP; Infused Over: 4 mins; mb9 Site: right antecubital; 11:42 Follow up: Response: No adverse reaction mb9 11:23 Drug: NS 0.9% IV 1000 ml IV at 1 bolus Per protocol; to be given as a bolus over 60 mb9 minutes Route: IV; Rate: 1 bolus; Site: right antecubital; 13:29 Follow up: Response: No adverse reaction; IV Status: Completed infusion mb9 13:29 Not Given (Physician Discretion): ondansetron 2 mg IVP once; over 2 minutes mb9 13:33 Drug: Diazepam PO 5 mg PO once Route: PO; mb9 14:11 Follow up: Response: No adverse reaction mb9 Disposition Summary: 08/25/24 13:52 Discharge Ordered Notes: Location: Home ms3 Condition: Stable ms3 Diagnosis - Right sided neck pain ms3 - Diarrhea, unspecified ms3 Followup: ms3 - With: Private Physician - When: 2 - 3 days - Reason: Recheck today's complaints Discharge Instructions: - Discharge Summary Sheet ms3 - Food Choices to Help Relieve Diarrhea, Adult ms3 - Diarrhea, Adult ms3 - Muscle Pain, Adult ms3 Forms: - Medication Reconciliation Form ms3 - Antibiotic Education ms3 - Prescription Opioid Use ms3 - Patient Portal Instructions ms3 - Leadership Thank You Letter ms3 Signatures: Dispatcher [employer] Marisol Lopez, RN RN Clint Rico DO DO ms3 Clara Vasquez RN RN mb9
--- NOTE | 2024-08-25 13:52 | ER ---
Nurse's Notes [facility] Name: Shanae Del Cid Age: 83 yrs Sex: Female : 1940 Arrival Date: 08/25/2024 Time: 10:31 Bed 18 Private MD: Diagnosis: Right sided neck pain;Diarrhea, unspecified Presentation: 08/25 10:46 Chief complaint: Patient states: diarrhea and not feeling well that began Saturday. Neck ss pain that began Saturday. Coronavirus screen: Client denies travel out of the [place] in the last 14 days. Ebola Screen: Patient denies exposure to infectious person. Patient denies travel to an Ebola-affected area in the 21 days before illness onset. Initial Sepsis Screen: Does the patient meet any 2 criteria? No. Patient's initial sepsis screen is negative. Does the patient have a suspected source of infection? No. Patient's initial sepsis screen is negative. Risk Assessment: Do you want to hurt yourself or someone else? Patient reports no desire to harm self or others. Onset of symptoms was August 21, 2024. 10:46 Method Of Arrival: Ambulatory ss 10:46 Acuity: CONNER 3 ss Historical: - Allergies: 10:50 No Known Allergies; ss - Home Meds: 10:40 tizanidine 4 mg Oral capsule [Active]; levothyroxine 100 mcg tablet [Active]; mb9 citalopram 40 mg tablet [Active]; amlodipine 5 mg tablet [Active]; buspirone 15 mg Oral tablet [Active]; candesartan oral [Active]; metoprolol tartrate 50 mg Oral tablet [Active]; montelukast 10 mg Oral tablet [Active]; - PMHx: 10:40 BRADYCARDIA; eye disease; Hypertension; Hypothyroidism; mb9 - PSHx: 10:40 bowel blockage SX; Tonsillectomy; uterus removed; mb9 - Immunization history:: Adult Immunizations up to date. - Infectious Disease History:: Denies. Screenin:46 [facility] ED Fall Risk Assessment (Adult) History of falling in the last 3 months, mb9 including since admission No falls in past 3 months (0 pts) Confusion or Disorientation No (0 pts) Intoxicated or Sedated No (0 pts) Impaired Gait No (0 pts) Mobility Assist Device Used Yes (1 pt) Altered Elimination No (0 pt) Score/Fall Risk Level 3 or more points = High Risk Oriented to surroundings, Maintained a safe environment, Educated pt \T\ family on fall prevention, incl call for assistance when getting out of bed. Abuse screen: Denies threats or abuse. Nutritional screening: No deficits noted. Tuberculosis screening: No symptoms or risk factors identified. Assessment: 11:00 General: Appears in no apparent distress. Behavior is calm, cooperative. Pain: mb9 Complains of pain in neck Pain does not radiate. Quality of pain is described as throbbing, Is continuous, Aggravated by increased activity, repositioning. Neuro: [place] Agitation-Sedation Scale (RASS): 0 - Alert and Calm Level of Consciousness is awake, alert, obeys commands, Oriented to person, place, time, situation, Appropriate for age. 11:00 Cardiovascular: Patient's skin is warm and dry. Respiratory: Airway is patent. GI: mb9 Abdomen is round non-distended, Bowel sounds present X 4 quads. Abd is soft and non tender X 4 quads. Reports diarrhea. : No signs and/or symptoms were reported regarding the genitourinary system. EENT: No signs and/or symptoms were reported regarding the EENT system. Derm: Skin is pink, warm \T\ dry. Musculoskeletal: Range of motion: limited in neck. 12:30 Reassessment: No changes from previously documented assessment. Patient and/or family mb9 updated on plan of care and expected duration. Pain level reassessed. Patient is alert, oriented x 3, equal unlabored respirations, skin warm/dry/pink. Vital Signs: 10:46 BP 165 / 53; Pulse 77; Resp 20; Temp 99.1(O); Pulse Ox 97% on R/A; Weight 61.23 kg; ss Height 4 ft. 8 in. ; Pain 10/10; 11:41 BP 129 / 65; Pulse 66; Resp 18; Pulse Ox 95% on R/A; mb9 10:46 Body Mass Index 30.27 (61.23 kg, 142.24 cm) ss 10:46 Pain Scale: Adult ss ED Course: 10:35 Patient arrived in ED. cj3 10:36 Clint Fernandez DO is Attending Physician. ms3 10:39 Clara Vasquez RN is Primary Nurse. mb9 10:39 Arm band placed on. mb9 10:47 Placed in gown. Bed in low position. Call light in reach. Side rails up X 1. Provided mb9 Education on: press call light if needing anything. Client placed on continuous cardiac and pulse oximetry monitoring. NIBP monitoring applied. 10:50 Triage completed. ss 11:23 No provider procedures requiring assistance completed. Initial lab(s) drawn, by nv, mb9 sent to lab. Inserted saline lock: 22 gauge in right antecubital area, using aseptic technique. Blood collected. Flushed with 10 mL NS. 12:29 CT Neck Angio In Process Unspecified. EDMS 12:29 Abdomen In Process Unspecified. EDMS 12:35 Patient requests pain medication. mb9 12:47 Patient requests pain medication. mb9 13:33 IV discontinued, intact, bleeding controlled, No redness/swelling at site. Pressure mb9 dressing applied. Administered Medications: 11:23 Drug: morphine IVP or IV 4 mg IVP once over 4 mins Route: IVP; Infused Over: 4 mins; mb9 Site: right antecubital; 11:42 Follow up: Response: No adverse reaction mb9 11:23 Drug: NS 0.9% IV 1000 ml IV at 1 bolus Per protocol; to be given as a bolus over 60 mb9 minutes Route: IV; Rate: 1 bolus; Site: right antecubital; 13:29 Follow up: Response: No adverse reaction; IV Status: Completed infusion mb9 13:29 Not Given (Physician Discretion): ondansetron 2 mg IVP once; over 2 minutes mb9 13:33 Drug: Diazepam PO 5 mg PO once Route: PO; mb9 14:11 Follow up: Response: No adverse reaction mb9 Medication: 10:47 VIS not applicable for this client. mb9 Outcome: 13:52 Discharge ordered by . ms3 14:10 Discharged to home via wheelchair, with family, mb9 14:10 Condition: stable 14:10 Discharge instructions given to patient, family, Instructed on discharge instructions, follow up and referral plans. Demonstrated understanding of instructions, follow-up care, 14:10 Patient left the ED. mb9 Signatures: Dispatcher [employer] Marisol Lopez, RN RN ss Clint Fernandez DO DO ms3 Claar Vasquez RN RN mb9 Aye Childs cj3
[2024-08-25 14:19] VITALS: TEMP 99.1
[2024-08-25 14:30] VITALS: BP 129/65; O2SAT 95
== END 2024-08-25 14:10 | disposition home or self-care (01) ==
LOC: ER 10:31
DX: M54.2 Cervicalgia (principal); R19.7 Diarrhea, unspecified; I10 Essential (primary) hypertension; E03.9 Hypothyroidism, unspecified
CPT/HCPCS: 96361; 85025; 36415; 80053; 70498; 74177; 96374; 99284; Q9967; J7030